=== PATIENT | male | born 1955 | race Caucasian/White ===

== ENCOUNTER 2017-01-11 12:36 | Emergency (ER) | payer SELFPAY ==
[~2017-01-11] VITALS: Ht 177.8 cm; Wt 125.0 kg
[~2017-01-11 12:36] MED LIST: DYAZ37.52 PO; FURO1TAB93 PO; LANO0.2510 PO; LEVO25TA36 PO; LISIPOW PO; METO25 PO; METO50TA PO; POTA-243 PO; PRIN20TA2 PO
[2017-01-11 12:37] VITALS: BP 190/99; PULSE 78; RESP 20; TEMP 98; O2SAT 100
--- NOTE | 2017-01-11 12:58 | PD ---
Physical Exam Time Seen by Provider: 12:56 Narrative 61yo M c/o diarrhea x 1-1/2 days. Denies abd pain, nausea, vomiting, fever. Also concerned that his defibrillator went off last night. Patient seen in triage. Awaiting bed placement. VS reviewed. Data Data Last Documented VS Vital Signs Date Time Temp Pulse Resp B/P Pulse Ox O2 Delivery O2 Flow Rate FiO2 01/11/17 12:37 98.0 78 20 190/99 100 Room Air MDM Supervised Visit with JOCELYNN: Angie Perkins Jan 11, 2017 12:58
[2017-01-11 16:47] VITALS: BP 174/113; PULSE 51; RESP 18; O2SAT 98
--- NOTE | 2017-01-11 16:57 | PD ---
HPI Chief Complaint: GI Complaint Time Seen by Provider: 16:57 Travel History International Travel<30 days: No Contact w/Intl Traveler<30days: No Traveled to known affect area: No History of Present Illness HPI 61-year-old male with a history of hypertension, diabetes, A. fib, CHF with a reported EF of 20% with pacemaker defibrillator presents to the emergency department for evaluation of 2 separate complaints: Defibrillator firing and diarrhea. The patient states that he is currently homeless and living in a nursing home and had 2 episodes of nonbloody diarrhea this morning and was told by the nursing home that he needed to come and be evaluated to make sure was not contagious. The patient also states that this morning around 4 AM he woke up suddenly and felt as though his defibrillator fired. States that he felt a jolt throughout his body with soreness in his chest which woke him up. PFSH Past Medical History Hx Anticoagulant Therapy: Yes (ELOQUIS ) ADHD: Yes Arthritis: No Asthma: No Anxiety: Yes Depression: Yes Heart Rhythm Problems: No Cardiac Catheterization: Yes (CATH WAS NEGATIVE, NO STENT PLACEMENT) Cardiovascular Problems: Yes (AICD , HTN) High Cholesterol: No Chest Pain: No Congestive Heart Failure: Yes COPD: No Cerebrovascular Accident: No Diabetes: Yes Patient Takes Glucophage: No Diminished Hearing: No GERD: No Genitourinary: No Headaches: No Hepatitis: No Hiatal Hernia: No Hypertension: Yes Kidney Stones: No Musculoskeletal: Yes (FX ANKLE LEFT, SKILL FX AT AGE 7.) Neurologic: No Reproductive: No Respiratory: No Immunizations Current: Yes Migraines: No Myocardial Infarction: No Renal Failure: No Seizures: No Sleep Apnea: Yes Ulcer: No Tetanus Vaccination: Unknown Influenza Vaccination: No ?: Not Past Surgical History Abdominal Surgery: Yes (GASTRIC BYPASS 2003) Appendectomy: Yes Cardiac Surgery: No Cholecystectomy: No Ear Surgery: No Endocrine Surgery: No Eye Surgery: No Genitourinary Surgery: No Gynecologic Surgery: No Oral Surgery: No Pacemaker: Yes ([employer]) Thoracic Surgery: No Tonsillectomy: Yes Other Surgery: Yes (HIATAL HERNIA REPAIR AGE 4) Social History Alcohol Use: No (QUIT 10/2008) Tobacco Use: No Substance Use: No Allergies-Medications (Allergen,Severity, Reaction): Coded Allergies: Ampicillin (Verified Allergy, Severe, 01/11/17) Fire Ant (Verified Allergy, Severe, Anaphylaxis, 01/11/17) Reported Meds & Prescriptions Reported Meds & Active Scripts Active Lasix (Furosemide) 40 Mg Tab 40 Mg PO DAILY Digoxin 0.25 Mg Tab 0.25 Mg PO DAILY Lisinopril 10 Mg Tab 10 Mg PO DAILY Reported Diphenhydramine (Diphenhydramine HCl) 25 Mg Tab 25 Mg PO DAILY PRN Eliquis (Apixaban) 5 Mg Tab 5 Mg PO BID Trazodone (Trazodone HCl) 50 Mg Tab 50 Mg PO HS Cymbalta DR (Duloxetine HCl) 60 Mg Capdr 60 Mg PO DAILY Lisinopril 10 Mg Tab 10 Mg PO DAILY Torsemide 20 Mg Tab 40 Mg PO DAILY Digoxin 0.25 Mg Tab 0.25 Mg PO DAILY Metoprolol Tartrate 50 Mg Tab 50 Mg PO BID Review of Systems Except as stated in HPI: all other systems reviewed are Neg Physical Exam Narrative GENERAL: Well-nourished and well-developed pleasant male patient in no acute distress who is nontoxic appearing. SKIN: Warm and dry. HEAD: Normocephalic and atraumatic. EYES: No injection, drainage, or hyphema noted. PERRLA. EOMI. ENT: No nasal drainage noted. Oropharynx is clear. NECK: Supple and the trachea is midline. CARDIOVASCULAR: Regular rate and rhythm. RESPIRATORY: Breath sounds are equal bilaterally with no accessory muscle use, wheezing, rhonchi, or crackles. GASTROINTESTINAL: Abdomen is soft, non-tender, and nondistended. MUSCULOSKELETAL: Bilateral lower extremity edema with slight weeping. No obvious deformities, cyanosis, or ecchymosis is present throughout the upper and lower extremities. Patient has full range of motion without any signs of neurovascular compromise. NEUROLOGICAL: Awake, alert, and oriented. Normal speech and gait. Cranial nerves are grossly intact. Data Data Last Documented VS Vital Signs Date Time Temp Pulse Resp B/P Pulse Ox O2 Delivery O2 Flow Rate FiO2 01/11/17 16:47 51 18 174/113 98 Room Air 01/11/17 12:37 98.0 Orders Complete Blood Count With Diff (01/11/17 16:55) Comprehensive Metabolic Panel (01/11/17 16:55) Iv Access Insert/Monitor (01/11/17 16:55) Ecg Monitoring (01/11/17 16:55) Oximetry (01/11/17 16:55) Sodium Chloride 0.9% Flush (Ns Flush) (01/11/17 17:00) Digoxin (01/11/17 16:55) Electrocardiogram (01/11/17 17:00) B-Type Natriuretic Peptide (01/11/17 17:21) Chest, Single Ap (01/11/17 17:21) Labs Laboratory Tests Test 01/11/17 17:15 White Blood Count 8.0 TH/MM3 Red Blood Count 4.55 MIL/MM3 Hemoglobin 10.0 GM/DL Hematocrit 32.3 % Mean Corpuscular Volume 71.0 FL Mean Corpuscular Hemoglobin 22.1 PG Mean Corpuscular Hemoglobin 31.1 % Concent Red Cell Distribution Width 19.0 % Platelet Count 258 TH/MM3 Mean Platelet Volume 6.9 FL Neutrophils (%) (Auto) 71.5 % Lymphocytes (%) (Auto) 16.7 % Monocytes (%) (Auto) 9.9 % Eosinophils (%) (Auto) 0.8 % Basophils (%) (Auto) 1.1 % Neutrophils # (Auto) 5.7 TH/MM3 Lymphocytes # (Auto) 1.3 TH/MM3 Monocytes # (Auto) 0.8 TH/MM3 Eosinophils # (Auto) 0.1 TH/MM3 Basophils # (Auto) 0.1 TH/MM3 CBC Comment DIFF FINAL Differential Comment Sodium Level 138 MEQ/L Potassium Level 3.7 MEQ/L Chloride Level 107 MEQ/L Carbon Dioxide Level 22.7 MEQ/L Anion Gap 8 MEQ/L Blood Urea Nitrogen 15 MG/DL Creatinine 1.31 MG/DL Estimat Glomerular Filtration 56 ML/MIN Rate Random Glucose 125 MG/DL Calcium Level 8.5 MG/DL Total Bilirubin 0.6 MG/DL Aspartate Amino Transf 19 U/L (AST/SGOT) Alanine Aminotransferase 20 U/L (ALT/SGPT) Alkaline Phosphatase 90 U/L B-Type Natriuretic Peptide 1143 PG/ML Total Protein 6.2 GM/DL Albumin 3.2 GM/DL Digoxin Level 1.3 NG/ML [facility] Medical Decision Making Medical Screen Exam Complete: Yes Emergency Medical Condition: Yes Differential Diagnosis Defibrillator firing versus atrial fibrillation versus heart failure versus renal failure versus medication refill Narrative Course 61-year-old male presents to the emergency department for evaluation of possible defibrillator firing last night. Patient is afebrile. He is hypertensive with a blood pressure 174/113. Patient is telling me that he's been out of his lisinopril for several days. States he took his last digoxin today. He has not been taking his Lasix because he states he does not have quick access to the bathroom at the nursing home. We'll check basic labs and if these are unremarkable we will discharge the patient with refills of these medications. EKG shows paced rhythm, no acute findings. Health Data Minder came and interrogated the patient's defibrillator and shows that it did not fire last night and the patient has been in atrial fibrillation. CBC shows moderate anemia with hemoglobin of 10.0, hematocrit 32.3, otherwise unremarkable. CMP shows mild renal insufficiency with a creatinine of 1.31, GFR 56. BNP is 1143. Digoxin is 1.3. Chest x-ray shows compensated cardiomegaly otherwise unremarkable. Patient has remained stable while here in the emergency department. Labs and imaging are reassuring. Shows signs of chronic heart failure but no evidence for acute heart failure. Patient will be given refills of Lisinopril and Digoxin and he is given a prescription for Lasix 40 mg and instructed to follow- up as an outpatient with a primary care. Patient is given outpatient resources. Patient verbalizes understanding and agreement with treatment plan. I discussed the case with my attending physician Dr. Simpson who is aware of the patients history, physical examination findings, and treatment plan. Diagnosis Primary Impression: Congestive heart failure Qualified Code: I50.9 - Chronic congestive heart failure, unspecified congestive heart failure type Additional Impression: Medication refill Referrals: Primary Care Physician Patient Instructions: General Instructions Additional Instructions: Take medications as prescribed. Follow-up with your Primary Care Physician. Return to the ED for any acute worsening of symptoms. Med/Other Pt SpecificInfo: Prescription(s) given Scripts Furosemide (Lasix)40 Mg Tab40 Mg PO DAILY #30 TAB Ref 0 Prov:Lori Simpson DO 01/11/17 Digoxin 0.25 Mg Tab0.25 Mg PO DAILY #30 TAB Ref 0 Prov:Lori Simpson DO 01/11/17 Lisinopril 10 Mg Tab10 Mg PO DAILY #30 TAB Ref 0 Prov:Lori Simpson DO 01/11/17 Disposition: 01 DISCHARGE HOME Condition: Stable Angie Mckeon Jan 11, 2017 16:57
[2017-01-11] MEDS ORDERED: SODIUM CHLORIDE 0.9% FLUSH 10 ML FLUSH IV FLUSH PRN (17:00)
[2017-01-11 17:32] LABS: AUTOMATED NEUTROPHIL # 5.7 TH/MM3 (1.8-7.7); BASOPHIL # 0.1 TH/MM3 (0-0.2); BASOPHIL % 1.1 % (0.0-2.0); EOSINOPHIL # 0.1 TH/MM3 (0-0.4); EOSINOPHIL % 0.8 % (0.0-4.0); HEMATOCRIT 32.3 % (39.0-51.0); HEMO FLAGS DIFF FINAL; LYMPH % 16.7 % (9.0-44.0); LYMPHOCYTE # 1.3 TH/MM3 (1.0-4.8); MEAN CORPUSCULAR HEMOGLOBIN 22.1 PG (27.0-34.0); MEAN CORPUSCULAR HGB CONC 31.1 % (32.0-36.0); MONO % 9.9 % (0.0-8.0); NEUT % 71.5 % (16.0-70.0); PLATELET COUNT 258 TH/MM3 (150-450); RED BLOOD COUNT 4.55 MIL/MM3 (4.50-5.90)
[2017-01-11 17:43] VITALS: BP 151/68; PULSE 102; RESP 20; TEMP 98.1; O2SAT 100
--- NOTE | 2017-01-11 17:53 | RADRPT ---
EXAM DATE/TIME: 01/11/2017 17:43 [facility] COMPARISON: No previous studies available for comparison. INDICATIONS : Palpitations. MEDICAL HISTORY : A-Fib. SURGICAL HISTORY : Pacemaker. ENCOUNTER: Initial ACUITY: 1 day PAIN SCORE: 0/10 LOCATION: Bilateral chest FINDINGS: Pacemaker is in good position. The lungs are clear. The heart is minimally enlarged. The pulmonary vascularity is normal. There is n o evidence for infiltrate or failure. The portion of the bony skeleton visualized is unremarkable. CONCLUSION: Compensated cardiomegaly otherwise negative Pacer in good position Clem Mendez MD FACR on January 11, 2017 at 17:50 Board Certified Radiologist. This report was verified electronically.
[2017-01-11 17:57] LABS: ANION GAP 8 MEQ/L (5-15); AST (GOT) 19 U/L (15-37); BICARBONATE 22.7 MEQ/L (21.0-32.0); BLOOD UREA NITROGEN 15 MG/DL (7-18); CHLORIDE 107 MEQ/L (98-107); GLOMERULAR FILTRATION RATE 56 ML/MIN (>89); POTASSIUM 3.7 MEQ/L (3.5-5.1); SODIUM (NA) 138 MEQ/L (136-145)
[2017-01-11 17:59] LABS: ALT (GPT) 20 U/L (12-78)
[2017-01-11] MEDS ORDERED: METO50TA PO (17:59)
[2017-01-11] MEDS ORDERED: DIGO0.25 PO ×2 (17:59→19:11)
[2017-01-11] MEDS ORDERED: TORS20TA PO (18:00)
[2017-01-11] MEDS ORDERED: CYMB60CA PO (18:02)
[2017-01-11] MEDS ORDERED: DIPH25TA2 PO (18:02)
[2017-01-11] MEDS ORDERED: LISI10TA3 PO ×2 (18:02→19:11)
[2017-01-11] MEDS ORDERED: TRAZ50TA12 PO (18:02)
[2017-01-11] MEDS ORDERED: APIX5TAB PO (18:02)
[2017-01-11 18:12] LABS: ALKALINE PHOSPHATASE 90 U/L (45-117); DIGOXIN 1.3 NG/ML (0.8-2.0); TOTAL BILIRUBIN ADULT 0.6 MG/DL (0.2-1.0)
[2017-01-11] MEDS ORDERED: FURO1TAB60 PO (19:11)
--- NOTE | 2017-01-12 17:08 | EKG ---
Date Performed: 01/11/2017 Time Performed: 17:30:23 PTAGE: 61 years EKG: UNCERTAIN IRREGULAR RHYTHM ELECTRONIC VENTRICULAR PACEMAKER -- CONTOUR ANALYSIS BASED ON IN TRINSIC RHYTHM ST DEVIATION AND MODERATE T-WAVE ABNORMALITY, CONSIDER LATERAL ISCHEMIA ABNORMAL ECG PREVIOUS TRACING : 01/18/2009 22.10 Compared to previous tracing, demand ventricular pacing is now present. DOCTOR: Arley Wall Interpretating Date/Time 01/12/2017 17:08:09
== END 2017-01-11 20:32 | disposition home or self-care (01) ==
LOC: NEPE 12:36
DX: R19.7 Diarrhea, unspecified (principal); I50.9 Heart failure, unspecified; D64.9 Anemia, unspecified; N28.9 Disorder of kidney and ureter, unspecified; I10 Essential (primary) hypertension; E11.9 Type 2 diabetes mellitus without complications; F41.9 Anxiety disorder, unspecified; F32.9 Major depressive disorder, single episode, unspecified; Z76.0 Encounter for issue of repeat prescription
CPT/HCPCS: 71010; 80053; 80162; 83880; 85025; 93005

== ENCOUNTER 2017-03-04 04:43 | Inpatient (IN) | payer SELFPAY ==
[2017-03-04] VITALS (9 sets, daily range): BP systolic 97–169; BP diastolic 61–97; PULSE 67–112; RESP 14–22; TEMP 97.4–98; O2SAT 96–100
[~2017-03-04] VITALS: Ht 177.8 cm; Wt 122.3 kg
[~2017-03-04 04:43] MED LIST changes: +APIX5TAB PO; +CYMB60CA PO; +DIGO0.25 PO; +DIPH25TA2 PO; -DYAZ37.52 PO; +FURO1TAB60 PO; -FURO1TAB93 PO; -LANO0.2510 PO; -LEVO25TA36 PO; +LISI10TA3 PO; -LISIPOW PO; -METO25 PO; -POTA-243 PO; -PRIN20TA2 PO; +TORS20TA PO; +TRAZ50TA12 PO
--- NOTE | 2017-03-04 05:03 | PD ---
HPI Chief Complaint: Cardiac Complaint Time Seen by Provider: 04:49 Travel History International Travel<30 days: No Contact w/Intl Traveler<30days: No Traveled to known affect area: No History of Present Illness HPI PATIENT C/O PROGRESSIVE SHORTNESS OF BREATH OVER PAST WEEK, WORSENING OVER PAST 2 DAYS, ALSO PATIENT C/O PALPITATIONS, WHICH WAS FOLLOWED BY DEFIBRILLATOR FIRING TODAY, PATIENT CAME TO ED FOR FURTHER EVAL....NO LOCAL PCP OR RECEIVER.....[employer] IS MAKER OF DEFIBRILLATOR. H/O CHF ( FAR BACK 2007 EF LESS THAN 30), AFIB (ON ELIQUIS), PACEMAKER DEFIBRILLATOR, HTN, SLEEP APNEA PFSH Past Medical History Hx Anticoagulant Therapy: Yes (ELOQUIS ) ADHD: Yes Arthritis: No Asthma: No Anxiety: Yes Depression: Yes Heart Rhythm Problems: No Cardiac Catheterization: Yes (CATH WAS NEGATIVE, NO STENT PLACEMENT) Cardiovascular Problems: Yes (AICD , HTN) High Cholesterol: No Chest Pain: No Congestive Heart Failure: Yes COPD: No Cerebrovascular Accident: No Diabetes: Yes Diminished Hearing: No GERD: No Genitourinary: No Headaches: No Hepatitis: No Hiatal Hernia: No Hypertension: Yes Kidney Stones: No Musculoskeletal: Yes (FX ANKLE LEFT, SKILL FX AT AGE 7.) Neurologic: No Reproductive: No Respiratory: No Immunizations Current: Yes Migraines: No Myocardial Infarction: No Renal Failure: No Seizures: No Sleep Apnea: Yes Ulcer: No ?: Not Past Surgical History Abdominal Surgery: Yes (GASTRIC BYPASS 2003) Appendectomy: Yes Cardiac Surgery: No Cholecystectomy: No Ear Surgery: No Endocrine Surgery: No Eye Surgery: No Genitourinary Surgery: No Gynecologic Surgery: No Oral Surgery: No Pacemaker: Yes ([employer]) Thoracic Surgery: No Tonsillectomy: Yes Other Surgery: Yes (HIATAL HERNIA REPAIR AGE 4) Social History Alcohol Use: No (QUIT 10/2008) Tobacco Use: No Substance Use: No Allergies-Medications (Allergen,Severity, Reaction): Coded Allergies: ampicillin (Unverified Allergy, Severe, 03/02/17) fire ant (Unverified Allergy, Severe, Anaphylaxis, 03/02/17) Reported Meds & Prescriptions Reported Meds & Active Scripts Active Review of Systems Except as stated in HPI: all other systems reviewed are Neg Cardiovascular: Positive: Chest Pain or Discomfort, Palpitations Respiratory: Positive: Shortness of Breath Physical Exam Narrative GENERAL: SKIN: Warm and dry. HEAD: Atraumatic. Normocephalic. EYES: Pupils equal and round. No scleral icterus. No injection or drainage. ENT: No nasal bleeding or discharge. Mucous membranes pink and moist. NECK: Trachea midline. POSITIVE JVD. CARDIOVASCULAR: TACHY AND IRREGULARLY IRREGULAR rhythm. RESPIRATORY: No accessory muscle use....LEFT BASILAR CRACKLES GASTROINTESTINAL: Abdomen soft, non-tender, nondistended. Hepatic and splenic margins not palpable. MUSCULOSKELETAL: Extremities without clubbing, cyanosis, LATRICE LE 3+ edema. No obvious deformities. NEUROLOGICAL: Awake and alert. No obvious cranial nerve deficits. Motor grossly within normal limits. Five out of 5 muscle strength in the arms and legs. Normal speech. PSYCHIATRIC: Appropriate mood and affect; insight and judgment normal. Data Data Last Documented VS Orders Orders Electrocardiogram (03/04/17 04:49) Complete Blood Count With Diff (03/04/17 04:49) Comprehensive Metabolic Panel (03/04/17 04:49) Ckmb (Isoenzyme) Profile (03/04/17 04:49) Troponin I (03/04/17 04:49) B-Type Natriuretic Peptide (03/04/17 04:49) Prothrombin Time / Inr (Pt) (03/04/17 04:49) Act Partial Throm Time (Ptt) (03/04/17 04:49) Lipase (03/04/17 04:49) Digoxin (03/04/17 04:49) Thyroid Stimulating Hormone (03/04/17 04:49) Iv Access Insert/Monitor (03/04/17 04:49) Furosemide Inj (Lasix Inj) (03/04/17 05:15) Aspirin Chew (Aspirin Chew) (03/04/17 05:15) Nitroglycerin 2% Oint (Nitroglycerin 2% (03/04/17 05:15) Chest, Pa & Lat (03/04/17 05:03) Diltiazem Inj (Cardizem Inj) (03/04/17 05:30) Admit Order (Ed Use Only) (03/04/17 06:49) Labs Laboratory Tests Test 03/04/17 05:05 White Blood Count 12.4 TH/MM3 Red Blood Count 4.89 MIL/MM3 Hemoglobin 10.5 GM/DL Hematocrit 33.8 % Mean Corpuscular Volume 69.0 FL Mean Corpuscular Hemoglobin 21.5 PG Mean Corpuscular Hemoglobin Concent 31.2 % Red Cell Distribution Width 17.2 % Platelet Count 202 TH/MM3 Mean Platelet Volume 7.6 FL Neutrophils (%) (Auto) 90.6 % Lymphocytes (%) (Auto) 3.8 % Monocytes (%) (Auto) 4.3 % Eosinophils (%) (Auto) 0.4 % Basophils (%) (Auto) 0.9 % Neutrophils # (Auto) 11.3 TH/MM3 Lymphocytes # (Auto) 0.5 TH/MM3 Monocytes # (Auto) 0.5 TH/MM3 Eosinophils # (Auto) 0.0 TH/MM3 Basophils # (Auto) 0.1 TH/MM3 CBC Comment AUTO DIFF Differential Comment AUTO DIFF CONFIRMED Platelet Estimate NORMAL Platelet Morphology Comment NORMAL Ovalocytes 2+ Prothrombin Time 13.4 SEC Prothromb Time International Ratio 1.2 RATIO Activated Partial Thromboplast Time 27.1 SEC Blood Urea Nitrogen 21 MG/DL Creatinine 1.80 MG/DL Random Glucose 143 MG/DL Total Protein 6.5 GM/DL Albumin 3.5 GM/DL Calcium Level 8.4 MG/DL Alkaline Phosphatase 80 U/L Aspartate Amino Transf (AST/SGOT) 17 U/L Alanine Aminotransferase (ALT/SGPT) 15 U/L Total Bilirubin 1.4 MG/DL Sodium Level 138 MEQ/L Potassium Level 3.4 MEQ/L Chloride Level 102 MEQ/L Carbon Dioxide Level 24.7 MEQ/L Anion Gap 11 MEQ/L Estimat Glomerular Filtration Rate 39 ML/MIN Total Creatine Kinase 57 U/L Troponin I 0.03 NG/ML B-Type Natriuretic Peptide 925 PG/ML Lipase 118 U/L Thyroid Stimulating Hormone 3rd Gen 6.260 uIU/ML Digoxin Level LESS THAN 0.1 NG/ML MDM Medical Decision Making Medical Screen Exam Complete: Yes Emergency Medical Condition: Yes Medical Record Reviewed: Yes Interpretation(s) AIB WITH RVR 112, INCOMPLETE LBBB, INVERTED T WAVE ON I,AVL,V5/V6 Differential Diagnosis STEMI V NONSTEMI V CHF EXAC V MALFUNCTIONING DEVICE Narrative Course patient given diuretic to aid his sob, afib with rvr likely secondary to decomp chf...will admit for obs and device interrogation Diagnosis Primary Impression: AFIB WITH RVR Additional Impression: Acute decompensated heart failure Admitting Information Admitting Physician Requests: Observation Scripts Lisinopril (Lisinopril) 10 Mg Tab 10 MG PO DAILY for Blood Pressure Management, #30 TAB 0 Refills Prov: Rick William MD 03/09/17 Potassium Chloride ER (Potassium Chloride ER) 20 Meq Tab 20 MEQ PO DAILY for Electrolyte Replacement, #30 TAB 0 Refills Prov: Rick William MD 03/09/17 Bumetanide (Bumetanide) 1 Mg Tab 1 MG PO BID, #60 TAB 0 Refills May take extra pill per every 24 hours for worsening swelling in legs Prov: Rick William MD 03/09/17 Metolazone (Metolazone) 5 Mg Tab 5 MG PO DAILY for Regulate Heart Beat, #30 TAB 0 Refills Prov: Rick William MD 03/09/17 Metoprolol Tartrate (Lopressor) 100 Mg Tab 100 MG PO BID@08,20 for Regulate Heart Beat, #60 TAB Prov: Rick William MD 03/09/17 Apixaban (Eliquis) 5 Mg Tab 5 MG PO BID for Blood Clot Prevention, #60 TAB 0 Refills Prov: Rick William MD 03/09/17 Trazodone (Trazodone) 50 Mg Tab 50 MG PO HS for Control Depression, #30 TAB 0 Refills Prov: Rick William MD 03/09/17 Duldorothy AUSTIN (Espinoza A[place]IN) 60 Mg Capdr 60 MG PO DAILY for Depression Control, #30 CAP 0 Refills Prov: Rick William MD 03/09/17 Jayce Waterman MD Mar 04, 2017 05:03
[2017-03-04 05:12] LABS: AUTOMATED NEUTROPHIL # 11.3 TH/MM3 (1.8-7.7); BASOPHIL # 0.1 TH/MM3 (0-0.2); BASOPHIL % 0.9 % (0.0-2.0); EOSINOPHIL % 0.4 % (0.0-4.0); HEMATOCRIT 33.8 % (39.0-51.0); LYMPH % 3.8 % (9.0-44.0); LYMPHOCYTE # 0.5 TH/MM3 (1.0-4.8); MEAN CORPUSCULAR HEMOGLOBIN 21.5 PG (27.0-34.0); MEAN CORPUSCULAR HGB CONC 31.2 % (32.0-36.0); MONO % 4.3 % (0.0-8.0); NEUT % 90.6 % (16.0-70.0); PLATELET COUNT 202 TH/MM3 (150-450); RED BLOOD COUNT 4.89 MIL/MM3 (4.50-5.90); RED CELL DISTRIBUTION WIDTH 17.2 % (11.6-17.2); WHITE BLOOD COUNT 12.4 TH/MM3 (4.0-11.0)
[2017-03-04 05:13] LABS: HEMO FLAGS AUTO DIFF
[2017-03-04] MEDS ORDERED: ASPIRIN 81 MG CHEW TAB PO ONE (05:15)
[2017-03-04] MEDS ORDERED: FUROSEMIDE 100 MG/10 ML VIAL IVP ONE (05:15)
[2017-03-04] MEDS ORDERED: NITROGLYCERIN 2% OINT 1 GM PACKET TOP ONE (05:15)
--- NOTE | 2017-03-04 05:21 | RADRPT ---
EXAM DATE/TIME: 03/04/2017 05:02 [facility] COMPARISON: CHEST SINGLE AP, January 11, 2017, 17:43. INDICATIONS : Weakness. Shortness of breath. Chest pain. MEDICAL HISTORY : A-fib. SURGICAL HISTORY : Pacemaker. ENCOUNTER: Initial ACUITY: 1 day PAIN SCORE: 3/10 LOCATION: Bilateral chest FINDINGS: Interval development of a large left pleural effusion causing obscuration of the entire left hemidiap hragm and most the left heart border. Meniscal interface laterally. The right lung is clear. The h eart is enlarged, similar to prior. Cardiac pacer leads stable. CONCLUSION: Interval development of large left pleural effusion. Kartik Winters MD on March 04, 2017 at 5:18 Board Certified Radiologist. This report was verified electronically.
[2017-03-04 05:26] LABS: APTT (PATIENT) 27.1 SEC (24.3-30.1); INTERNATIONAL NORMALIZED RATIO 1.2 RATIO; PROTHROMBIN TIME - PATIENT 13.4 SEC (9.8-11.6)
[2017-03-04] MEDS ORDERED: DILTIAZEM HCL 25 MG/5 ML VIAL IV ONE ×2 (05:30→14:30)
[2017-03-04 05:44] LABS: OVALOCYTES 2+ (NORMAL); PLATELET ESTIMATE SMEAR NORMAL (NORMAL); PLATELET MORPHOLOGY NORMAL (NORMAL); SCAN/DIFF AUTO DIFF CONFIRMED
[2017-03-04 05:50] LABS: ALT (GPT) 15 U/L (12-78); ANION GAP 11 MEQ/L (5-15); AST (GOT) 17 U/L (15-37); BICARBONATE 24.7 MEQ/L (21.0-32.0); BLOOD UREA NITROGEN 21 MG/DL (7-18); CHLORIDE 102 MEQ/L (98-107); GLOMERULAR FILTRATION RATE 39 ML/MIN (>89); POTASSIUM 3.4 MEQ/L (3.5-5.1); SODIUM (NA) 138 MEQ/L (136-145)
[2017-03-04 06:07] LABS: ALKALINE PHOSPHATASE 80 U/L (45-117); DIGOXIN LESS THAN 0.1 NG/ML (0.8-2.0); TOTAL BILIRUBIN ADULT 1.4 MG/DL (0.2-1.0)
[2017-03-04 06:08] LABS: CREATINE KINASE 57 U/L (39-308)
[2017-03-04] MEDS ORDERED: SODIUM CHLORIDE 0.9% FLUSH 10 ML FLUSH IV FLUSH PRN (07:00)
[2017-03-04] MEDS ORDERED: SENNOSIDES 8.6 MG TAB PO PRN (07:00)
[2017-03-04] MEDS ORDERED: BISACODYL 10 MG SUPP RECTAL PRN (07:00)
[2017-03-04] MEDS ORDERED: LACTULOSE SYRUP 20 GM/30 ML CUP PO PRN (07:00)
[2017-03-04] MEDS ORDERED: MAGNESIUM HYDROXIDE SUSP 30 ML CUP PO PRN (07:00)
[2017-03-04] MEDS ORDERED: NALOXONE HCL 0.4 MG/ML AMP IV PRN (07:00)
--- NOTE | 2017-03-04 08:59 | EKG ---
Date Performed: 03/04/2017 Time Performed: 04:55:20 PTAGE: 61 years EKG: ATRIAL FIBRILLATION WITH RAPID VENTRICULAR RESPONSE POSSIBLE LATERAL MYOCARDIAL INFARCTION ABNORMAL ECG PREVIOUS TRACING : 01/11/2017 17.30 compared to the previous EKG atrial fibrillation with rapi d ventricular response is new DOCTOR: Fredrick Castro Interpretating Date/Time 03/04/2017 08:54:47
[2017-03-04] MEDS: SODIUM CHLORIDE 0.9% FLUSH 10 ML FLUSH IV FLUSH SCH ×2 (09:10→20:59)
[2017-03-04] MEDS: DOCUSATE SODIUM 50 MG/SENNA 8.6 MG TAB PO SCH ×2 (09:24→20:58)
--- NOTE | 2017-03-04 09:26 | HHI.HP ---
[facility] Service [facility] Primary Care Physician No Primary Care Physician Admission Diagnosis AFIB WITH RVR, CHF EXAC, S/P AICD FIRING Diagnoses: Chief Complaint: "My defibrillator shocked me" Travel History International Travel<30 Days: No Contact w/Intl Traveler <30 Da: No Traveled to Known Affected Are: No History of Present Illness 61-year-old white male being admitted for ICD firings and shortness of breath. Patient reports being in his usual state of health until yesterday evening when he started feeling his defibrillator fire. He had taken both of his twice a day doses of metoprolol earlier in the day and in response to this first set of shots he took an extra dose which she says usually helps but did not this time. So he took a fourth dose of metoprolol which he says helped somewhat with the shock still persisting so he decided to proceed to the ER. Prior to the shocks U denies any acute changes in his health. Says that he has intermittent fluctuating shortness of breath that was worse earlier in the morning yesterday and got better by the evening. Denies having any chest pain prior to the shocks or any lightheadedness or generalized weakness or any persistent worsening shortness of breath. His is present at the bedside and says that his lower extremity swelling has worsened over time (patient says it has been worse than this); patient also says that his abdominal distention is slightly worse. Denies any nausea. Patient does report being out of his medications due to financial issues for many months (including lisinopril); says that the only medications he's been taking regularly as his metoprolol and eliquis. Says that he has been taking his torsemide on and off to try to spare the supply. Says that he had his ICD placed in [facility] less than 2 years ago. Denies ever having any cardiac stents or bypass surgery. Review of Systems Except as stated in HPI: all other systems reviewed are Neg Past Family Social History Past Medical History afib, depression, CHFrEF (25-30%). Past Surgical History appendectomy, abdominal hernia, multiple "normal cardiac caths" per patient; most recent in system in 2007 w/ normal coronaries. Allergies: Coded Allergies: ampicillin (Unverified Allergy, Severe, 03/02/17) fire ant (Unverified Allergy, Severe, Anaphylaxis, 03/02/17) Family History HTN Social History lives in [facility] (homeless), denies smoking, drinks 3-4 beers a few times a week Physical Exam Vital Signs Vital Signs Date Time Temp Pulse Resp B/P Pulse Ox O2 Delivery O2 Flow Rate FiO2 03/04/17 06:47 93 18 96 Nasal Cannula 2 03/04/17 05:24 112 18 169/97 99 Room Air 03/04/17 04:47 97.6 95 16 97 Physical Exam VS: Reviewed GENERAL: No acute distress SKIN: Warm and dry. Chronic brawny skin changes on anterior shins bilaterally EYES: No scleral icterus. No injection or drainage. ENT: No nasal bleeding or discharge. CARDIOVASCULAR: Regular rate and rhythm. no murmurs, trace JVD, 2+ moderate lower extremity edema RESPIRATORY: No accessory muscle use. Slightly decreased breath sounds on the left base, otherwise clear on the left and completely clear on the right GASTROINTESTINAL: Abdomen soft, mildly distended and diffusely MUSCULOSKELETAL: Extremities without clubbing, cyanosis, or edema. No obvious deformities. grossly intact ROM with 5/5 strength in upper and lower extremities proximally NEUROLOGICAL: Awake and alert. No obvious cranial nerve deficits. No facial droop nor slurred speech noted. PSYCHIATRIC: insight and judgment normal. Laboratory Laboratory Tests Test 03/04/17 05:05 White Blood Count 12.4 Red Blood Count 4.89 Hemoglobin 10.5 Hematocrit 33.8 Mean Corpuscular Volume 69.0 Mean Corpuscular Hemoglobin 21.5 Mean Corpuscular Hemoglobin 31.2 Concent Red Cell Distribution Width 17.2 Platelet Count 202 Mean Platelet Volume 7.6 Neutrophils (%) (Auto) 90.6 Lymphocytes (%) (Auto) 3.8 Monocytes (%) (Auto) 4.3 Eosinophils (%) (Auto) 0.4 Basophils (%) (Auto) 0.9 Neutrophils # (Auto) 11.3 Lymphocytes # (Auto) 0.5 Monocytes # (Auto) 0.5 Eosinophils # (Auto) 0.0 Basophils # (Auto) 0.1 CBC Comment AUTO DIFF Differential Comment AUTO DIFF CONFIRMED Platelet Estimate NORMAL Platelet Morphology Comment NORMAL Ovalocytes 2+ Prothrombin Time 13.4 Prothromb Time International 1.2 Ratio Activated Partial 27.1 Thromboplast Time Sodium Level 138 Potassium Level 3.4 Chloride Level 102 Carbon Dioxide Level 24.7 Anion Gap 11 Blood Urea Nitrogen 21 Creatinine 1.80 Estimat Glomerular Filtration 39 Rate Random Glucose 143 Calcium Level 8.4 Total Bilirubin 1.4 Aspartate Amino Transf 17 (AST/SGOT) Alanine Aminotransferase 15 (ALT/SGPT) Alkaline Phosphatase 80 Total Creatine Kinase 57 Troponin I 0.03 B-Type Natriuretic Peptide 925 Total Protein 6.5 Albumin 3.5 Lipase 118 Thyroid Stimulating Hormone 6.260 3rd Gen Digoxin Level LESS THAN 0.1 Result Diagram: 03/04/17 0505 03/04/17 050 Imaging Last Impressions Chest X-Ray 03/04/17 0503 Signed Impressions: Service Date/Time: , March 04, 2017 05:02 - CONCLUSION: Interval development of large left pleural effusion. Kartik Winters MD My independent review of the film does show substantial left-sided pleural effusion along with an enlarged heart Assessment and Plan Problem List: (1) Medication refill ICD Code: Z76.0 Status: Acute (2) Congestive heart failure ICD Code: I50.9 Status: Acute (3) Acute decompensated heart failure ICD Code: I50.9 Status: Acute Assessment and Plan 61-year-old white male being admitted for ICD firings and acute decompensated heart failure. History of medication noncompliance. 1) ICD firings - Unsure if this is due to A. fib with RVR versus something more serious such as V. tach. Received diltiazem injection and emergency department, currently stable rhythm. Contacting dredge pumper to interrogate device. Placing patient on telemetry and ordering serum magnesium. We'll consider touching base with EP. will trend cardiac troponins at this time to look for any severely elevated levels as they are likely to be elevated from Afib and shocks. 2) pleural effusion - Likely secondary to heart failure given clinical picture, will assess for thoracentesis with labs to be drawn. Received IV Lasix in the emergency department. 3) CHFrEF% - resume home dose of lisinopril, judicious diuresis given impaired RF, continue home metoprolol. ordering Free T4 given elevated TSH. 4) afib - continue home lopressor, hold eliquis in light of possible procedure 5) renal insufficiency - suspect this is chronic, judicious diuresis, starting lisinopril. 6) depression - monitor conservatively since pt has been off of meds, may consider restarting trazodone over cymbalta given less cardiac S/Es. 7) elevatd tsh - ordering free t4 Physician Certification 2 Midnight Certification Type: Admission for Inpatient Services Order for Inpatient Services The services are ordered in accordance with Medicare regulations or non- Medicare payer requirements, as applicable. In the case of services not specified as inpatient-only, they are appropriately provided as inpatient services in accordance with the 2-midnight benchmark. Estimated LOS (days): 3 3 days is the estimated time the patient will need to remain in the hospital, assuming treatment plan goals are met and no additional complications. Post-Hospital Plan: Home Rick William MD Mar 04, 2017 09:26
[2017-03-04] MEDS ORDERED: METOPROLOL TARTRATE 50 MG TAB PO SCH (10:00)
[2017-03-04] MEDS ORDERED: LISINOPRIL 10 MG TAB PO SCH (10:00)
[2017-03-04] MEDS ORDERED: TORSEMIDE 20 MG TAB PO SCH (10:00)
[2017-03-04 10:31] LABS: MAGNESIUM 1.9 MG/DL (1.5-2.5)
[2017-03-04 10:34] LABS: FREE T4 1.37 NG/DL (0.76-1.46)
[2017-03-04] MEDS ORDERED: ACETAMINOPHEN 500 MG CPLT PO ONE (14:30)
[2017-03-04] MEDS ORDERED: LORazepam 2 MG/ML VIAL IV PUSH PRN (15:00)
[2017-03-04] MEDS ORDERED: MAGNESIUM SULFATE 1 GM PREMIX 100 ML IV ONE (16:45)
[2017-03-04] MEDS: DILTIAZEM-CD 180 MG CAP ER PO SCH (17:24)
--- NOTE | 2017-03-04 20:47 | MB ---
cc: DAVID SOLORZANO M.D. DATE OF CONSULTATION 03/04/17 ELECTROPHYSIOLOGY CONSULT REASON FOR CONSULTATION Defibrillatory shock, atrial fibrillation with biventricular response. HISTORY OF PRESENT ILLNESS Mr. Varela is a 61-year-old gentleman with history of atrial fibrillation, congestive heart failure, cardiomyopathy. He has a defibrillator implanted around 2 years ago in [place], [place]. He has heart failure. He has atrial fibrillation. His ejection is around 20%. His condition began to deteriorate. He has a recent hospitalization in December, was discharged home. The gentleman readmitted due to congestive heart failure, uncompensated and atrial fibrillation with biventricular response and multiple defibrillatory shock. The chart was reviewed. The patient was evaluate ALLERGIES AMPICILLIN AND FIRE ANT. SOCIAL HISTORY The patient used to drink three beers a day. Stopped drinking around 6 months ago. FAMILY HISTORY Noncontributory to his current medical condition. MEDICATIONS Currently he is takin. Trazodone 50 milligrams at bedtime. 2. Metoprolol 100 milligrams twice a day. 3. Lorazepam. 4. Cardizem 180 milligrams a day. 5. Lisinopril 10 milligrams a day. 6. Torsemide. REVIEW OF SYSTEMS Currently, refers shortness of breath on minimal activity. No chest pain or chest discomfort. He referred defibrillatory shock. PHYSICAL EXAMINATION GENERAL: Alert, fully oriented. VITAL SIGNS: Blood pressure 131/81, pulse 98, respiratory rate 20, 22. LUNGS: Some minimal crackles. CARDIOVASCULAR: S1-S2, irregular, tachycardia. There is a systolic ejection murmur, 2/6. ABDOMEN: Obese. No mass or bruit. EXTREMITIES: Edema +2, 3. LABORATORY DATA Hemoglobin 10.5, white blood cell 12.4, potassium 3.4, creatinine is 1.80. Troponin 0.03. TSH 6.26, INR 1.2. ASSESSMENT AND RECOMMENDATIONS Mr. Varela has atrial fibrillation. Heart rate very difficult to control. He is in atrial fibrillation most of the time. 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 His heart rate will need to be controlled. Also, he severe edema of the extremity. He is on torsemide. I am going to DC that and put him on Bumex. I understand the creatinine is 1.82. I am going to add Entresto tomorrow. By increasing output renal function may be improved. This is why lisinopril will be DCd, Entresto will be added. I am going to request a 2-D echo. Defibrillatory shock were due to atrial fibrillation biventricular response. I am going to request an echocardiogram. If the gentleman has a very severe enlarged left atrium and not a candidate for atrial fibrillation ablation then he will need AV node modification and bi-V pacing. Otherwise, if the atrium is less than 5.9 centimeters then I will give it a ___ to atrial fibrillation ablation. The case extensively discussed with him. He was on anticoagulation at home, Eliquis. For now Eliquis will be held. Medication will be modified. Further decision will be taken in the morning. The patient also needs a nuclear stress study to rule out ischemia. There is no history of coronary artery disease. David Solorzano MD HS/EO /6:49 PM /8:29 PM
[2017-03-04] MEDS: METOPROLOL TARTRATE 100 MG TAB PO SCH (20:58)
[2017-03-04] MEDS: BUMETANIDE INJ 1 MG/4 ML VIAL IV PUSH SCH (20:59)
[2017-03-04] MEDS: traZODone HCL 50 MG TAB PO SCH (20:59)
[2017-03-05] VITALS (9 sets, daily range): BP systolic 103–146; BP diastolic 70–100; PULSE 70–97; RESP 16–22; TEMP 97.6–99.2; O2SAT 95–100
[2017-03-05] MEDS: SODIUM CHLORIDE 0.9% FLUSH 10 ML FLUSH IV FLUSH SCH ×2 (07:49→20:57)
[2017-03-05] MEDS: DOCUSATE SODIUM 50 MG/SENNA 8.6 MG TAB PO SCH ×2 (08:47→20:56)
[2017-03-05] MEDS: DILTIAZEM-CD 180 MG CAP ER PO SCH (08:47)
[2017-03-05] MEDS: METOPROLOL TARTRATE 100 MG TAB PO SCH ×2 (08:47→20:57)
[2017-03-05] MEDS: BUMETANIDE INJ 1 MG/4 ML VIAL IV PUSH SCH ×2 (08:47→17:29)
[2017-03-05] MEDS ORDERED: REGADENOSON INJ 0.4 MG/5 ML SYR ONE (09:22)
[2017-03-05 09:51] LABS: BICARBONATE 27.4 MEQ/L (21.0-32.0)
[2017-03-05 10:01] LABS: POTASSIUM 2.9 MEQ/L (3.5-5.1)
[2017-03-05] MEDS ORDERED: LIDOCAINE HCL 1% PF 30 ML VIAL ONE (11:16)
--- NOTE | 2017-03-05 12:04 | RADRPT ---
EXAM DATE/TIME: 03/05/2017 11:49 [facility] COMPARISON: CHEST PA & LAT, March 04, 2017, 5:02. INDICATIONS : Post thoracentesis. MEDICAL HISTORY : Atrial fibrillation. SURGICAL HISTORY : Pacemaker. ENCOUNTER: Initial ACUITY: 1 day PAIN SCORE: 0/10 LOCATION: Bilateral chest FINDINGS: The heart is enlarged. Pericardial effusion is not excluded. There is a left basilar effusion and con solidative change. There is decreased volume of fluid at the left base compared to previous study. Th ere is a small effusion at the right lung base. CONCLUSION: 1. Bilateral effusions larger on the left than the right with consolidation in the left lung base. Th ere has been a significant reduction in the volume of the fluid on the left compared to previous. No pneumothorax is seen. 2. Advanced cardiomegaly. Pericardial effusion is not excluded. Joe Mendez MD on March 05, 2017 at 12:01 Board Certified Radiologist. This report was verified electronically.
--- NOTE | 2017-03-05 12:15 | RADRPT ---
EXAM DATE/TIME: 03/05/2017 10:59 [facility] COMPARISON: No previous studies available for comparison. INDICATIONS : Left pleural effusion. MEDICAL HISTORY : Congestive heart failure. HTN. Sleep apnea. Left ankle fracture. Diabetes. ADHD. Depression. Anxiet y. Anticoagulant therapy, Eliquis. SURGICAL HISTORY : Appendectomy. Tonsillectomy. Pacemaker. Cardiac cath. Hiatal hernia repair. Gastric bypass. ENCOUNTER: Initial ACUITY: 2 days PAIN SCORE: 0/10 LOCATION: Left chest FLUID: Total volume of 1,300 cc of clear, yellow fluid was removed. Fluid was sent to lab for ordered studies. TECHNIQUE: 1. Ultrasound guidance for thoracentesis. 2. Thoracentesis. The risks, benefits, and alternatives to ultrasound guided thoracentesis were explained to the patien t in lay simple terms, including the risk of bleeding and infection. Written and verbal informed con sent was obtained. Appropriate area for thoracentesis was marked under ultrasound guidance with the patient in the uprig ht position. Overlying skin was prepped and draped in the usual sterile fashion and with local anest hetic, a dermatotomy was made with an 11 blade scalpel. A 6 [place]awk thoracentesis catheter was placed in the pleural space and fluid was removed. Catheter was then removed and a sterile dressing applie d. There were no immediate complications. The patient tolerated the procedure well and the left the ultrasound suite in stable condition. Chest radiograph is to be obtained. CONCLUSION: Uncomplicated ultrasound guided thoracentesis. Clem Mendez MD FACR on March 05, 2017 at 12:14 Board Certified Radiologist. This report was verified electronically.
[2017-03-05 13:25] LABS: PLEURAL FLUID LYMPHS 18 %
--- NOTE | 2017-03-05 17:34 | HHI.PR ---
Subjective Remarks Follow-up on ICD firing. Says that he feels about the same breathing-palm since yesterday. Does report having some persistent sputum production after the thoracentesis. Says his lower extremity swelling still about the same, says he did not experience any chest pain during the stress test today. Objective Vital Signs Date Time Temp Pulse Resp B/P Pulse Ox O2 Delivery O2 Flow Rate FiO2 03/05/17 12:15 72 16 135/89 100 03/05/17 12:09 Room Air 03/05/17 12:00 78 16 146/100 100 03/05/17 12:00 97.6 82 20 113/75 97 03/05/17 11:45 98.0 76 16 138/98 100 03/05/17 11:15 99.2 70 20 120/77 98 03/05/17 08:00 98.1 80 20 139/78 95 03/05/17 04:00 Room Air 03/05/17 04:00 97.7 97 18 146/79 96 03/05/17 00:00 Room Air 03/05/17 00:00 98.3 87 18 103/70 99 03/04/17 20:00 98.0 67 18 136/72 96 03/04/17 20:00 Room Air 03/04/17 20:00 87 I/O 03/04/17 03/04/17 03/04/17 03/05/17 03/05/17 03/05/17 07:00 15:00 23:00 07:00 15:00 23:00 Intake Total 480 ml 240 ml Output Total 400 ml 400 ml 900 ml Balance -400 ml 80 ml -660 ml Intake Oral 480 ml 240 ml Output Urine Total 400 ml 400 ml 900 ml # Voids 1 # Bowel Movements 1 0 Result Diagram: 03/04/17 0505 03/05/17 0809 Imaging Last Impressions Thoracentesis Ultrasound 03/05/17 0000 Signed Impressions: Service Date/Time: Sunday, March 05, 2017 10:59 - CONCLUSION: Uncomplicated ultrasound guided thoracentesis. Clem Mendez MD FACR Chest X-Ray 03/05/17 0000 Signed Impressions: Service Date/Time: Sunday, March 05, 2017 11:49 - CONCLUSION: 1. Bilateral effusions larger on the left than the right with consolidation in the left lung base. There has been a significant reduction in the volume of the fluid on the left compared to previous. No pneumothorax is seen. 2. Advanced cardiomegaly. Pericardial effusion is not excluded. Joe Mendez MD Objective Remarks GENERAL: Resting comfortably in bed, no acute distress CARDIOVASCULAR: Regular rate and rhythm without murmurs, gallops, or rubs. RESPIRATORY: Minimal rales on left base, otherwise breath sounds are good bilaterally and clear GASTROINTESTINAL: Abdomen soft, non-tender, nondistended. MUSCULOSKELETAL: No cyanosis: Moderate +1 pitting edema in both lower extremities A/P Problem List: (1) Congestive heart failure ICD Code: I50.9 (2) Acute decompensated heart failure ICD Code: I50.9 Assessment and Plan 61-year-old white male being admitted for ICD firings and acute decompensated heart failure. History of medication noncompliance. 1) ICD firings - Fortunately has stopped firing, electrophysiology consulted and appreciate recommendations. Heart rate is under good control currently w/ diltiazem and lopressor. Stress test results are pending 2) pleural effusion - Improved with thoracentesis yesterday 3) CHFrEF% -Swapped from lisinopril to entresto, judicious diuresis given impaired RF, continue home metoprolol. ordering Free T4 given elevated TSH. Is currently on Bumex per cardiology 4) afib - continue home lopressor, hold eliquis in light of possible procedure 5) renal insufficiency - suspect this is chronic, judicious diuresis, on entresto 6) depression - monitor conservatively since pt has been off of meds, may consider restarting trazodone over cymbalta given less cardiac S/Es. 7) elevatd tsh -free t4 wnl Continue diuresis for another day, sputum culture ordered, pending further cardiac test results and further recs regarding afib tx. Rick William MD Mar 05, 2017 17:34
[2017-03-05] MEDS ORDERED: POTASSIUM CHLORIDE 10 MEQ CONTROLLED RELEASE TAB PO ONE (18:00)
[2017-03-05] MEDS: traZODone HCL 50 MG TAB PO SCH (20:56)
[2017-03-05] MEDS: SACUBITRIL/VALSARTAN 24 MG-26 MG TAB PO SCH (20:57)
--- NOTE | 2017-03-05 22:34 | HHI.PR ---
Subjective Remarks Feeling better Objective Vital Signs Date Time Temp Pulse Resp B/P Pulse Ox O2 Delivery O2 Flow Rate FiO2 03/05/17 16:00 97.8 72 22 128/72 97 03/05/17 12:15 72 16 135/89 100 03/05/17 12:09 Room Air 03/05/17 12:00 78 16 146/100 100 03/05/17 12:00 97.6 82 20 113/75 97 03/05/17 11:45 98.0 76 16 138/98 100 03/05/17 11:15 99.2 70 20 120/77 98 03/05/17 08:00 98.1 80 20 139/78 95 03/05/17 04:00 Room Air 03/05/17 04:00 97.7 97 18 146/79 96 03/05/17 00:00 Room Air 03/05/17 00:00 98.3 87 18 103/70 99 I/O 03/04/17 03/04/17 03/04/17 03/05/17 03/05/17 03/05/17 06:59 14:59 22:59 06:59 14:59 22:59 Intake Total 480 ml 240 ml Output Total 400 ml 400 ml 900 ml Balance -400 ml 80 ml -660 ml Intake Oral 480 ml 240 ml Output Urine Total 400 ml 400 ml 900 ml # Voids 1 # Bowel Movements 1 0 Result Diagram: 03/04/17 0505 03/05/17 0809 Imaging Alert, fully oriented Lungs: ventilated Heart: S1, S2 irregular Abdomen: soft, no mass Ext: edema +1 Last Impressions Thoracentesis Ultrasound 03/05/17 0000 Signed Impressions: Service Date/Time: Sunday, March 05, 2017 10:59 - CONCLUSION: Uncomplicated ultrasound guided thoracentesis. Clem Mendez MD FACR Chest X-Ray 03/05/17 0000 Signed Impressions: Service Date/Time: Sunday, March 05, 2017 11:49 - CONCLUSION: 1. Bilateral effusions larger on the left than the right with consolidation in the left lung base. There has been a significant reduction in the volume of the fluid on the left compared to previous. No pneumothorax is seen. 2. Advanced cardiomegaly. Pericardial effusion is not excluded. Joe Mendez MD Current Medications Medications (Trade) Dose Ordered Sig/Dyllan Route Start Time Stop Time Status Last Admin (NS Flush) 2 ml UNSCH PRN IV FLUSH 03/04/17 07:00 (NS Flush) 2 ml BID IV FLUSH 03/04/17 09:00 03/05/17 20:57 (Narcan Inj) 0.4 mg UNSCH PRN IV 03/04/17 07:00 (Kathie-Colace) 1 tab BID PO 03/04/17 09:00 03/05/17 08:47 (Milk Of Magnesia Liq) 30 ml Q12H PRN PO 03/04/17 07:00 (Senokot) 17.2 mg Q12H PRN PO 03/04/17 07:00 (Dulcolax Supp) 10 mg DAILY PRN RECTAL 03/04/17 07:00 (Lactulose Liq) 30 ml DAILY PRN PO 03/04/17 07:00 (Desyrel) 50 mg HS PO 03/04/17 21:00 03/05/17 20:56 (Ativan Inj) 1 mg Q4H PRN IV PUSH 03/04/17 15:00 (Cardizem Cd) 180 mg DAILY PO 03/04/17 15:00 03/05/17 08:47 (Lopressor) 100 mg BID@08,20 PO 03/04/17 20:00 03/05/17 20:57 (Bumex Inj) 1 mg BID@09,18 IV PUSH 03/04/17 19:00 03/05/17 17:29 (Entresto 24-26 Mg) 1 tab BID PO 03/05/17 21:00 03/05/17 20:57 Assessment and Plan Problem List: (1) Congestive heart failure Status: Acute Plan: patient doing better SOB improve Thoracocentesis toady On IV bumex Creat improve Entresto will initiated tonight Continue with current management Waiting for echo report to decide about afib ablation VS AV node modification. (2) Atrial fibrillation Status: Acute Plan: In afib HR control. Base on echo report further decision will be taken Aminata Frias MD Mar 05, 2017 22:34
[2017-03-06 04:00] VITALS: BP 139/83; PULSE 87; RESP 18; TEMP 97.7; O2SAT 97
[2017-03-06 08:00] VITALS: BP 155/85; PULSE 82; PULSE 91; RESP 20; TEMP 97.7; O2SAT 98
[2017-03-06] MEDS: DOCUSATE SODIUM 50 MG/SENNA 8.6 MG TAB PO SCH ×2 (09:00→21:00)
[2017-03-06] MEDS: SACUBITRIL/VALSARTAN 24 MG-26 MG TAB PO SCH ×2 (09:15→21:58)
[2017-03-06] MEDS: BUMETANIDE INJ 1 MG/4 ML VIAL IV PUSH SCH ×2 (09:15→17:03)
[2017-03-06] MEDS: DILTIAZEM-CD 180 MG CAP ER PO SCH (09:15)
[2017-03-06] MEDS: METOPROLOL TARTRATE 100 MG TAB PO SCH ×2 (09:15→21:58)
[2017-03-06] MEDS: SODIUM CHLORIDE 0.9% FLUSH 10 ML FLUSH IV FLUSH SCH ×2 (09:17→22:01)
[2017-03-06 11:06] LABS: AUTOMATED NEUTROPHIL # 3.9 TH/MM3 (1.8-7.7); BASOPHIL # 0.1 TH/MM3 (0-0.2); BASOPHIL % 0.9 % (0.0-2.0); EOSINOPHIL # 0.1 TH/MM3 (0-0.4); EOSINOPHIL % 2.1 % (0.0-4.0); HEMATOCRIT 31.3 % (39.0-51.0); HEMO FLAGS DIFF FINAL; LYMPHOCYTE # 1.3 TH/MM3 (1.0-4.8); MEAN CELL VOLUME 69.3 FL (80.0-100.0); MEAN CORPUSCULAR HEMOGLOBIN 21.8 PG (27.0-34.0); MEAN CORPUSCULAR HGB CONC 31.4 % (32.0-36.0); MONO % 9.9 % (0.0-8.0); NEUT % 65.1 % (16.0-70.0); PLATELET COUNT 170 TH/MM3 (150-450); RED BLOOD COUNT 4.52 MIL/MM3 (4.50-5.90); RED CELL DISTRIBUTION WIDTH 17.1 % (11.6-17.2)
--- NOTE | 2017-03-06 11:40 | PD.CARD.PN ---
Subjective Subjective Remarks Pt feeling well, diuresing Objective Medications Administered Medications Medications (Trade) Dose Ordered Sig/Dyllan Route PRN Reason Start Time Stop Time Status Last Admin Dose Admin Sodium Chloride (NS Flush) 2 ml BID IV FLUSH 03/04/17 09:00 03/06/17 09:17 Senna/Docusate Sodium (Kathie-Colace) 1 tab BID PO 03/04/17 09:00 03/05/17 08:47 Trazodone HCl (Desyrel) 50 mg HS PO 03/04/17 21:00 03/05/17 20:56 Diltiazem HCl (Cardizem Cd) 180 mg DAILY PO 03/04/17 15:00 03/06/17 09:15 Metoprolol Tartrate (Lopressor) 100 mg BID@ PO 03/04/17 20:00 03/06/17 09:15 Bumetanide (Bumex Inj) 1 mg BID@ IV PUSH 03/04/17 19:00 03/06/17 09:15 Sacubitril/ Valsartan (Entresto 24-26 Mg) 1 tab BID PO 03/05/17 21:00 03/06/17 09:15 Vital Signs / I&O Vital Signs Date Time Temp Pulse Resp B/P Pulse Ox O2 Delivery O2 Flow Rate FiO2 03/06/17 08:00 97.7 91 20 155/85 98 03/06/17 04:00 97.7 87 18 139/83 97 03/05/17 20:00 100 Room Air 21 03/05/17 20:00 98.3 86 18 126/83 100 03/05/17 20:00 89 03/05/17 16:00 97.8 72 22 128/72 97 03/05/17 12:15 72 16 135/89 100 03/05/17 12:09 Room Air 03/05/17 12:00 78 16 146/100 100 03/05/17 12:00 97.6 82 20 113/75 97 03/05/17 11:45 98.0 76 16 138/98 100 I/O 03/05/17 03/05/17 03/05/17 03/06/17 03/06/17 03/06/17 07:00 15:00 23:00 07:00 15:00 23:00 Intake Total 240 ml Output Total 900 ml 300 ml Balance -660 ml -300 ml Intake Oral 240 ml Output Urine Total 900 ml 300 ml # Bowel Movements 0 1 Physical Exam GENERAL: This is a well-nourished, well-developed patient, in no apparent distress. CARDIOVASCULAR: Regular rate and rhythm without murmurs, gallops, or rubs. RESPIRATORY: Clear to auscultation. Breath sounds equal bilaterally. No wheezes , rales, or rhonchi. GASTROINTESTINAL: Abdomen soft, non-tender, nondistended. Normal active bowel sounds MUSCULOSKELETAL: Extremities 2+ edema bilaterally NEURO: Alert & Oriented x4 to person, place, time, situation. Moves all ext x4 Laboratory Laboratory Tests Test 03/06/17 10:12 White Blood Count 6.0 TH/MM3 Red Blood Count 4.52 MIL/MM3 Hemoglobin 9.8 GM/DL Hematocrit 31.3 % Mean Corpuscular Volume 69.3 FL Mean Corpuscular Hemoglobin 21.8 PG Mean Corpuscular Hemoglobin 31.4 % Concent Red Cell Distribution Width 17.1 % Platelet Count 170 TH/MM3 Mean Platelet Volume 7.7 FL Neutrophils (%) (Auto) 65.1 % Lymphocytes (%) (Auto) 22.0 % Monocytes (%) (Auto) 9.9 % Eosinophils (%) (Auto) 2.1 % Basophils (%) (Auto) 0.9 % Neutrophils # (Auto) 3.9 TH/MM3 Lymphocytes # (Auto) 1.3 TH/MM3 Monocytes # (Auto) 0.6 TH/MM3 Eosinophils # (Auto) 0.1 TH/MM3 Basophils # (Auto) 0.1 TH/MM3 CBC Comment DIFF FINAL Differential Comment Imaging Last Impressions Thoracentesis Ultrasound 03/05/17 0000 Signed Impressions: Service Date/Time: Sunday, March 05, 2017 10:59 - CONCLUSION: Uncomplicated ultrasound guided thoracentesis. Clem Mendez MD FACR Chest X-Ray 03/05/17 0000 Signed Impressions: Service Date/Time: Sunday, March 05, 2017 11:49 - CONCLUSION: 1. Bilateral effusions larger on the left than the right with consolidation in the left lung base. There has been a significant reduction in the volume of the fluid on the left compared to previous. No pneumothorax is seen. 2. Advanced cardiomegaly. Pericardial effusion is not excluded. Joe Mendez MD Assessment and Plan Problem List: (1) Pleural effusion on left Assessment and Plan: s/p thoracentesis (2) Congestive heart failure Assessment and Plan: improving Assessment and Plan continue current mgt. Mark Curiel MD Mar 06, 2017 11:40
[2017-03-06 11:49] LABS: BICARBONATE 27.4 MEQ/L (21.0-32.0); POTASSIUM 3.1 MEQ/L (3.5-5.1)
[2017-03-06 12:00] VITALS: BP 138/83; PULSE 92; RESP 20; TEMP 97.7; O2SAT 96
--- NOTE | 2017-03-06 15:19 | ECHRPT ---
Indication: CHF CONCLUSIONS Mildly dilated left ventricle. Wall thickness is normal. The left ventricular systolic function is severely reduced with an estimated ejection fraction in th e range of 25-30%. Global A pacemaker wire is noted. [id number] mitral valve regurgitation. Mild aortic valve regurgitation. There is a small pericardial effusion present. No hemodynamically significant echocardiographic features were observed (no pre-tamponade physiology). BP: / HR: Rhythm: Technical Quality: FINDINGS LEFT VENTRICLE Mildly dilated left ventricle. Wall thickness is normal. The left ventricular systolic function is severely reduced with an estimated ejection fraction in th e range of 25-30%. RIGHT VENTRICLE A pacemaker wire is noted. LEFT ATRIUM The left atrial size is normal. RIGHT ATRIUM The right atrial size is normal. ATRIAL SEPTUM Normal atrial septal thickness without atrial level shunting by limited color doppler interrogation. AORTA The aortic root and proximal ascending aorta are normal in size on limited imaging. MITRAL VALVE [id number] mitral valve regurgitation. AORTIC VALVE Mild aortic valve regurgitation. TRICUSPID VALVE Structurally normal tricuspid valve. No tricuspid valve stenosis or regurgitation. PULMONARY VALVE The pulmonary valve is not well visualized. VESSELS The inferior vena cava is normal in size. PERICARDIUM There is a small pericardial effusion present. No hemodynamically significant echocardiographic features were observed (no pre-tamponade physiology). Mark Curiel MD (Electronically Signed) Final Date:06 March 2017 15:18
[2017-03-06 16:00] VITALS: BP 112/76; PULSE 75; RESP 20; TEMP 97.6; O2SAT 95
--- NOTE | 2017-03-06 16:16 | RADRPT ---
EXAM DATE/TIME: 03/05/2017 10:02 [facility] COMPARISON: No previous studies available for comparison. INDICATIONS : Mid chest pain with shortness of breath for one day. Atrial fibrillation. DOSE: 31.2 mCi Tc99m Myoview at stress. 30.1 mCi Tc99m Myoview at rest. 0.4 mg Lexiscan STRESS SYMPTOMS: Dyspnea and heart racing. EJECTION FRACTION: 19% MEDICAL HISTORY : Hypertension. Congestive heart failure. SURGICAL HISTORY : Appendectomy. Defibrillator. ENCOUNTER: Initial ACUITY: 1 day PAIN SCALE: 6/10 LOCATION: Midsternal chest TECHNIQUE: The patient underwent pharmacologic stress with infusion of prescribed dose. Continuous ECG tracing was monitored during stress. Gated SPECT imaging was performed after stress and conventional SPECT i maging was performed at rest. The examination was performed on a SPECT/CT scanner, both attenuation and non-corrected datasets were reviewed. FINDINGS: DISTRIBUTION: The maximum perfused segment at stress is in the septal wall. PERFUSION STUDY: The pattern of perfusion at stress demonstrates a fixed defect in the posterior basal and inferior wa ll on parts of the anterolateral wall without any significant ischemia. GATED STUDY: There is global hypokinesis. CONCLUSION: Global hypokinesis and reduction in ejection fraction without any significant ischemia. RISK CATEGORY: Intermediate (1-3% Annual Mortality Rate) Mony Osuna MD on March 06, 2017 at 16:13 Board Certified Radiologist. This report was verified electronically.
--- NOTE | 2017-03-06 18:23 | HHI.PR ---
Subjective Remarks Follow-up on ICD firing. Says that he feels about the same breathing-palm since yesterday. says his cough is tolerable, not bothersome, denies any fevers or chills. Is asking to start his anxiety medication that he used to take at home. Objective Vital Signs Date Time Temp Pulse Resp B/P Pulse Ox O2 Delivery O2 Flow Rate FiO2 03/06/17 16:00 97.6 75 20 112/76 95 03/06/17 14:37 98 Room Air 03/06/17 12:00 97.7 92 20 138/83 96 03/06/17 08:00 97.7 91 20 155/85 98 03/06/17 04:00 97.7 87 18 139/83 97 03/05/17 20:00 100 Room Air 21 03/05/17 20:00 98.3 86 18 126/83 100 03/05/17 20:00 89 I/O 03/05/17 03/05/17 03/05/17 03/06/17 03/06/17 03/06/17 07:00 15:00 23:00 07:00 15:00 23:00 Intake Total 240 ml Output Total 900 ml 300 ml 1450 ml Balance -660 ml -300 ml -1450 ml Intake Oral 240 ml Output Urine Total 900 ml 300 ml 1450 ml # Bowel Movements 0 1 1 Result Diagram: 03/06/17 1012 03/06/17 1012 Objective Remarks GENERAL: Resting comfortably in bed, no acute distress CARDIOVASCULAR: Regular rate and rhythm without murmurs, gallops, or rubs. RESPIRATORY: Minimal rales on left base, otherwise breath sounds are good bilaterally and clear MUSCULOSKELETAL: No cyanosis: Moderate +1 pitting edema in both lower extremities A/P Problem List: (1) Congestive heart failure ICD Code: I50.9 (2) Acute decompensated heart failure ICD Code: I50.9 Assessment and Plan 61-year-old white male being admitted for ICD firings and acute decompensated heart failure. History of medication noncompliance. 1) ICD firings - Fortunately has stopped firing, electrophysiology consulted and appreciate recommendations. Heart rate is under good control currently w/ diltiazem and lopressor. Stress test results are negative for reversible ischemia. 2) pleural effusion - Improved with thoracentesis 2 days ago 3) CHFrEF% -entresto, judicious diuresis given impaired RF, continue home metoprolol.free t4 wnl, bumex cardiology 4) afib - continue home lopressor, hold eliquis in light of possible procedure, will start daily lovenox - will let cards hold when anticipating procedure. 5) renal insufficiency - suspect this is chronic, judicious diuresis, on entresto 6) depression/anxiety - continue trazodone, resuming cymbalta per pts request to help with mood Continue diuresis, pending EP definitive plan discussion with patient. Will start daily lovenox - to be held by cards when anticipating procedure. Rick William MD Mar 06, 2017 18:23
[2017-03-06] MEDS: ENOXAPARIN SODIUM 30 MG/0.3 ML SYRINGE SQ SCH (18:30)
[2017-03-06] MEDS: DULoxetine HCl DR 60 MG CAP PO SCH (18:30)
[2017-03-06 20:00] VITALS: BP 129/80; PULSE 103; RESP 18; TEMP 98.3; O2SAT 99
[2017-03-06 20:09] VITALS: PULSE 100
[2017-03-06] MEDS: traZODone HCL 50 MG TAB PO SCH (21:58)
[2017-03-07] VITALS (7 sets, daily range): BP systolic 115–138; BP diastolic 67–83; PULSE 74–91; RESP 16–20; TEMP 97.7–98.1; O2SAT 97–99
[2017-03-07] MEDS: METOPROLOL TARTRATE 100 MG TAB PO SCH ×2 (08:00→20:44)
[2017-03-07] MEDS: SACUBITRIL/VALSARTAN 24 MG-26 MG TAB PO SCH ×2 (09:00→20:44)
[2017-03-07] MEDS: DULoxetine HCl DR 60 MG CAP PO SCH (09:00)
[2017-03-07] MEDS: SODIUM CHLORIDE 0.9% FLUSH 10 ML FLUSH IV FLUSH SCH ×2 (09:00→20:44)
[2017-03-07] MEDS: DILTIAZEM-CD 180 MG CAP ER PO SCH (09:00)
[2017-03-07] MEDS: BUMETANIDE INJ 1 MG/4 ML VIAL IV PUSH SCH ×2 (09:00→17:23)
[2017-03-07] MEDS: DOCUSATE SODIUM 50 MG/SENNA 8.6 MG TAB PO SCH ×2 (09:00→20:44)
[2017-03-07 13:22] LABS: BICARBONATE 29.7 MEQ/L (21.0-32.0); POTASSIUM 3.1 MEQ/L (3.5-5.1)
[2017-03-07] MEDS ORDERED: FUROSEMIDE 20 MG/2 ML VIAL IV PUSH ONE (14:15)
--- NOTE | 2017-03-07 14:46 | HHI.PR ---
Subjective Remarks Follow-up on ICD firing and heart failure. Says his breathing is okay today, still reports largely unchanged leg swelling, does say his mood is much better after starting his anxiety medication. Objective Vital Signs Date Time Temp Pulse Resp B/P (MAP) Pulse Ox O2 Delivery O2 Flow Rate FiO2 03/07/17 04:00 97.8 89 18 128/83 (98) 99 03/07/17 00:00 98.0 80 18 115/67 (83) 99 03/06/17 22:00 Room Air 03/06/17 20:09 100 03/06/17 20:00 98.3 103 18 129/80 (96) 99 03/06/17 16:00 97.6 75 20 112/76 (88) 95 I/O 03/06/17 03/06/17 03/06/17 03/07/17 03/07/17 03/07/17 07:00 15:00 23:00 07:00 15:00 23:00 Intake Total 300 ml Output Total 300 ml 2700 ml 1100 ml Balance -300 ml -2400 ml -1100 ml Intake Oral 300 ml Output Urine Total 300 ml 2700 ml 1100 ml # Bowel Movements 1 1 Result Diagram: 03/06/17 1012 03/07/17 1238 Objective Remarks GENERAL: Resting comfortably in bed, no acute distress CARDIOVASCULAR: Regular rate and rhythm without murmurs, gallops, or rubs. RESPIRATORY: breath sounds are good bilaterally and clear MUSCULOSKELETAL: No cyanosis: Moderate +1 pitting edema in both lower extremities A/P Problem List: (1) Congestive heart failure ICD Code: I50.9 - Heart failure, unspecified Status: Acute (2) Acute decompensated heart failure ICD Code: I50.9 - Heart failure, unspecified Status: Acute Assessment and Plan 61-year-old white male being admitted for ICD firings and acute decompensated heart failure. History of medication noncompliance. 1) ICD firings - Fortunately has stopped firing, electrophysiology consulted and appreciate recommendations. Heart rate is under good control currently w/ diltiazem and lopressor. Stress test results are negative for reversible ischemia. 2) pleural effusion - Improved with thoracentesis 2 days ago 3) CHFrEF% -entresto, judicious diuresis given impaired RF, continue home metoprolol. free t4 wnl, bumex cardiology, ordering one time Lasix 20 mg IV, BMP now and in a.m. 4) afib - continue home lopressor, hold eliquis in light of possible procedure; on daily lovenox - will let cards hold when anticipating procedure. 5) renal insufficiency - suspect this is chronic, judicious diuresis, on entresto 6) depression/anxiety - continue trazodone and cymbalta Continue diuresis, pending EP definitive plan discussion with patient. Will start daily lovenox - to be held by cards when anticipating procedure. Rick William MD Mar 07, 2017 14:45
[2017-03-07] MEDS: ENOXAPARIN SODIUM 30 MG/0.3 ML SYRINGE SQ SCH (17:24)
[2017-03-07] MEDS: traZODone HCL 50 MG TAB PO SCH (20:44)
[2017-03-08] VITALS (7 sets, daily range): BP systolic 103–136; BP diastolic 59–95; PULSE 77–92; RESP 17–20; TEMP 97.2–98.2; O2SAT 94–98
[2017-03-08 08:53] LABS: POTASSIUM 3.2 MEQ/L (3.5-5.1)
[2017-03-08] MEDS: DOCUSATE SODIUM 50 MG/SENNA 8.6 MG TAB PO SCH ×2 (09:00→21:00)
[2017-03-08] MEDS: METOPROLOL TARTRATE 100 MG TAB PO SCH ×2 (09:54→22:24)
[2017-03-08] MEDS: BUMETANIDE 1 MG TAB PO SCH ×2 (09:54→17:55)
[2017-03-08] MEDS: DILTIAZEM-CD 180 MG CAP ER PO SCH (09:55)
[2017-03-08] MEDS: DULoxetine HCl DR 60 MG CAP PO SCH (09:55)
[2017-03-08] MEDS: SODIUM CHLORIDE 0.9% FLUSH 10 ML FLUSH IV FLUSH SCH ×2 (10:01→22:26)
[2017-03-08] MEDS: SACUBITRIL/VALSARTAN 49 MG-51 MG TAB PO SCH ×2 (12:35→22:25)
[2017-03-08] MEDS: ENOXAPARIN SODIUM 30 MG/0.3 ML SYRINGE SQ SCH (17:55)
--- NOTE | 2017-03-08 19:12 | HHI.PR ---
Subjective Remarks Follow-up on ICD firing and heart failure. No AICD firing today. Legs still swollen, breathing well. Objective Vital Signs Date Time Temp Pulse Resp B/P (MAP) Pulse Ox O2 Delivery O2 Flow Rate FiO2 03/08/17 16:00 97.2 80 17 106/65 (79) 96 03/08/17 12:00 98.1 85 17 103/66 (78) 98 03/08/17 08:00 92 03/08/17 08:00 98.2 86 17 136/95 (109) 95 03/08/17 04:00 98.2 85 20 128/87 (101) 94 03/08/17 00:00 98.2 80 20 133/80 (97) 97 03/07/17 20:45 Room Air 03/07/17 20:27 80 03/07/17 20:00 98.1 91 20 119/78 (92) 97 I/O 03/07/17 03/07/17 03/07/17 03/08/17 03/08/17 03/08/17 07:00 15:00 23:00 07:00 15:00 23:00 Intake Total 480 ml 242 ml 800 ml Output Total 1100 ml 1400 ml 1200 ml 960 ml Balance -1100 ml -920 ml -958 ml -160 ml Intake Oral 480 ml 240 ml 800 ml IV Total 2 ml Output Urine Total 1100 ml 1400 ml 1200 ml 960 ml # Bowel Movements 0 Result Diagram: 03/06/17 1012 03/08/17 0738 Other Results Laboratory Tests Test 03/08/17 07:38 Blood Urea Nitrogen 15 MG/DL (7-18) Creatinine 1.13 MG/DL (0.60-1.30) Random Glucose 101 MG/DL (74-106) Calcium Level 8.2 MG/DL (8.5-10.1) Sodium Level 140 MEQ/L (136-145) Potassium Level 3.2 MEQ/L (3.5-5.1) Chloride Level 103 MEQ/L (98-107) Carbon Dioxide Level 29.0 MEQ/L (21.0-32.0) Anion Gap 8 MEQ/L (5-15) Estimat Glomerular Filtration Rate 66 ML/MIN (>89) Objective Remarks GENERAL: Resting comfortably in bed, no acute distress CARDIOVASCULAR: Regular rate and rhythm without murmurs, gallops, or rubs. RESPIRATORY: breath sounds are good bilaterally and clear MUSCULOSKELETAL: No cyanosis: unchaged Moderate +1 pitting edema in both lower extremities A/P Problem List: (1) Congestive heart failure ICD Code: I50.9 - Heart failure, unspecified Status: Acute (2) Acute decompensated heart failure ICD Code: I50.9 - Heart failure, unspecified Status: Acute Assessment and Plan 61-year-old white male being admitted for ICD firings and acute decompensated heart failure. History of medication noncompliance. 1) ICD firings - Fortunately has stopped firing, electrophysiology consulted and appreciate recommendations. Heart rate is under good control currently w/ diltiazem and lopressor. Stress test results are negative for reversible ischemia. 2) pleural effusion - s/p thoracentesis; fluid containing elevated WBC but has no clinical symptoms of infx at this time 3) CHFrEF% -entresto, judicious diuresis given impaired RF w/ bumex, on lopressor, bmp 4) afib - continue home lopressor, hold eliquis in light of possible procedure; on daily lovenox - will let cards hold when anticipating procedure. touching base w / cardiology for any invasive plans 5) renal insufficiency - chronic, judicious diuresis, on entresto 6) depression/anxiety - continue trazodone and cymbalta Continue diuresis, pending EP definitive plan discussion with patient. Awaiting response from cardiology for any definitive plans for treatment of pt's afib. On daily lovenox - to be held by cards when anticipating procedure. Discharge Planning pending cardiology plans for definitive afib management Rick William MD Mar 08, 2017 19:12
[2017-03-08] MEDS: traZODone HCL 50 MG TAB PO SCH (22:24)
[2017-03-09] VITALS: BP 134/72; PULSE 70; RESP 18; TEMP 97.9; O2SAT 96
[2017-03-09 04:00] VITALS: BP 100/50; PULSE 71; RESP 18; TEMP 97.9; O2SAT 98
[2017-03-09 08:00] VITALS: BP 115/72; PULSE 78; RESP 18; TEMP 97.8; O2SAT 96
[2017-03-09] MEDS: DOCUSATE SODIUM 50 MG/SENNA 8.6 MG TAB PO SCH (09:00)
[2017-03-09] MEDS: DULoxetine HCl DR 60 MG CAP PO SCH (09:28)
[2017-03-09] MEDS: METOPROLOL TARTRATE 100 MG TAB PO SCH (09:29)
[2017-03-09] MEDS: BUMETANIDE 1 MG TAB PO SCH ×2 (09:29→19:01)
[2017-03-09] MEDS: DILTIAZEM-CD 180 MG CAP ER PO SCH (09:29)
[2017-03-09] MEDS: SACUBITRIL/VALSARTAN 49 MG-51 MG TAB PO SCH (09:29)
[2017-03-09] MEDS: SODIUM CHLORIDE 0.9% FLUSH 10 ML FLUSH IV FLUSH SCH (09:29)
[2017-03-09 11:00] VITALS: BP 116/68; PULSE 75; RESP 18; TEMP 97.8; O2SAT 96
[2017-03-09] MEDS ORDERED: METO-338 PO (13:15)
[2017-03-09] MEDS ORDERED: CYMB60CA PO (13:15)
[2017-03-09] MEDS ORDERED: SACU1TAB7 PO (13:15)
[2017-03-09] MEDS ORDERED: TRAZ50TA12 PO (13:15)
[2017-03-09] MEDS ORDERED: BUME1TAB PO ×2 (13:15→14:33)
[2017-03-09] MEDS ORDERED: APIX5TAB PO (13:15)
[2017-03-09] MEDS ORDERED: FUROSEMIDE 40 MG/4 ML VIAL IV PUSH ONE (14:30)
[2017-03-09] MEDS ORDERED: METO5TAB3 PO (14:30)
[2017-03-09] MEDS ORDERED: POTA-163 PO (14:33)
--- NOTE | 2017-03-09 14:33 | HHI.DCPOC ---
Discharge Care Plan Diagnosis: (1) Acute decompensated heart failure (2) Atrial fibrillation (3) Pleural effusion on left Your Health Problems Are: Leg Swelling Shortness of Breath Goals to Promote Your Health * To prevent worsening of your condition and complications * To maintain your health at the optimal level Directions to Meet Your Goals Take your medications as prescribed Follow your dietary instruction Follow activity as directed Keep your appointments as scheduled Take your immunizations and boosters as scheduled If your symptoms worsen call your PCP, if no PCP go to Urgent Care Center or Emergency Room Smoking is Dangerous to Your Health. Avoid second hand smoke Call the 24-hour hour crisis hotline for domestic abuse at Rick William MD Mar 09, 2017 14:33
[2017-03-09] MEDS ORDERED: POTASSIUM CHLORIDE 10 MEQ CONTROLLED RELEASE TAB PO ONE (15:00)
--- NOTE | 2017-03-09 15:12 | HHI.PR ---
Subjective Remarks Feeling better Objective Vital Signs Date Time Temp Pulse Resp B/P (MAP) Pulse Ox O2 Delivery O2 Flow Rate FiO2 03/09/17 11:00 97.8 75 18 116/68 (84) 96 03/09/17 08:00 97.8 78 18 115/72 (86) 96 03/09/17 07:15 Room Air 03/09/17 04:00 97.9 71 18 100/50 (67) 98 03/09/17 00:00 Room Air 03/09/17 00:00 97.9 70 18 134/72 (92) 96 03/08/17 20:10 77 03/08/17 20:00 Room Air 03/08/17 20:00 98.1 89 18 111/59 (76) 96 03/08/17 16:00 97.2 80 17 106/65 (79) 96 I/O 03/08/17 03/08/17 03/08/17 03/09/17 03/09/17 03/09/17 06:59 14:59 22:59 06:59 14:59 22:59 Intake Total 242 ml 800 ml 240 ml Output Total 1200 ml 960 ml 800 ml Balance -958 ml -160 ml -560 ml Intake Oral 240 ml 800 ml 240 ml IV Total 2 ml Output Urine Total 1200 ml 960 ml 800 ml # Bowel Movements 0 Result Diagram: 03/06/17 1012 03/08/17 0738 Imaging Alert, fully oriented, in bed Lungs: ventilated, no rale, no crackle Abdomen: soft, no mass Ext: no edema, possible left leg cellulitis. Current Medications Medications (Trade) Dose Ordered Sig/Dyllan Route Start Time Stop Time Status Last Admin (NS Flush) 2 ml UNSCH PRN IV FLUSH 03/04/17 07:00 (NS Flush) 2 ml BID IV FLUSH 03/04/17 09:00 03/09/17 09:29 (Narcan Inj) 0.4 mg UNSCH PRN IV 03/04/17 07:00 (Kathie-Colace) 1 tab BID PO 03/04/17 09:00 03/07/17 09:00 (Milk Of Magnesia Liq) 30 ml Q12H PRN PO 03/04/17 07:00 (Senokot) 17.2 mg Q12H PRN PO 03/04/17 07:00 (Dulcolax Supp) 10 mg DAILY PRN RECTAL 03/04/17 07:00 (Lactulose Liq) 30 ml DAILY PRN PO 03/04/17 07:00 (Desyrel) 50 mg HS PO 03/04/17 21:00 03/08/17 22:24 (Ativan Inj) 1 mg Q4H PRN IV PUSH 03/04/17 15:00 (Cardizem Cd) 180 mg DAILY PO 03/04/17 15:00 03/09/17 09:29 (Lopressor) 100 mg BID@08,20 PO 03/04/17 20:00 03/09/17 09:29 (Cymbalta Dr) 60 mg DAILY PO 03/06/17 18:30 03/09/17 09:28 (Lovenox Inj) 30 mg Q24H SQ 03/06/17 18:30 03/08/17 17:55 (Entresto 49-51 Mg) 1 tab BID PO 03/08/17 09:00 03/09/17 09:29 (Bumetanide) 1 mg BID@,18 PO 03/08/17 09:00 03/09/17 09:29 Assessment and Plan Problem List: (1) Congestive heart failure ICD Codes: I50.9 - Heart failure, unspecified Status: Acute Plan: Patient condition continue to improve Doing better HR control. V pacing Continue with current meds Can be DH when ok with the managing team. (2) Atrial fibrillation ICD Codes: I48.91 - Unspecified atrial fibrillation Status: Acute Plan: HR control V pacing Aminata Frias MD Mar 09, 2017 15:12
[2017-03-09 16:00] VITALS: BP 115/71; PULSE 70; RESP 18; TEMP 97.5; O2SAT 97
[2017-03-09] MEDS ORDERED: LISI10TA3 PO (17:36)
[2017-03-09] MEDS: ENOXAPARIN SODIUM 30 MG/0.3 ML SYRINGE SQ SCH (18:30)
--- NOTE | 2017-03-09 20:14 | HHI.DS ---
Discharge Summary Admission Date Mar 04, 2017 at 07:02 Discharge Date: Mar 09, 2017 Admitting Diagnosis AFIB WITH RVR, CHF EXAC, S/P AICD FIRING (1) Medication refill ICD Code: Z76.0 - Encounter for issue of repeat prescription Status: Chronic (2) Congestive heart failure ICD Code: I50.9 - Heart failure, unspecified Status: Chronic (3) Acute decompensated heart failure ICD Code: I50.9 - Heart failure, unspecified Status: Acute Procedures Hemilateral thoracentesis Brief History - From Admission 61-year-old white male being admitted for ICD firings and shortness of breath. Patient reports being in his usual state of health until yesterday evening when he started feeling his defibrillator fire. He had taken both of his twice a day doses of metoprolol earlier in the day and in response to this first set of shots he took an extra dose which she says usually helps but did not this time. So he took a fourth dose of metoprolol which he says helped somewhat with the shock still persisting so he decided to proceed to the ER. Prior to the shocks U denies any acute changes in his health. Says that he has intermittent fluctuating shortness of breath that was worse earlier in the morning yesterday and got better by the evening. Denies having any chest pain prior to the shocks or any lightheadedness or generalized weakness or any persistent worsening shortness of breath. His is present at the bedside and says that his lower extremity swelling has worsened over time (patient says it has been worse than this); patient also says that his abdominal distention is slightly worse. Denies any nausea. Patient does report being out of his medications due to financial issues for many months (including lisinopril); says that the only medications he's been taking regularly as his metoprolol and eliquis. Says that he has been taking his torsemide on and off to try to spare the supply. Says that he had his ICD placed in [facility] less than 2 years ago. Denies ever having any cardiac stents or bypass surgery. CBC/BMP: 03/06/17 1012 03/08/17 0738 Significant Findings Laboratory Tests Test 03/07/17 12:38 03/08/17 07:38 Creatinine 1.34 MG/DL (0.60-1.30) Random Glucose 115 MG/DL (74-106) Calcium Level 7.7 MG/DL (8.5-10.1) 8.2 MG/DL (8.5-10.1) Potassium Level 3.1 MEQ/L (3.5-5.1) 3.2 MEQ/L (3.5-5.1) Estimat Glomerular Filtration Rate 55 ML/MIN (>89) 66 ML/MIN (>89) PE at Discharge GENERAL: No acute distress CARDIOVASCULAR: Regular rate and rhythm without murmurs, gallops, or rubs. Moderate +2 pitting edema bilaterally in lower extremities RESPIRATORY: Breath sounds equal and clear bilaterally. Unlabored breathing GASTROINTESTINAL: Abdomen soft, non-tender, nondistended. MUSCULOSKELETAL: No cyanosis. Hospital Course Patient was admitted on telemetry underwent thoracentesis due to pleural effusion present, electrophysiology was consulted after the patient's ICD device was interrogated and showed questionable rhythms of ventricular beats. Patient was started on aggressive intravenous diuresis which significantly improved his symptoms over the next few days and his medications were restarted optimize his heart failure. Electrophysiology concluded that the patient could be discharged and that they would reevaluate the patient later for a possible permanent solution for the patient's atrial fibrillation and his ICD. The patient's lower extremity edema nonetheless was very difficult to control although his dyspnea had resolved and the patient was able to tolerate ambulation for a good few 100 feet without dyspnea. Patient is on a fluid restricted and low sodium diet, patient unfortunately will not be discharged on entresto since this is not a medication that he is able to afford, nonetheless he will go home on lisinopril in addition to all his other appropriate medications. Pt Condition on Discharge: Fair Discharge Disposition: Discharge Home Discharge Time: > 30 minutes Discharge Instructions DIET: Follow Instructions for: Heart Healthy Diet, Low Sodium Diet Fluid Restrictions: 1500 mL daily Activities you can perform: Regular-No Restrictions Follow up Referrals: Cardiology - 2 Weeks with Aminata Frias MD PCP Follow-up - 1 Week New Medications: Bumetanide (Bumetanide) 1 Mg Tab 1 MG PO BID, #60 TAB 0 Refills May take extra pill per every 24 hours for worsening swelling in legs Metolazone (Metolazone) 5 Mg Tab 5 MG PO DAILY for Regulate Heart Beat, #30 TAB 0 Refills Potassium Chloride ER (Potassium Chloride ER) 20 Meq Tab 20 MEQ PO DAILY for Electrolyte Replacement, #30 TAB 0 Refills Metoprolol Tartrate (Lopressor) 100 Mg Tab 100 MG PO BID@08,20 for Regulate Heart Beat, #60 TAB Continued Medications: Apixaban (Eliquis) 5 Mg Tab 5 MG PO BID for Blood Clot Prevention, #60 TAB 0 Refills (This prescription has been renewed) Duloxetine DR (Cymbalta DR) 60 Mg Capdr 60 MG PO DAILY for Depression Control, #30 CAP 0 Refills (This prescription has been renewed) Lisinopril (Lisinopril) 10 Mg Tab 10 MG PO DAILY for Blood Pressure Management, #30 TAB 0 Refills (This prescription has been renewed) Trazodone (Trazodone) 50 Mg Tab 50 MG PO HS for Control Depression, #30 TAB 0 Refills (This prescription has been renewed) Discontinued Medications: Digoxin (Digoxin) 0.25 Mg Tab 0.25 MG PO DAILY for Regulate Heart Beat, #30 TAB 0 Refills Digoxin (Digoxin) 0.25 Mg Tab 0.25 MG PO DAILY for Regulate Heart Beat, #30 TAB 0 Refills Diphenhydramine (Diphenhydramine) 25 Mg Tab 25 MG PO DAILY PRN for ALLERGIES, TAB 0 Refills Metoprolol Tartrate (Metoprolol Tartrate) 50 Mg Tab 50 MG PO BID, #60 TAB 0 Refills Torsemide (Torsemide) 20 Mg Tab 40 MG PO DAILY, #30 TAB 0 Refills Rick William MD Mar 09, 2017 20:14
== END 2017-03-09 20:15 | disposition home or self-care (01) | DRG 291 ==
LOC: NEPC 04:43 → NEDA 06:51 → OBSVTOIN 07:02 → N04B 16:27
PROVIDERS: ADMIT Hospitalist; ATTEND Hospitalist
PROC: 0W9B3ZZ Drainage of Left Pleural Cavity, Percutaneous Approach (ICD-10-PCS; principal; 2017-03-05)
DX: I13.0 Hypertensive heart and chronic kidney disease with heart failure and stage 1 through stage 4 chronic kidney disease, or unspecified chronic kidney disease (principal); I50.23 Acute on chronic systolic (congestive) heart failure; J90 Pleural effusion, not elsewhere classified; Z79.01 Long term (current) use of anticoagulants; F32.9 Major depressive disorder, single episode, unspecified; F41.9 Anxiety disorder, unspecified; F90.9 Attention-deficit hyperactivity disorder, unspecified type; I48.91 Unspecified atrial fibrillation; N18.9 Chronic kidney disease, unspecified; Z95.810 Presence of automatic (implantable) cardiac defibrillator; Z98.84 Bariatric surgery status; Z59.0 Homelessness; Z91.14 Patient's other noncompliance with medication regimen
CPT/HCPCS: 32555; 71010; 71020; 78452; 80048; 80053; 80162; 82550; 83615; 83690; 83735; 83880; 84145; 84439; 84443; 84484; 85025; 85610; 85730; 87015; 87070; 87102; 87116; 87205; 87206; 89051; 93005; 93017; 93306; 96374; 96375; A9502; C1729; J1650; J1940; J2060; J2785; J3475

== ENCOUNTER 2017-03-25 01:56 | Inpatient (IN) | payer SELFPAY ==
[2017-03-25] VITALS (15 sets, daily range): BP systolic 85–119; BP diastolic 49–86; PULSE 98–127; RESP 18–32; TEMP 98–101.1; O2SAT 94–100
[~2017-03-25] VITALS: Ht 177.8 cm; Wt 103.9 kg
[~2017-03-25 01:56] MED LIST changes: +BUME1TAB PO; -DIGO0.25 PO; -DIPH25TA2 PO; -FURO1TAB60 PO; +METO-338 PO; -METO50TA PO; +METO5TAB3 PO; +POTA-163 PO; -TORS20TA PO
[2017-03-25] MEDS ORDERED: ONDANSETRON HCL 4 MG/2 ML VIAL IV PUSH ONE (02:15)
[2017-03-25 02:48] LABS: AUTOMATED NEUTROPHIL # 12.5 TH/MM3 (1.8-7.7); BASOPHIL % 0.2 % (0.0-2.0); EOSINOPHIL % 0.1 % (0.0-4.0); HEMATOCRIT 37.4 % (39.0-51.0); HEMO FLAGS DIFF FINAL; LYMPH % 1.8 % (9.0-44.0); LYMPHOCYTE # 0.2 TH/MM3 (1.0-4.8); MEAN CELL VOLUME 71.2 FL (80.0-100.0); MEAN CORPUSCULAR HEMOGLOBIN 23.3 PG (27.0-34.0); MEAN CORPUSCULAR HGB CONC 32.7 % (32.0-36.0); MONO % 3.7 % (0.0-8.0); NEUT % 94.2 % (16.0-70.0); PLATELET COUNT 188 TH/MM3 (150-450); RED BLOOD COUNT 5.26 MIL/MM3 (4.50-5.90); RED CELL DISTRIBUTION WIDTH 19.8 % (11.6-17.2); WHITE BLOOD COUNT 13.3 TH/MM3 (4.0-11.0)
[2017-03-25 02:56] LABS: ALKALINE PHOSPHATASE 108 U/L (45-117); ALT (GPT) 19 U/L (12-78); ANION GAP 12 MEQ/L (5-15); AST (GOT) 28 U/L (15-37); BICARBONATE 26.6 MEQ/L (21.0-32.0); BLOOD UREA NITROGEN 46 MG/DL (7-18); CHLORIDE 93 MEQ/L (98-107); GLOMERULAR FILTRATION RATE 25 ML/MIN (>89); SODIUM (NA) 132 MEQ/L (136-145)
[2017-03-25 02:57] LABS: CREATINE KINASE 68 U/L (39-308)
[2017-03-25 02:58] LABS: APTT (PATIENT) 28.9 SEC (24.3-30.1); INTERNATIONAL NORMALIZED RATIO 1.1 RATIO; PROTHROMBIN TIME - PATIENT 12.3 SEC (9.8-11.6)
[2017-03-25 02:59] LABS: POTASSIUM 2.5 MEQ/L (3.5-5.1)
--- NOTE | 2017-03-25 03:10 | RADRPT ---
EXAM DATE/TIME: 03/25/2017 02:51 [facility] COMPARISON: CHEST SINGLE AP, January 11, 2017, 17:43. INDICATIONS : Chest pain and short of breath. MEDICAL HISTORY : Congestive heart failure. Diabetes mellitus type II. SURGICAL HISTORY : Pacemaker. ENCOUNTER: Initial ACUITY: 1 day PAIN SCORE: 4/10 LOCATION: Bilateral chest FINDINGS: Cardiac silhouette is enlarged. Stable dual-lead AICD device in place. No new focal pleural or parenc hymal opacities. Bony thorax is intact. CONCLUSION: 1. Stable cardiomegaly without failure. 2. No acute abnormality or significant interval change. Cecilio Garrido MD on March 25, 2017 at 3:08 Board Certified Radiologist. This report was verified electronically.
[2017-03-25] MEDS ORDERED: CLINDAMYCIN INJ 900 MG in SODIUM CHLORIDE 0.9% INJ 100 ML IV ONE (03:30)
[2017-03-25] MEDS ORDERED: POTASSIUM CHLOR 40 MEQ PREMIX 100 ML IV ONE ×2 (03:30→14:45)
--- NOTE | 2017-03-25 03:33 | PD ---
HPI Chief Complaint: General Weakness Time Seen by Provider: 02:07 Travel History International Travel<30 days: No Contact w/Intl Traveler<30days: No Traveled to known affect area: No History of Present Illness HPI 61-year-old male with history of CHF with an EF between 25 and 30%, followed by silver solution mixer Dr. Frias, here for evaluation of generalized weakness, lightheadedness, near syncopal episode after getting up, nausea, and vomiting. Symptoms started this evening. He denies chest pain or dyspnea. No abdominal pain. He feels chills. PFSH Past Medical History Hx Anticoagulant Therapy: Yes (ELOQUIS ) ADHD: Yes Arthritis: No Asthma: No Anxiety: Yes Depression: Yes Heart Rhythm Problems: No Cancer: No Cardiac Catheterization: Yes (CATH WAS NEGATIVE, NO STENT PLACEMENT) Cardiovascular Problems: Yes (AICD , HTN) High Cholesterol: No Chest Pain: No Congestive Heart Failure: Yes COPD: No Cerebrovascular Accident: No Diabetes: Yes Patient Takes Glucophage: No (ON INSULIN) Diminished Hearing: No GERD: No Genitourinary: No Headaches: No Hepatitis: No Hiatal Hernia: No Hypertension: Yes Implanted Vascular Access Dvce: Yes Kidney Stones: No Musculoskeletal: Yes (FX ANKLE LEFT, SKULL FX AGE 7) Neurologic: No Reproductive: No Respiratory: No Immunizations Current: Yes Migraines: No Myocardial Infarction: No Renal Failure: No Seizures: No Sleep Apnea: Yes (ON CPAP NIGHT) Ulcer: No Tetanus Vaccination: > 5 Years Influenza Vaccination: No Past Surgical History Abdominal Surgery: Yes (GASTRIC BYPASS 2003) Appendectomy: Yes Cardiac Surgery: No Cholecystectomy: No Ear Surgery: No Endocrine Surgery: No Eye Surgery: No Genitourinary Surgery: No Gynecologic Surgery: No Neurologic Surgery: No Oral Surgery: No Pacemaker: Yes ([employer]) Thoracic Surgery: No Tonsillectomy: Yes Other Surgery: Yes (HIATAL HERNIA REPAIR AGE 4) Social History Alcohol Use: No (QUIT 10/2008) Tobacco Use: No Substance Use: No Allergies-Medications (Allergen,Severity, Reaction): Coded Allergies: ampicillin (Unverified Allergy, Severe, 03/02/17) fire ant (Unverified Allergy, Severe, Anaphylaxis, 03/02/17) Reported Meds & Prescriptions Reported Meds & Active Scripts Active Lisinopril 10 Mg Tab 10 Mg PO DAILY Potassium Chloride ER (Potassium Chloride) 20 Meq Tab 20 Meq PO DAILY Bumetanide 1 Mg Tab 1 Mg PO BID May take extra pill per every 24 hours for worsening swelling in legs Metolazone 5 Mg Tab 5 Mg PO DAILY Lopressor (Metoprolol Tartrate) 100 Mg Tab 100 Mg PO BID@08,20 Eliquis (Apixaban) 5 Mg Tab 5 Mg PO BID Trazodone (Trazodone HCl) 50 Mg Tab 50 Mg PO HS Cymbalta DR (Duloxetine HCl) 60 Mg Capdr 60 Mg PO DAILY Review of Systems Except as stated in HPI: all other systems reviewed are Neg Physical Exam Narrative GENERAL: Well-developed, well-nourished, awake, drowsy, no apparent distress. SKIN: Left leg with circumferential warmth and erythema over the distal half of the leg with mild tenderness, no red streaks, no crepitus. HEAD: Atraumatic. Normocephalic. EYES: Pupils equal and round. No scleral icterus. No injection or drainage. ENT: Mucous membranes pink and moist. NECK: Trachea midline. No JVD. No nuchal rigidity. CARDIOVASCULAR: Irregularly irregular, rate 110. RESPIRATORY: No accessory muscle use. Clear to auscultation. Breath sounds equal bilaterally. GASTROINTESTINAL: Abdomen soft, non-tender, nondistended. MUSCULOSKELETAL: No obvious deformities. No clubbing. No cyanosis. No edema. NEUROLOGICAL: Awake and alert. No obvious cranial nerve deficits. Motor grossly within normal limits. Normal speech. PSYCHIATRIC: Appropriate mood and affect; insight and judgment normal. Data Data Last Documented VS Vital Signs Date Time Temp Pulse Resp B/P (MAP) Pulse Ox O2 Delivery O2 Flow Rate FiO2 03/25/17 02:16 100 Room Air 03/25/17 02:15 98.0 03/25/17 02:01 117 105/56 (72) Orders Orders Electrocardiogram (03/25/17 02:13) Complete Blood Count With Diff (03/25/17 02:13) Comprehensive Metabolic Panel (03/25/17 02:13) Prothrombin Time / Inr (Pt) (03/25/17 02:13) Act Partial Throm Time (Ptt) (03/25/17 02:13) Lactic Acid Sepsis Protocol (03/25/17 02:13) Ckmb (Isoenzyme) Profile (03/25/17 02:13) Troponin I (03/25/17 02:13) Urinalysis - C+S If Indicated (03/25/17 02:13) Blood Culture (03/25/17 02:13) Chest, Single Ap (03/25/17 02:13) Blood Glucose (03/25/17 02:13) Ecg Monitoring (03/25/17 02:13) Iv Access Insert/Monitor (03/25/17 02:13) Oximetry (03/25/17 02:13) Oxygen Administration (03/25/17 02:13) B-Type Natriuretic Peptide (03/25/17 02:13) Ondansetron Inj (Zofran Inj) (03/25/17 02:15) Clindamycin Inj (Cleocin Inj) (03/25/17 03:30) Potassium Chlor 40 Meq Premix (Kcl 40 Me (03/25/17 03:30) Labs Laboratory Tests Test 03/25/17 02:20 White Blood Count 13.3 TH/MM3 Red Blood Count 5.26 MIL/MM3 Hemoglobin 12.2 GM/DL Hematocrit 37.4 % Mean Corpuscular Volume 71.2 FL Mean Corpuscular Hemoglobin 23.3 PG Mean Corpuscular Hemoglobin Concent 32.7 % Red Cell Distribution Width 19.8 % Platelet Count 188 TH/MM3 Mean Platelet Volume 8.4 FL Neutrophils (%) (Auto) 94.2 % Lymphocytes (%) (Auto) 1.8 % Monocytes (%) (Auto) 3.7 % Eosinophils (%) (Auto) 0.1 % Basophils (%) (Auto) 0.2 % Neutrophils # (Auto) 12.5 TH/MM3 Lymphocytes # (Auto) 0.2 TH/MM3 Monocytes # (Auto) 0.5 TH/MM3 Eosinophils # (Auto) 0.0 TH/MM3 Basophils # (Auto) 0.0 TH/MM3 CBC Comment DIFF FINAL Differential Comment Prothrombin Time 12.3 SEC Prothromb Time International Ratio 1.1 RATIO Activated Partial Thromboplast Time 28.9 SEC Blood Urea Nitrogen 46 MG/DL Creatinine 2.66 MG/DL Random Glucose 141 MG/DL Total Protein 7.1 GM/DL Albumin 3.5 GM/DL Calcium Level 8.5 MG/DL Alkaline Phosphatase 108 U/L Aspartate Amino Transf (AST/SGOT) 28 U/L Alanine Aminotransferase (ALT/SGPT) 19 U/L Total Bilirubin 1.0 MG/DL Sodium Level 132 MEQ/L Potassium Level 2.5 MEQ/L Chloride Level 93 MEQ/L Carbon Dioxide Level 26.6 MEQ/L Anion Gap 12 MEQ/L Estimat Glomerular Filtration Rate 25 ML/MIN Total Creatine Kinase 68 U/L Troponin I 0.06 NG/ML [facility] Medical Decision Making Medical Screen Exam Complete: Yes Emergency Medical Condition: Yes Medical Record Reviewed: Yes Interpretation(s) EKG: A. fib, rate 106, leftward axis, slight lateral ST depressions, no ST segment elevations Differential Diagnosis Sepsis, cellulitis, near syncope, dysrhythmia, A. fib with RVR, elected to light abnormality Narrative Course Initial vital signs show heart rate 117, blood pressure 105/56, pulse ox 97% on room air, oral temp of 98F. CBC shows WBC 13.3, hemoglobin 12.2, hematocrit 37.4, platelets 188, neutrophils 94%. CMP is remarkable for sodium 132, potassium 2.5, chloride 93, BUN 46, creatinine 2.66 which is worse than his baseline. Troponin is 0.06. Chest x-ray: Stable cardiomegaly without failure. No acute abnormality or significant interval change. Patient and the patient's significant other were made aware of all findings. Patient has obvious cellulitis to his left leg. There are no signs of lymphangitis. No crepitus. He has an elevated WBC count and is likely becoming septic although his oral temp shows he is afebrile. He was started on clindamycin IV. He was also given parenteral potassium. He will be admitted for further treatment and evaluation of left leg cellulitis, A. fib with RVR, acute on chronic renal insufficiency, generalized weakness. Case discussed with hospitalist Dr. Diane who will admit the patient to her service. Diagnosis Primary Impression: Left leg cellulitis Additional Impressions: Atrial fibrillation with RVR Hypokalemia Acute on chronic renal insufficiency Generalized weakness Admitting Information Admitting Physician Requests: Admit Rigo Ballard MD Mar 25, 2017 03:33
[2017-03-25] MEDS: POTASSIUM CHLORIDE 25 MEQ EFFERVESCENT TAB PO ONE ×2 (03:45→04:22)
[2017-03-25] MEDS ORDERED: SODIUM CHLORIDE 0.9% FLUSH 10 ML FLUSH IV FLUSH PRN ×2 (03:45→07:45)
[2017-03-25] MEDS ORDERED: POTASSIUM CHLORIDE INJ 30 MEQ in SODIUM CHLORIDE 0.9% INJ 100 ML IV-CENTRAL SCH (03:45)
[2017-03-25] MEDS ORDERED: NALOXONE HCL 0.4 MG/ML AMP IV PRN (03:45)
--- NOTE | 2017-03-25 04:10 | HHI.HP ---
HPI Service [facility] Primary Care Physician No Primary Care Physician Admission Diagnosis left leg cellulitis, A. fib with RVR, hypokalemia, generalized weakn Diagnoses: (1) Left leg cellulitis Chief Complaint: left leg redness Travel History International Travel<30 Days: No Contact w/Intl Traveler <30 Da: No Traveled to Known Affected Are: No History of Present Illness Written by Zoey Us, acting as scribe for Dr. Diane on 03/25/17 at 04:11. The patient was sent from a homeless long-term with fever, chills, nausea, and vomiting. He reports he vomited 4 - 5 times daily, emesis was yellow. He denies diarrhea. He denies syncope, black stool or red stool. He reports left lower extremity erythema for one day. He states he was given antibiotics but is not sure of the name of the antibiotics. He appears quite ill during the visit and fails to provide accurate medical history when compared to previous admissions. Able to confirm most of history from prior visits but initially, denied any illness other than hypertension. Reviewed: echocardiogram 03/06/17 - EF 25-30%; patient has an AICD; mild to moderate MVR, mild aortic regurg. . Review of Systems Except as stated in HPI: all other systems reviewed are Neg Past Family Social History Past Medical History Hypertension CHF - EF 25 - 30% JUSTYN Atrial fibrillation with RVR Depression Anxiety Denies CAD, breathing problems, liver problems, kidney problems, blood clots in legs or lungs, CVA, seizures, thyroid problems, or prostate issues Past Surgical History AICD Tonsillectomy Reported Medications Reported Meds & Active Scripts Active Lisinopril 10 Mg Tab 10 Mg PO DAILY Potassium Chloride ER (Potassium Chloride) 20 Meq Tab 20 Meq PO DAILY Bumetanide 1 Mg Tab 1 Mg PO BID May take extra pill per every 24 hours for worsening swelling in legs Metolazone 5 Mg Tab 5 Mg PO DAILY Lopressor (Metoprolol Tartrate) 100 Mg Tab 100 Mg PO BID@08,20 Eliquis (Apixaban) 5 Mg Tab 5 Mg PO BID Trazodone (Trazodone HCl) 50 Mg Tab 50 Mg PO HS Cymbalta DR (Duloxetine HCl) 60 Mg Capdr 60 Mg PO DAILY . Allergies: Coded Allergies: ampicillin (Unverified Allergy, Severe, 03/02/17) fire ant (Unverified Allergy, Severe, Anaphylaxis, 03/02/17) Active Ordered Medications Current Medications Ondansetron HCl (Zofran Inj) 4 mg ONCE ONCE IV PUSH Last administered on 02:51; Start 03/25/17 at 02:15; Stop 03/25/17 at 02:16; Status DC Clindamycin Phosphate 900 mg/ Sodium Chloride 106 ml @ 212 mls/hr ONCE ONCE IV ; Start 03/25/17 at 03:30; Stop 03/25/17 at 03:59; Status DC Potassium Chloride 100 ml @ 25 mls/hr ONCE ONCE IV ; Start 03/25/17 at 03:30; Stop 03/25/17 at 03:42; Status DC Sodium Chloride (NS Flush) 2 ml UNSCH PRN IV FLUSH FLUSH AFTER USING IV ACCESS ; Start 03/25/17 at 03:45 Sodium Chloride (NS Flush) 2 ml BID IV FLUSH ; Start 03/25/17 at 09:00 Naloxone HCl (Narcan Inj) 0.4 mg UNSCH PRN IV SEE LABEL COMMENTS; Start at 03:45 Clindamycin Phosphate 900 mg/ Sodium Chloride 106 ml @ 212 mls/hr Q6H IV ; Start 03/25/17 at 10:00 Potassium Chloride 30 meq/ Sodium Chloride 115 ml @ 38.333 mls/ hr Q3H IV- CENTRAL ; Start 03/25/17 at 03:45; Stop 03/25/17 at 04:19; Status DC Potassium Bicarb/ Potassium Chloride (K-Lyte Cl Eff) 50 meq ONCE ONCE PO Last administered on 03/25/17 04:22; Start 03/25/17 at 03:45; Stop 03/25/17 at 03: 46; Status DC Potassium Chloride 100 ml @ 50 mls/hr Q2H IV ; Start 03/25/17 at 04:30; Stop 03/25/17 at 08:29 . Family History hypertension Social History Tobacco: denies Alcohol: states he drinks on occasion but not routinely Physical Exam Vital Signs Vital Signs Date Time Temp Pulse Resp B/P (MAP) Pulse Ox O2 Delivery O2 Flow Rate FiO2 03/25/17 02:16 100 Room Air 03/25/17 02:16 100 Room Air 03/25/17 02:15 98.0 03/25/17 02:01 117 105/56 (72) 97 Physical Exam GENERAL: This is a chronically ill-appearing male patient, in no apparent distress. SKIN: Left lower extremity erythematous with +2 edema. HEAD: Atraumatic. Normocephalic. EYES: No scleral icterus. No injection or drainage. ENT: Nose without bleeding, purulent drainage. NECK: Trachea midline. No JVD. CARDIOVASCULAR: Regular rate and rhythm without murmurs, gallops, or rubs. RESPIRATORY: Breath sounds equal bilaterally. No wheezes, rales, or rhonchi. GASTROINTESTINAL: Abdomen soft, non-tender, nondistended. +BS. MUSCULOSKELETAL: Extremities without clubbing, cyanosis. No calf tenderness. NEUROLOGICAL: Drowsy, some impaired memory related to medical history. Laboratory Laboratory Tests Test 03/25/17 02:20 White Blood Count 13.3 Red Blood Count 5.26 Hemoglobin 12.2 Hematocrit 37.4 Mean Corpuscular Volume 71.2 Mean Corpuscular Hemoglobin 23.3 Mean Corpuscular Hemoglobin Concent 32.7 Red Cell Distribution Width 19.8 Platelet Count 188 Mean Platelet Volume 8.4 Neutrophils (%) (Auto) 94.2 Lymphocytes (%) (Auto) 1.8 Monocytes (%) (Auto) 3.7 Eosinophils (%) (Auto) 0.1 Basophils (%) (Auto) 0.2 Neutrophils # (Auto) 12.5 Lymphocytes # (Auto) 0.2 Monocytes # (Auto) 0.5 Eosinophils # (Auto) 0.0 Basophils # (Auto) 0.0 CBC Comment DIFF FINAL Differential Comment Prothrombin Time 12.3 Prothromb Time International Ratio 1.1 Activated Partial Thromboplast Time 28.9 Blood Urea Nitrogen 46 Creatinine 2.66 Random Glucose 141 Total Protein 7.1 Albumin 3.5 Calcium Level 8.5 Alkaline Phosphatase 108 Aspartate Amino Transf (AST/SGOT) 28 Alanine Aminotransferase (ALT/SGPT) 19 Total Bilirubin 1.0 Sodium Level 132 Potassium Level 2.5 Chloride Level 93 Carbon Dioxide Level 26.6 Anion Gap 12 Estimat Glomerular Filtration Rate 25 Total Creatine Kinase 68 Troponin I 0.06 Result Diagram: 03/25/1721903/25/17219 Imaging Last Impressions Chest X-Ray 03/25/17212 Signed Impressions: Service Date/Time: March 02:51 - CONCLUSION: 1. Stable cardiomegaly without failure. 2. No acute abnormality or significant interval change. Cecilio Garrido MD . Caprini VTE Risk Assessment Caprini VTE Risk Assessment: Mod/High Risk (score >= 2) Caprini Risk Assessment Model Point Value = 1 Point Value = 2 Point Value = 3 Point Value = 5 Age 41-60 Minor surgery BMI > 25 kg/m2 Swollen legs Varicose veins or History of unexplained or recurrent spontaneous Oral contraceptives or hormone replacement Sepsis (< 1 month) Serious lung disease, including pneumonia (< 1 month) Abnormal pulmonary function Acute myocardial infarction Congestive heart failure (< 1 month) History of inflammatory bowel disease Medical patient at bed rest Age 61-74 Arthroscopic surgery Major open surgery (> 45 min) Laparoscopic surgery (> 45 min) Malignancy Confined to bed (> 72 hours) Immobilizing plaster cast Central venous access Age >= 75 History of VTE Family history of VTE Factor V Leiden Prothrombin [id number] Lupus anticoagulant Anticardiolipin antibodies Elevated serum homocysteine Heparin-induced thrombocytopenia Other congenital or acquired thrombophilia Stroke (< 1 month) Elective arthroplasty Hip, pelvis, or leg fracture Acute spinal cord injury (< 1 month) Prophylaxis Regimen Total Risk Factor Score Risk Level Prophylaxis Regimen 0-1 Low Early ambulation 2 Moderate Order ONE of the following: *Sequential Compression Device (SCD) *Heparin 5000 units SQ BID 3-4 Higher Order ONE of the following medications: *Heparin 5000 units SQ TID *Enoxaparin/Lovenox 40 mg SQ daily (WT < 150 kg, CrCl > 30 mL/min) *Enoxaparin/Lovenox 30 mg SQ daily (WT < 150 kg, CrCl > 10-29 mL/min) *Enoxaparin/Lovenox 30 mg SQ BID (WT < 150 kg, CrCl > 30 mL/min) AND/OR *Sequential Compression Device (SCD) 5 or more Highest Order ONE of the following medications: *Heparin 5000 units SQ TID (Preferred with Epidurals) *Enoxaparin/Lovenox 40 mg SQ daily (WT < 150 kg, CrCl > 30 mL/min) *Enoxaparin/Lovenox 30 mg SQ daily (WT < 150 kg, CrCl > 10-29 mL/min) *Enoxaparin/Lovenox 30 mg SQ BID (WT < 150 kg, CrCl > 30 mL/min) AND *Sequential Compression Device (SCD) Assessment and Plan Problem List: (1) Left leg cellulitis ICD Code: L03.116 - Cellulitis of left lower limb Status: Acute (2) Sepsis ICD Code: A41.9 - Sepsis, unspecified organism (3) Hypokalemia ICD Code: E87.6 - Hypokalemia; N18.9 - Chronic kidney disease, unspecified Status: Acute (4) Hypotension ICD Code: I95.9 - Hypotension, unspecified (5) Atrial fibrillation with RVR ICD Code: I48.91 - Unspecified atrial fibrillation Status: Acute Assessment and Plan 61 y/o male presented with weakness, lightheadedness and near syncopal episode accompanied by nausea/vomiting. Sepsis Left lower extremity cellulitis - WBC 13.3 with neutrophilia - lactic acid 3.1 - on lactic acid sepsis protocol - follow results of next lactic acid per protocol - will be cautious with aggressive iv hydration due to his CHF- pt with chf, expected lactic acidosis, for now- would just hold diuretics and hydrate orally - bilateral Doppler ultrasound to r/o dvt - Antibiotics: Clindamycin 900 mg q6h IV Hypokalemia - Potassium 2.5 on admission - Replacement ordered, 50meq po and 40meq iv - recheck potassium level and replace as needed Hypotension - likely multifactorial related to severe left ventricular systolic impairment with EF 25 - 30%, rather than sepsis with shock - Given cardiomyopathy, a fib with RVR, impaired renal function, and sepsis, he has a high risk for medical deterioration and will be placed in ICU for closer monitoring - Pressors may be required to maintain mean arterial pressure greater than 65 Atrial fibrillation with RVR with HR around 110-120 - will correct potassium - check mag - Troponin I 0.06 - likely related to MARICHUY and rate related demand (was 0.1 on ) - BNP 461 - CXR negative for heart failure - shows stable cardiomegaly - continuous cardiac telemetry to monitor rate and for arrhythmia and Acute renal failure likely multifactorial - BUN 46, creatinine 2.66, estimated GFR 25 - BUN 15, creatinine 1.13 creatinine 1.13 on 03/08 - avoid nephrotoxins - repeat bmp in a.m. and follow results - consider nephrology consultation - hold diuretics - hydrate patient orally DVT prophylaxis - continue home Eliquis once medication reconciliation completed Discussed Condition With ER physician, LINING IRONER, and patient Zoey Us Mar 25, 2017 04:10 Marcelina Diane MD Mar 25, 2017 06:29
[2017-03-25] MEDS ORDERED: POTASSIUM CHLOR 20 MEQ PREMIX 100 ML IV SCH (04:30)
[2017-03-25] MEDS ORDERED: SACU1TAB7 PO (05:35)
[2017-03-25] MEDS ORDERED: METO50TA PO (05:35)
[2017-03-25 06:15] LABS: LACTIC ACID GHOST NOT REPORTABLE
[2017-03-25] MEDS ORDERED: MISCELLANEOUS NURSING INFORMATION XX SCH (07:45)
[2017-03-25] MEDS ORDERED: CHLORHEXIDINE GLUCONATE 2 % 1 PACK (2 CLOTHS) TOP PRN (07:45)
[2017-03-25] MEDS ORDERED: RESP: ALBUTEROL 2.5 MG/3 ML NEB (PRN) INH (08:00)
[2017-03-25] MEDS: FREE WATER PO SCH ×4 (08:00→21:52)
--- NOTE | 2017-03-25 08:17 | PD.CONS ---
[facility] Service Critical Care Medicine Consult Requested By Dr. Diane Reason for Consult Critical care management. Primary Care Physician No Primary Care Physician History of Present Illness 61-year-old male. Date of admission 03/25/2017. Date of consultation . Past medical includes atrial fibrillation, chronic systolic heart failure, hypertension depression/anxiety, chronic anticoagulation, and history of AICD placement less than 2 years ago in [facility]. Patient was admitted late last month with CHF exacerbation and defibrillation of his AICD. His torsemide has discontinued by Dr. Frias and he was started on bumetanide 1 mg twice a day along with metolazone 5 mill grams daily. He was supposed to start on sacubitral/valsartan was unable to afford and so was started on lisinopril. He was to follow-up with Dr. Frias for outpatient for possible further workup. He was still discussing due to the fact he has a set enlarged left atrium and might not be a candidate for atrial fibrillation ablation then he will need AV node modification and bi-V pacing. Patient presented to [facility] with nausea and vomiting, acute kidney injury with a creatinine of 2.7 and potassium 2.5. Initially hemodynamically stable however on the floor he came somewhat hypotensive with a map around 60 and a lactate 3.1. Neurologically intact. Overnight hospitalist did not feel comfortable taking care of the patient therefore requested display manager manage Review of Systems Constitutional: DENIES: Fever, Weight gain, Weight loss Endocrine: DENIES: Polydipsia, Polyuria Eyes: DENIES: Blurred vision Ears, nose, mouth, throat: DENIES: Tinnitus Respiratory: COMPLAINS OF: Cough, DENIES: Sputum production, Shortness of breath Cardiovascular: COMPLAINS OF: Lower Extremity Edema, DENIES: Chest pain Gastrointestinal: COMPLAINS OF: Abdominal pain, Nausea, Vomiting, DENIES: Diarrhea Genitourinary: DENIES: Hematuria, Dysuria Musculoskeletal: DENIES: Joint pain Integumentary: COMPLAINS OF: Abnormal pigmentation Hematologic/lymphatic: DENIES: Bruising Immunologic/allergic: DENIES: Eczema Neurologic: DENIES: Abnormal gait, Headache Psychiatric: COMPLAINS OF: Confusion, DENIES: Anxiety Past Family Social History Allergies: Coded Allergies: ampicillin (Unverified Allergy, Severe, 03/02/17) fire ant (Unverified Allergy, Severe, Anaphylaxis, 03/02/17) Past Medical History Atrial fibrillation Congestive heart failure/chronic systolic EF of 25-30% Moderate MR Hypertension Chronic Apixaban Dyslipidemia Depression/anxiety Past Surgical History AICD placement Tonsillectomy Reported Medications Bumetanide 1 mg by mouth twice a day Metolazone 5 mg by mouth daily Potassium chloride 20 mEq by mouth daily Metoprolol 100 mg by mouth twice a day Apixaban 5 mg by mouth twice a day Duloxetine 60 mg by mouth daily Lisinopril 10 mg by mouth daily Trazodone 50 mg by mouth daily Active Ordered Medications Reviewed in EMR Family History Positive for hypertension Social History Denies tobacco use. Rare alcohol use. Denies binging. No IV drug use. Physical Exam Vital Signs Vital Signs Date Time Temp Pulse Resp B/P (MAP) Pulse Ox O2 Delivery O2 Flow Rate FiO2 03/25/17 07:04 105 20 85/49 (61) 100 03/25/17 06:00 110 20 92/53 (66) 100 Room Air 03/25/17 05:00 98 20 85/53 (64) 99 Room Air 03/25/17 04:00 102 18 90/51 (64) 100 Room Air 03/25/17 03:00 112 20 113/86 (95) 100 Room Air 03/25/17 02:16 100 Room Air 03/25/17 02:16 100 Room Air 03/25/17 02:15 98.0 03/25/17 02:01 117 105/56 (72) 97 Physical Exam GENERAL: 61-year-old male, critically ill currently resting in bed in no acute distress SKIN: Warm and dry. Open skin tear on left anterior she nephrectomy 3 x 3 7 m. Erythema from below the knee to ankle/pretibial region of left lower extremity. Ecchymosis noted. No crepitus or bullae noted. No woody induration. Some cyanosis to right lower extremity. HEAD: Atraumatic. Normocephalic. EYES: Pupils equal and round about 2 mm bilaterally and reactive. No scleral icterus. No injection or drainage. ENT: No nasal bleeding or discharge. Mucous membranes pink and moist. NECK: Trachea midline. No JVD. CARDIOVASCULAR: Tachycardia, IR. S1, S2 no S4. 2/6 murmur at the left lower sternal border. RESPIRATORY: Clear to auscultation bilaterally without wheezes rales or rhonchi. Breath sounds equal bilaterally. GASTROINTESTINAL: Abdomen soft, non-tender, nondistended. Hypoactive bowel sounds appreciated MUSCULOSKELETAL: Extremities with 1+ pretibial edema left greater than right before meals skin above. . Dorsalis pedis and posterior tibials are palpable bilaterally. NEUROLOGICAL: Awake and alert. No obvious cranial nerve deficits. Motor grossly within normal limits. Five out of 5 muscle strength in the arms and legs. Normal speech. PSYCHIATRIC: Appropriate mood and affect; insight and judgment normal. Laboratory Laboratory Tests Test 03/25/17 02:20 03/25/17 04:05 White Blood Count 13.3 Red Blood Count 5.26 Hemoglobin 12.2 Hematocrit 37.4 Mean Corpuscular Volume 71.2 Mean Corpuscular Hemoglobin 23.3 Mean Corpuscular Hemoglobin Concent 32.7 Red Cell Distribution Width 19.8 Platelet Count 188 Mean Platelet Volume 8.4 Neutrophils (%) (Auto) 94.2 Lymphocytes (%) (Auto) 1.8 Monocytes (%) (Auto) 3.7 Eosinophils (%) (Auto) 0.1 Basophils (%) (Auto) 0.2 Neutrophils # (Auto) 12.5 Lymphocytes # (Auto) 0.2 Monocytes # (Auto) 0.5 Eosinophils # (Auto) 0.0 Basophils # (Auto) 0.0 CBC Comment DIFF FINAL Differential Comment Prothrombin Time 12.3 Prothromb Time International Ratio 1.1 Activated Partial Thromboplast Time 28.9 Blood Urea Nitrogen 46 Creatinine 2.66 Random Glucose 141 Total Protein 7.1 Albumin 3.5 Calcium Level 8.5 Alkaline Phosphatase 108 Aspartate Amino Transf (AST/SGOT) 28 Alanine Aminotransferase (ALT/SGPT) 19 Total Bilirubin 1.0 Sodium Level 132 Potassium Level 2.5 Chloride Level 93 Carbon Dioxide Level 26.6 Anion Gap 12 Estimat Glomerular Filtration Rate 25 Total Creatine Kinase 68 Troponin I 0.06 B-Type Natriuretic Peptide 461 Lactic Acid Level 3.1 Date/Time Source Procedure Growth Status 03/25/17 04:00 Blood Peripheral Aerobic Blood Culture Pending Received 03/25/17 04:00 Blood Peripheral Anaerobic Blood Culture Pending Received Result Diagram: 03/25/1721903/25/17219 Imaging Last Impressions Chest X-Ray 03/25/17212 Signed Impressions: Service Date/Time: March 02:51 - CONCLUSION: 1. Stable cardiomegaly without failure. 2. No acute abnormality or significant interval change. Cecilio Garrido MD Assessment and Plan Assessment and Plan Neuro/Psych: Depression/anxiety Continue duloxetine 60 mg by mouth daily for depression Continue trazodone 50 mill grams by mouth at night for depression/insomnia Acetaminophen 650 mg every 6 hours when necessary fever/pain 1-3 Hydrocodone/acetaminophen 5/325 one tablet every 4 hours when necessary pain. 10 Morphine sulfate 2 mg IV every 2 hours when necessary breakthrough pain CV: Chronic systolic heart failure ejection fraction 30% Small pericardial effusion Hypertension Dyslipidemia Lactic acidosis Severe Sepsis Elevated troponin 0.06 Echocardiogram 03/04 revealed EF 25-30%. Decreased LV systolic function. Moderate MR. Mild AR. Small pericardial effusion. Medications include lisinopril 10 mg daily, metoprolol 100 mg by mouth twice a day. Easily held in light of hypotension Holding bumetanide 1 mg twice a day and metolazone 5 mg daily in light of hypotension Intermittent normal saline boluses 250 cc an hour Cycle serial lactates until cleared Elevated troponin likely demand ischemia secondary to hypotension. Recheck in AM. Resp: Nasal cannula to maintain saturations greater than equal to 92% Incentive spirometry while awake GI: Nausea/vomiting Liver function tests within normal limits. Follow lipase/amylase Clear liquid diet Pantoprazole for GI prophylaxis Docusate sodium/senna 1 tablet twice a day for bowel regimen Ondansetron 4 mg IV every 4 hours when necessary nausea : Frank catheter only if indicated for accurate I's and O's in a critically ill patient Endo: Hyperglycemia of critical illness Sliding-scale insulin if indicated to maintain euglycemia Renal: Acute kidney injury in the setting of chronic kidney disease stage IIIa Creatinine 2.6 on admission. Baseline 1.6. Gentle hydration light of heart failure Accurate I's and O's Monitor urine output Avoid nephrotoxic drugs. NAYELI inhibitor and diuretics currently been held for today. Resume when clinically indicated Check urine electrolytes and eosinophil/kidney ultrasound Heme: Leukocytosis Microcytic anemia Monitor CBC daily. Follow trends. Outpatient workup for microcytic anemia ID: Left lower extremity cellulitis rule out necrotizing fasciitis Blood cultures 2 pending Currently on vancomycin/ciprofloxacin and clindamycin. Doppler ultrasound bilateral lower extremities pending. Will order MRI stat. Possible surgical consultation depending on careful monitoring left lower extremity Demarcated left lower extremity skin marker FEN: Hyponatremia Hypopotassemia Ordered 90 mEq IV potassium along with 20 mEq by mouth. Recheck at 1800 hrs. Replace electrolytes as clinically indicated MSK: Physical therapy evaluate and treat Access - Utilize peripheral IV. Central line if indicated Prophylaxis - GI - pantoprazole - DVT - SCD/Apixaban will provide adequate DVT prophylaxis Level II consult Code Status Full code Discussed Condition With Doctor Benedicto, patient. FLITCH HANGER. Care plan discussed and all questions answered. Kervin Osorio MD Mar 25, 2017 08:16
[2017-03-25] MEDS: SODIUM CHLORIDE 0.9% FLUSH 10 ML FLUSH IV FLUSH SCH ×2 (08:33→19:44)
[2017-03-25] MEDS ORDERED: SENNOSIDES 8.6 MG TAB PO PRN (09:00)
[2017-03-25] MEDS ORDERED: ONDANSETRON HCL 4 MG/2 ML VIAL IV PRN (09:00)
[2017-03-25] MEDS ORDERED: BISACODYL 10 MG SUPP RECTAL PRN (09:00)
[2017-03-25] MEDS: PANTOPRAZOLE SODIUM 40 MG VIAL IV SCH (09:00)
[2017-03-25] MEDS ORDERED: LACTULOSE SYRUP 20 GM/30 ML CUP PO PRN (09:00)
[2017-03-25] MEDS ORDERED: ACETAMINOPHEN/HYDROcodone 325 MG/5 MG TAB PO PRN (09:00)
[2017-03-25] MEDS ORDERED: SODIUM CHLORIDE 0.9% FLUSH 10 ML FLUSH IV FLUSH SCH (09:00)
[2017-03-25] MEDS ORDERED: Vancomycin Consult Pharmacy 1 EA OTHER SCH (09:00)
[2017-03-25] MEDS ORDERED: ACETAMINOPHEN 325 MG TAB PO PRN (09:00)
[2017-03-25] MEDS: APIXABAN 5 MG TABLET PO SCH ×2 (09:00→19:45)
[2017-03-25] MEDS ORDERED: SODIUM CHLOR 0.9% 250 ML INJ 250 ML IV ONE (09:00)
[2017-03-25] MEDS ORDERED: MAGNESIUM HYDROXIDE SUSP 30 ML CUP PO PRN (09:00)
[2017-03-25] MEDS: POTASSIUM CHLORIDE 20 MEQ CONTROLLED RELEASE TAB PO SCH (09:00)
[2017-03-25] MEDS: DOCUSATE SODIUM 50 MG/SENNA 8.6 MG TAB PO SCH ×2 (09:00→19:45)
[2017-03-25] MEDS ORDERED: MORPHINE SULFATE 4 MG/ML INJ IV PRN (09:00)
[2017-03-25] MEDS: RESP: ALBUTEROL 2.5 MG/IPRATROPIUM 0.5 MG NEB (SCH) INH (09:43)
--- NOTE | 2017-03-25 09:54 | RADRPT ---
EXAM DATE/TIME: 03/25/2017 08:54 [facility] COMPARISON: No previous studies available for comparison. INDICATIONS : Bilateral leg cellulitis. MEDICAL HISTORY : Hypertension. Congestive heart failure. Sleep apnea. Diabetes. Skull fracture. ADHD. Depression. Anx iety. Anticoagulant therapy, Eliquis. SURGICAL HISTORY : Tonsillectomy.Pacemaker. Appendectomy.Cardiac cath. Gastric bypass. Hiatal hernia repair x2. ENCOUNTER: Initial ACUITY: 1 day PAIN SCORE: 0/10 LOCATION: Bilateral leg. TECHNIQUE: Venous ultrasound of the left and right leg was performed from the inguinal ligament to the proximal calf. Real-time, color Doppler and spectral tracing, compression and augmentation techniques were us ed. FINDINGS: RIGHT LEG: There is normal compressibility of the deep venous system from the inguinal region to the proximal ca lf. No echogenic clot is seen in the lumen of the common femoral, femoral, popliteal, and posterior tibial veins. There is a normal response of the venous system to proximal and distal augmentation an d respiration. LEFT LEG: There is normal compressibility of the deep venous system from the inguinal region to the proximal ca lf. No echogenic clot is seen in the lumen of the common femoral, femoral, popliteal, and posterior tibial veins. There is a normal response of the venous system to proximal and distal augmentation an d respiration. CONCLUSION: Normal examination. Mony Osuna MD on March 25, 2017 at 9:51 Board Certified Radiologist. This report was verified electronically.
[2017-03-25] MEDS ORDERED: CLINDAMYCIN INJ 900 MG in SODIUM CHLORIDE 0.9% INJ 100 ML IV SCH (10:00)
[2017-03-25] MEDS ORDERED: VANCOMYCIN INJ 2,000 MG in SODIUM CHLORID 0.9% 500 ML INJ 500 ML IV ONE (10:00)
--- NOTE | 2017-03-25 12:05 | PD.PROCEDR ---
Central Line Procedure REASON FOR PROCEDURE Central venous access PROCEDURE PERFORMED Central line placement: Left IJ CVL CONSENT Informed consent for procedure was obtained. The risks and benefits of the procedure were discussed to include but limited to bleeding, clot formation, infection, and even . ANESTHESIA Local injection of 1% Lidocaine DESCRIPTION OF THE PROCEDURE The patient was placed in supine, mild Trendelenburg position. The area was exposed and cleansed with ChloraPrep, times two. Large sterile drape was used to cover the patient, with the site exposed, under sterile conditions including cap, face mask, sterile gown, and sterile gloves. On single attempt, the introducer needle was inserted with negative pressure in syringe and venous flash was obtained. The guide wire was then advanced without any restriction and the needle was removed. The dilator was used without any complications. Using Seldinger technique the antibiotic coated triple-lumen catheter was advanced over the guide wire to a depth of 20 centimeters. The guide wire was removed. All ports were aspirated with dark venous blood return and flushed easily with sterile saline. All ports were capped. Antibiotic disc was placed around central line at puncture site. The central line was secured to the skin with two interrupted 2.0 silk sutures. The area was bandaged with sterile see- through central line bandage. RADIOLOGICAL DATA Ultrasound guidance was used to locate left internal jugular vein. Doppler/ color flow was used to confirm venous flow. COMPLICATIONS: No apparent complications ESTIMATED BLOOD LOSS: Less than 1 cc. Kervin Osorio MD Mar 25, 2017 12:05
[2017-03-25] MEDS ORDERED: TERBUTALINE INJ 1 MG/ML AMP SQ PRN (12:15)
[2017-03-25] MEDS ORDERED: PHENYLEPHRINE INJ 160 MG in DEXTROSE 5% IN WATE 500 ML INJ 484 ML IV PRN ×2 (12:15)
[2017-03-25] MEDS ORDERED: SODIUM CHLORIDE 0.9% FLUSH 10 ML FLUSH IVF PRN (12:15)
[2017-03-25] MEDS: SODIUM CHLORIDE 0.9% FLUSH 10 ML FLUSH IVF SCH (12:15)
--- NOTE | 2017-03-25 12:32 | RADRPT ---
EXAM DATE/TIME: 03/25/2017 09:15 [facility] COMPARISON: No previous studies available for comparison. INDICATIONS : Increased BUN/creatinine. MEDICAL HISTORY : Hypertension. Congestive heart failure. Sleep apnea. Diabetes. Skull fracture. ADHD. Depression. An xiety. Anticoagulant therapy, Eliquis. SURGICAL HISTORY : Tonsillectomy. Pacemaker. Appendectomy. Cardiac catheterization. Gastric bypass. Hiatal hernia repair x2. ENCOUNTER: Initial ACUITY: 1 day PAIN SCORE: 0/10 LOCATION: Bilateral flank MEASUREMENTS: RIGHT KIDNEY: 11.1 x 5.1 x 4.7 cm LEFT KIDNEY: 12.4 x 5.8 x 5.0 cm FINDINGS: Spleen is mildly enlarged. There is left pleural fluid. RIGHT KIDNEY: Renal cortex is normal in thickness and echotexture. No hydronephrosis, stone, or mass. LEFT KIDNEY: Renal cortex is normal in thickness and echotexture. No hydronephrosis, stone, or mass. BLADDER: Mild concentric bladder wall thickening CONCLUSION: No hydronephrosis. Mild lateral wall thickening. Chato Kolb MD on March 25, 2017 at 12:28 Board Certified Radiologist. This report was verified electronically.
--- NOTE | 2017-03-25 12:47 | EKG ---
Date Performed: 03/25/2017 Time Performed: 03:14:22 PTAGE: 61 years EKG: ATRIAL FIBRILLATION WITH RAPID VENTRICULAR RESPONSE MODERATE INTRAVENTRICULAR CONDUCTION DE LAY ST DEVIATION AND MODERATE T-WAVE ABNORMALITY, CONSIDER LATERAL ISCHEMIA ABNORMAL ECG PREVIOUS TRACING : 03/04/2017 04.55 DOCTOR: Nahid Torres Interpretating Date/Time 03/25/2017 12:44:07
--- NOTE | 2017-03-25 12:52 | RADRPT ---
EXAM DATE/TIME: 03/25/2017 12:09 [facility] COMPARISON: CHEST SINGLE AP, March 25, 2017, 2:51. INDICATIONS : Central line placement. MEDICAL HISTORY : Hypertension. Congestive heart failure. Sleep apnea. Diabetes. Skull fracture. ADHD. Depression. Anxi ety. Anticoagulant therapy, Eliquis SURGICAL HISTORY : Tonsillectomy. Pacemaker. Appendectomy. Cardiac catheterization. Gastric bypass. Hiatal hernia repair x2. ENCOUNTER: Subsequent ACUITY: 2 weeks PAIN SCORE: 0/10 LOCATION: Bilateral chest FINDINGS: A left internal jugular central line has been placed and has its tip in good position in the superior vena cava. There is no pneumothorax. The heart is enlarged. Left basilar patchiness is noted cons istent with probable pneumonia. Clinical correlation is recommended. A left subclavian dual lead pa cemaker has its tips in the right atrium and right ventricle. No pulmonary edema is noted. Degenera tive changes are noted throughout the thoracic spine. CONCLUSION: 1. Left basilar patchiness consistent with probable pneumonia. 2. Left internal jugular central line has its tip in good position in the superior vena cava. There is no pneumothorax. 3. Cardiomegaly. 4. Degenerative changes throughout the thoracic spine. Sai Dallas MD on March 25, 2017 at 12:44 Board Certified Radiologist. This report was verified electronically.
--- NOTE | 2017-03-25 12:54 | PD.CONS ---
History of Present Illness Service Infectious Disease Consult Requested By Dr Ortega Osorio Reason for Consult Evaluate patient with cellulitis Primary Care Physician No Primary Care Physician Diagnoses: History of Present Illness Patient seen and examined. Records reviewed. Patient is a very poor historian. He is a 61-year-old male, currently living in the homeless half-way, brought into the hospital for evaluation of fever or chills, nausea and vomiting there's been no diarrhea. Patient also was complaining all redness and pain in his left lower extremity. It's unclear as to how long he has had the problem on his left leg. There is mention that he was given an antibiotic for the left leg. Patient since admission has not had any fever. His WBC is elevated. He was initially admitted to the medical floor , but he developed some hypotension and transferred to the ICU. Patient currently is very restless and complaining of pain in his left lower extremity. Infectious disease consultation is requested to evaluate the patient. Review of Systems ROS Limitations: Clinical Condition, Altered Mental Status, Poor Historian Past Family Social History Allergies: Coded Allergies: ampicillin (Unverified Allergy, Severe, 03/02/17) fire ant (Unverified Allergy, Severe, Anaphylaxis, 03/02/17) Past Medical History Atrial fibrillation Congestive heart failure/chronic systolic EF of 25-30% Moderate MR Hypertension Chronic Apixaban Dyslipidemia Depression/anxiety Past Surgical History AICD placement Tonsillectomy Active Ordered Medications Tylenol [place] Albuterol Eliquis Dulcolax Cipro Clindamycin Lactulose MOM Morphine Zofran Protonix Phenylephrine Potassium Kathie-Colace Senokot Vancomycin Family History Hypertension Social History No smoking Rare ETOH Denies illicit drugs Physical Exam Vital Signs Vital Signs Date Time Temp Pulse Resp B/P (MAP) Pulse Ox O2 Delivery O2 Flow Rate FiO2 03/25/17 09:39 100 03/25/17 08:00 99.0 118 24 91/57 (68) 100 03/25/17 07:04 105 20 85/49 (61) 100 03/25/17 06:00 110 20 92/53 (66) 100 Room Air 03/25/17 05:00 98 20 85/53 (64) 99 Room Air 03/25/17 04:00 102 18 90/51 (64) 100 Room Air 03/25/17 03:00 112 20 113/86 (95) 100 Room Air 03/25/17 02:16 100 Room Air 03/25/17 02:16 100 Room Air 03/25/17 02:15 98.0 03/25/17 02:01 117 105/56 (72) 97 Physical Exam GENERAL: Patient is well-nourished, well-developed CM, awake, confused and very restless, in mild respiratory distress. SKIN: Warm and dry. No generalized rash, no ecchymoses and no evidence of embolic lesions. HEAD: Atraumatic. Normocephalic. No temporal wasting, or tenderness. EYES: [place] conjunctiva. No petechia or hemorrhage. Pupils equal, round and reactive to light. Extraocular movements full and intact. No scleral icterus. No injection or drainage. EARS, NOSE AND THROAT: Nose without bleeding or purulent nasal discharge. No sinus tenderness. Mucous membranes pink and moist. No oral lesions noted. No exudate. No oral thrush. NECK: Trachea midline. Supple and not tender, no meningeal signs CARDIOVASCULAR: Regular rate and rhythm. No murmurs, rubs or gallops heard. AICD L upper chest with no evidence of infection RESPIRATORY: Clear to auscultation. Breath sounds equal bilaterally. No rales , wheezing or rhonchi. Decreased BS at bases ABDOMEN: Soft, non-tender, nondistended. Bowel sounds present and normoactive. No guarding. No rebound. No organomegaly. EXTREMITIES: No clubbing, cyanosis, or edema RLE. LLE with some edema, has erythema from below knee down to ankle, with a small skin avulsion upper leg, indurated at distal leg and posteriorly very tender on palpation, no crepitus. No joint effusion, has good ROM. No R calf tenderness. Well perfused and warm. NEUROLOGICAL: Awake, confused and restless. Cranial nerves grossly intact. MOving all extremities PSYCHIATRIC: Very restless LINE: No evidence of infection Laboratory Laboratory Tests Test 03/25/17 02:20 03/25/17 04:05 White Blood Count 13.3 Red Blood Count 5.26 Hemoglobin 12.2 Hematocrit 37.4 Mean Corpuscular Volume 71.2 Mean Corpuscular Hemoglobin 23.3 Mean Corpuscular Hemoglobin Concent 32.7 Red Cell Distribution Width 19.8 Platelet Count 188 Mean Platelet Volume 8.4 Neutrophils (%) (Auto) 94.2 Lymphocytes (%) (Auto) 1.8 Monocytes (%) (Auto) 3.7 Eosinophils (%) (Auto) 0.1 Basophils (%) (Auto) 0.2 Neutrophils # (Auto) 12.5 Lymphocytes # (Auto) 0.2 Monocytes # (Auto) 0.5 Eosinophils # (Auto) 0.0 Basophils # (Auto) 0.0 CBC Comment DIFF FINAL Differential Comment Prothrombin Time 12.3 Prothromb Time International Ratio 1.1 Activated Partial Thromboplast Time 28.9 Blood Urea Nitrogen 46 Creatinine 2.66 Random Glucose 141 Total Protein 7.1 Albumin 3.5 Calcium Level 8.5 Alkaline Phosphatase 108 Aspartate Amino Transf (AST/SGOT) 28 Alanine Aminotransferase (ALT/SGPT) 19 Total Bilirubin 1.0 Sodium Level 132 Potassium Level 2.5 Chloride Level 93 Carbon Dioxide Level 26.6 Anion Gap 12 Estimat Glomerular Filtration Rate 25 Total Creatine Kinase 68 Troponin I 0.06 B-Type Natriuretic Peptide 461 Lactic Acid Level 3.1 Date/Time Source Procedure Growth Status 03/25/17 04:00 Blood Peripheral Aerobic Blood Culture Pending Received 03/25/17 04:00 Blood Peripheral Anaerobic Blood Culture Pending Received Result Diagram: 03/25/17 02203/25/17 0220 Imaging RADIOLOGY STUDIES/FILMS REVIEWED Chest X-Ray 03/25/17 0213 Signed Impressions: Service Date/Time: March 02:51 - CONCLUSION: 1. Stable cardiomegaly without failure. 2. No acute abnormality or significant interval change. Cecilio Garrido MD Renal Ultrasound 03/25/17 0000 Signed Impressions: Service Date/Time: March 09:15 - CONCLUSION: No hydronephrosis. Mild lateral wall thickening. Chato Kolb MD Lower Extremity Ultrasound 03/25/17 0000 Signed Impressions: Service Date/Time: March 08:54 - CONCLUSION: Normal examination. K. Richard Osuna MD Assessment and Plan Assessment and Plan IMPRESSION Sepsis due to LLE cellulitis, ?nec fasc Cellulitis, ?nec fasc - has much more pain that seem dispropotionate to his cellulitis Renal insufficiency, due to sepsis, hypotension Known CAD, CM RECOMMENDATION Continue Vancomycin for GPC coverage Continue Clinda - at least 2 days Use Cefepime for GNR coverage GS has been consulted Ideally image LLE - but patient too restless to have MRI LLE Follow LLE Follow C/S Monitor progress I will follow along with you Thank you for this consultation Discussed Condition With D/W Joan Thayer MD Mar 25, 2017 12:54
[2017-03-25] MEDS: ARTIFICIAL TEARS OPTH SOLN 15 ML BTL EACH EYE SCH ×2 (13:00→15:10)
[2017-03-25 14:07] LABS: BICARBONATE 24.2 MEQ/L (21.0-32.0); MAGNESIUM 1.4 MG/DL (1.5-2.5)
[2017-03-25 14:16] LABS: BASOPHIL % 0.2 % (0.0-2.0); HEMATOCRIT 34.1 % (39.0-51.0); HEMO FLAGS DIFF FINAL; LYMPH % 1.3 % (9.0-44.0); LYMPHOCYTE # 0.2 TH/MM3 (1.0-4.8); MEAN CELL VOLUME 71.2 FL (80.0-100.0); MEAN CORPUSCULAR HGB CONC 30.9 % (32.0-36.0); MONO % 2.3 % (0.0-8.0); NEUT % 96.2 % (16.0-70.0); PLATELET COUNT 149 TH/MM3 (150-450); RED BLOOD COUNT 4.79 MIL/MM3 (4.50-5.90); WHITE BLOOD COUNT 17.7 TH/MM3 (4.0-11.0)
[2017-03-25 14:17] LABS: POTASSIUM 2.9 MEQ/L (3.5-5.1)
[2017-03-25] MEDS ORDERED: MAGNESIUM SULFATE 1 GM PREMIX 100 ML IV SCH (14:45)
[2017-03-25] MEDS ORDERED: CIPROFLOXACIN 400 MG PREMIX 200 ML IV SCH (15:00)
[2017-03-25] MEDS ORDERED: SODIUM CHLORID 0.9% 500 ML INJ 500 ML IV ONE (15:00)
[2017-03-25] MEDS: CLINDAMYCIN INJ 900 MG in SODIUM CHLORIDE 0.9% INJ 100 ML IV SCH ×2 (15:16→21:55)
[2017-03-25] MEDS ORDERED: METOPROLOL TARTRATE 5 MG/5 ML VIAL IV PUSH ONE (15:30)
[2017-03-25] MEDS: CEFEPIME INJ 1,000 MG in SODIUM CHLORIDE 0.9% INJ 100 ML IV SCH (15:33)
--- NOTE | 2017-03-25 15:54 | PD.CONS ---
cc: Haroldo Hernandez MD [facility] Service General Surgery CONSULTATION NOTE FOR SURGICAL ATTENDING, DR. HAROLDO HERNANDEZ Consult Requested By Dr. Osorio Reason for Consult Evaluation of LEFT leg for necrotizing fasciitis Primary Care Physician No Primary Care Physician History of Present Illness This is a 61-year-old male with a past medical history of atrial fibrillation, heart failure, hypertension, depression/anxiety and dyslipidemia. The patient lives in a homeless long-term and is an extremely poor historian. The patient states he does take chronic anticoagulation and thinks it may be Eliquis but is unsure. He says his last dose of anticoagulation was a few weeks ago. Please note again that he is a poor historian. Upon interview, the patient is unsure when his left leg began hurting and is unsure when his wound occurred. He comes the emergency room last night with complaints of generalized weakness and a near-syncopal episode. On arrival he was tachycardic and hypotensive. A sepsis workup was started. The patient has elevated white count of 17.7. The patient is scheduled to go for CT of his leg this afternoon. A General Surgery consultation has been requested for evaluation of left leg wound and with a concern for necrotizing fasciitis. Review of Systems ROS Limitations: Altered Mental Status, Other (patient very poor historian) Past Family Social History Past Medical History Atrial fibrillation Heart failure with a reported ejection fraction of 20% Hypertension Anxiety/depression Dyslipidemia Past Surgical History AICD placement Tonsillectomy Reported Medications From chart records Eliquis Metoprolol Lisinopril Entresto Cymbalta Trazodone Potassium replacement Bumex Metolazone Allergies: Coded Allergies: ampicillin (Unverified Allergy, Severe, 03/02/17) fire ant (Unverified Allergy, Severe, Anaphylaxis, 03/02/17) MRI PRECAUTION (Verified Adverse Reaction, Severe, 03/25/17) Patient has a [employer] non compatible mri pacemaker. EG 03/25/2017 Active Ordered Medications Current Medications Medications (Trade) Dose Ordered Sig/Dyllan Route Start Time Stop Time Status Last Admin (Narcan Inj) 0.4 mg UNSCH PRN IV 03/25/17 03:45 (Eliquis) 5 mg BID PO 03/25/17 09:00 (KCl) 20 meq DAILY PO 03/25/17 09:00 (Free Water) 200 ml Q4HR PO 03/25/17 08:00 Sodium Chloride 1,000 ml @ 84 mls/hr [id number] IV 03/25/17 08:00 (NS Flush) 2 ml UNSCH PRN IV FLUSH 03/25/17 07:45 (NS Flush) 2 ml BID IV FLUSH 03/25/17 09:00 (Tylenol) 650 mg Q6H PRN PO 03/25/17 09:00 ([place] 5-325 Mg) 1 tab Q4H PRN PO 03/25/17 09:00 (Morphine Inj) 2 mg Q2H PRN IV 03/25/17 09:00 (Protonix Inj) 40 mg DAILY IV 03/25/17 09:00 03/25/17 09:00 (Tears Naturale Opth Soln) 1 drop TID EACH EYE 03/25/17 09:00 03/25/17 13:00 (Zofran Inj) 4 mg Q6H PRN IV 03/25/17 09:00 (Duoneb Neb) 1 ampule Q6HR NEB INH 03/25/17 10:00 03/25/17 09:43 (Albuterol Neb) 2.5 mg Q2HR NEB PRN INH 03/25/17 08:00 Miscellaneous Information 1 Q361D XX 03/25/17 07:45 (Chlorhexidine 2% Cloth) 3 pack Taper DAILY@04 TOP 03/26/17 04:00 03/22/18 03:59 (Chlorhexidine 2% Cloth) 3 pack UNSCH PRN TOP 03/25/17 07:45 (Kathie-Colace) 1 tab BID PO 03/25/17 09:00 (Milk Of Magnesia Liq) 30 ml Q12H PRN PO 03/25/17 09:00 (Senokot) 17.2 mg Q12H PRN PO 03/25/17 09:00 (Dulcolax Supp) 10 mg DAILY PRN RECTAL 03/25/17 09:00 (Lactulose Liq) 30 ml DAILY PRN PO 03/25/17 09:00 Pharmacy Profile Note 0 ml @ 0 mls/hr UNSCH OTHER 03/25/17 09:00 (NS Flush) DAILY IVF 03/25/17 12:15 03/25/17 12:15 (NS Flush) UNSCH PRN IVF 03/25/17 12:15 Clindamycin Phosphate 900 mg/ Sodium Chloride 106 ml @ 212 mls/hr Q8H IV 03/25/17 14:00 03/25/17 15:16 Phenylephrine HCl 160 mg/Dextrose 500 ml @ 7.5 mls/hr TITRATE PRN IV 03/25/17 12:15 (Brethine Inj) 1 mg UNSCH PRN SQ 03/25/17 12:15 Cefepime HCl 1000 mg/Sodium Chloride 100 ml @ 200 mls/hr Q12H IV 03/25/17 15:00 03/25/17 15:33 Magnesium Sulfate/ Dextrose 100 ml @ 100 mls/hr Q1H IV 03/25/17 14:45 03/25/17 16:44 03/25/17 15:31 Potassium Chloride 100 ml @ 25 mls/hr BOLUS ONCE IV 03/25/17 14:45 03/25/17 18:44 03/25/17 15:29 Sodium Chloride 500 ml @ 500 mls/hr BOLUS ONCE IV 03/25/17 15:00 03/25/17 15:59 (Ativan Inj) 1 mg Q4H PRN IV PUSH 03/25/17 15:30 UNV (Lopressor Inj) 5 mg ONCE ONCE IV PUSH 03/25/17 15:30 03/25/17 15:31 UNV (Lopressor) 25 mg Q8HR PO 03/25/17 22:00 UNV Family History Unable to obtain Social History Denies tobacco use Denies EtOH use Denies illicit drug use Physical Exam Vital Signs Vital Signs Date Time Temp Pulse Resp B/P (MAP) Pulse Ox O2 Delivery O2 Flow Rate FiO2 03/25/17 09:39 100 03/25/17 08:00 99.0 118 24 91/57 (68) 100 03/25/17 07:04 105 20 85/49 (61) 100 03/25/17 06:00 110 20 92/53 (66) 100 Room Air 03/25/17 05:00 98 20 85/53 (64) 99 Room Air 03/25/17 04:00 102 18 90/51 (64) 100 Room Air 03/25/17 03:00 112 20 113/86 (95) 100 Room Air 03/25/17 02:16 100 Room Air 03/25/17 02:16 100 Room Air 03/25/17 02:15 98.0 03/25/17 02:01 117 105/56 (72) 97 Physical Exam GENERAL: 61 year old male resting in bed in moderate distress. Mumbling incomprehensible sounds. SKIN: LEFT leg: open wound on leg just below knee without drainage; skin surrounds and down distal until the ankle is red hot; no palpable fluid collection; painful. HEAD: Atraumatic. Normocephalic. EYES: Pupils equal and round. No scleral icterus. No injection or drainage. ENT: No nasal bleeding or discharge. Mucous membranes pink and moist. NECK: Trachea midline. CARDIOVASCULAR: Regular rate and rhythm. RESPIRATORY: No accessory muscle use. Clear to auscultation. Breath sounds equal bilaterally. GASTROINTESTINAL: Abdomen soft, non-tender, nondistended. MUSCULOSKELETAL: Extremities without clubbing, cyanosis, + BLE edema. Se above for skin assess of LEFT leg. NEUROLOGICAL: Awake; unable to follow in conversation for long period of time. PSYCHIATRIC: Restless. Laboratory Laboratory Tests Test 03/25/17 02:20 03/25/17 04:05 03/25/17 13:10 03/25/17 13:50 White Blood Count 13.3 17.7 Red Blood Count 5.26 4.79 Hemoglobin 12.2 10.5 Hematocrit 37.4 34.1 Mean Corpuscular Volume 71.2 71.2 Mean Corpuscular Hemoglobin 23.3 22.0 Mean Corpuscular Hemoglobin Concent 32.7 30.9 Red Cell Distribution Width 19.8 20.0 Platelet Count 188 149 Mean Platelet Volume 8.4 8.1 Neutrophils (%) (Auto) 94.2 96.2 Lymphocytes (%) (Auto) 1.8 1.3 Monocytes (%) (Auto) 3.7 2.3 Eosinophils (%) (Auto) 0.1 0.0 Basophils (%) (Auto) 0.2 0.2 Neutrophils # (Auto) 12.5 17.0 Lymphocytes # (Auto) 0.2 0.2 Monocytes # (Auto) 0.5 0.4 Eosinophils # (Auto) 0.0 0.0 Basophils # (Auto) 0.0 0.0 CBC Comment DIFF FINAL DIFF FINAL Differential Comment Prothrombin Time 12.3 Prothromb Time International Ratio 1.1 Activated Partial Thromboplast Time 28.9 Blood Urea Nitrogen 46 55 Creatinine 2.66 3.39 Random Glucose 141 166 Total Protein 7.1 Albumin 3.5 Calcium Level 8.5 7.8 Alkaline Phosphatase 108 Aspartate Amino Transf (AST/SGOT) 28 Alanine Aminotransferase (ALT/SGPT) 19 Total Bilirubin 1.0 Sodium Level 132 132 Potassium Level 2.5 2.9 Chloride Level 93 95 Carbon Dioxide Level 26.6 24.2 Anion Gap 12 13 Estimat Glomerular Filtration Rate 25 19 Total Creatine Kinase 68 85 Troponin I 0.06 0.08 B-Type Natriuretic Peptide 461 Lactic Acid Level 3.1 3.6 Magnesium Level 1.4 Phosphorus Level 2.4 Ammonia 19 Amylase Level 12 Lipase 60 Thyroid Stimulating Hormone 3rd Gen 2.120 Date/Time Source Procedure Growth Status 03/25/17 13:52 Blood Peripheral Aerobic Blood Culture Pending Received 03/25/17 13:52 Blood Peripheral Anaerobic Blood Culture Pending Received Result Diagram: 03/25/17 1350 03/25/17 1310 Imaging Last 48 hours Impressions Chest X-Ray 03/25/17 0213 Signed Impressions: Service Date/Time: March 02:51 - CONCLUSION: 1. Stable cardiomegaly without failure. 2. No acute abnormality or significant interval change. Cecilio Garrido MD Renal Ultrasound 03/25/17 0000 Signed Impressions: Service Date/Time: March 09:15 - CONCLUSION: No hydronephrosis. Mild lateral wall thickening. Chato Kolb MD Lower Extremity Ultrasound 03/25/17 0000 Signed Impressions: Service Date/Time: March 08:54 - CONCLUSION: Normal examination. Mony Osuna MD Assessment and Plan Problem List: (1) Left leg cellulitis ICD Codes: L03.116 - Cellulitis of left lower limb Status: Acute (2) Hypokalemia ICD Codes: E87.6 - Hypokalemia; N18.9 - Chronic kidney disease, unspecified Status: Acute (3) Sepsis ICD Codes: A41.9 - Sepsis, unspecified organism Status: Acute (4) Congestive heart failure ICD Codes: I50.9 - Heart failure, unspecified Status: Chronic (5) Atrial fibrillation ICD Codes: I48.91 - Unspecified atrial fibrillation Status: Chronic (6) Generalized weakness ICD Codes: R53.1 - Weakness Status: Acute (7) Acute on chronic renal insufficiency ICD Codes: N28.9 - Disorder of kidney and ureter, unspecified; N18.9 - Chronic kidney disease, unspecified Status: Acute (8) Atrial fibrillation with RVR ICD Codes: I48.91 - Unspecified atrial fibrillation Status: Acute (9) Poor historian ICD Codes: Z78.9 - Other specified health status (10) Hypotension ICD Codes: I95.9 - Hypotension, unspecified Assessment and Plan 61 year old male with multiple medical problems with LEFT leg wound -Follow results of CT leg today -Follow WBC; today 17.7 -ID consulted -Continue antibiotics -Will follow--- may need operative intervention if worsening wound -Thank you for this consult; We will continue to follow Discussed Condition With Dr. David Stout RN Attending Statement NOTE FOR SURGICAL ATTENDING, DR. HAROLDO HERNANDEZ Patient seen in the intensive care unit Patient very poor historian Has some cellulitis to the left lower extremity which is warm no crepitance slightly tender in the calf Discussed with the spanish speaking babysitter Dr. Osorio and Dr. Coffey Await CT scan for further evaluation Antibiotic therapy Treat hypokalemia I agree with above assessment and plan. The exam, history, and the medical decision-making described in the above note were completed with the assistance of the mid-level provider. I reviewed and agree with the findings presented. I attest that I had a [id number] encounter with the patient on the same day, and personally performed and documented my assessment and findings in the medical record. The following services were provided during this hospital visit: Chart data review, vital sign assessments/reviewing monitor data Review of consultations notes if present. Medication orders/review and/or management Ordering and/or reviewing lab tests Ordering and/or interpreting/reviewing x-rays and/or diagnostic studies Care of the patient and discussion of the patient with the care team Documentation time To help prompt me to consider important information that might be impacting today's encounter and assessment, information from prior notes written by myself or my colleagues may have been "brought forward/copy and pasted" into today's note. Problem Qualifiers (1) Sepsis: Qualified Codes: A41.9 - Sepsis, unspecified organism Stephany Minor Mar 25, 2017 15:53 Haroldo Hernandez MD Mar 25, 2017 16:07
[2017-03-25] MEDS: LORazepam 2 MG/ML VIAL IV PUSH PRN (16:19)
[2017-03-25 21:06] LABS: POTASSIUM 3.3 MEQ/L (3.5-5.1)
[2017-03-25 21:07] LABS: MAGNESIUM 1.7 MG/DL (1.5-2.5)
[2017-03-25] MEDS: METOPROLOL TARTRATE 25 MG TAB PO SCH (21:52)
[2017-03-25] MEDS: SODIUM CHLOR 0.9% 1000 ML INJ 1,000 ML IV SCH (22:37)
[2017-03-26] VITALS (14 sets, daily range): BP systolic 91–118; BP diastolic 52–71; PULSE 103–124; RESP 20–24; TEMP 98.4–99; O2SAT 90–100
--- NOTE | 2017-03-26 00:16 | RADRPT ---
EXAM DATE/TIME: 03/25/2017 23:54 [facility] COMPARISON: No previous studies available for comparison. INDICATIONS : Altered mental status. RADIATION DOSE: 50.40 CTDIvol (mGy) MEDICAL HISTORY : Hypertension. Congestive heart failure. SURGICAL HISTORY : Pacemaker. ENCOUNTER: Subsequent ACUITY: 2 days PAIN SCALE: 0/10 LOCATION: cranial TECHNIQUE: Multiple contiguous axial images were obtained of the head. Using automated exposure control and adj ustment of the mA and/or kV according to patient size, radiation dose was kept as low as reasonably a chievable to obtain optimal diagnostic quality images. DICOM format image data is available electro nically for review and comparison. FINDINGS: CEREBRUM: Mild diffuse cerebral atrophy. Cavum of septum pellucidum. The ventricles are normal for degree of at rophy. No evidence of midline shift, mass lesion, hemorrhage or acute infarction. No extra-axial fl uid collections are seen. POSTERIOR FOSSA: The cerebellum and brainstem are intact. The 4th ventricle is midline. The cerebellopontine angle i s unremarkable. EXTRACRANIAL: The visualized portion of the orbits is intact. Small right maxillary sinus mucus retention cyst. SKULL: The calvaria is intact. No evidence of skull fracture. CONCLUSION: 1. No acute intracranial abnormality. 2. Right maxillary sinus disease. Cecilio Garrido MD on March 26, 2017 at 0:13 Board Certified Radiologist. This report was verified electronically.
--- NOTE | 2017-03-26 00:21 | RADRPT ---
EXAM DATE/TIME: 03/25/2017 23:59 [facility] COMPARISON: No previous studies available for comparison. INDICATIONS : Left lower extremity pain, swelling and redness. Evaluate for cellulitis. RADIATION DOSE: 7.29 CTDIvol (mGy) MEDICAL HISTORY : Hypertension. Congestive heart failure. Diabetes. SURGICAL HISTORY : Pacemaker. ENCOUNTER: Subsequent ACUITY: 2 days PAIN SCALE: 5/10 LOCATION: Left tibia/fibula. TECHNIQUE: Volumetric scanning of the tibia and fibula was performed. Using automated exposure control and adju stment of the mA and/or kV according to patient size, radiation dose was kept as low as reasonably ac hievable to obtain optimal diagnostic quality images. DICOM format image data is available [facility] for review and comparison. FINDINGS: BONES: No evidence of fracture. Alignment is within normal limits. JOINTS: No evidence of joint narrowing or effusion. SOFT TISSUES: Diffuse soft tissue edema and skin thickening throughout the calf and ankle. Multiple small calcifica tions along the distal medial calf. A No evidence of mass, organized fluid collection or foreign body . CONCLUSION: 1. Mild diffuse soft tissue edema throughout the left calf and ankle without evidence for significant focal fluid collection or subcutaneous emphysema. Cecilio Garrido MD on March 26, 2017 at 0:15 Board Certified Radiologist. This report was verified electronically.
[2017-03-26] MEDS: CEFEPIME INJ 1,000 MG in SODIUM CHLORIDE 0.9% INJ 100 ML IV SCH ×2 (02:42→14:17)
[2017-03-26 03:42] LABS: AUTOMATED NEUTROPHIL # 17.6 TH/MM3 (1.8-7.7); BASOPHIL # 0.1 TH/MM3 (0-0.2); BASOPHIL % 0.3 % (0.0-2.0); HEMATOCRIT 32.9 % (39.0-51.0); HEMO FLAGS DIFF FINAL; LYMPH % 2.5 % (9.0-44.0); LYMPHOCYTE # 0.5 TH/MM3 (1.0-4.8); MEAN CELL VOLUME 71.1 FL (80.0-100.0); MEAN CORPUSCULAR HEMOGLOBIN 22.2 PG (27.0-34.0); MEAN CORPUSCULAR HGB CONC 31.2 % (32.0-36.0); MONO % 3.8 % (0.0-8.0); NEUT % 93.4 % (16.0-70.0); PLATELET COUNT 157 TH/MM3 (150-450); RED BLOOD COUNT 4.63 MIL/MM3 (4.50-5.90); RED CELL DISTRIBUTION WIDTH 20.4 % (11.6-17.2); WHITE BLOOD COUNT 18.9 TH/MM3 (4.0-11.0)
[2017-03-26] MEDS: CHLORHEXIDINE GLUCONATE 2 % 1 PACK (2 CLOTHS) TOP SCH (03:54)
[2017-03-26] MEDS: METOPROLOL TARTRATE 25 MG TAB PO SCH ×3 (03:56→22:00)
[2017-03-26] MEDS: FREE WATER PO SCH ×5 (04:00→20:00)
[2017-03-26 04:02] LABS: APTT (PATIENT) 37.6 SEC (24.3-30.1); INTERNATIONAL NORMALIZED RATIO 1.2 RATIO; PROTHROMBIN TIME - PATIENT 13.3 SEC (9.8-11.6)
[2017-03-26] MEDS: RESP: ALBUTEROL 2.5 MG/IPRATROPIUM 0.5 MG NEB (SCH) INH ×4 (04:29→20:44)
[2017-03-26 04:30] LABS: ALKALINE PHOSPHATASE 49 U/L (45-117); ALT (GPT) 21 U/L (12-78); ANION GAP 11 MEQ/L (5-15); AST (GOT) 31 U/L (15-37); BICARBONATE 26.4 MEQ/L (21.0-32.0); BLOOD UREA NITROGEN 64 MG/DL (7-18); CHLORIDE 99 MEQ/L (98-107); GLOMERULAR FILTRATION RATE 19 ML/MIN (>89); MAGNESIUM 1.8 MG/DL (1.5-2.5); POTASSIUM 3.1 MEQ/L (3.5-5.1); SODIUM (NA) 136 MEQ/L (136-145); TOTAL BILIRUBIN ADULT 0.9 MG/DL (0.2-1.0)
[2017-03-26] MEDS: CLINDAMYCIN INJ 900 MG in SODIUM CHLORIDE 0.9% INJ 100 ML IV SCH ×3 (05:54→21:44)
[2017-03-26] MEDS: ARTIFICIAL TEARS OPTH SOLN 15 ML BTL EACH EYE SCH ×3 (09:00→18:20)
[2017-03-26] MEDS: SODIUM CHLORIDE 0.9% FLUSH 10 ML FLUSH IVF SCH (09:00)
[2017-03-26] MEDS: SODIUM CHLORIDE 0.9% FLUSH 10 ML FLUSH IV FLUSH SCH ×2 (09:13→21:03)
[2017-03-26] MEDS: POTASSIUM CHLORIDE 20 MEQ CONTROLLED RELEASE TAB PO SCH (09:13)
[2017-03-26] MEDS: PANTOPRAZOLE SODIUM 40 MG VIAL IV SCH (09:14)
[2017-03-26] MEDS: DOCUSATE SODIUM 50 MG/SENNA 8.6 MG TAB PO SCH ×2 (09:14→20:34)
[2017-03-26] MEDS: APIXABAN 5 MG TABLET PO SCH ×2 (09:14→21:02)
--- NOTE | 2017-03-26 11:35 | HHI.PR ---
cc: Haroldo Hernandez MD Subjective Subjective Notes PROGRESS NOTE FOR SURGICAL ATTENDING, DR. HAROLDO HERNANDEZ Resting in bed Alert and awake Feeling better today Objective Vitals/I&O Vital Signs Date Time Temp Pulse Resp B/P (MAP) Pulse Ox O2 Delivery O2 Flow Rate FiO2 03/26/17 10:00 116 03/26/17 08:00 98.9 24 118/63 (81) 94 03/26/17 07:00 Nasal Cannula 2.00 Labs Laboratory Tests Test 03/25/17 13:10 03/25/17 13:50 03/25/17 20:37 03/26/17 03:28 Blood Urea Nitrogen 55 64 Creatinine 3.39 3.29 Random Glucose 166 131 Calcium Level 7.8 7.8 Magnesium Level 1.4 1.7 1.8 Sodium Level 132 136 Potassium Level 2.9 3.3 3.1 Chloride Level 95 99 Carbon Dioxide Level 24.2 26.4 Anion Gap 13 11 Estimat Glomerular Filtration Rate 19 19 Lactic Acid Level 3.6 2.8 1.4 Phosphorus Level 2.4 4.0 Ammonia 19 Total Creatine Kinase 85 Troponin I 0.08 Amylase Level 12 Lipase 60 Thyroid Stimulating Hormone 3rd Gen 2.120 White Blood Count 17.7 18.9 Red Blood Count 4.79 4.63 Hemoglobin 10.5 10.3 Hematocrit 34.1 32.9 Mean Corpuscular Volume 71.2 71.1 Mean Corpuscular Hemoglobin 22.0 22.2 Mean Corpuscular Hemoglobin Concent 30.9 31.2 Red Cell Distribution Width 20.0 20.4 Platelet Count 149 157 Mean Platelet Volume 8.1 8.2 Neutrophils (%) (Auto) 96.2 93.4 Lymphocytes (%) (Auto) 1.3 2.5 Monocytes (%) (Auto) 2.3 3.8 Eosinophils (%) (Auto) 0.0 0.0 Basophils (%) (Auto) 0.2 0.3 Neutrophils # (Auto) 17.0 17.6 Lymphocytes # (Auto) 0.2 0.5 Monocytes # (Auto) 0.4 0.7 Eosinophils # (Auto) 0.0 0.0 Basophils # (Auto) 0.0 0.1 CBC Comment DIFF FINAL DIFF FINAL Differential Comment Nasal Screen MRSA (PCR) MRSA NOT DETECTED Prothrombin Time 13.3 Prothromb Time International Ratio 1.2 Activated Partial Thromboplast Time 37.6 Total Protein 6.0 Albumin 2.6 Alkaline Phosphatase 49 Aspartate Amino Transf (AST/SGOT) 31 Alanine Aminotransferase (ALT/SGPT) 21 Total Bilirubin 0.9 Random Vancomycin Level 21.6 Date/Time Source Procedure Growth Status 03/25/17 13:52 Blood Peripheral Aerobic Blood Culture - Preliminary NO GROWTH IN 1 DAY Resulted 03/25/17 13:52 Blood Peripheral Anaerobic Blood Culture - Preliminary NO GROWTH IN 1 DAY Resulted Radiology Last Impressions Chest X-Ray 03/25/17 1204 Signed Impressions: Service Date/Time: March 12:09 - CONCLUSION: 1. Left basilar patchiness consistent with probable pneumonia. 2. Left internal jugular central line has its tip in good position in the superior vena cava. There is no pneumothorax. 3. Cardiomegaly. 4. Degenerative changes throughout the thoracic spine. Sai Dallas MD Renal Ultrasound 03/25/17 Signed Impressions: Service Date/Time: March 09:15 - CONCLUSION: No hydronephrosis. Mild lateral wall thickening. Chato Kolb MD Lower Extremity Ultrasound 03/25/17 Signed Impressions: Service Date/Time: March 08:54 - CONCLUSION: Normal examination. KJaved Osuna MD Lower Extremity CT 03/25/17 Signed Impressions: Service Date/Time: March 23:59 - CONCLUSION: 1. Mild diffuse soft tissue edema throughout the left calf and ankle without evidence for significant focal fluid collection or subcutaneous emphysema. Cecilio Garrido MD Head CT 03/25/17 Signed Impressions: Service Date/Time: March 23:54 - CONCLUSION: 1. No acute intracranial abnormality. 2. Right maxillary sinus disease. Cecilio Garrido MD Cardiovascular: Regular Lungs: Clear Abdomen: Non-distended, Non-tender Extremities: Other (see below) Narrative Exam LEFT leg: open wound on leg just below knee without drainage; skin surrounds and down distal until the ankle with erythema but much improved from yesterday' s exam; no palpable fluid collection; minimally painful. A/P Problem List: (1) Left leg cellulitis ICD Codes: L03.116 - Cellulitis of left lower limb Status: Acute (2) Hypokalemia ICD Codes: E87.6 - Hypokalemia; N18.9 - Chronic kidney disease, unspecified Status: Acute (3) Sepsis ICD Codes: A41.9 - Sepsis, unspecified organism Status: Acute (4) Congestive heart failure ICD Codes: I50.9 - Heart failure, unspecified Status: Chronic (5) Atrial fibrillation ICD Codes: I48.91 - Unspecified atrial fibrillation Status: Chronic (6) Generalized weakness ICD Codes: R53.1 - Weakness Status: Acute (7) Acute on chronic renal insufficiency ICD Codes: N28.9 - Disorder of kidney and ureter, unspecified; N18.9 - Chronic kidney disease, unspecified Status: Acute (8) Atrial fibrillation with RVR ICD Codes: I48.91 - Unspecified atrial fibrillation Status: Acute (9) Poor historian ICD Codes: Z78.9 - Other specified health status (10) Hypotension ICD Codes: I95.9 - Hypotension, unspecified Status: Acute Assessment and Plan 61 year old male with multiple medical problems with LEFT leg wound -CT leg with no palpable fluid collection -Follow WBC; today 18.9 -Wean pressors -ID following --- Cefepime and Clindamycin -Clinically wound has improved -No surgical plans at this time -Thank you for this consult; We will continue to follow Attending Statement PROGRESS NOTE FOR SURGICAL ATTENDING, DR. HAROLDO HERNANDEZ pt looks much better more awake and alert reddnes much improved much less warm mild tender ness reviewed ct of leg cont abx no surgery at this time I agree with above assessment and plan. The exam, history, and the medical decision-making described in the above note were completed with the assistance of the mid-level provider. I reviewed and agree with the findings presented. I attest that I had a [id number] encounter with the patient on the same day, and personally performed and documented my assessment and findings in the medical record. The following services were provided during this hospital visit: Chart data review, vital sign assessments/reviewing monitor data Review of consultations notes if present. Medication orders/review and/or management Ordering and/or reviewing lab tests Ordering and/or interpreting/reviewing x-rays and/or diagnostic studies Care of the patient and discussion of the patient with the care team Documentation time To help prompt me to consider important information that might be impacting today's encounter and assessment, information from prior notes written by myself or my colleagues may have been "brought forward/copy and pasted" into today's note. Problem Qualifiers (1) Sepsis: Qualified Codes: A41.9 - Sepsis, unspecified organism (2) Hypotension: Qualified Codes: I95.89 - Other hypotension Stephany Minor Mar 26, 2017 11:35 Haroldo Hernandez MD Mar 26, 2017 14:09
[2017-03-26] MEDS: SODIUM CHLOR 0.9% 1000 ML INJ 1,000 ML IV SCH ×2 (14:08→19:45)
--- NOTE | 2017-03-26 15:26 | HHI.IDPN ---
Subjective Subjective Remarks Patient is a very poor historian. He is a 61-year-old male, currently living in the homeless sn[facility], brought into the hospital for evaluation of fever or chills, nausea and vomiting there's been no diarrhea. Patient also was complaining all redness and pain in his left lower extremity. It's unclear as to how long he has had the problem on his left leg. There is mention that he was given an antibiotic for the left leg. Patient since admission has not had any fever. His WBC is elevated. He was initially admitted to the medical floor , but he developed some hypotension and transferred to the ICU. Patient currently is very restless and complaining of pain in his left lower extremity. Infectious disease consultation is requested to evaluate the patient. Notes reviewed Temps low grade Still on pressors, lower dose Mental status better BC negative CT leg ok Antibiotics Cefepime Vancomycin Clindamycin Lines [facility] TLC Past Medical History Atrial fibrillation Congestive heart failure/chronic systolic EF of 25-30% Moderate MR Hypertension Chronic Apixaban Dyslipidemia Depression/anxiety Past Surgical History AICD placement Tonsillectomy Allergies: Coded Allergies: ampicillin (Unverified Allergy, Severe, 03/02/17) fire ant (Unverified Allergy, Severe, Anaphylaxis, 03/02/17) MRI PRECAUTION (Verified Adverse Reaction, Severe, 03/25/17) Patient has a [employer] non compatible mri pacemaker. EG 03/25/2017 Objective . Vital Signs Date Time Temp Pulse Resp B/P (MAP) Pulse Ox O2 Delivery O2 Flow Rate FiO2 03/26/17 12:00 103 03/26/17 12:00 98.7 103 22 110/70 (83) 96 03/26/17 10:00 116 03/26/17 08:00 108 03/26/17 08:00 98.9 108 24 118/63 (81) 94 03/26/17 07:00 93 Nasal Cannula 2.00 03/26/17 07:00 118 03/26/17 06:00 107 03/26/17 04:00 99.0 106 22 103/62 (76) 100 03/26/17 04:00 106 03/26/17 02:00 114 03/26/17 00:00 124 03/26/17 00:00 99.0 124 21 91/52 (65) 90 03/25/17 23:00 120 03/25/17 22:00 112 9/7/17 20:00 126 03/25/17 20:00 101.1 126 32 119/72 (88) 94 03/25/17 19:00 100 Room Air 03/25/17 16:29 98 Nasal Cannula 2.00 . Laboratory Tests Test 03/25/17 02:20 03/25/17 13:50 03/26/17 03:28 White Blood Count 13.3 TH/MM3 17.7 TH/MM3 18.9 TH/MM3 Red Blood Count 5.26 MIL/MM3 4.79 MIL/MM3 4.63 MIL/MM3 Hemoglobin 12.2 GM/DL 10.5 GM/DL 10.3 GM/DL Hematocrit 37.4 % 34.1 % 32.9 % Mean Corpuscular Volume 71.2 FL 71.2 FL 71.1 FL Mean Corpuscular Hemoglobin 23.3 PG 22.0 PG 22.2 PG Mean Corpuscular Hemoglobin Concent 32.7 % 30.9 % 31.2 % Red Cell Distribution Width 19.8 % 20.0 % 20.4 % Platelet Count 188 TH/MM3 149 TH/MM3 157 TH/MM3 Mean Platelet Volume 8.4 FL 8.1 FL 8.2 FL Neutrophils (%) (Auto) 94.2 % 96.2 % 93.4 % Lymphocytes (%) (Auto) 1.8 % 1.3 % 2.5 % Monocytes (%) (Auto) 3.7 % 2.3 % 3.8 % Eosinophils (%) (Auto) 0.1 % 0.0 % 0.0 % Basophils (%) (Auto) 0.2 % 0.2 % 0.3 % Neutrophils # (Auto) 12.5 TH/MM3 17.0 TH/MM3 17.6 TH/MM3 Lymphocytes # (Auto) 0.2 TH/MM3 0.2 TH/MM3 0.5 TH/MM3 Monocytes # (Auto) 0.5 TH/MM3 0.4 TH/MM3 0.7 TH/MM3 Eosinophils # (Auto) 0.0 TH/MM3 0.0 TH/MM3 0.0 TH/MM3 Basophils # (Auto) 0.0 TH/MM3 0.0 TH/MM3 0.1 TH/MM3 CBC Comment DIFF FINAL DIFF FINAL DIFF FINAL Differential Comment Laboratory Tests Test 03/25/17 02:20 03/25/17 04:05 03/25/17 13:10 03/25/17 20:37 Blood Urea Nitrogen 46 MG/DL 55 MG/DL Creatinine 2.66 MG/DL 3.39 MG/DL Random Glucose 141 MG/DL 166 MG/DL Total Protein 7.1 GM/DL Albumin 3.5 GM/DL Calcium Level 8.5 MG/DL 7.8 MG/DL Alkaline Phosphatase 108 U/L Aspartate Amino Transf (AST/SGOT) 28 U/L Alanine Aminotransferase (ALT/SGPT) 19 U/L Total Bilirubin 1.0 MG/DL Sodium Level 132 MEQ/L 132 MEQ/L Potassium Level 2.5 MEQ/L 2.9 MEQ/L 3.3 MEQ/L Chloride Level 93 MEQ/L 95 MEQ/L Carbon Dioxide Level 26.6 MEQ/L 24.2 MEQ/L Anion Gap 12 MEQ/L 13 MEQ/L Estimat Glomerular Filtration Rate 25 ML/MIN 19 ML/MIN Total Creatine Kinase 68 U/L 85 U/L Troponin I 0.06 NG/ML 0.08 NG/ML B-Type Natriuretic Peptide 461 PG/ML Lactic Acid Level 3.1 mmol/L 3.6 mmol/L 2.8 mmol/L Magnesium Level 1.4 MG/DL 1.7 MG/DL Phosphorus Level 2.4 MG/DL Ammonia 19 MCMOL/L Amylase Level 12 U/L Lipase 60 U/L Thyroid Stimulating Hormone 3rd Gen 2.120 uIU/ML Test 03/26/17 03:28 Blood Urea Nitrogen 64 MG/DL Creatinine 3.29 MG/DL Random Glucose 131 MG/DL Total Protein 6.0 GM/DL Albumin 2.6 GM/DL Calcium Level 7.8 MG/DL Phosphorus Level 4.0 MG/DL Magnesium Level 1.8 MG/DL Alkaline Phosphatase 49 U/L Aspartate Amino Transf (AST/SGOT) 31 U/L Alanine Aminotransferase (ALT/SGPT) 21 U/L Total Bilirubin 0.9 MG/DL Sodium Level 136 MEQ/L Potassium Level 3.1 MEQ/L Chloride Level 99 MEQ/L Carbon Dioxide Level 26.4 MEQ/L Anion Gap 11 MEQ/L Estimat Glomerular Filtration Rate 19 ML/MIN Lactic Acid Level 1.4 mmol/L Microbiology Date/Time Source Procedure Growth Status 03/25/17 13:52 Blood Peripheral Aerobic Blood Culture - Preliminary NO GROWTH IN 1 DAY Resulted 03/25/17 13:52 Blood Peripheral Anaerobic Blood Culture - Preliminary NO GROWTH IN 1 DAY Resulted 03/25/17 13:52 Blood Peripheral Aerobic Blood Culture - Preliminary NO GROWTH IN 1 DAY Resulted 03/25/17 13:52 Blood Peripheral Anaerobic Blood Culture - Preliminary NO GROWTH IN 1 DAY Resulted 03/25/17 04:00 Blood Peripheral Aerobic Blood Culture - Preliminary NO GROWTH IN 1 DAY Resulted 03/25/17 04:00 Blood Peripheral Anaerobic Blood Culture - Preliminary NO GROWTH IN 1 DAY Resulted 03/25/17 03:45 Blood Peripheral Aerobic Blood Culture - Preliminary NO GROWTH IN 1 DAY Resulted 03/25/17 03:45 Blood Peripheral Anaerobic Blood Culture - Preliminary NO GROWTH IN 1 DAY Resulted Imaging Last Impressions Chest X-Ray 03/25/17 1204 Signed Impressions: Service Date/Time: March 12:09 - CONCLUSION: 1. Left basilar patchiness consistent with probable pneumonia. 2. Left internal jugular central line has its tip in good position in the superior vena cava. There is no pneumothorax. 3. Cardiomegaly. 4. Degenerative changes throughout the thoracic spine. Sai Dallas MD Renal Ultrasound 03/25/17 0000 Signed Impressions: Service Date/Time: March 09:15 - CONCLUSION: No hydronephrosis. Mild lateral wall thickening. Chato Kolb MD Lower Extremity Ultrasound 03/25/17 0000 Signed Impressions: Service Date/Time: March 08:54 - CONCLUSION: Normal examination. Mony Osuna MD Lower Extremity CT 03/25/17 0000 Signed Impressions: Service Date/Time: March 23:59 - CONCLUSION: 1. Mild diffuse soft tissue edema throughout the left calf and ankle without evidence for significant focal fluid collection or subcutaneous emphysema. Cecilio Garrido MD Head CT 03/25/17 0000 Signed Impressions: Service Date/Time: March 23:54 - CONCLUSION: 1. No acute intracranial abnormality. 2. Right maxillary sinus disease. Cecilio Garrido MD Physical Exam GENERAL: awake and alert, NAD. SKIN: Warm and dry. No generalized rash, no ecchymoses and no evidence of embolic lesions. HEAD: Atraumatic. Normocephalic. No temporal wasting, or tenderness. EYES: Harvest conjunctiva. No petechia or hemorrhage. Pupils equal, round and reactive to light. Extraocular movements full and intact. No scleral icterus. No injection or drainage. EARS, NOSE AND THROAT: Nose without bleeding or purulent nasal discharge. No sinus tenderness. Mucous membranes pink and moist. No oral lesions noted. No exudate. No oral thrush. NECK: Trachea midline. Supple and not tender, no meningeal signs CARDIOVASCULAR: Regular rate and rhythm. No murmurs, rubs or gallops heard. AICD L upper chest with no evidence of infection RESPIRATORY: Clear to auscultation. Breath sounds equal bilaterally. No rales , wheezing or rhonchi. Decreased BS at bases ABDOMEN: Soft, non-tender, nondistended. Bowel sounds present and normoactive. No guarding. No rebound. No organomegaly. EXTREMITIES: No clubbing, cyanosis, or edema RLE. LLE with some edema, has improving erythema from below knee down to ankle, with a dry small skin avulsion upper leg, indurated at distal leg and posteriorly, less tender on palpation, no crepitus. No joint effusion, has good ROM. No R calf tenderness. Well perfused and warm. NEUROLOGICAL: NOn-focal PSYCHIATRIC: Calm and cooperative LINE: No evidence of infection Assessment & Plan Remarks IMPRESSION Sepsis due to LLE cellulitis, better Cellulitis, better - has much more pain that seem dispropotionate to his cellulitis Renal insufficiency, due to sepsis, hypotension Known CAD, CM Encephalopathy., better, likely due to sepsis RECOMMENDATION Continue Vancomycin for GPC coverage Stop Clinda Change Cefepime to Levaquin Follow LLE Follow C/S Monitor progress D/W Joan Thayer MD Mar 26, 2017 15:26
--- NOTE | 2017-03-26 15:56 | HHI.CCPN ---
Subjective Remarks/Hospital Course 61-year-old male. Date of admission 03/25/2017. Date of consultation . Past medical includes atrial fibrillation, chronic systolic heart failure, hypertension depression/anxiety, chronic anticoagulation, and history of AICD placement less than 2 years ago in [facility]. Patient was admitted late last month with CHF exacerbation and defibrillation of his AICD. His torsemide has discontinued by Dr. Frias and he was started on bumetanide 1 mg twice a day along with metolazone 5 mill grams daily. He was supposed to start on sacubitral/valsartan was unable to afford and so was started on lisinopril. He was to follow-up with Dr. Frias for outpatient for possible further workup. He was still discussing due to the fact he has a set enlarged left atrium and might not be a candidate for atrial fibrillation ablation then he will need AV node modification and bi-V pacing. Patient presented to [facility] with nausea and vomiting, acute kidney injury with a creatinine of 2.7 and potassium 2.5. Initially hemodynamically stable however on the floor he came somewhat hypotensive with a map around 60 and a lactate 3.1. Neurologically intact. Overnight hospitalist did not feel comfortable taking care of the patient therefore requested dinkey locomotive engineer manage 03/26: Less erythema leg. Worsening renal function. Acceptable respiratory effort and gas exchange. Objective Vital Signs Date Time Temp Pulse Resp B/P (MAP) Pulse Ox O2 Delivery O2 Flow Rate FiO2 03/26/17 14:00 118 03/26/17 12:00 98.7 22 110/70 (83) 96 03/26/17 07:00 Nasal Cannula 2.00 Intake and Output 03/26/17 03/26/17 03/26/17 07:59 15:59 23:59 Intake Total 1077 ml Balance 1077 ml Result Diagram: 03/26/17 0328 03/26/17 0328 Imaging Last Impressions Chest X-Ray 03/25/17212 Signed Impressions: Service Date/Time: , March 25, 2017 02:51 - CONCLUSION: 1. Stable cardiomegaly without failure. 2. No acute abnormality or significant interval change. Cecilio Garrido MD Objective Remarks GENERAL: 61-year-old male, critically ill currently resting in bed in no acute distress SKIN: Warm and dry. Open skin tear on left anterior xiong 3 x 3 7 m. Erythema from below the knee to ankle/pretibial region of left lower extremity. Ecchymosis noted. No crepitus or bullae noted. No woody induration. Some cyanosis to right lower extremity. HEAD: Atraumatic. Normocephalic. EYES: Pupils equal and round about 2 mm bilaterally and reactive. No scleral icterus. No injection or drainage. ENT: No nasal bleeding or discharge. Mucous membranes pink and moist. NECK: Trachea midline. No JVD. CARDIOVASCULAR: Tachycardia, IR. S1, S2 no S4. 2/6 murmur at the left lower sternal border. RESPIRATORY: Clear to auscultation bilaterally without wheezes rales or rhonchi. Breath sounds equal bilaterally. GASTROINTESTINAL: Abdomen soft, non-tender, nondistended. Hypoactive bowel sounds appreciated MUSCULOSKELETAL: Extremities with 1+ pretibial edema left greater than right before meals skin above. . Dorsalis pedis and posterior tibials are palpable bilaterally. NEUROLOGICAL: Awake and alert. No obvious cranial nerve deficits. Motor grossly within normal limits. Five out of 5 muscle strength in the arms and legs. Normal speech. A/P Assessment and Plan Neuro/Psych: Depression/anxiety Continue duloxetine 60 mg by mouth daily for depression Continue trazodone 50 mill grams by mouth at night for depression/insomnia Acetaminophen 650 mg every 6 hours when necessary fever/pain 1-3 Hydrocodone/acetaminophen 5/325 one tablet every 4 hours when necessary pain. 10 Morphine sulfate 2 mg IV every 2 hours when necessary breakthrough pain CV: Chronic systolic heart failure ejection fraction 30% Small pericardial effusion Hypertension Dyslipidemia Lactic acidosis Severe Sepsis Elevated troponin 0.06 Echocardiogram 03/04 revealed EF 25-30%. Decreased LV systolic function. Moderate MR. Mild AR. Small pericardial effusion. Medications include lisinopril 10 mg daily, metoprolol 100 mg by mouth twice a day. Easily held in light of hypotension Holding bumetanide 1 mg twice a day and metolazone 5 mg daily in light of hypotension Intermittent normal saline boluses 250 cc an hour Cycle serial lactates until cleared Elevated troponin likely demand ischemia secondary to hypotension. Trop normal Wean off neosynephrine Resp: Nasal cannula to maintain saturations greater than equal to 92% Incentive spirometry while awake GI: Nausea/vomiting Liver function tests within normal limits. Follow lipase/amylase Clear liquid diet Pantoprazole for GI prophylaxis Docusate sodium/senna 1 tablet twice a day for bowel regimen Ondansetron 4 mg IV every 4 hours when necessary nausea : Frank catheter only if indicated for accurate I's and O's in a critically ill patient Endo: Hyperglycemia of critical illness Sliding-scale insulin if indicated to maintain euglycemia Renal: Acute kidney injury in the setting of chronic kidney disease stage IIIa Creatinine 2.6 on admission. Baseline 1.6. Gentle hydration light of heart failure Accurate I's and O's Monitor urine output Avoid nephrotoxic drugs. NAYELI inhibitor and diuretics currently been held for today. Resume when clinically indicated Check urine electrolytes and eosinophil/kidney ultrasound Heme: Leukocytosis Microcytic anemia Monitor CBC daily. Follow trends. Outpatient workup for microcytic anemia ID: Left lower extremity cellulitis rule out necrotizing fasciitis Blood cultures 2 pending Currently on vancomycin/ciprofloxacin and clindamycin. Doppler ultrasound bilateral lower extremities pending. Will order MRI stat. Possible surgical consultation depending on careful monitoring left lower extremity Demarcated left lower extremity skin marker FEN: Hyponatremia Hypopotassemia Ordered 90 mEq IV potassium along with 20 mEq by mouth. Recheck at 1800 hrs. Replace electrolytes as clinically indicated MSK: Physical therapy evaluate and treat Access - Utilize peripheral IV. Central line if indicated Prophylaxis - GI - pantoprazole - DVT - SCD/Apixaban will provide adequate DVT prophylaxis Overall impression: Late stage systolic heart failure and severe chronic kidney disease, worsening overnight. Khanh Garrett MD Mar 26, 2017 15:56
[2017-03-26 16:53] LABS: BLOOD, URINE NEG (NEG); GLUCOSE,URINE TRACE mg/dL (NEG); HYALINE CAST, URINE 1 /lpf (RARE); KETONE, URINE NEG (NEG); NITRITE,URINE NEG (NEG); SQUAMOUS EPITHELIAL CELL URINE <1 /hpf (0-5); URINE COLOR YELLOW (YELLW/STRAW)
[2017-03-26 17:06] LABS: COMMENT (UR) CATH-CULT NOT IND; CULTURE IF INDICATED CATH CULTURE NOT IND
[2017-03-26] MEDS: LORazepam 2 MG/ML VIAL IV PUSH PRN (21:03)
[2017-03-26] MEDS ORDERED: SODIUM CHLOR 0.9% 1000 ML INJ 1,000 ML IV ONE (23:30)
[2017-03-27] VITALS (14 sets, daily range): BP systolic 97–125; BP diastolic 55–76; PULSE 95–125; RESP 20–22; TEMP 98–98.5; O2SAT 95–100
[2017-03-27] MEDS: CEFEPIME INJ 1,000 MG in SODIUM CHLORIDE 0.9% INJ 100 ML IV SCH ×2 (03:15→14:21)
[2017-03-27] MEDS: RESP: ALBUTEROL 2.5 MG/IPRATROPIUM 0.5 MG NEB (SCH) INH ×4 (03:48→20:23)
[2017-03-27] MEDS: FREE WATER PO SCH ×7 (04:00→23:48)
[2017-03-27] MEDS: CHLORHEXIDINE GLUCONATE 2 % 1 PACK (2 CLOTHS) TOP SCH (04:00)
[2017-03-27] MEDS: SODIUM CHLOR 0.9% 1000 ML INJ 1,000 ML IV SCH ×2 (05:10→19:35)
--- NOTE | 2017-03-27 05:18 | RADRPT ---
EXAM DATE/TIME: 03/27/2017 04:28 [facility] COMPARISON: CHEST SINGLE AP, March 25, 2017, 12:09. INDICATIONS : Congestive heart failure. MEDICAL HISTORY : Hypertension. Congestive heart failure. Sleep apnea. Diabetes. Skull fracture. ADHD. Depression. Anxi ety. Anticoagulant therapy, Eliquis SURGICAL HISTORY : Tonsillectomy. Pacemaker. Appendectomy. Cardiac catheterization. Gastric bypass. Hiatal hernia repair x2. ENCOUNTER: Subsequent ACUITY: 2 days PAIN SCORE: 0/10 LOCATION: Bilateral chest FINDINGS: Left base consolidation improving, now very mild. No large effusion seen. No pneumothorax. Mild cardiomegaly is stable. Cardiac pacer again noted. Left IJ line has been removed. CONCLUSION: Decreasing left base consolidation. Left IJ line out. Mild cardiomegaly unchanged. Chato Reyna MD on March 27, 2017 at 5:15 Board Certified Radiologist. This report was verified electronically.
[2017-03-27 05:24] LABS: AUTOMATED NEUTROPHIL # 8.9 TH/MM3 (1.8-7.7); BASOPHIL % 0.4 % (0.0-2.0); EOSINOPHIL # 0.1 TH/MM3 (0-0.4); EOSINOPHIL % 1.2 % (0.0-4.0); HEMATOCRIT 33.8 % (39.0-51.0); HEMO FLAGS DIFF FINAL; LYMPH % 7.3 % (9.0-44.0); LYMPHOCYTE # 0.8 TH/MM3 (1.0-4.8); MEAN CELL VOLUME 72.1 FL (80.0-100.0); MEAN CORPUSCULAR HEMOGLOBIN 22.4 PG (27.0-34.0); MONO % 5.7 % (0.0-8.0); NEUT % 85.4 % (16.0-70.0); PLATELET COUNT 136 TH/MM3 (150-450); RED BLOOD COUNT 4.69 MIL/MM3 (4.50-5.90); RED CELL DISTRIBUTION WIDTH 20.4 % (11.6-17.2); WHITE BLOOD COUNT 10.5 TH/MM3 (4.0-11.0)
[2017-03-27] MEDS: METOPROLOL TARTRATE 25 MG TAB PO SCH ×3 (05:33→22:00)
[2017-03-27] MEDS: CLINDAMYCIN INJ 900 MG in SODIUM CHLORIDE 0.9% INJ 100 ML IV SCH ×3 (05:36→22:31)
[2017-03-27 05:53] LABS: ALT (GPT) 18 U/L (12-78); ANION GAP 12 MEQ/L (5-15); AST (GOT) 16 U/L (15-37); BICARBONATE 22.2 MEQ/L (21.0-32.0); BLOOD UREA NITROGEN 60 MG/DL (7-18); CHLORIDE 103 MEQ/L (98-107); GLOMERULAR FILTRATION RATE 28 ML/MIN (>89); MAGNESIUM 1.9 MG/DL (1.5-2.5); SODIUM (NA) 137 MEQ/L (136-145)
[2017-03-27 05:55] LABS: ALKALINE PHOSPHATASE 55 U/L (45-117); TOTAL BILIRUBIN ADULT 0.7 MG/DL (0.2-1.0)
[2017-03-27 06:00] LABS: POTASSIUM 2.9 MEQ/L (3.5-5.1)
[2017-03-27] MEDS ORDERED: POTASSIUM CHLOR 40 MEQ PREMIX 100 ML IV ONE (07:30)
[2017-03-27] MEDS: POTASSIUM CHLORIDE 20 MEQ CONTROLLED RELEASE TAB PO SCH (08:28)
[2017-03-27] MEDS: PANTOPRAZOLE SODIUM 40 MG VIAL IV SCH (08:28)
[2017-03-27] MEDS: POTASSIUM CHLOR 20 MEQ PREMIX 100 ML IV SCH ×2 (08:29→10:12)
[2017-03-27] MEDS: DOCUSATE SODIUM 50 MG/SENNA 8.6 MG TAB PO SCH ×2 (08:30→20:39)
[2017-03-27] MEDS: SODIUM CHLORIDE 0.9% FLUSH 10 ML FLUSH IV FLUSH SCH ×2 (08:30→20:39)
[2017-03-27] MEDS: APIXABAN 5 MG TABLET PO SCH ×2 (08:30→20:38)
[2017-03-27] MEDS: SODIUM CHLORIDE 0.9% FLUSH 10 ML FLUSH IVF SCH (08:30)
[2017-03-27] MEDS: ARTIFICIAL TEARS OPTH SOLN 15 ML BTL EACH EYE SCH ×3 (08:30→17:49)
--- NOTE | 2017-03-27 10:13 | HHI.PR ---
Subjective Remarks Follow-up hypotension, atrial fibrillation with RVR, CHF. Patient denies chest pain or dyspnea. No specific complaints at this time. Objective Vitals Vital Signs Date Time Temp Pulse Resp B/P (MAP) Pulse Ox O2 Delivery O2 Flow Rate FiO2 03/27/17 09:06 100 21 03/27/17 08:00 98.0 106 22 108/55 (72) 98 03/27/17 08:00 106 03/27/17 07:00 98 Room Air 03/27/17 06:00 118 03/27/17 04:00 124 03/27/17 04:00 98.1 124 20 125/59 (81) 100 03/27/17 02:00 108 03/27/17 00:00 98.1 116 20 115/63 (80) 100 03/27/17 00:00 118 03/26/17 22:00 116 03/26/17 20:46 96 03/26/17 20:00 98.4 116 20 101/62 (75) 100 03/26/17 20:00 116 03/26/17 19:00 98 Room Air 03/26/17 18:00 115 03/26/17 16:00 104 03/26/17 16:00 98.4 104 22 105/71 (82) 100 03/26/17 14:00 118 03/26/17 12:00 103 03/26/17 12:00 98.7 103 22 110/70 (83) 96 I/O 03/26/17 03/26/17 03/26/17 03/27/17 03/27/17 03/27/17 06:59 14:59 22:59 06:59 14:59 22:59 Intake Total 1077 ml 1728 ml 1300 ml Output Total 450 ml Balance 1077 ml 1278 ml 1300 ml Intake Oral 600 ml 200 ml IV Total 1077 ml 1128 ml 1100 ml Output Urine Total 450 ml # Voids 3 4 5 # Bowel Movements 2 3 Result Diagram: 03/27/17 0351 03/27/17 0507 Imaging Last Impressions Chest X-Ray 03/27/17 0600 Signed Impressions: Service Date/Time: Monday, March 27, 2017 04:28 - CONCLUSION: Decreasing left base consolidation. Left IJ line out. Mild cardiomegaly unchanged. Chato Reyna MD Renal Ultrasound 03/25/17 0000 Signed Impressions: Service Date/Time: March 09:15 - CONCLUSION: No hydronephrosis. Mild lateral wall thickening. Chato Kolb MD Lower Extremity Ultrasound 03/25/17 0000 Signed Impressions: Service Date/Time: March 08:54 - CONCLUSION: Normal examination. Mony Osuna MD Lower Extremity CT 03/25/17 0000 Signed Impressions: Service Date/Time: March 23:59 - CONCLUSION: 1. Mild diffuse soft tissue edema throughout the left calf and ankle without evidence for significant focal fluid collection or subcutaneous emphysema. Cecilio Garrido MD Head CT 03/25/17 0000 Signed Impressions: Service Date/Time: March 23:54 - CONCLUSION: 1. No acute intracranial abnormality. 2. Right maxillary sinus disease. Cecilio Garrido MD Objective Remarks General: No acute distress. Heart: Regular rate and rhythm. No murmur. Lungs: Clear to auscultation bilaterally. No wheezes, rales, or rhonchi. Breathing is nonlabored. Abdomen: Soft, nontender, nondistended. Extremities: 1+ right and 2+ left lower extremity edema. There is venous stasis changes of the left lower leg. Erythema has improved compared to the markings. Psych: Alert and oriented. Procedures 03/25/17 left IJ central line placement Urinary Catheter: No Vascular Central Line Catheter: No A/P Problem List: (1) Left leg cellulitis ICD Code: L03.116 - Cellulitis of left lower limb Status: Acute (2) Sepsis ICD Code: A41.9 - Sepsis, unspecified organism Status: Acute (3) Hypokalemia ICD Code: E87.6 - Hypokalemia; N18.9 - Chronic kidney disease, unspecified Status: Acute (4) Hypotension ICD Code: I95.9 - Hypotension, unspecified Status: Acute (5) Atrial fibrillation with RVR ICD Code: I48.91 - Unspecified atrial fibrillation Status: Acute (6) Acute renal failure ICD Code: N17.9 - Acute kidney failure, unspecified (7) Chronic systolic CHF (congestive heart failure) ICD Code: I50.22 - Chronic systolic (congestive) heart failure (8) Acute exacerbation of CHF (congestive heart failure) ICD Code: I50.9 - Heart failure, unspecified Assessment and Plan 1. Acute exacerbation of chronic systolic congestive heart failure: Ejection fraction noted to be 25-30% last month. Bumex and metolazone on hold secondary to hypotension. Patient receiving intermittent normal saline boluses. Consult patient's mold stamper. 2. Hypotension: Wean off Sampson-Synephrine. Maintain mean arterial pressure of 60. Metoprolol and lisinopril on hold secondary to low blood pressure. 3. Hypokalemia: Receiving supplementation. Follow labs. 4. Acute renal failure superimposed on CKD stage 3: Consult nephrology. Creatinine trending down. Unable to increase fluids at this time due to CHF. 5. Hyperglycemia of critical illness: Monitor accu-checks and cover with sliding scale insulin. 6. Left lower extremity cellulitis: Appreciate infectious disease, general surgery recommendations. Improving. Continue antibiotics. 7. GI prophylaxis: Protonix. 8. DVT prophylaxis: SCDs, apixaban. Problem Qualifiers (1) Sepsis: Qualified Codes: A41.9 - Sepsis, unspecified organism (2) Hypotension: Qualified Codes: I95.89 - Other hypotension Gil Dupont MD Mar 27, 2017 10:12
--- NOTE | 2017-03-27 10:21 | HHI.PR ---
Subjective Subjective Notes feels better, no fevers, less pain, redness improving. Objective Vitals/I&O Vital Signs Date Time Temp Pulse Resp B/P (MAP) Pulse Ox O2 Delivery O2 Flow Rate FiO2 03/27/17 10:00 123 03/27/17 09:06 100 21 03/27/17 08:00 98.0 22 108/55 (72) 03/27/17 07:00 Room Air 03/26/17 07:00 2.00 Labs Laboratory Tests Test 03/26/17 16:00 03/27/17 03:51 03/27/17 05:01 03/27/17 05:07 Urine Color YELLOW Urine Turbidity HAZY Urine pH 5.0 Urine Specific [place] 1.012 Urine Protein TRACE Urine Glucose (UA) TRACE Urine Ketones NEG Urine Occult Blood NEG Urine Nitrite NEG Urine Bilirubin NEG Urine Urobilinogen LESS THAN 2.0 Urine Leukocyte Esterase TRACE Urine WBC 3 Urine Squamous Epithelial Cells <1 Urine Hyaline Casts 1 Microscopic Urinalysis Comment CATH-CULT NOT IND Urine Eosinophils NONE SEEN Urine Random Creatinine 79.9 Urine Random Sodium 34 White Blood Count 10.5 Red Blood Count 4.69 Hemoglobin 10.5 Hematocrit 33.8 Mean Corpuscular Volume 72.1 Mean Corpuscular Hemoglobin 22.4 Mean Corpuscular Hemoglobin Concent 31.0 Red Cell Distribution Width 20.4 Platelet Count 136 Mean Platelet Volume 7.9 Neutrophils (%) (Auto) 85.4 Lymphocytes (%) (Auto) 7.3 Monocytes (%) (Auto) 5.7 Eosinophils (%) (Auto) 1.2 Basophils (%) (Auto) 0.4 Neutrophils # (Auto) 8.9 Lymphocytes # (Auto) 0.8 Monocytes # (Auto) 0.6 Eosinophils # (Auto) 0.1 Basophils # (Auto) 0.0 CBC Comment DIFF FINAL Differential Comment B-Type Natriuretic Peptide 332 Blood Urea Nitrogen 60 Creatinine 2.36 Random Glucose 82 Total Protein 5.8 Albumin 2.4 Calcium Level 7.7 Phosphorus Level 3.9 Magnesium Level 1.9 Alkaline Phosphatase 55 Aspartate Amino Transf (AST/SGOT) 16 Alanine Aminotransferase (ALT/SGPT) 18 Total Bilirubin 0.7 Sodium Level 137 Potassium Level 2.9 Chloride Level 103 Carbon Dioxide Level 22.2 Anion Gap 12 Estimat Glomerular Filtration Rate 28 Random Vancomycin Level 12.7 Date/Time Source Procedure Growth Status 03/25/17 13:52 Blood Peripheral Aerobic Blood Culture - Preliminary NO GROWTH IN 1 DAY Resulted 03/25/17 13:52 Blood Peripheral Anaerobic Blood Culture - Preliminary NO GROWTH IN 1 DAY Resulted Radiology Last Impressions Chest X-Ray 03/25/17 1204 Signed Impressions: Service Date/Time: March 12:09 - CONCLUSION: 1. Left basilar patchiness consistent with probable pneumonia. 2. Left internal jugular central line has its tip in good position in the superior vena cava. There is no pneumothorax. 3. Cardiomegaly. 4. Degenerative changes throughout the thoracic spine. Sai Dallas MD Renal Ultrasound 03/25/17 0000 Signed Impressions: Service Date/Time: March 09:15 - CONCLUSION: No hydronephrosis. Mild lateral wall thickening. Chato Kolb MD Lower Extremity Ultrasound 03/25/17 0000 Signed Impressions: Service Date/Time: March 08:54 - CONCLUSION: Normal examination. KJaved Osuna MD Lower Extremity CT 03/25/17 0000 Signed Impressions: Service Date/Time: March 23:59 - CONCLUSION: 1. Mild diffuse soft tissue edema throughout the left calf and ankle without evidence for significant focal fluid collection or subcutaneous emphysema. Cecilio Garrido MD Head CT 03/25/17 0000 Signed Impressions: Service Date/Time: March 23:54 - CONCLUSION: 1. No acute intracranial abnormality. 2. Right maxillary sinus disease. Cecilio Garrido MD Narrative Exam LLE look good, redness much improved, no fluctuance noted Wound Wound : Wound Location: Left leg Appearance: Clean & Dry, Erythema A/P Problem List: (1) Left leg cellulitis ICD Codes: L03.116 - Cellulitis of left lower limb Status: Acute (2) Hypokalemia ICD Codes: E87.6 - Hypokalemia; N18.9 - Chronic kidney disease, unspecified Status: Acute (3) Sepsis ICD Codes: A41.9 - Sepsis, unspecified organism Status: Acute (4) Congestive heart failure ICD Codes: I50.9 - Heart failure, unspecified Status: Chronic (5) Atrial fibrillation ICD Codes: I48.91 - Unspecified atrial fibrillation Status: Chronic (6) Generalized weakness ICD Codes: R53.1 - Weakness Status: Acute (7) Acute on chronic renal insufficiency ICD Codes: N28.9 - Disorder of kidney and ureter, unspecified; N18.9 - Chronic kidney disease, unspecified Status: Acute (8) Atrial fibrillation with RVR ICD Codes: I48.91 - Unspecified atrial fibrillation Status: Acute (9) Poor historian ICD Codes: Z78.9 - Other specified health status (10) Hypotension ICD Codes: I95.9 - Hypotension, unspecified Status: Acute Assessment and Plan Cellulitis LLE, no surgical intervention required at this time continue ABX Problem Qualifiers (1) Sepsis: Qualified Codes: A41.9 - Sepsis, unspecified organism (2) Hypotension: Qualified Codes: I95.89 - Other hypotension Ramu Ambrocio MD Mar 27, 2017 10:21
--- NOTE | 2017-03-27 11:48 | MB ---
cc: CLIFTON MARIN MD, HANSCY M.D. DATE OF CONSULTATION: 03/27/2017. REASON FOR CONSULTATION: Chronic congestive heart failure and atrial fibrillation. HISTORY OF PRESENT ILLNESS: The patient is a very pleasant 61-year-old gentleman who sees my partner, Dr. Frias, with a history of a nonischemic cardiomyopathy and an ejection fraction of around 20% as well as a defibrillator and chronic atrial fibrillation. He presented with left leg redness and swelling and confusion and was felt to have cellulitis. His atrial fibrillation has been difficult to control since he has been here, and thus I was consulted. He denies any current cardiac symptoms such as chest pain, shortness of breath, lightheadedness, dizziness or syncope. He says that his dizziness has improved once he stopped Entresto. PAST MEDICAL HISTORY: As above. CURRENT MEDICATIONS: 1. Lopressor 25 milligrams q.8 h. 2. Eliquis 5 milligrams twice a day. 3. Cefepime. 4. Clindamycin. ALLERGIES: AMPICILLIN. PHYSICAL EXAMINATION: VITAL SIGNS: Afebrile, pulse 110 to 120, respiratory rate 22, blood pressure 108/55, satting at 100% on two liters. GENERAL: In general, a pleasant gentleman in no distress. NECK: No jugular venous distention. LUNGS: Clear to auscultation bilaterally. CARDIOVASCULAR: Irregularly irregular rhythm with a mildly rapid rate. No murmurs appreciated. ABDOMEN: Benign. EXTREMITIES: Left leg cellulitic-appearing with 1+ edema. Right leg without edema. LABORATORY DATA: White count 10.5, hematocrit 33.8, platelets 136,000. Sodium 137, potassium 2.9, chloride 103, bicarb 22.2, BUN 60, creatinine 2.36 down from 3.29. IMAGING STUDIES: Chest x-ray shows decreasing left base consolidation. EKGS: EKG showed atrial fibrillation with rapid ventricular response with lateral T-wave changes. Nuclear stress test from earlier this year on 03/05/17 showed global hypokinesis without any ischemia. IMPRESSION: 1. Congestive heart failure: The patient actually appears relatively euvolemic and may have even been dehydrated on admission per the patient's history. His left leg edema appears more related to his cellulitis than to an exacerbation of congestive heart failure. At this point, given the lack of any respiratory symptoms and his improving creatinine, I would keep him on his current regimen and aim for euvolemia. 2. Atrial fibrillation: The patient's atrial fibrillation is difficult to control, particularly in the setting of an infectious process / sepsis. I will try adding low-dose Cardizem to his regimen as his blood pressure tolerates. I would avoid Digoxin if possible given his renal dysfunction. At some point, he might require a procedure to improve his atrial fibrillation control, whether that be an atrial fibrillation ablation or AV kian modification. Further recommendation will be based on his clinical course. Thank you again for the opportunity to participate in this patient's care. MD EARNEST Matute/JAIME /11:02 AM /11:36 AM
[2017-03-27] MEDS: DILTIAZEM HCL 30 MG TAB PO SCH ×3 (12:28→23:47)
[2017-03-27] MEDS ORDERED: VANCOMYCIN INJ 2,000 MG in SODIUM CHLORID 0.9% 500 ML INJ 500 ML IV ONE (13:00)
--- NOTE | 2017-03-27 17:22 | PD.CONS ---
HPI Service Nephrology Consult Requested By Dr. Dupont Reason for Consult Acute renal insufficiency Primary Care Physician No Primary Care Physician History of Present Illness Patient is a 61-year-old now male with history of Deb-en-Y surgery, cardiomyopathy, he states that he has been feeling weak and had a fall and had left leg swelling and has been admitted for cellulitis of left leg, his creatinine was above 3 and he has improvement in the creatinine is declined he states that he has kidney stones once he is now feeling better he is passing urine denies dysuria Review of Systems Constitutional: COMPLAINS OF: Fatigue Cardiovascular: COMPLAINS OF: Lower Extremity Edema Neurologic: COMPLAINS OF: Abnormal gait Past Family Social History Allergies: Coded Allergies: ampicillin (Unverified Allergy, Severe, 03/02/17) fire ant (Unverified Allergy, Severe, Anaphylaxis, 03/02/17) MRI PRECAUTION (Verified Adverse Reaction, Severe, 03/25/17) Patient has a [employer] non compatible mri pacemaker. EG 03/25/2017 Past Medical History Congestive heart failure EF of 15-25% Defibrillator Peripheral edema Kidney stone Weight loss surgery/gastric bypass Past Surgical History Abdomen hernia Tonsillectomy Adenoidectomy Deb-en-Y surgery Defibrillator Fracture ankle Reported Medications Reported Meds & Active Scripts Active Lisinopril 10 Mg Tab 10 Mg PO DAILY Potassium Chloride ER (Potassium Chloride) 20 Meq Tab 20 Meq PO DAILY Bumetanide 1 Mg Tab 1 Mg PO BID May take extra pill per every 24 hours for worsening swelling in legs Metolazone 5 Mg Tab 5 Mg PO DAILY Lopressor (Metoprolol Tartrate) 100 Mg Tab 100 Mg PO BID@08,20 Eliquis (Apixaban) 5 Mg Tab 5 Mg PO BID Trazodone (Trazodone HCl) 50 Mg Tab 50 [address] (Duloxetine HCl) 60 Mg Capdr 60 Mg PO DAILY Reported Entresto (Sacubitril-Valsartan) 49-51 Mg Tab 1 Tab PO BID Metoprolol Tartrate 50 Mg Tab 50 Mg PO BID Active Ordered Medications Current Medications Medications (Trade) Dose Ordered Sig/Dyllan Route Start Time Stop Time Status Last Admin (Narcan Inj) 0.4 mg UNSCH PRN IV 03/25/17 03:45 (Eliquis) 5 mg BID PO 03/25/17 09:00 03/27/17 08:30 (KCl) 20 meq DAILY PO 03/25/17 09:00 03/27/17 08:28 (Free Water) 200 ml Q4HR PO 03/25/17 08:00 03/27/17 16:18 Sodium Chloride 1,000 ml @ 84 mls/hr [id number] IV 03/25/17 08:00 03/27/17 05:10 (NS Flush) 2 ml UNSCH PRN IV FLUSH 03/25/17 07:45 (NS Flush) 2 ml BID IV FLUSH 03/25/17 09:00 03/26/17 21:03 (Tylenol) 650 mg Q6H PRN PO 03/25/17 09:00 ([place] 5-325 Mg) 1 tab Q4H PRN PO 03/25/17 09:00 (Morphine Inj) 2 mg Q2H PRN IV 03/25/17 09:00 03/25/17 20:40 (Protonix Inj) 40 mg DAILY IV 03/25/17 09:00 03/27/17 08:28 (Tears Naturale Opth Soln) 1 drop TID EACH EYE 03/25/17 09:00 03/27/17 12:29 (Zofran Inj) 4 mg Q6H PRN IV 03/25/17 09:00 03/25/17 16:19 (Duoneb Neb) 1 ampule Q6HR NEB INH 03/25/17 10:00 03/26/17 20:44 (Albuterol Neb) 2.5 mg Q2HR NEB PRN INH 03/25/17 08:00 Miscellaneous Information 1 Q361D XX 03/25/17 07:45 (Chlorhexidine 2% Cloth) 3 pack Taper DAILY@04 TOP 03/26/17 04:00 03/22/18 03:59 (Chlorhexidine 2% Cloth) 3 pack UNSCH PRN TOP 03/25/17 07:45 (Kathie-Colace) 1 tab BID PO 03/25/17 09:00 03/26/17 09:14 (Milk Of Magnesia Liq) 30 ml Q12H PRN PO 03/25/17 09:00 (Senokot) 17.2 mg Q12H PRN PO 03/25/17 09:00 (Dulcolax Supp) 10 mg DAILY PRN RECTAL 03/25/17 09:00 (Lactulose Liq) 30 ml DAILY PRN PO 03/25/17 09:00 Pharmacy Profile Note 0 ml @ 0 mls/hr UNSCH OTHER 03/25/17 09:00 (NS Flush) DAILY IVF 03/25/17 12:15 03/26/17 09:00 (NS Flush) UNSCH PRN IVF 03/25/17 12:15 Clindamycin Phosphate 900 mg/ Sodium Chloride 106 ml @ 212 mls/hr Q8H IV 03/25/17 14:00 03/27/17 13:25 Phenylephrine HCl 160 mg/Dextrose 500 ml @ 7.5 mls/hr TITRATE PRN IV 03/25/17 12:15 (Brethine Inj) 1 mg UNSCH PRN SQ 03/25/17 12:15 Cefepime HCl 1000 mg/Sodium Chloride 100 ml @ 200 mls/hr Q12H IV 03/25/17 15:00 03/27/17 14:21 (Ativan Inj) 1 mg Q4H PRN IV PUSH 03/25/17 15:30 03/26/17 21:03 (Lopressor) 25 mg Q8HR PO 03/25/17 22:00 03/26/17 14:18 (Cardizem) 30 mg Q6HR PO 03/27/17 12:00 03/27/17 12:28 Family History Noncontributory Social History Denies smoking or alcohol Physical Exam Vital Signs Vital Signs Date Time Temp Pulse Resp B/P (MAP) Pulse Ox O2 Delivery O2 Flow Rate FiO2 03/27/17 16:00 104 03/27/17 16:00 98.1 104 20 114/56 (75) 100 03/27/17 14:00 95 03/27/17 12:00 98.5 123 21 97/59 (72) 100 03/27/17 12:00 115 03/27/17 10:00 123 03/27/17 09:06 100 21 03/27/17 08:00 98.0 106 22 108/55 (72) 98 03/27/17 08:00 106 03/27/17 07:00 98 Room Air 03/27/17 06:00 118 03/27/17 04:00 124 03/27/17 04:00 98.1 124 20 125/59 (81) 100 03/27/17 02:00 108 03/27/17 00:00 98.1 116 20 115/63 (80) 100 03/27/17 00:00 118 03/26/17 22:00 116 03/26/17 20:46 96 03/26/17 20:00 98.4 116 20 101/62 (75) 100 03/26/17 20:00 116 03/26/17 19:00 98 Room Air 03/26/17 18:00 115 Physical Exam GENERAL: Well-nourished, well-developed patient. SKIN: Warm and dry. HEAD: Normocephalic. EYES: No scleral icterus. No injection or drainage. NECK: Supple, trachea midline. No JVD or lymphadenopathy. CARDIOVASCULAR: S1 and S2 distant heart sounds RESPIRATORY: Breath sounds equal bilaterally. No accessory muscle use. GASTROINTESTINAL: Abdomen soft, non-tender, nondistended. EXTREMITIES: No cyanosis, 2+ edema. Left leg red NEUROLOGICAL: Awake, alert, and oriented x 3. Non-focal. Laboratory Laboratory Tests Test 03/27/17 03:51 03/27/17 05:01 03/27/17 05:07 White Blood Count 10.5 Red Blood Count 4.69 Hemoglobin 10.5 Hematocrit 33.8 Mean Corpuscular Volume 72.1 Mean Corpuscular Hemoglobin 22.4 Mean Corpuscular Hemoglobin Concent 31.0 Red Cell Distribution Width 20.4 Platelet Count 136 Mean Platelet Volume 7.9 Neutrophils (%) (Auto) 85.4 Lymphocytes (%) (Auto) 7.3 Monocytes (%) (Auto) 5.7 Eosinophils (%) (Auto) 1.2 Basophils (%) (Auto) 0.4 Neutrophils # (Auto) 8.9 Lymphocytes # (Auto) 0.8 Monocytes # (Auto) 0.6 Eosinophils # (Auto) 0.1 Basophils # (Auto) 0.0 CBC Comment DIFF FINAL Differential Comment B-Type Natriuretic Peptide 332 Blood Urea Nitrogen 60 Creatinine 2.36 Random Glucose 82 Total Protein 5.8 Albumin 2.4 Calcium Level 7.7 Phosphorus Level 3.9 Magnesium Level 1.9 Alkaline Phosphatase 55 Aspartate Amino Transf (AST/SGOT) 16 Alanine Aminotransferase (ALT/SGPT) 18 Total Bilirubin 0.7 Sodium Level 137 Potassium Level 2.9 Chloride Level 103 Carbon Dioxide Level 22.2 Anion Gap 12 Estimat Glomerular Filtration Rate 28 Random Vancomycin Level 12.7 Date/Time Source Procedure Growth Status 03/25/17 13:52 Blood Peripheral Aerobic Blood Culture - Preliminary NO GROWTH IN 2 DAYS Resulted 03/25/17 13:52 Blood Peripheral Anaerobic Blood Culture - Preliminary NO GROWTH IN 2 DAYS Resulted Result Diagram: 03/27/17 0351 03/27/17 0507 Imaging Last Impressions Chest X-Ray 03/27/17 0600 Signed Impressions: Service Date/Time: Monday, March 27, 2017 04:28 - CONCLUSION: Decreasing left base consolidation. Left IJ line out. Mild cardiomegaly unchanged. Chato Reyna MD Renal Ultrasound 03/25/17 0000 Signed Impressions: Service Date/Time: March 09:15 - CONCLUSION: No hydronephrosis. Mild lateral wall thickening. Chato Kolb MD Lower Extremity Ultrasound 03/25/17 0000 Signed Impressions: Service Date/Time: March 08:54 - CONCLUSION: Normal examination. Mony Osuna MD Lower Extremity CT 03/25/17 0000 Signed Impressions: Service Date/Time: , March 25, 2017 23:59 - CONCLUSION: 1. Mild diffuse soft tissue edema throughout the left calf and ankle without evidence for significant focal fluid collection or subcutaneous emphysema. Cecilio Garrido MD Head CT 03/25/17 0000 Signed Impressions: Service Date/Time: March 23:54 - CONCLUSION: 1. No acute intracranial abnormality. 2. Right maxillary sinus disease. Cecilio Garrido MD Assessment and Plan Problem List: (1) Acute on chronic renal insufficiency ICD Codes: N28.9 - Disorder of kidney and ureter, unspecified; N18.9 - Chronic kidney disease, unspecified Status: Acute Plan: This is likely due to dehydration and cardiorenal syndrome, he is passing urine his creatinine is declining potassium is being replaced Monitor BMP As his kidney function improved I will just monitor along (2) Congestive heart failure ICD Codes: I50.9 - Heart failure, unspecified Status: Chronic Plan: Continue to monitor and he may need to resume diuretics at some point (3) Sepsis ICD Codes: A41.9 - Sepsis, unspecified organism Status: Acute Plan: Cellulitis he is getting clindamycin and cefepime Problem Qualifiers (1) Sepsis: Qualified Codes: A41.9 - Sepsis, unspecified organism Quintin Sky MD Mar 27, 2017 17:22
[2017-03-27 21:20] LABS: BICARBONATE 19.8 MEQ/L (21.0-32.0); POTASSIUM 3.5 MEQ/L (3.5-5.1)
[2017-03-27] MEDS: LORazepam 2 MG/ML VIAL IV PUSH PRN (22:49)
[2017-03-28] VITALS (14 sets, daily range): BP systolic 107–129; BP diastolic 68–81; PULSE 82–126; RESP 20–28; TEMP 97.7–98.5; O2SAT 96–100
[2017-03-28] MEDS: CEFEPIME INJ 1,000 MG in SODIUM CHLORIDE 0.9% INJ 100 ML IV SCH ×2 (02:38→16:27)
[2017-03-28] MEDS: CHLORHEXIDINE GLUCONATE 2 % 1 PACK (2 CLOTHS) TOP SCH (04:00)
[2017-03-28] MEDS: FREE WATER PO SCH (04:00)
[2017-03-28] MEDS: RESP: ALBUTEROL 2.5 MG/IPRATROPIUM 0.5 MG NEB (SCH) INH ×4 (04:00→21:15)
[2017-03-28 05:52] LABS: AUTOMATED NEUTROPHIL # 3.8 TH/MM3 (1.8-7.7); BASOPHIL % 0.7 % (0.0-2.0); EOSINOPHIL # 0.2 TH/MM3 (0-0.4); EOSINOPHIL % 3.8 % (0.0-4.0); HEMATOCRIT 31.1 % (39.0-51.0); HEMO FLAGS DIFF FINAL; LYMPH % 16.9 % (9.0-44.0); LYMPHOCYTE # 0.9 TH/MM3 (1.0-4.8); MEAN CORPUSCULAR HEMOGLOBIN 22.7 PG (27.0-34.0); MEAN CORPUSCULAR HGB CONC 31.9 % (32.0-36.0); MONO % 6.3 % (0.0-8.0); NEUT % 72.3 % (16.0-70.0); PLATELET COUNT 125 TH/MM3 (150-450); RED BLOOD COUNT 4.38 MIL/MM3 (4.50-5.90); RED CELL DISTRIBUTION WIDTH 21.2 % (11.6-17.2); WHITE BLOOD COUNT 5.3 TH/MM3 (4.0-11.0)
[2017-03-28] MEDS: METOPROLOL TARTRATE 25 MG TAB PO SCH ×3 (06:00→20:02)
[2017-03-28 06:08] LABS: BICARBONATE 22.2 MEQ/L (21.0-32.0); MAGNESIUM 1.9 MG/DL (1.5-2.5); POTASSIUM 3.3 MEQ/L (3.5-5.1)
[2017-03-28] MEDS: DILTIAZEM HCL 30 MG TAB PO SCH (06:08)
[2017-03-28] MEDS: CLINDAMYCIN INJ 900 MG in SODIUM CHLORIDE 0.9% INJ 100 ML IV SCH ×3 (06:08→22:59)
--- NOTE | 2017-03-28 07:24 | PD.CARD.PN ---
Subjective Subjective Remarks Pt starting to feel "bloated" afib rates better but slightly high Objective Medications Administered Medications Medications (Trade) Dose Ordered Sig/Dyllan Route PRN Reason Start Time Stop Time Status Last Admin Dose Admin Apixaban (Eliquis) 5 mg BID PO 03/25/17 09:00 03/27/17 20:38 Potassium Chloride (KCl) 20 meq DAILY PO 03/25/17 09:00 03/27/17 08:28 Water (Free Water) 200 ml Q4HR PO 03/25/17 08:00 03/28/17 04:00 Sodium Chloride 1,000 ml @ 84 mls/hr [id number] IV 03/25/17 08:00 03/27/17 19:35 Sodium Chloride (NS Flush) 2 ml BID IV FLUSH 03/25/17 09:00 03/27/17 20:39 Morphine Sulfate (Morphine Inj) 2 mg Q2H PRN IV PAIN SCALE 6 TO 10 03/25/17 09:00 03/25/17 20:40 Pantoprazole Sodium (Protonix Inj) 40 mg DAILY IV 03/25/17 09:00 03/27/17 08:28 Artificial Tears (Tears Naturale Opth Soln) 1 drop TID EACH EYE 03/25/17 09:00 03/27/17 17:49 Ondansetron HCl (Zofran Inj) 4 mg Q6H PRN IV NAUSEA OR VOMITING 03/25/17 09:00 03/25/17 16:19 Albuterol/ Ipratropium (Duoneb Neb) 1 ampule Q6HR NEB INH 03/25/17 10:00 03/26/17 20:44 Senna/Docusate Sodium (Kathie-Colace) 1 tab BID PO 03/25/17 09:00 03/26/17 09:14 Sodium Chloride (NS Flush) DAILY IVF 03/25/17 12:15 03/26/17 09:00 Clindamycin Phosphate 900 mg/ Sodium Chloride 106 ml @ 212 mls/hr Q8H IV 03/25/17 14:00 03/28/17 06:08 Cefepime HCl 1000 mg/Sodium Chloride 100 ml @ 200 mls/hr Q12H IV 03/25/17 15:00 03/28/17 02:38 Lorazepam (Ativan Inj) 1 mg Q4H PRN IV PUSH severe agitation 03/25/17 15:30 03/27/17 22:49 Metoprolol Tartrate (Lopressor) 25 mg Q8HR PO 03/25/17 22:00 03/26/17 14:18 Diltiazem HCl (Cardizem) 30 mg Q6HR PO 03/27/17 12:00 03/28/17 06:08 Vital Signs / I&O Vital Signs Date Time Temp Pulse Resp B/P (MAP) Pulse Ox O2 Delivery O2 Flow Rate FiO2 03/28/17 06:00 120 03/28/17 04:00 98.0 105 21 112/75 (87) 100 03/28/17 04:00 105 03/28/17 02:00 92 03/28/17 00:00 98.5 118 22 117/75 (89) 99 03/28/17 00:00 118 03/27/17 22:00 113 03/27/17 20:23 95 03/27/17 20:00 98.3 102 20 114/76 (89) 100 03/27/17 20:00 102 03/27/17 19:00 100 Room Air 03/27/17 18:00 125 03/27/17 16:00 104 03/27/17 16:00 98.1 104 20 114/56 (75) 100 03/27/17 14:00 95 03/27/17 12:00 98.5 123 21 97/59 (72) 100 03/27/17 12:00 115 03/27/17 10:00 123 03/27/17 09:06 100 21 03/27/17 08:00 98.0 106 22 108/55 (72) 98 03/27/17 08:00 106 I/O 03/27/17 03/27/17 03/27/17 03/28/17 03/28/17 03/28/17 06:59 14:59 22:59 06:59 14:59 22:59 Intake Total 1300 ml 1950 ml 1339 ml Balance 1300 ml 1950 ml 1339 ml Intake Oral 200 ml 200 ml 240 ml IV Total 1100 ml 1750 ml 1099 ml # Voids 5 6 5 # Bowel Movements 3 0 1 Physical Exam GENERAL: This is a well-nourished, well-developed patient, in no apparent distress. CARDIOVASCULAR: Mildly rapid rate and irregular rhythm without murmurs, gallops , or rubs. RESPIRATORY: Clear to auscultation. Breath sounds equal bilaterally. No wheezes , rales, or rhonchi. GASTROINTESTINAL: Abdomen soft, non-tender, nondistended. Normal, active bowel sounds MUSCULOSKELETAL: 1-2+ edema bilaterally, L>R NEURO: Alert & Oriented x4 to person, place, time, situation. Moves all ext x4 Laboratory Laboratory Tests Test 03/27/17 20:10 03/28/17 05:13 Blood Urea Nitrogen 57 MG/DL 47 MG/DL Creatinine 1.83 MG/DL 1.67 MG/DL Random Glucose 122 MG/DL 120 MG/DL Calcium Level 7.5 MG/DL 8.2 MG/DL Sodium Level 134 MEQ/L 135 MEQ/L Potassium Level 3.5 MEQ/L 3.3 MEQ/L Chloride Level 105 MEQ/L 103 MEQ/L Carbon Dioxide Level 19.8 MEQ/L 22.2 MEQ/L Anion Gap 9 MEQ/L 10 MEQ/L Estimat Glomerular Filtration Rate 38 ML/MIN 42 ML/MIN White Blood Count 5.3 TH/MM3 Red Blood Count 4.38 MIL/MM3 Hemoglobin 9.9 GM/DL Hematocrit 31.1 % Mean Corpuscular Volume 71.0 FL Mean Corpuscular Hemoglobin 22.7 PG Mean Corpuscular Hemoglobin Concent 31.9 % Red Cell Distribution Width 21.2 % Platelet Count 125 TH/MM3 Mean Platelet Volume 7.9 FL Neutrophils (%) (Auto) 72.3 % Lymphocytes (%) (Auto) 16.9 % Monocytes (%) (Auto) 6.3 % Eosinophils (%) (Auto) 3.8 % Basophils (%) (Auto) 0.7 % Neutrophils # (Auto) 3.8 TH/MM3 Lymphocytes # (Auto) 0.9 TH/MM3 Monocytes # (Auto) 0.3 TH/MM3 Eosinophils # (Auto) 0.2 TH/MM3 Basophils # (Auto) 0.0 TH/MM3 CBC Comment DIFF FINAL Differential Comment Phosphorus Level 1.9 MG/DL Magnesium Level 1.9 MG/DL Imaging Last Impressions Chest X-Ray 03/27/17 0600 Signed Impressions: Service Date/Time: Monday, March 27, 2017 04:28 - CONCLUSION: Decreasing left base consolidation. Left IJ line out. Mild cardiomegaly unchanged. Chato Reyna MD Renal Ultrasound 03/25/17 Signed Impressions: Service Date/Time: March 09:15 - CONCLUSION: No hydronephrosis. Mild lateral wall thickening. Chato Kolb MD Lower Extremity Ultrasound 03/25/17 Signed Impressions: Service Date/Time: March 08:54 - CONCLUSION: Normal examination. KJaved Osuna MD Lower Extremity CT 03/25/17 Signed Impressions: Service Date/Time: March 23:59 - CONCLUSION: 1. Mild diffuse soft tissue edema throughout the left calf and ankle without evidence for significant focal fluid collection or subcutaneous emphysema. Cecilio Garrido MD Head CT 03/25/17 Signed Impressions: Service Date/Time: March 23:54 - CONCLUSION: 1. No acute intracranial abnormality. 2. Right maxillary sinus disease. Cecilio Garrido MD Assessment and Plan Problem List: (1) Chronic systolic CHF (congestive heart failure) ICD Codes: I50.22 - Chronic systolic (congestive) heart failure Plan: will stop his IV fluids and re-initiated his home dose bumex as Cr. has come down and now pt starting to feel fluid overloaded. (2) Acute exacerbation of CHF (congestive heart failure) ICD Codes: I50.9 - Heart failure, unspecified (3) Acute on chronic renal insufficiency ICD Codes: N28.9 - Disorder of kidney and ureter, unspecified; N18.9 - Chronic kidney disease, unspecified Status: Acute Plan: improved w/ hydration, likely cardio-renal (4) Left leg cellulitis ICD Codes: L03.116 - Cellulitis of left lower limb Status: Acute (5) Atrial fibrillation with RVR ICD Codes: I48.91 - Unspecified atrial fibrillation Status: Acute Plan: On eliquis, rates still high, will try increasing oral cardizem Assessment and Plan Dr. Cordero will round tomorrow and Dr. Frias will be available thereafter. Mark Curiel MD Mar 28, 2017 07:24
[2017-03-28] MEDS: PANTOPRAZOLE SODIUM 40 MG VIAL IV SCH (08:54)
[2017-03-28] MEDS: APIXABAN 5 MG TABLET PO SCH ×2 (08:54→20:02)
[2017-03-28] MEDS: POTASSIUM CHLORIDE 20 MEQ CONTROLLED RELEASE TAB PO SCH ×2 (08:54→20:02)
[2017-03-28] MEDS: SODIUM CHLORIDE 0.9% FLUSH 10 ML FLUSH IVF SCH (09:00)
[2017-03-28] MEDS: SODIUM CHLORIDE 0.9% FLUSH 10 ML FLUSH IV FLUSH SCH ×2 (09:00→20:01)
[2017-03-28] MEDS: DOCUSATE SODIUM 50 MG/SENNA 8.6 MG TAB PO SCH ×2 (09:00→20:02)
[2017-03-28] MEDS: ARTIFICIAL TEARS OPTH SOLN 15 ML BTL EACH EYE SCH ×3 (09:00→17:49)
[2017-03-28] MEDS: BUMETANIDE 1 MG TAB PO SCH ×2 (09:12→20:02)
--- NOTE | 2017-03-28 12:04 | HHI.PR ---
cc: Haroldo Hernandez MD Subjective Subjective Notes DAILY PROGRESS NOTE FOR SURGICAL ATTENDING, DR. HAROLDO HERNANDEZ Feels better at bedside Objective Vitals/I&O Vital Signs Date Time Temp Pulse Resp B/P (MAP) Pulse Ox O2 Delivery O2 Flow Rate FiO2 03/28/17 10:00 126 03/28/17 08:09 100 21 03/28/17 08:00 97.9 24 116/68 (84) 03/28/17 07:00 Room Air 03/26/17 07:00 2.00 Labs Laboratory Tests Test 03/25/17 13:10 03/25/17 13:50 03/26/17 03:28 03/26/17 16:00 Ammonia 19 MCMOL/L Total Creatine Kinase 85 U/L Troponin I 0.08 NG/ML Amylase Level 12 U/L Lipase 60 U/L Thyroid Stimulating Hormone 3rd Gen 2.120 uIU/ML Nasal Screen MRSA (PCR) MRSA NOT DETECTED Prothrombin Time 13.3 SEC Prothromb Time International Ratio 1.2 RATIO Activated Partial Thromboplast Time 37.6 SEC Lactic Acid Level 1.4 mmol/L Urine Color YELLOW Urine Turbidity HAZY Urine pH 5.0 Urine Specific Duncan 1.012 Urine Protein TRACE mg/dL Urine Glucose (UA) TRACE mg/dL Urine Ketones NEG mg/dL Urine Occult Blood NEG Urine Nitrite NEG Urine Bilirubin NEG Urine Urobilinogen LESS THAN 2.0 MG/DL Urine Leukocyte Esterase TRACE Urine WBC 3 /hpf Urine Squamous Epithelial Cells <1 /hpf Urine Hyaline Casts 1 /lpf Microscopic Urinalysis Comment CATH-CULT NOT IND Urine Eosinophils NONE SEEN /HPF Urine Random Creatinine 79.9 MG/DL Urine Random Sodium 34 MEQ/L Test 03/27/17 05:01 03/27/17 05:07 03/28/17 05:13 B-Type Natriuretic Peptide 332 PG/ML Blood Urea Nitrogen 60 MG/DL 47 MG/DL Creatinine 2.36 MG/DL 1.67 MG/DL Random Glucose 82 MG/DL 120 MG/DL Total Protein 5.8 GM/DL Albumin 2.4 GM/DL Calcium Level 7.7 MG/DL 8.2 MG/DL Phosphorus Level 3.9 MG/DL 1.9 MG/DL Magnesium Level 1.9 MG/DL 1.9 MG/DL Alkaline Phosphatase 55 U/L Aspartate Amino Transf (AST/SGOT) 16 U/L Alanine Aminotransferase (ALT/SGPT) 18 U/L Total Bilirubin 0.7 MG/DL Sodium Level 137 MEQ/L 135 MEQ/L Potassium Level 2.9 MEQ/L 3.3 MEQ/L Chloride Level 103 MEQ/L 103 MEQ/L Carbon Dioxide Level 22.2 MEQ/L 22.2 MEQ/L Random Vancomycin Level 12.7 COMMENT White Blood Count 5.3 TH/MM3 Red Blood Count 4.38 MIL/MM3 Hemoglobin 9.9 GM/DL Hematocrit 31.1 % Mean Corpuscular Volume 71.0 FL Mean Corpuscular Hemoglobin 22.7 PG Mean Corpuscular Hemoglobin Concent 31.9 % Red Cell Distribution Width 21.2 % Platelet Count 125 TH/MM3 Mean Platelet Volume 7.9 FL Neutrophils (%) (Auto) 72.3 % Lymphocytes (%) (Auto) 16.9 % Monocytes (%) (Auto) 6.3 % Eosinophils (%) (Auto) 3.8 % Basophils (%) (Auto) 0.7 % Neutrophils # (Auto) 3.8 TH/MM3 Lymphocytes # (Auto) 0.9 TH/MM3 Monocytes # (Auto) 0.3 TH/MM3 Eosinophils # (Auto) 0.2 TH/MM3 Basophils # (Auto) 0.0 TH/MM3 CBC Comment DIFF FINAL Differential Comment Anion Gap 10 MEQ/L Estimat Glomerular Filtration Rate 42 ML/MIN Radiology Last Impressions Chest X-Ray 03/25/17 1204 Signed Impressions: Service Date/Time: March 12:09 - CONCLUSION: 1. Left basilar patchiness consistent with probable pneumonia. 2. Left internal jugular central line has its tip in good position in the superior vena cava. There is no pneumothorax. 3. Cardiomegaly. 4. Degenerative changes throughout the thoracic spine. Sai Dallas MD Renal Ultrasound 03/25/17 0000 Signed Impressions: Service Date/Time: March 09:15 - CONCLUSION: No hydronephrosis. Mild lateral wall thickening. Chato Kolb MD Lower Extremity Ultrasound 03/25/17 0000 Signed Impressions: Service Date/Time: March 08:54 - CONCLUSION: Normal examination. Mony Osuna MD Lower Extremity CT 03/25/17 0000 Signed Impressions: Service Date/Time: March 23:59 - CONCLUSION: 1. Mild diffuse soft tissue edema throughout the left calf and ankle without evidence for significant focal fluid collection or subcutaneous emphysema. Cecilio Garrido MD Head CT 03/25/17 0000 Signed Impressions: Service Date/Time: March 23:54 - CONCLUSION: 1. No acute intracranial abnormality. 2. Right maxillary sinus disease. Cecilio Garrido MD Lungs: Clear Extremities: Perfused, Other (erythema much improved mild edema Pain and left calf resolved) Narrative Exam Left lower extremity cellulitis improved dramatically in the last 2 days Mild edema both extremities left greater than A/P Problem List: (1) Left leg cellulitis ICD Codes: L03.116 - Cellulitis of left lower limb Status: Acute (2) Hypokalemia ICD Codes: E87.6 - Hypokalemia; N18.9 - Chronic kidney disease, unspecified Status: Acute (3) Sepsis ICD Codes: A41.9 - Sepsis, unspecified organism Status: Acute (4) Congestive heart failure ICD Codes: I50.9 - Heart failure, unspecified Status: Chronic (5) Atrial fibrillation ICD Codes: I48.91 - Unspecified atrial fibrillation Status: Chronic (6) Generalized weakness ICD Codes: R53.1 - Weakness Status: Acute (7) Acute on chronic renal insufficiency ICD Codes: N28.9 - Disorder of kidney and ureter, unspecified; N18.9 - Chronic kidney disease, unspecified Status: Acute (8) Atrial fibrillation with RVR ICD Codes: I48.91 - Unspecified atrial fibrillation Status: Acute (9) Poor historian ICD Codes: Z78.9 - Other specified health status (10) Hypotension ICD Codes: I95.9 - Hypotension, unspecified Status: Acute Assessment and Plan 61-year-old gentleman who had cellulitic response in his left lower extremity has improved on antibiotic therapy his pain in his calf is resolved. He has some mild edema on his both his legs more and the left than the right. White count normal At this time I think his cellulitis being treated with antibiotics IV no surgical intervention required at this time Attending Statement NOTE FOR SURGICAL ATTENDING, DR. HAROLDO HERNANDEZ I agree with above assessment and plan. The exam, history, and the medical decision-making described in the above note were completed with the assistance of the mid-level provider. I reviewed and agree with the findings presented. I attest that I had a [id number] encounter with the patient on the same day, and personally performed and documented my assessment and findings in the medical record. The following services were provided during this hospital visit: Chart data review, vital sign assessments/reviewing monitor data Review of consultations notes if present. Medication orders/review and/or management Ordering and/or reviewing lab tests Ordering and/or interpreting/reviewing x-rays and/or diagnostic studies Care of the patient and discussion of the patient with the care team Documentation time To help prompt me to consider important information that might be impacting today's encounter and assessment, information from prior notes written by myself or my colleagues may have been "brought forward/copy and pasted" into today's note. Problem Qualifiers (1) Sepsis: Qualified Codes: A41.9 - Sepsis, unspecified organism (2) Hypotension: Qualified Codes: I95.89 - Other hypotension Haroldo Hernandez MD Mar 28, 2017 12:04
--- NOTE | 2017-03-28 12:12 | HHI.NPPN ---
Subjective History of Present Illness 61 year old with cardiomyopathy ARF Objective Data Data 03/28/17 03/29/17 18:59 06:59 Intake Total 164 ml Balance 164 ml IV Total 164 ml Vital Signs Date Time Temp Pulse Resp B/P (MAP) Pulse Ox O2 Delivery O2 Flow Rate FiO2 03/28/17 10:00 126 03/28/17 08:09 100 21 03/28/17 08:00 97.9 104 24 116/68 (84) 100 03/28/17 08:00 104 03/28/17 07:00 100 Room Air 03/28/17 06:00 120 03/28/17 04:00 98.0 105 21 112/75 (87) 100 03/28/17 04:00 105 03/28/17 02:00 92 03/28/17 00:00 98.5 118 22 117/75 (89) 99 03/28/17 00:00 118 03/27/17 22:00 113 03/27/17 20:23 95 03/27/17 20:00 98.3 102 20 114/76 (89) 100 03/27/17 20:00 102 03/27/17 19:00 100 Room Air 03/27/17 18:00 125 03/27/17 16:00 104 03/27/17 16:00 98.1 104 20 114/56 (75) 100 03/27/17 14:00 95 -: 03/28/17 0513 03/28/17 0513 Physical Exam General Appearance: Well Developed Neck Neck Exam: Neck Supple Pulmonary Resp Exam: Clear Bilaterally, Breath Sounds Equal Cardiology CV Exam: Regular, Normal Sinus Rhythm Gastrointestinal/Abdomen GI Exam: Soft, Non-Tender, Bowel Sounds Present, Positive Bowel Movement Extremeties Extremities Exam: Moderate Edema Assessment/Plan Problem List: (1) Acute on chronic renal insufficiency ICD Codes: N28.9 - Disorder of kidney and ureter, unspecified; N18.9 - Chronic kidney disease, unspecified Status: Acute Plan: This is likely due to dehydration and cardiorenal syndrome, he is passing urine his creatinine is declining potassium is being replaced Bumex resumed Cr declined K can take bid I will follow as needed (2) Congestive heart failure ICD Codes: I50.9 - Heart failure, unspecified Status: Chronic Plan: Continue to monitor and he may need to resume diuretics at some point (3) Sepsis ICD Codes: A41.9 - Sepsis, unspecified organism Status: Acute Plan: Cellulitis he is getting clindamycin and cefepime Problem Qualifiers (1) Sepsis: Qualified Codes: A41.9 - Sepsis, unspecified organism Quintin Sky MD Mar 28, 2017 12:12
[2017-03-28] MEDS: DILTIAZEM HCL 60 MG TAB PO SCH ×2 (12:26→17:49)
--- NOTE | 2017-03-28 15:16 | HHI.PR ---
Subjective Remarks Follow-up atrial fibrillation, hypotension, CHF, cellulitis. Patient states that he feels much better today. Denies chest pain or dyspnea. Left leg is less painful today. Objective Vitals Vital Signs Date Time Temp Pulse Resp B/P (MAP) Pulse Ox O2 Delivery O2 Flow Rate FiO2 03/28/17 12:00 98.0 126 28 107/70 (82) 100 03/28/17 12:00 126 03/28/17 10:00 126 03/28/17 08:09 100 21 03/28/17 08:00 97.9 104 24 116/68 (84) 100 03/28/17 08:00 104 03/28/17 07:00 100 Room Air 03/28/17 06:00 120 03/28/17 04:00 98.0 105 21 112/75 (87) 100 03/28/17 04:00 105 03/28/17 02:00 92 03/28/17 00:00 98.5 118 22 117/75 (89) 99 03/28/17 00:00 118 03/27/17 22:00 113 03/27/17 20:23 95 03/27/17 20:00 98.3 102 20 114/76 (89) 100 03/27/17 20:00 102 03/27/17 19:00 100 Room Air 03/27/17 18:00 125 03/27/17 16:00 104 03/27/17 16:00 98.1 104 20 114/56 (75) 100 I/O 03/27/17 03/27/17 03/27/17 03/28/17 03/28/17 03/28/17 06:59 14:59 22:59 06:59 14:59 22:59 Intake Total 1300 ml 1950 ml 1339 ml 164 ml Balance 1300 ml 1950 ml 1339 ml 164 ml Intake Oral 200 ml 200 ml 240 ml IV Total 1100 ml 1750 ml 1099 ml 164 ml # Voids 5 6 5 # Bowel Movements 3 0 1 Result Diagram: 03/28/1751203/28/17512 Imaging Last Impressions Chest X-Ray 03/27/17 0600 Signed Impressions: Service Date/Time: Monday, March 27, 2017 04:28 - CONCLUSION: Decreasing left base consolidation. Left IJ line out. Mild cardiomegaly unchanged. Chato Reyna MD Renal Ultrasound 03/25/17 0000 Signed Impressions: Service Date/Time: March 09:15 - CONCLUSION: No hydronephrosis. Mild lateral wall thickening. Chato Kolb MD Lower Extremity Ultrasound 03/25/17 0000 Signed Impressions: Service Date/Time: March 08:54 - CONCLUSION: Normal examination. Mony Osuna MD Lower Extremity CT 03/25/17 0000 Signed Impressions: Service Date/Time: March 23:59 - CONCLUSION: 1. Mild diffuse soft tissue edema throughout the left calf and ankle without evidence for significant focal fluid collection or subcutaneous emphysema. Cecilio Garrido MD Head CT 03/25/17 0000 Signed Impressions: Service Date/Time: March 23:54 - CONCLUSION: 1. No acute intracranial abnormality. 2. Right maxillary sinus disease. Cecilio Garrido MD Objective Remarks General: No acute distress. Heart: Tachycardic, irregular. No murmur. Lungs: Clear to auscultation bilaterally. No wheezes, rales, or rhonchi. Breathing is nonlabored. Abdomen: Soft, nontender, nondistended. Extremities: 1+ right and 2+ left lower extremity edema. There is venous stasis changes of the left lower leg. There is erythema overlying much of the left lower leg. Psych: Alert and oriented. Procedures 03/25/17 left IJ central line placement Urinary Catheter: No Vascular Central Line Catheter: No A/P Problem List: (1) Left leg cellulitis ICD Code: L03.116 - Cellulitis of left lower limb Status: Acute (2) Sepsis ICD Code: A41.9 - Sepsis, unspecified organism Status: Acute (3) Hypokalemia ICD Code: E87.6 - Hypokalemia; N18.9 - Chronic kidney disease, unspecified Status: Acute (4) Hypotension ICD Code: I95.9 - Hypotension, unspecified Status: Acute (5) Atrial fibrillation with RVR ICD Code: I48.91 - Unspecified atrial fibrillation Status: Acute (6) Acute renal failure ICD Code: N17.9 - Acute kidney failure, unspecified (7) Chronic systolic CHF (congestive heart failure) ICD Code: I50.22 - Chronic systolic (congestive) heart failure (8) Acute exacerbation of CHF (congestive heart failure) ICD Code: I50.9 - Heart failure, unspecified Assessment and Plan 1. Acute exacerbation of chronic systolic congestive heart failure: Ejection fraction noted to be 25-30% last month. Bumex restarted. Appreciate cardiology recommendations. 2. Hypotension: Weaned off Sampson-Synephrine. Blood pressure much improved today. 3. Hypokalemia: Receiving supplementation. Follow labs. 4. Acute renal failure superimposed on CKD stage 3: Consult nephrology. Creatinine trending down. Unable to increase fluids at this time due to CHF. 5. Hyperglycemia of critical illness: Monitor accu-checks and cover with sliding scale insulin. 6. Left lower extremity cellulitis: Appreciate infectious disease, general surgery recommendations. Improving. Continue antibiotics. 7. GI prophylaxis: Protonix. 8. DVT prophylaxis: SCDs, apixaban. 9. Atrial fibrillation: Appreciate cardiology recommendations. Diltiazem increased today by cardiology. Rate still somewhat elevated. Restart metoprolol. At 12.5 mg twice a day. Monitor blood pressure closely. Problem Qualifiers (1) Sepsis: Qualified Codes: A41.9 - Sepsis, unspecified organism (2) Hypotension: Qualified Codes: I95.89 - Other hypotension Gil Dupont MD Mar 28, 2017 15:16
[2017-03-29] VITALS (14 sets, daily range): BP systolic 107–128; BP diastolic 60–94; PULSE 82–114; RESP 12–22; TEMP 97.6–98.2; O2SAT 92–100
[2017-03-29] MEDS: LORazepam 2 MG/ML VIAL IV PUSH PRN ×3 (00:12→20:08)
[2017-03-29] MEDS: DILTIAZEM HCL 60 MG TAB PO SCH ×4 (00:12→17:39)
[2017-03-29] MEDS: CEFEPIME INJ 1,000 MG in SODIUM CHLORIDE 0.9% INJ 100 ML IV SCH (03:37)
[2017-03-29] MEDS: CHLORHEXIDINE GLUCONATE 2 % 1 PACK (2 CLOTHS) TOP SCH (04:00)
[2017-03-29] MEDS: RESP: ALBUTEROL 2.5 MG/IPRATROPIUM 0.5 MG NEB (SCH) INH (04:00)
[2017-03-29] MEDS: CLINDAMYCIN INJ 900 MG in SODIUM CHLORIDE 0.9% INJ 100 ML IV SCH (05:49)
[2017-03-29 06:22] LABS: BICARBONATE 25.2 MEQ/L (21.0-32.0); POTASSIUM 3.3 MEQ/L (3.5-5.1)
[2017-03-29 06:28] LABS: AUTOMATED NEUTROPHIL # 2.4 TH/MM3 (1.8-7.7); EOSINOPHIL # 0.2 TH/MM3 (0-0.4); EOSINOPHIL % 4.2 % (0.0-4.0); HEMATOCRIT 30.8 % (39.0-51.0); HEMO FLAGS DIFF FINAL; LYMPH % 32.2 % (9.0-44.0); LYMPHOCYTE # 1.4 TH/MM3 (1.0-4.8); MEAN CORPUSCULAR HEMOGLOBIN 22.8 PG (27.0-34.0); MEAN CORPUSCULAR HGB CONC 32.5 % (32.0-36.0); MONO % 9.6 % (0.0-8.0); PLATELET COUNT 122 TH/MM3 (150-450); RED CELL DISTRIBUTION WIDTH 20.6 % (11.6-17.2); WHITE BLOOD COUNT 4.5 TH/MM3 (4.0-11.0)
[2017-03-29] MEDS: SODIUM CHLORIDE 0.9% FLUSH 10 ML FLUSH IVF SCH (09:00)
[2017-03-29] MEDS: DOCUSATE SODIUM 50 MG/SENNA 8.6 MG TAB PO SCH ×2 (09:00→19:48)
[2017-03-29] MEDS: BUMETANIDE 1 MG TAB PO SCH ×2 (09:41→20:01)
[2017-03-29] MEDS: APIXABAN 5 MG TABLET PO SCH ×2 (09:41→20:01)
[2017-03-29] MEDS: METOPROLOL TARTRATE 25 MG TAB PO SCH ×2 (09:41→20:06)
[2017-03-29] MEDS: POTASSIUM CHLORIDE 20 MEQ CONTROLLED RELEASE TAB PO SCH (09:41)
[2017-03-29] MEDS: PANTOPRAZOLE SODIUM 40 MG VIAL IV SCH (09:42)
[2017-03-29] MEDS: ARTIFICIAL TEARS OPTH SOLN 15 ML BTL EACH EYE SCH ×3 (09:42→17:39)
[2017-03-29] MEDS: SODIUM CHLORIDE 0.9% FLUSH 10 ML FLUSH IV FLUSH SCH ×2 (09:42→20:01)
--- NOTE | 2017-03-29 11:18 | HHI.PR ---
Subjective Remarks Follow-up atrial fibrillation, hypotension, CHF, cellulitis. The patient denies chest pain, dyspnea. Still having discomfort in left leg, "but not really pain". Objective Vitals Vital Signs Date Time Temp Pulse Resp B/P (MAP) Pulse Ox O2 Delivery O2 Flow Rate FiO2 03/29/17 10:00 90 03/29/17 08:05 94 21 03/29/17 08:00 97.6 89 22 127/91 (103) 96 03/29/17 08:00 90 03/29/17 07:00 94 Room Air 03/29/17 06:00 85 03/29/17 04:00 98.2 84 18 107/65 (79) 96 03/29/17 04:00 84 03/29/17 02:00 82 03/29/17 00:00 98.0 94 22 123/82 (96) 98 03/29/17 00:00 94 03/28/17 22:00 82 03/28/17 21:15 96 03/28/17 20:00 104 03/28/17 20:00 97.7 104 20 129/81 (97) 100 03/28/17 19:00 99 Room Air 03/28/17 18:00 108 03/28/17 16:00 82 03/28/17 16:00 98.2 82 24 112/75 (87) 100 03/28/17 14:00 126 03/28/17 12:00 98.0 126 28 107/70 (82) 100 03/28/17 12:00 126 I/O 03/28/17 03/28/17 03/28/17 03/29/17 03/29/17 03/29/17 07:00 15:00 23:00 07:00 15:00 23:00 Intake Total 1339 ml 164 ml 750 ml 900 ml Output Total 950 ml 900 ml Balance 1339 ml 164 ml -200 ml 0 ml Intake Oral 240 ml 650 ml 660 ml IV Total 1099 ml 164 ml 100 ml 240 ml Output Urine Total 950 ml 900 ml # Voids 5 3 6 # Bowel Movements 1 2 1 Result Diagram: 03/29/17 0515 03/29/17 0515 Imaging Last Impressions Chest X-Ray 03/27/17 0600 Signed Impressions: Service Date/Time: Monday, March 27, 2017 04:28 - CONCLUSION: Decreasing left base consolidation. Left IJ line out. Mild cardiomegaly unchanged. Chato Reyna MD Renal Ultrasound 03/25/17 0000 Signed Impressions: Service Date/Time: March 09:15 - CONCLUSION: No hydronephrosis. Mild lateral wall thickening. Chato Kolb MD Lower Extremity Ultrasound 03/25/17 0000 Signed Impressions: Service Date/Time: March 08:54 - CONCLUSION: Normal examination. Mony Osuna MD Lower Extremity CT 03/25/17 0000 Signed Impressions: Service Date/Time: March 23:59 - CONCLUSION: 1. Mild diffuse soft tissue edema throughout the left calf and ankle without evidence for significant focal fluid collection or subcutaneous emphysema. Cecilio Garrido MD Head CT 03/25/17 0000 Signed Impressions: Service Date/Time: March 23:54 - CONCLUSION: 1. No acute intracranial abnormality. 2. Right maxillary sinus disease. Cecilio Garrido MD Objective Remarks General: No acute distress. Heart: Irregular rhythm. No murmur. Lungs: Clear to auscultation bilaterally. No wheezes, rales, or rhonchi. Breathing is nonlabored. Abdomen: Soft, nontender, nondistended. Extremities: 1+ right and 2+ left lower extremity edema. There is venous stasis changes of the left lower leg. There is erythema overlying much of the left lower leg, slightly less than yesterday. Psych: Alert and oriented. Procedures 03/25/17 left IJ central line placement Urinary Catheter: No Vascular Central Line Catheter: No A/P Problem List: (1) Left leg cellulitis ICD Code: L03.116 - Cellulitis of left lower limb Status: Acute (2) Sepsis ICD Code: A41.9 - Sepsis, unspecified organism Status: Acute (3) Hypokalemia ICD Code: E87.6 - Hypokalemia; N18.9 - Chronic kidney disease, unspecified Status: Acute (4) Hypotension ICD Code: I95.9 - Hypotension, unspecified Status: Acute (5) Atrial fibrillation with RVR ICD Code: I48.91 - Unspecified atrial fibrillation Status: Acute (6) Acute renal failure ICD Code: N17.9 - Acute kidney failure, unspecified (7) Chronic systolic CHF (congestive heart failure) ICD Code: I50.22 - Chronic systolic (congestive) heart failure (8) Acute exacerbation of CHF (congestive heart failure) ICD Code: I50.9 - Heart failure, unspecified Assessment and Plan 1. Acute exacerbation of chronic systolic congestive heart failure: Ejection fraction noted to be 25-30% last month. Continue Bumex. Appreciate cardiology recommendations. 2. Hypotension: Resolved. 3. Hypokalemia: Supplement potassium. Recheck labs in AM. 4. Acute renal failure superimposed on CKD stage 3: Creatinine trending down. Appreciate Nephrology recommendations. Unable to increase fluids at this time due to CHF. 5. Hyperglycemia of critical illness: Monitor accu-checks and cover with sliding scale insulin. 6. Left lower extremity cellulitis: Appreciate infectious disease, general surgery recommendations. Improving. Continue antibiotics. 7. GI prophylaxis: Protonix. 8. DVT prophylaxis: SCDs, apixaban. 9. Atrial fibrillation: Appreciate cardiology recommendations. Continue diltiazem. Rate improved. Continue metoprolol 12.5 mg twice a day. Problem Qualifiers (1) Sepsis: Qualified Codes: A41.9 - Sepsis, unspecified organism (2) Hypotension: Qualified Codes: I95.89 - Other hypotension Gil Dupont MD Mar 29, 2017 11:18
--- NOTE | 2017-03-29 11:22 | HHI.IDPN ---
Subjective Subjective Remarks Patient is a very poor historian. He is a 61-year-old male, [facility], brought into the hospital for evaluation of fever or chills, nausea and vomiting there's been no diarrhea. Patient also was complaining all redness and pain in his left lower extremity. It's unclear as to how long he has had the problem on his left leg. There is mention that he was given an antibiotic for the left leg. Patient since admission has not had any fever. His WBC is elevated. He was initially admitted to the medical floor , but he developed some hypotension and transferred to the ICU. Patient currently is very restless and complaining of pain in his left lower extremity. Infectious disease consultation is requested to evaluate the patient. Notes reviewed Temps better Clinically better BC negative Antibiotics Cefepime Vancomycin Clindamycin Lines [facility] TLC Past Medical History Atrial fibrillation Congestive heart failure/chronic systolic EF of 25-30% Moderate MR Hypertension Chronic Apixaban Dyslipidemia Depression/anxiety Past Surgical History AICD placement Tonsillectomy Allergies: Coded Allergies: ampicillin (Unverified Allergy, Severe, 03/02/17) fire ant (Unverified Allergy, Severe, Anaphylaxis, 03/02/17) MRI PRECAUTION (Verified Adverse Reaction, Severe, 03/25/17) Patient has a XAware non compatible mri pacemaker. EG 03/25/2017 Objective . Vital Signs Date Time Temp Pulse Resp B/P (MAP) Pulse Ox O2 Delivery O2 Flow Rate FiO2 03/29/17 10:00 90 03/29/17 08:05 94 21 03/29/17 08:00 97.6 89 22 127/91 (103) 96 03/29/17 08:00 90 03/29/17 07:00 94 Room Air 03/29/17 06:00 85 03/29/17 04:00 98.2 84 18 107/65 (79) 96 03/29/17 04:00 84 03/29/17 02:00 82 03/29/17 00:00 98.0 94 22 123/82 (96) 98 03/29/17 00:00 94 03/28/17 22:00 82 03/28/17 21:15 96 03/28/17 20:00 104 03/28/17 20:00 97.7 104 20 129/81 (97) 100 03/28/17 19:00 99 Room Air 03/28/17 18:00 108 03/28/17 16:00 82 03/28/17 16:00 98.2 82 24 112/75 (87) 100 03/28/17 14:00 126 03/28/17 12:00 98.0 126 28 107/70 (82) 100 03/28/17 12:00 126 . Laboratory Tests Test 03/28/17 05:13 03/29/17 05:15 White Blood Count 5.3 TH/MM3 4.5 TH/MM3 Red Blood Count 4.38 MIL/MM3 4.40 MIL/MM3 Hemoglobin 9.9 GM/DL 10.0 GM/DL Hematocrit 31.1 % 30.8 % Mean Corpuscular Volume 71.0 FL 70.0 FL Mean Corpuscular Hemoglobin 22.7 PG 22.8 PG Mean Corpuscular Hemoglobin Concent 31.9 % 32.5 % Red Cell Distribution Width 21.2 % 20.6 % Platelet Count 125 TH/MM3 122 TH/MM3 Mean Platelet Volume 7.9 FL 8.4 FL Neutrophils (%) (Auto) 72.3 % 53.0 % Lymphocytes (%) (Auto) 16.9 % 32.2 % Monocytes (%) (Auto) 6.3 % 9.6 % Eosinophils (%) (Auto) 3.8 % 4.2 % Basophils (%) (Auto) 0.7 % 1.0 % Neutrophils # (Auto) 3.8 TH/MM3 2.4 TH/MM3 Lymphocytes # (Auto) 0.9 TH/MM3 1.4 TH/MM3 Monocytes # (Auto) 0.3 TH/MM3 0.4 TH/MM3 Eosinophils # (Auto) 0.2 TH/MM3 0.2 TH/MM3 Basophils # (Auto) 0.0 TH/MM3 0.0 TH/MM3 CBC Comment DIFF FINAL DIFF FINAL Differential Comment Laboratory Tests Test 03/27/17 20:10 03/28/17 05:13 03/29/17 05:15 Blood Urea Nitrogen 57 MG/DL 47 MG/DL 38 MG/DL Creatinine 1.83 MG/DL 1.67 MG/DL 1.44 MG/DL Random Glucose 122 MG/DL 120 MG/DL 105 MG/DL Calcium Level 7.5 MG/DL 8.2 MG/DL 8.6 MG/DL Sodium Level 134 MEQ/L 135 MEQ/L 137 MEQ/L Potassium Level 3.5 MEQ/L 3.3 MEQ/L 3.3 MEQ/L Chloride Level 105 MEQ/L 103 MEQ/L 103 MEQ/L Carbon Dioxide Level 19.8 MEQ/L 22.2 MEQ/L 25.2 MEQ/L Anion Gap 9 MEQ/L 10 MEQ/L 9 MEQ/L Estimat Glomerular Filtration Rate 38 ML/MIN 42 ML/MIN 50 ML/MIN Phosphorus Level 1.9 MG/DL Magnesium Level 1.9 MG/DL Imaging Last Impressions Chest X-Ray 03/25/17 1204 Signed Impressions: Service Date/Time: March 12:09 - CONCLUSION: 1. Left basilar patchiness consistent with probable pneumonia. 2. Left internal jugular central line has its tip in good position in the superior vena cava. There is no pneumothorax. 3. Cardiomegaly. 4. Degenerative changes throughout the thoracic spine. Sai Dallas MD Renal Ultrasound 03/25/17 0000 Signed Impressions: Service Date/Time: March 09:15 - CONCLUSION: No hydronephrosis. Mild lateral wall thickening. Chato Kolb MD Lower Extremity Ultrasound 03/25/17 0000 Signed Impressions: Service Date/Time: March 08:54 - CONCLUSION: Normal examination. K. Richard Osuna MD Lower Extremity CT 03/25/17 0000 Signed Impressions: Service Date/Time: March 23:59 - CONCLUSION: 1. Mild diffuse soft tissue edema throughout the left calf and ankle without evidence for significant focal fluid collection or subcutaneous emphysema. Cecilio Garrido MD Head CT 03/25/17 0000 Signed Impressions: Service Date/Time: March 23:54 - CONCLUSION: 1. No acute intracranial abnormality. 2. Right maxillary sinus disease. Cecilio Garrido MD Physical Exam GENERAL: awakens easily, NAD. SKIN: Warm and dry. No generalized rash, no ecchymoses and no evidence of embolic lesions. HEAD: Atraumatic. Normocephalic. No temporal wasting, or tenderness. EYES: Giltner conjunctiva. No petechia or hemorrhage. Pupils equal, round and reactive to light. Extraocular movements full and intact. No scleral icterus. No injection or drainage. EARS, NOSE AND THROAT: Nose without bleeding or purulent nasal discharge. No sinus tenderness. Mucous membranes pink and moist. No oral lesions noted. No exudate. No oral thrush. NECK: Trachea midline. Supple and not tender, no meningeal signs CARDIOVASCULAR: Regular rate and rhythm. No murmurs, rubs or gallops heard. AICD L upper chest with no evidence of infection RESPIRATORY: Clear to auscultation. Breath sounds equal bilaterally. No rales , wheezing or rhonchi. Decreased BS at bases ABDOMEN: Soft, non-tender, nondistended. Bowel sounds present and normoactive. No guarding. No rebound. No organomegaly. EXTREMITIES: No clubbing, cyanosis, or edema RLE. LLE with some edema, has improving erythema from below knee down to ankle, with a dry small skin avulsion upper leg, indurated at distal leg and posteriorly better. Less tender. No joint effusion, has good ROM. No R calf tenderness. Well perfused and warm. NEUROLOGICAL: Non focal PSYCH: cooperative LINE: No evidence of infection Assessment & Plan Remarks IMPRESSION Sepsis due to LLE cellulitis, better Cellulitis, better - has much more pain that seem dispropotionate to his cellulitis Renal insufficiency, due to sepsis, hypotension Known CAD, CM Encephalopathy., better, likely due to sepsis RECOMMENDATION Continue Vancomycin for GPC coverage Stop Clinda Change Cefepime to Levaquin Follow LLE Monitor progress Joan Coffey MD Mar 29, 2017 11:22
[2017-03-29] MEDS: POTASSIUM CHLORIDE 10 MEQ CONTROLLED RELEASE TAB PO ONE ×2 (11:30→14:06)
[2017-03-29] MEDS: LEVOFLOXACIN 750 MG TAB PO SCH ×2 (13:00→14:07)
[2017-03-29] MEDS: VANCOMYCIN INJ 1,500 MG in SODIUM CHLORID 0.9% 500 ML INJ 500 ML IV ONE ×2 (13:00→14:07)
--- NOTE | 2017-03-29 13:00 | PD.CARD.PN ---
Subjective Subjective Remarks No angina. No dyspnea Objective Medications Current Medications Medications (Trade) Dose Ordered Sig/Dyllan Route Start Time Stop Time Status Last Admin (Narcan Inj) 0.4 mg UNSCH PRN IV 03/25/17 03:45 (Eliquis) 5 mg BID PO 03/25/17 09:00 03/29/17 09:41 (NS Flush) 2 ml UNSCH PRN IV FLUSH 03/25/17 07:45 (NS Flush) 2 ml BID IV FLUSH 03/25/17 09:00 03/29/17 09:42 (Tylenol) 650 mg Q6H PRN PO 03/25/17 09:00 ([place] 5-325 Mg) 1 tab Q4H PRN PO 03/25/17 09:00 (Morphine Inj) 2 mg Q2H PRN IV 03/25/17 09:00 03/25/17 20:40 (Protonix Inj) 40 mg DAILY IV 03/25/17 09:00 03/29/17 09:42 (Tears Naturale Opth Soln) 1 drop TID EACH EYE 03/25/17 09:00 03/29/17 09:42 (Zofran Inj) 4 mg Q6H PRN IV 03/25/17 09:00 03/25/17 16:19 (Albuterol Neb) 2.5 mg Q2HR NEB PRN INH 03/25/17 08:00 Miscellaneous Information 1 Q361D XX 03/25/17 07:45 (Chlorhexidine 2% Cloth) 3 pack Taper DAILY@04 TOP 03/26/17 04:00 03/22/18 03:59 (Chlorhexidine 2% Cloth) 3 pack UNSCH PRN TOP 03/25/17 07:45 (Kathie-Colace) 1 tab BID PO 03/25/17 09:00 03/26/17 09:14 (Milk Of Magnesia Liq) 30 ml Q12H PRN PO 03/25/17 09:00 (Senokot) 17.2 mg Q12H PRN PO 03/25/17 09:00 (Dulcolax Supp) 10 mg DAILY PRN RECTAL 03/25/17 09:00 (Lactulose Liq) 30 ml DAILY PRN PO 03/25/17 09:00 Pharmacy Profile Note 0 ml @ 0 mls/hr UNSCH OTHER 03/25/17 09:00 (NS Flush) DAILY IVF 03/25/17 12:15 03/26/17 09:00 (NS Flush) UNSCH PRN IVF 03/25/17 12:15 Phenylephrine HCl 160 mg/Dextrose 500 ml @ 7.5 mls/hr TITRATE PRN IV 03/25/17 12:15 (Brethine Inj) 1 mg UNSCH PRN SQ 03/25/17 12:15 (Ativan Inj) 1 mg Q4H PRN IV PUSH 03/25/17 15:30 03/29/17 10:42 (Cardizem) 60 mg Q6HR PO 03/28/17 12:00 03/29/17 10:41 (Bumetanide) 1 mg BID PO 03/28/17 09:00 03/29/17 09:41 (KCl) 20 meq BID PO 03/28/17 21:00 03/29/17 09:41 (Lopressor) 12.5 mg Q12HR PO 03/28/17 21:00 03/29/17 09:41 (Levaquin) 750 mg Q48H PO 03/29/17 13:00 Vancomycin HCl 1500 mg/Sodium Chloride 515 ml @ 257.5 mls/ hr ONCE ONCE IV 03/29/17 13:00 03/29/17 14:59 Vital Signs / I&O Vital Signs Date Time Temp Pulse Resp B/P (MAP) Pulse Ox O2 Delivery O2 Flow Rate FiO2 03/29/17 10:00 90 03/29/17 08:05 94 21 03/29/17 08:00 97.6 89 22 127/91 (103) 96 03/29/17 08:00 90 03/29/17 07:00 94 Room Air 03/29/17 06:00 85 03/29/17 04:00 98.2 84 18 107/65 (79) 96 03/29/17 04:00 84 03/29/17 02:00 82 03/29/17 00:00 98.0 94 22 123/82 (96) 98 03/29/17 00:00 94 03/28/17 22:00 82 03/28/17 21:15 96 03/28/17 20:00 104 03/28/17 20:00 97.7 104 20 129/81 (97) 100 03/28/17 19:00 99 Room Air 03/28/17 18:00 108 03/28/17 16:00 82 03/28/17 16:00 98.2 82 24 112/75 (87) 100 03/28/17 14:00 126 I/O 03/28/17 03/28/17 03/28/17 03/29/17 03/29/17 03/29/17 07:00 15:00 23:00 07:00 15:00 23:00 Intake Total 1339 ml 164 ml 750 ml 1106 ml Output Total 950 ml 900 ml Balance 1339 ml 164 ml -200 ml 206 ml Intake Oral 240 ml 650 ml 660 ml IV Total 1099 ml 164 ml 100 ml 446 ml Output Urine Total 950 ml 900 ml # Voids 5 3 6 # Bowel Movements 1 2 1 Physical Exam Alert Chest clear CV S1S2 irr irr rate 80-100 Ext cellulitis right leg Laboratory Laboratory Tests Test 03/29/17 05:15 White Blood Count 4.5 TH/MM3 Red Blood Count 4.40 MIL/MM3 Hemoglobin 10.0 GM/DL Hematocrit 30.8 % Mean Corpuscular Volume 70.0 FL Mean Corpuscular Hemoglobin 22.8 PG Mean Corpuscular Hemoglobin Concent 32.5 % Red Cell Distribution Width 20.6 % Platelet Count 122 TH/MM3 Mean Platelet Volume 8.4 FL Neutrophils (%) (Auto) 53.0 % Lymphocytes (%) (Auto) 32.2 % Monocytes (%) (Auto) 9.6 % Eosinophils (%) (Auto) 4.2 % Basophils (%) (Auto) 1.0 % Neutrophils # (Auto) 2.4 TH/MM3 Lymphocytes # (Auto) 1.4 TH/MM3 Monocytes # (Auto) 0.4 TH/MM3 Eosinophils # (Auto) 0.2 TH/MM3 Basophils # (Auto) 0.0 TH/MM3 CBC Comment DIFF FINAL Differential Comment Blood Urea Nitrogen 38 MG/DL Creatinine 1.44 MG/DL Random Glucose 105 MG/DL Calcium Level 8.6 MG/DL Sodium Level 137 MEQ/L Potassium Level 3.3 MEQ/L Chloride Level 103 MEQ/L Carbon Dioxide Level 25.2 MEQ/L Anion Gap 9 MEQ/L Estimat Glomerular Filtration Rate 50 ML/MIN Random Vancomycin Level 15.7 COMMENT Assessment and Plan Problem List: (1) Chronic systolic CHF (congestive heart failure) ICD Codes: I50.22 - Chronic systolic (congestive) heart failure Plan: stable (2) Acute exacerbation of CHF (congestive heart failure) ICD Codes: I50.9 - Heart failure, unspecified (3) Acute on chronic renal insufficiency ICD Codes: N28.9 - Disorder of kidney and ureter, unspecified; N18.9 - Chronic kidney disease, unspecified Status: Acute (4) Left leg cellulitis ICD Codes: L03.116 - Cellulitis of left lower limb Status: Acute (5) Atrial fibrillation with RVR ICD Codes: I48.91 - Unspecified atrial fibrillation Status: Acute Plan: HR better since Dilt added Junior Cordero MD Mar 29, 2017 13:00
[2017-03-29] MEDS ORDERED: POTASSIUM CHLORIDE 25 MEQ EFFERVESCENT TAB PO ONE (18:00)
--- NOTE | 2017-03-29 18:43 | HHI.NPPN ---
Subjective History of Present Illness 61 year old with cardiomyopathy ARF Objective Data Data 03/29/17 03/30/17 19:00 07:00 Intake Total 1560 ml Output Total 800 ml Balance 760 ml Intake Oral 1440 ml Other 120 ml Output Urine Total 800 ml # Voids 3 # Bowel Movements 1 Vital Signs Date Time Temp Pulse Resp B/P (MAP) Pulse Ox O2 Delivery O2 Flow Rate FiO2 03/29/17 18:00 114 03/29/17 16:00 97.8 86 19 124/79 (94) 100 03/29/17 16:00 88 03/29/17 14:00 88 03/29/17 12:00 90 03/29/17 12:00 97.9 96 12 128/94 (105) 98 03/29/17 10:00 90 03/29/17 08:05 94 21 03/29/17 08:00 97.6 89 22 127/91 (103) 96 03/29/17 08:00 90 03/29/17 07:00 94 Room Air 03/29/17 06:00 85 03/29/17 04:00 98.2 84 18 107/65 (79) 96 03/29/17 04:00 84 03/29/17 02:00 82 03/29/17 00:00 98.0 94 22 123/82 (96) 98 03/29/17 00:00 94 03/28/17 22:00 82 03/28/17 21:15 96 03/28/17 20:00 104 03/28/17 20:00 97.7 104 20 129/81 (97) 100 03/28/17 19:00 99 Room Air -: 03/29/17 0515 03/29/17 0515 Physical Exam General Appearance: Well Developed Neck Neck Exam: Neck Supple Pulmonary Resp Exam: Clear Bilaterally, Breath Sounds Equal Cardiology CV Exam: Regular, Normal Sinus Rhythm Gastrointestinal/Abdomen GI Exam: Soft, Non-Tender, Bowel Sounds Present, Positive Bowel Movement Extremeties Extremities Exam: Moderate Edema Assessment/Plan Problem List: (1) Acute on chronic renal insufficiency ICD Codes: N28.9 - Disorder of kidney and ureter, unspecified; N18.9 - Chronic kidney disease, unspecified Status: Acute Plan: This is likely due to dehydration and cardiorenal syndrome, he is passing urine his creatinine is declining potassium is being replaced Bumex resumed Cr declined K change to smaller size pills KCL 8 meq 2 bid Since unable to take KCl tablet I will follow as needed (2) Congestive heart failure ICD Codes: I50.9 - Heart failure, unspecified Status: Chronic Plan: Continue to monitor and he may need to resume diuretics at some point (3) Sepsis ICD Codes: A41.9 - Sepsis, unspecified organism Status: Acute Plan: Cellulitis he is getting clindamycin and cefepime Problem Qualifiers (1) Sepsis: Qualified Codes: A41.9 - Sepsis, unspecified organism Quintin Sky MD Mar 29, 2017 18:43
[2017-03-29] MEDS ORDERED: POTASSIUM BICARBONATE 25 MEQ EFFERVESCENT TAB PO SCH (18:45)
--- NOTE | 2017-03-29 19:44 | HHI.PR ---
Subjective Subjective Notes feels better Objective Vitals/I&O Vital Signs Date Time Temp Pulse Resp B/P (MAP) Pulse Ox O2 Delivery O2 Flow Rate FiO2 03/29/17 18:00 114 03/29/17 16:00 97.8 19 124/79 (94) 100 03/29/17 08:05 21 03/29/17 07:00 Room Air 03/26/17 07:00 2.00 Labs Laboratory Tests Test 03/29/17 05:15 White Blood Count 4.5 Red Blood Count 4.40 Hemoglobin 10.0 Hematocrit 30.8 Mean Corpuscular Volume 70.0 Mean Corpuscular Hemoglobin 22.8 Mean Corpuscular Hemoglobin Concent 32.5 Red Cell Distribution Width 20.6 Platelet Count 122 Mean Platelet Volume 8.4 Neutrophils (%) (Auto) 53.0 Lymphocytes (%) (Auto) 32.2 Monocytes (%) (Auto) 9.6 Eosinophils (%) (Auto) 4.2 Basophils (%) (Auto) 1.0 Neutrophils # (Auto) 2.4 Lymphocytes # (Auto) 1.4 Monocytes # (Auto) 0.4 Eosinophils # (Auto) 0.2 Basophils # (Auto) 0.0 CBC Comment DIFF FINAL Differential Comment Blood Urea Nitrogen 38 Creatinine 1.44 Random Glucose 105 Calcium Level 8.6 Sodium Level 137 Potassium Level 3.3 Chloride Level 103 Carbon Dioxide Level 25.2 Anion Gap 9 Estimat Glomerular Filtration Rate 50 Random Vancomycin Level 15.7 Date/Time Source Procedure Growth Status 03/25/17 13:52 Blood Peripheral Aerobic Blood Culture - Preliminary NO GROWTH IN 4 DAYS Resulted 03/25/17 13:52 Blood Peripheral Anaerobic Blood Culture - Preliminary NO GROWTH IN 4 DAYS Resulted Radiology Last Impressions Chest X-Ray 03/25/17 1204 Signed Impressions: Service Date/Time: March 12:09 - CONCLUSION: 1. Left basilar patchiness consistent with probable pneumonia. 2. Left internal jugular central line has its tip in good position in the superior vena cava. There is no pneumothorax. 3. Cardiomegaly. 4. Degenerative changes throughout the thoracic spine. Sai Dallas MD Renal Ultrasound 03/25/17 Signed Impressions: Service Date/Time: March 09:15 - CONCLUSION: No hydronephrosis. Mild lateral wall thickening. Chato Kolb MD Lower Extremity Ultrasound 03/25/17 Signed Impressions: Service Date/Time: March 08:54 - CONCLUSION: Normal examination. KJaved Osuna MD Lower Extremity CT 03/25/17 Signed Impressions: Service Date/Time: March 23:59 - CONCLUSION: 1. Mild diffuse soft tissue edema throughout the left calf and ankle without evidence for significant focal fluid collection or subcutaneous emphysema. Cecilio Garrido MD Head CT 03/25/17 Signed Impressions: Service Date/Time: March 23:54 - CONCLUSION: 1. No acute intracranial abnormality. 2. Right maxillary sinus disease. Cecilio Garrido MD Extremities: Perfused Narrative Exam cellulitis better, no fluctuance or abscess A/P Problem List: (1) Left leg cellulitis ICD Codes: L03.116 - Cellulitis of left lower limb Status: Acute (2) Hypokalemia ICD Codes: E87.6 - Hypokalemia; N18.9 - Chronic kidney disease, unspecified Status: Acute (3) Sepsis ICD Codes: A41.9 - Sepsis, unspecified organism Status: Acute (4) Congestive heart failure ICD Codes: I50.9 - Heart failure, unspecified Status: Chronic (5) Atrial fibrillation ICD Codes: I48.91 - Unspecified atrial fibrillation Status: Chronic (6) Generalized weakness ICD Codes: R53.1 - Weakness Status: Acute (7) Acute on chronic renal insufficiency ICD Codes: N28.9 - Disorder of kidney and ureter, unspecified; N18.9 - Chronic kidney disease, unspecified Status: Acute (8) Atrial fibrillation with RVR ICD Codes: I48.91 - Unspecified atrial fibrillation Status: Acute (9) Poor historian ICD Codes: Z78.9 - Other specified health status (10) Hypotension ICD Codes: I95.9 - Hypotension, unspecified Status: Acute Assessment and Plan 61yo with LLE cellulitis, no abscess clinically, slightly better, follow. Problem Qualifiers (1) Sepsis: Qualified Codes: A41.9 - Sepsis, unspecified organism (2) Hypotension: Qualified Codes: I95.89 - Other hypotension Neil Fletcher MD Mar 29, 2017 19:44
[2017-03-29] MEDS: POTASSIUM CHLORIDE 8 MEQ CAP PO SCH (20:01)
[2017-03-30] VITALS (14 sets, daily range): BP systolic 109–138; BP diastolic 62–81; PULSE 86–120; RESP 16–25; TEMP 97.4–98.6; O2SAT 93–100
[2017-03-30] MEDS: DILTIAZEM HCL 60 MG TAB PO SCH ×5 (00:14→23:01)
[2017-03-30] MEDS: CHLORHEXIDINE GLUCONATE 2 % 1 PACK (2 CLOTHS) TOP SCH (00:14)
[2017-03-30] MEDS: LORazepam 2 MG/ML VIAL IV PUSH PRN ×2 (06:15→23:01)
[2017-03-30] MEDS: DOCUSATE SODIUM 50 MG/SENNA 8.6 MG TAB PO SCH ×2 (07:45→20:38)
--- NOTE | 2017-03-30 08:52 | PD.CARD.PN ---
Subjective Subjective Remarks no dyspnea or angina Objective Medications Current Medications Medications (Trade) Dose Ordered Sig/Dyllan Route Start Time Stop Time Status Last Admin (Narcan Inj) 0.4 mg UNSCH PRN IV 03/25/17 03:45 (Eliquis) 5 mg BID PO 03/25/17 09:00 03/29/17 20:01 (NS Flush) 2 ml UNSCH PRN IV FLUSH 03/25/17 07:45 (NS Flush) 2 ml BID IV FLUSH 03/25/17 09:00 03/29/17 20:01 (Tylenol) 650 mg Q6H PRN PO 03/25/17 09:00 ([place] 5-325 Mg) 1 tab Q4H PRN PO 03/25/17 09:00 (Morphine Inj) 2 mg Q2H PRN IV 03/25/17 09:00 03/25/17 20:40 (Protonix Inj) 40 mg DAILY IV 03/25/17 09:00 03/29/17 09:42 (Tears Naturale Opth Soln) 1 drop TID EACH EYE 03/25/17 09:00 03/29/17 17:39 (Zofran Inj) 4 mg Q6H PRN IV 03/25/17 09:00 03/25/17 16:19 (Albuterol Neb) 2.5 mg Q2HR NEB PRN INH 03/25/17 08:00 Miscellaneous Information 1 Q361D XX 03/25/17 07:45 (Chlorhexidine 2% Cloth) 3 pack Taper DAILY@04 TOP 03/26/17 04:00 03/22/18 03:59 (Chlorhexidine 2% Cloth) 3 pack UNSCH PRN TOP 03/25/17 07:45 (Kathie-Colace) 1 tab BID PO 03/25/17 09:00 03/26/17 09:14 (Milk Of Magnesia Liq) 30 ml Q12H PRN PO 03/25/17 09:00 (Senokot) 17.2 mg Q12H PRN PO 03/25/17 09:00 (Dulcolax Supp) 10 mg DAILY PRN RECTAL 03/25/17 09:00 (Lactulose Liq) 30 ml DAILY PRN PO 03/25/17 09:00 Pharmacy Profile Note 0 ml @ 0 mls/hr UNSCH OTHER 03/25/17 09:00 (NS Flush) DAILY IVF 03/25/17 12:15 03/26/17 09:00 (NS Flush) UNSCH PRN IVF 03/25/17 12:15 Phenylephrine HCl 160 mg/Dextrose 500 ml @ 7.5 mls/hr TITRATE PRN IV 03/25/17 12:15 (Brethine Inj) 1 mg UNSCH PRN SQ 03/25/17 12:15 (Ativan Inj) 1 mg Q4H PRN IV PUSH 03/25/17 15:30 03/30/17 06:15 (Cardizem) 60 mg Q6HR PO 03/28/17 12:00 03/30/17 05:51 (Bumetanide) 1 mg BID PO 03/28/17 09:00 03/29/17 20:01 (Lopressor) 12.5 mg Q12HR PO 03/28/17 21:00 03/29/17 20:06 (Levaquin) 750 mg Q48H PO 03/29/17 13:00 (KCl) 16 meq BID PO 03/29/17 21:00 03/29/17 20:01 Vital Signs / I&O Vital Signs Date Time Temp Pulse Resp B/P (MAP) Pulse Ox O2 Delivery O2 Flow Rate FiO2 03/30/17 08:00 98.0 86 25 112/64 (80) 93 03/30/17 08:00 100 03/30/17 07:00 95 Room Air 03/30/17 06:00 120 03/30/17 04:00 100 03/30/17 04:00 98.6 100 19 109/64 (79) 95 03/30/17 02:00 100 03/30/17 00:00 96 03/30/17 00:00 98.6 96 20 118/71 (87) 96 03/29/17 22:00 86 03/29/17 20:08 92 21 03/29/17 20:00 96 03/29/17 20:00 97.6 96 19 121/60 (80) 92 03/29/17 19:00 100 Room Air 03/29/17 18:00 114 03/29/17 16:00 97.8 86 19 124/79 (94) 100 03/29/17 16:00 88 03/29/17 14:00 88 03/29/17 12:00 90 03/29/17 12:00 97.9 96 12 128/94 (105) 98 03/29/17 10:00 90 I/O 03/29/17 03/29/17 03/29/17 03/30/17 03/30/17 03/30/17 07:00 15:00 23:00 07:00 15:00 23:00 Intake Total 1106 ml 1560 ml 400 ml Output Total 900 ml 800 ml Balance 206 ml 760 ml 400 ml Intake Oral 660 ml 1440 ml 400 ml IV Total 446 ml Other 120 ml Output Urine Total 900 ml 800 ml # Voids 6 3 4 # Bowel Movements 1 1 0 Physical Exam Alert Chest clear CV S1S2 irr irr rate 80-100 Ext cellulitis right leg Laboratory Laboratory Tests Test 03/25/17 13:10 03/25/17 13:50 03/26/17 03:28 03/26/17 16:00 Ammonia 19 MCMOL/L Total Creatine Kinase 85 U/L Troponin I 0.08 NG/ML Amylase Level 12 U/L Lipase 60 U/L Thyroid Stimulating Hormone 3rd Gen 2.120 uIU/ML Nasal Screen MRSA (PCR) MRSA NOT DETECTED Prothrombin Time 13.3 SEC Prothromb Time International Ratio 1.2 RATIO Activated Partial Thromboplast Time 37.6 SEC Lactic Acid Level 1.4 mmol/L Urine Color YELLOW Urine Turbidity HAZY Urine pH 5.0 Urine Specific [place] 1.012 Urine Protein TRACE mg/dL Urine Glucose (UA) TRACE mg/dL Urine Ketones NEG mg/dL Urine Occult Blood NEG Urine Nitrite NEG Urine Bilirubin NEG Urine Urobilinogen LESS THAN 2.0 MG/DL Urine Leukocyte Esterase TRACE Urine WBC 3 /hpf Urine Squamous Epithelial Cells <1 /hpf Urine Hyaline Casts 1 /lpf Microscopic Urinalysis Comment CATH-CULT NOT IND Urine Eosinophils NONE SEEN /HPF Urine Random Creatinine 79.9 MG/DL Urine Random Sodium 34 MEQ/L Test 03/27/17 05:01 03/27/17 05:07 03/28/17 05:13 03/29/17 05:15 B-Type Natriuretic Peptide 332 PG/ML Blood Urea Nitrogen 60 MG/DL 47 MG/DL 38 MG/DL Creatinine 2.36 MG/DL 1.67 MG/DL 1.44 MG/DL Random Glucose 82 MG/DL 120 MG/DL 105 MG/DL Total Protein 5.8 GM/DL Albumin 2.4 GM/DL Calcium Level 7.7 MG/DL 8.2 MG/DL 8.6 MG/DL Phosphorus Level 3.9 MG/DL 1.9 MG/DL Magnesium Level 1.9 MG/DL 1.9 MG/DL Alkaline Phosphatase 55 U/L Aspartate Amino Transf (AST/SGOT) 16 U/L Alanine Aminotransferase (ALT/SGPT) 18 U/L Total Bilirubin 0.7 MG/DL Sodium Level 137 MEQ/L 135 MEQ/L 137 MEQ/L Potassium Level 2.9 MEQ/L 3.3 MEQ/L 3.3 MEQ/L Chloride Level 103 MEQ/L 103 MEQ/L 103 MEQ/L Carbon Dioxide Level 22.2 MEQ/L 22.2 MEQ/L 25.2 MEQ/L White Blood Count 4.5 TH/MM3 Red Blood Count 4.40 MIL/MM3 Hemoglobin 10.0 GM/DL Hematocrit 30.8 % Mean Corpuscular Volume 70.0 FL Mean Corpuscular Hemoglobin 22.8 PG Mean Corpuscular Hemoglobin Concent 32.5 % Red Cell Distribution Width 20.6 % Platelet Count 122 TH/MM3 Mean Platelet Volume 8.4 FL Neutrophils (%) (Auto) 53.0 % Lymphocytes (%) (Auto) 32.2 % Monocytes (%) (Auto) 9.6 % Eosinophils (%) (Auto) 4.2 % Basophils (%) (Auto) 1.0 % Neutrophils # (Auto) 2.4 TH/MM3 Lymphocytes # (Auto) 1.4 TH/MM3 Monocytes # (Auto) 0.4 TH/MM3 Eosinophils # (Auto) 0.2 TH/MM3 Basophils # (Auto) 0.0 TH/MM3 CBC Comment DIFF FINAL Differential Comment Anion Gap 9 MEQ/L Estimat Glomerular Filtration Rate 50 ML/MIN Random Vancomycin Level 15.7 COMMENT Assessment and Plan Problem List: (1) Chronic systolic CHF (congestive heart failure) ICD Codes: I50.22 - Chronic systolic (congestive) heart failure (2) Acute exacerbation of CHF (congestive heart failure) ICD Codes: I50.9 - Heart failure, unspecified Plan: stable at present (3) Acute on chronic renal insufficiency ICD Codes: N28.9 - Disorder of kidney and ureter, unspecified; N18.9 - Chronic kidney disease, unspecified Status: Acute (4) Left leg cellulitis ICD Codes: L03.116 - Cellulitis of left lower limb Status: Acute (5) Atrial fibrillation with RVR ICD Codes: I48.91 - Unspecified atrial fibrillation Status: Acute Plan: increase metoprolol to 25 mg bid Junior Cordero MD Mar 30, 2017 08:52
[2017-03-30] MEDS: POTASSIUM CHLORIDE 8 MEQ CAP PO SCH ×2 (08:53→23:00)
[2017-03-30] MEDS: PANTOPRAZOLE SODIUM 40 MG VIAL IV SCH (08:53)
[2017-03-30] MEDS: APIXABAN 5 MG TABLET PO SCH ×2 (08:54→21:49)
[2017-03-30] MEDS: BUMETANIDE 1 MG TAB PO SCH ×2 (08:54→21:49)
[2017-03-30] MEDS: ARTIFICIAL TEARS OPTH SOLN 15 ML BTL EACH EYE SCH ×3 (09:00→16:30)
[2017-03-30] MEDS: SODIUM CHLORIDE 0.9% FLUSH 10 ML FLUSH IVF SCH (09:00)
[2017-03-30] MEDS: METOPROLOL TARTRATE 25 MG TAB PO SCH ×2 (09:00→21:49)
[2017-03-30] MEDS: SODIUM CHLORIDE 0.9% FLUSH 10 ML FLUSH IV FLUSH SCH ×2 (09:00→21:00)
--- NOTE | 2017-03-30 11:44 | HHI.PR ---
cc: Haroldo Hernandez MD Subjective Subjective Notes DAILY PROGRESS NOTE FOR SURGICAL ATTENDING, DR. HAROLDO HERNANDEZ Resting in bed at bedside Mr. Varela thinks wound is getting better but feels swelling is much worse today Objective Vitals/I&O Vital Signs Date Time Temp Pulse Resp B/P (MAP) Pulse Ox O2 Delivery O2 Flow Rate FiO2 03/30/17 10:00 94 03/30/17 08:00 98.0 25 112/64 (80) 93 03/30/17 07:00 Room Air 03/29/17 20:08 21 03/26/17 07:00 2.00 Labs Date/Time Source Procedure Growth Status 03/25/17 13:52 Blood Peripheral Aerobic Blood Culture - Final NO GROWTH IN 5 DAYS Complete 03/25/17 13:52 Blood Peripheral Anaerobic Blood Culture - Final NO GROWTH IN 5 DAYS Complete Radiology Last Impressions Lower Extremity Ultrasound 03/30/17 0000 Signed Impressions: Service Date/Time: Thursday, March 30, 2017 12:44 - CONCLUSION: 1. No sonographic evidence for left lower extremity DVT. Cecilio Garrido MD Chest X-Ray 03/27/17 0600 Signed Impressions: Service Date/Time: Monday, March 27, 2017 04:28 - CONCLUSION: Decreasing left base consolidation. Left IJ line out. Mild cardiomegaly unchanged. Chato Reyna MD Renal Ultrasound 03/25/17 0000 Signed Impressions: Service Date/Time: March 09:15 - CONCLUSION: No hydronephrosis. Mild lateral wall thickening. Chato Kolb MD Lower Extremity CT 03/25/17 0000 Signed Impressions: Service Date/Time: March 23:59 - CONCLUSION: 1. Mild diffuse soft tissue edema throughout the left calf and ankle without evidence for significant focal fluid collection or subcutaneous emphysema. eCcilio Garrido MD Head CT 03/25/17 0000 Signed Impressions: Service Date/Time: March 23:54 - CONCLUSION: 1. No acute intracranial abnormality. 2. Right maxillary sinus disease. Cecilio Garrido MD Cardiovascular: Regular Lungs: Clear Abdomen: Non-distended, Non-tender Extremities: Other (see below ) Narrative Exam LEFT leg: open wound on leg just below knee without drainage; skin surrounds and down distal until the ankle with erythema but much improved from prior exam ; no palpable fluid collection; minimally painful; edematous A/P Problem List: (1) Left leg cellulitis ICD Codes: L03.116 - Cellulitis of left lower limb Status: Acute (2) Sepsis ICD Codes: A41.9 - Sepsis, unspecified organism Status: Resolved (3) Congestive heart failure ICD Codes: I50.9 - Heart failure, unspecified Status: Chronic (4) Atrial fibrillation ICD Codes: I48.91 - Unspecified atrial fibrillation Status: Chronic (5) Generalized weakness ICD Codes: R53.1 - Weakness Status: Acute (6) Acute on chronic renal insufficiency ICD Codes: N28.9 - Disorder of kidney and ureter, unspecified; N18.9 - Chronic kidney disease, unspecified Status: Acute (7) Atrial fibrillation with RVR ICD Codes: I48.91 - Unspecified atrial fibrillation Status: Acute (8) Poor historian ICD Codes: Z78.9 - Other specified health status (9) Hypotension ICD Codes: I95.9 - Hypotension, unspecified Status: Acute Assessment and Plan 61 year old male with multiple medical problems with LEFT leg wound -CT leg with no palpable fluid collection -Follow WBC; today 4.5 -ID following --- PO Levaquin -Clinically wound has improved -Increased edema---will eval for DVT -No surgical plans at this time Attending Statement NOTE FOR SURGICAL ATTENDING, DR. HAROLDO HERNANDEZ I agree with above assessment and plan. The exam, history, and the medical decision-making described in the above note were completed with the assistance of the mid-level provider. I reviewed and agree with the findings presented. I attest that I had a [id number] encounter with the patient on the same day, and personally performed and documented my assessment and findings in the medical record. Patient appears to be much improved Call if needed i will not follow on a daily basis The following services were provided during this hospital visit: Chart data review, vital sign assessments/reviewing monitor data Review of consultations notes if present. Medication orders/review and/or management Ordering and/or reviewing lab tests Ordering and/or interpreting/reviewing x-rays and/or diagnostic studies Care of the patient and discussion of the patient with the care team Documentation time To help prompt me to consider important information that might be impacting today's encounter and assessment, information from prior notes written by myself or my colleagues may have been "brought forward/copy and pasted" into today's note. Problem Qualifiers (1) Sepsis: Qualified Codes: A41.9 - Sepsis, unspecified organism (2) Hypotension: Qualified Codes: I95.89 - Other hypotension Stephany Minor Mar 30, 2017 11:44 Haroldo Hernandez MD Mar 31, 2017 14:22
--- NOTE | 2017-03-30 12:49 | HHI.PR ---
Subjective Remarks Follow up hypokalemia, acute renal insufficiency. Patient reports slightly increased swelling in the left leg. Denies chest pain, dyspnea. No nausea/ vomiting. Objective Vitals Vital Signs Date Time Temp Pulse Resp B/P (MAP) Pulse Ox O2 Delivery O2 Flow Rate FiO2 03/30/17 10:00 94 03/30/17 08:00 98.0 86 25 112/64 (80) 93 03/30/17 08:00 100 03/30/17 07:00 95 Room Air 03/30/17 06:00 120 03/30/17 04:00 100 03/30/17 04:00 98.6 100 19 109/64 (79) 95 03/30/17 02:00 100 03/30/17 00:00 96 03/30/17 00:00 98.6 96 20 118/71 (87) 96 03/29/17 22:00 86 03/29/17 20:08 92 21 03/29/17 20:00 96 03/29/17 20:00 97.6 96 19 121/60 (80) 92 03/29/17 19:00 100 Room Air 03/29/17 18:00 114 03/29/17 16:00 97.8 86 19 124/79 (94) 100 03/29/17 16:00 88 03/29/17 14:00 88 I/O 03/29/17 03/29/17 03/29/17 03/30/17 03/30/17 03/30/17 07:00 15:00 23:00 07:00 15:00 23:00 Intake Total 1106 ml 1560 ml 400 ml Output Total 900 ml 800 ml Balance 206 ml 760 ml 400 ml Intake Oral 660 ml 1440 ml 400 ml IV Total 446 ml Other 120 ml Output Urine Total 900 ml 800 ml # Voids 6 3 4 # Bowel Movements 1 1 0 Result Diagram: 03/29/17 0515 03/29/17 0515 Imaging Last Impressions Chest X-Ray 03/27/17 0600 Signed Impressions: Service Date/Time: Monday, March 27, 2017 04:28 - CONCLUSION: Decreasing left base consolidation. Left IJ line out. Mild cardiomegaly unchanged. Chato Reyna MD Renal Ultrasound 03/25/17 0000 Signed Impressions: Service Date/Time: March 09:15 - CONCLUSION: No hydronephrosis. Mild lateral wall thickening. Chato Kolb MD Lower Extremity Ultrasound 03/25/17 0000 Signed Impressions: Service Date/Time: March 08:54 - CONCLUSION: Normal examination. Mony Osuna MD Lower Extremity CT 03/25/17 0000 Signed Impressions: Service Date/Time: March 23:59 - CONCLUSION: 1. Mild diffuse soft tissue edema throughout the left calf and ankle without evidence for significant focal fluid collection or subcutaneous emphysema. Cecilio Garrido MD Head CT 03/25/17 0000 Signed Impressions: Service Date/Time: March 23:54 - CONCLUSION: 1. No acute intracranial abnormality. 2. Right maxillary sinus disease. Cecilio Grarido MD Objective Remarks General: No acute distress. Sitting up on the edge of the bed. Heart: Irregular rhythm. No murmur. Lungs: Clear to auscultation bilaterally. No wheezes, rales, or rhonchi. Breathing is nonlabored. Abdomen: Soft, nontender, nondistended. Extremities: 1+ right and 2+ left lower extremity edema. There is venous stasis changes of the left lower leg. There is erythema overlying much of the left lower leg. Psych: Alert and oriented. Procedures 03/25/17 left IJ central line placement Urinary Catheter: No Vascular Central Line Catheter: No A/P Problem List: (1) Left leg cellulitis ICD Code: L03.116 - Cellulitis of left lower limb Status: Acute (2) Sepsis ICD Code: A41.9 - Sepsis, unspecified organism Status: Acute (3) Hypokalemia ICD Code: E87.6 - Hypokalemia; N18.9 - Chronic kidney disease, unspecified Status: Acute (4) Hypotension ICD Code: I95.9 - Hypotension, unspecified Status: Acute (5) Atrial fibrillation with RVR ICD Code: I48.91 - Unspecified atrial fibrillation Status: Acute (6) Acute renal failure ICD Code: N17.9 - Acute kidney failure, unspecified (7) Chronic systolic CHF (congestive heart failure) ICD Code: I50.22 - Chronic systolic (congestive) heart failure (8) Acute exacerbation of CHF (congestive heart failure) ICD Code: I50.9 - Heart failure, unspecified Assessment and Plan 1. Acute exacerbation of chronic systolic congestive heart failure: Ejection fraction noted to be 25-30% last month. Continue Bumex. Appreciate cardiology recommendations. 2. Hypotension: Resolved. 3. Hypokalemia: Supplement potassium. Recheck labs in AM. 4. Acute renal failure superimposed on CKD stage 3: Creatinine trending down. Appreciate Nephrology recommendations. Unable to increase fluids at this time due to CHF. 5. Hyperglycemia of critical illness: Monitor accu-checks and cover with sliding scale insulin. 6. Left lower extremity cellulitis: Appreciate infectious disease, general surgery recommendations. Continue antibiotics. Increased swelling today. Check ultrasound to rule out DVT. 7. GI prophylaxis: Protonix. 8. DVT prophylaxis: SCDs, apixaban. 9. Atrial fibrillation with RVR: Appreciate cardiology recommendations. Continue diltiazem. Rate improved. Increase metoprolol to 25 mg twice a day per cardiology. Discharge Planning Transfer to [facility] when bed is available. Problem Qualifiers (1) Sepsis: Qualified Codes: A41.9 - Sepsis, unspecified organism (2) Hypotension: Qualified Codes: I95.89 - Other hypotension Gil Dupont MD Mar 30, 2017 12:49
[2017-03-30] MEDS: DULoxetine HCl DR 30 MG CAP PO SCH (13:09)
--- NOTE | 2017-03-30 13:10 | HHI.IDPN ---
Subjective Subjective Remarks Patient is a very poor historian. He is a 61-year-old male, currently living in the homeless long term, brought into the hospital for evaluation of fever or chills, nausea and vomiting there's been no diarrhea. Patient also was complaining all redness and pain in his left lower extremity. It's unclear as to how long he has had the problem on his left leg. There is mention that he was given an antibiotic for the left leg. Patient since admission has not had any fever. His WBC is elevated. He was initially admitted to the medical floor , but he developed some hypotension and transferred to the ICU. Patient currently is very restless and complaining of pain in his left lower extremity. Infectious disease consultation is requested to evaluate the patient. Notes reviewed Temps better Has been working with PT No pain Clinically better BC negative US no DVT Antibiotics Levaquin Vancomycin Lines LIJ TLC Past Medical History Atrial fibrillation Congestive heart failure/chronic systolic EF of 25-30% Moderate MR Hypertension Chronic Apixaban Dyslipidemia Depression/anxiety Past Surgical History AICD placement Tonsillectomy Allergies: Coded Allergies: ampicillin (Unverified Allergy, Severe, 03/02/17) fire ant (Unverified Allergy, Severe, Anaphylaxis, 03/02/17) MRI PRECAUTION (Verified Adverse Reaction, Severe, 03/25/17) Patient has a [employer] non compatible mri pacemaker. EG 03/25/2017 Objective . Vital Signs Date Time Temp Pulse Resp B/P (MAP) Pulse Ox O2 Delivery O2 Flow Rate FiO2 03/30/17 12:00 98.0 100 16 130/68 (88) 100 03/30/17 12:00 108 03/30/17 10:00 94 03/30/17 08:00 98.0 86 25 112/64 (80) 93 03/30/17 08:00 100 03/30/17 07:00 95 Room Air 03/30/17 06:00 120 03/30/17 04:00 100 03/30/17 04:00 98.6 100 19 109/64 (79) 95 03/30/17 02:00 100 03/30/17 00:00 96 03/30/17 00:00 98.6 96 20 118/71 (87) 96 03/29/17 22:00 86 03/29/17 20:08 92 21 03/29/17 20:00 96 03/29/17 20:00 97.6 96 19 121/60 (80) 92 03/29/17 19:00 100 Room Air 03/29/17 18:00 114 03/29/17 16:00 97.8 86 19 124/79 (94) 100 03/29/17 16:00 88 03/29/17 14:00 88 . Laboratory Tests Test 03/29/17 05:15 White Blood Count 4.5 TH/MM3 Red Blood Count 4.40 MIL/MM3 Hemoglobin 10.0 GM/DL Hematocrit 30.8 % Mean Corpuscular Volume 70.0 FL Mean Corpuscular Hemoglobin 22.8 PG Mean Corpuscular Hemoglobin Concent 32.5 % Red Cell Distribution Width 20.6 % Platelet Count 122 TH/MM3 Mean Platelet Volume 8.4 FL Neutrophils (%) (Auto) 53.0 % Lymphocytes (%) (Auto) 32.2 % Monocytes (%) (Auto) 9.6 % Eosinophils (%) (Auto) 4.2 % Basophils (%) (Auto) 1.0 % Neutrophils # (Auto) 2.4 TH/MM3 Lymphocytes # (Auto) 1.4 TH/MM3 Monocytes # (Auto) 0.4 TH/MM3 Eosinophils # (Auto) 0.2 TH/MM3 Basophils # (Auto) 0.0 TH/MM3 CBC Comment DIFF FINAL Differential Comment Laboratory Tests Test 03/29/17 05:15 Blood Urea Nitrogen 38 MG/DL Creatinine 1.44 MG/DL Random Glucose 105 MG/DL Calcium Level 8.6 MG/DL Sodium Level 137 MEQ/L Potassium Level 3.3 MEQ/L Chloride Level 103 MEQ/L Carbon Dioxide Level 25.2 MEQ/L Anion Gap 9 MEQ/L Estimat Glomerular Filtration Rate 50 ML/MIN Imaging Last Impressions Chest X-Ray 03/25/17 1204 Signed Impressions: Service Date/Time: March 12:09 - CONCLUSION: 1. Left basilar patchiness consistent with probable pneumonia. 2. Left internal jugular central line has its tip in good position in the superior vena cava. There is no pneumothorax. 3. Cardiomegaly. 4. Degenerative changes throughout the thoracic spine. Sai Dallas MD Renal Ultrasound 03/25/17 0000 Signed Impressions: Service Date/Time: March 09:15 - CONCLUSION: No hydronephrosis. Mild lateral wall thickening. Chato Kolb MD Lower Extremity Ultrasound 03/25/17 Signed Impressions: Service Date/Time: March 08:54 - CONCLUSION: Normal examination. Mony Osuna MD Lower Extremity CT 03/25/17 Signed Impressions: Service Date/Time: March 23:59 - CONCLUSION: 1. Mild diffuse soft tissue edema throughout the left calf and ankle without evidence for significant focal fluid collection or subcutaneous emphysema. Cecilio Garrido MD Head CT 03/25/17 Signed Impressions: Service Date/Time: March 23:54 - CONCLUSION: 1. No acute intracranial abnormality. 2. Right maxillary sinus disease. Cecilio Garrido MD Physical Exam GENERAL: awake and alert, NAD. SKIN: Warm and dry. No generalized rash, no ecchymoses HEAD: Atraumatic. Normocephalic. No temporal wasting, or tenderness. EYES: Maurice conjunctiva. No petechia or hemorrhage. No scleral icterus. No injection or drainage. EARS, NOSE AND THROAT: Nose without bleeding or purulent nasal discharge. No sinus tenderness. Mucous membranes pink and moist. No oral lesions noted. No exudate. No oral thrush. NECK: Trachea midline. Supple and not tender, no meningeal signs CARDIOVASCULAR: Regular rate and rhythm. No murmurs, rubs or gallops heard. AICD L upper chest with no evidence of infection RESPIRATORY: Clear to auscultation. Breath sounds equal bilaterally. No rales , wheezing or rhonchi. Decreased BS at bases ABDOMEN: Soft, non-tender, nondistended. Bowel sounds present and normoactive. No guarding. No rebound. No organomegaly. EXTREMITIES: No clubbing, cyanosis, or edema RLE. LLE with more pedal edema, has improving erythema from below knee down to ankle, with a dry small skin avulsion upper leg, indurated at distal leg and posteriorly better.No joint effusion, has good ROM. No R calf tenderness. Well perfused and warm. NEUROLOGICAL: Non focal PSYCH: cooperative LINE: No evidence of infection Assessment & Plan Remarks IMPRESSION Sepsis due to LLE cellulitis, better Cellulitis, better Renal insufficiency, due to sepsis, hypotension, better Known CAD, CM Encephalopathy., better, likely due to sepsis RECOMMENDATION Continue Vancomycin for GPC coverage Continue Levaquin CHERYL stockings to LLE If stable, possibly change Vanco to po Clinda Monitor progress Explained plan to the patient Joan Coffey MD Mar 30, 2017 13:10
--- NOTE | 2017-03-30 13:16 | RADRPT ---
EXAM DATE/TIME: 03/30/2017 12:44 [facility] COMPARISON: No previous studies available for comparison. INDICATIONS : Left calf redness and edema. MEDICAL HISTORY : ADHD. Depression. Anxiety. Anticoagulant therapy, Eliquis. Hypertension. Congestive heart failure. Sl eep apnea. Diabetes. Skull fracture. SURGICAL HISTORY : Tonsillectomy.Pacemaker. Appendectomy.Cardiac cath. Gastric bypass. Hiatal hernia repair x2. ENCOUNTER: Subsequent ACUITY: 4 - 6 days PAIN SCORE: 0/10 LOCATION: Left leg. TECHNIQUE: Venous ultrasound of the leg was performed from the inguinal ligament to the proximal calf. Real-janey e, color Doppler and spectral tracing, compression and augmentation techniques were used. FINDINGS: There is normal compressibility of the deep venous system from the inguinal region to the proximal ca lf. No echogenic clot is seen in the lumen of the common femoral, femoral, popliteal, and posterior tibial veins. There is a normal response of the venous system to proximal and distal augmentation an d respiration. Diffuse soft tissue edema in the calf. CONCLUSION: 1. No sonographic evidence for left lower extremity DVT. Cecilio Garrido MD on March 30, 2017 at 13:13 Board Certified Radiologist. This report was verified electronically.
[2017-03-30 15:40] LABS: AUTOMATED NEUTROPHIL # 3.8 TH/MM3 (1.8-7.7); BASOPHIL # 0.1 TH/MM3 (0-0.2); BASOPHIL % 0.8 % (0.0-2.0); EOSINOPHIL # 0.1 TH/MM3 (0-0.4); EOSINOPHIL % 2.2 % (0.0-4.0); HEMATOCRIT 32.7 % (39.0-51.0); HEMO FLAGS DIFF FINAL; LYMPH % 23.5 % (9.0-44.0); LYMPHOCYTE # 1.4 TH/MM3 (1.0-4.8); MEAN CELL VOLUME 71.3 FL (80.0-100.0); MEAN CORPUSCULAR HEMOGLOBIN 22.9 PG (27.0-34.0); MEAN CORPUSCULAR HGB CONC 32.2 % (32.0-36.0); NEUT % 62.5 % (16.0-70.0); PLATELET COUNT 138 TH/MM3 (150-450); RED BLOOD COUNT 4.59 MIL/MM3 (4.50-5.90); RED CELL DISTRIBUTION WIDTH 20.4 % (11.6-17.2); WHITE BLOOD COUNT 6.1 TH/MM3 (4.0-11.0)
[2017-03-30 15:55] LABS: MAGNESIUM 1.3 MG/DL (1.5-2.5); POTASSIUM 3.5 MEQ/L (3.5-5.1)
[2017-03-30] MEDS: MAGNESIUM SULFATE 1 GM PREMIX 100 ML IV SCH ×2 (18:14→19:36)
[2017-03-30] MEDS: VANCOMYCIN INJ 1,500 MG in SODIUM CHLORID 0.9% 500 ML INJ 500 ML IV SCH (19:44)
[2017-03-31] VITALS (9 sets, daily range): BP systolic 103–146; BP diastolic 58–81; PULSE 81–108; RESP 18–20; TEMP 97.7–98.5; O2SAT 97–98
[2017-03-31] MEDS: CHLORHEXIDINE GLUCONATE 2 % 1 PACK (2 CLOTHS) TOP SCH (04:00)
[2017-03-31] MEDS: DILTIAZEM HCL 60 MG TAB PO SCH ×4 (05:50→23:05)
[2017-03-31] MEDS: SODIUM CHLORIDE 0.9% FLUSH 10 ML FLUSH IVF SCH (09:00)
[2017-03-31 10:10] LABS: AUTOMATED NEUTROPHIL # 3.9 TH/MM3 (1.8-7.7); BASOPHIL # 0.1 TH/MM3 (0-0.2); EOSINOPHIL # 0.2 TH/MM3 (0-0.4); EOSINOPHIL % 2.7 % (0.0-4.0); HEMATOCRIT 31.6 % (39.0-51.0); HEMO FLAGS DIFF FINAL; LYMPH % 25.8 % (9.0-44.0); LYMPHOCYTE # 1.6 TH/MM3 (1.0-4.8); MEAN CELL VOLUME 70.8 FL (80.0-100.0); MEAN CORPUSCULAR HEMOGLOBIN 22.7 PG (27.0-34.0); MONO % 9.1 % (0.0-8.0); NEUT % 61.4 % (16.0-70.0); PLATELET COUNT 154 TH/MM3 (150-450); RED BLOOD COUNT 4.46 MIL/MM3 (4.50-5.90); RED CELL DISTRIBUTION WIDTH 20.1 % (11.6-17.2); WHITE BLOOD COUNT 6.3 TH/MM3 (4.0-11.0)
[2017-03-31] MEDS: SODIUM CHLORIDE 0.9% FLUSH 10 ML FLUSH IV FLUSH SCH ×2 (10:14→20:50)
[2017-03-31] MEDS: PANTOPRAZOLE SODIUM 40 MG VIAL IV SCH (10:14)
[2017-03-31] MEDS: APIXABAN 5 MG TABLET PO SCH ×2 (10:15→20:49)
[2017-03-31] MEDS: DULoxetine HCl DR 30 MG CAP PO SCH (10:15)
[2017-03-31] MEDS: ARTIFICIAL TEARS OPTH SOLN 15 ML BTL EACH EYE SCH ×3 (10:15→17:53)
[2017-03-31] MEDS: BUMETANIDE 1 MG TAB PO SCH ×2 (10:15→20:50)
[2017-03-31] MEDS: POTASSIUM CHLORIDE 8 MEQ CAP PO SCH ×2 (10:16→20:50)
[2017-03-31] MEDS: METOPROLOL TARTRATE 25 MG TAB PO SCH ×2 (10:16→20:49)
[2017-03-31] MEDS: DOCUSATE SODIUM 50 MG/SENNA 8.6 MG TAB PO SCH (10:16)
[2017-03-31 10:35] LABS: BICARBONATE 29.1 MEQ/L (21.0-32.0); MAGNESIUM 1.6 MG/DL (1.5-2.5); POTASSIUM 3.3 MEQ/L (3.5-5.1)
[2017-03-31] MEDS: VANCOMYCIN INJ 1,500 MG in SODIUM CHLORID 0.9% 500 ML INJ 500 ML IV SCH (12:07)
[2017-03-31] MEDS: LEVOFLOXACIN 750 MG TAB PO SCH (12:08)
[2017-03-31] MEDS ORDERED: POTASSIUM CHLORIDE 20 MEQ CONTROLLED RELEASE TAB PO ONE (12:45)
--- NOTE | 2017-03-31 13:38 | HHI.PR ---
Subjective Remarks Follow-up cellulitis, hypokalemia, acute renal insufficiency. The patient reports diarrhea, which he attributes to the Colace he took this morning. Denies chest pain, dyspnea, nausea, vomiting. Objective Vitals Vital Signs Date Time Temp Pulse Resp B/P (MAP) Pulse Ox O2 Delivery O2 Flow Rate FiO2 03/31/17 12:00 98.0 84 18 123/69 (87) 98 03/31/17 08:00 98.0 108 20 146/78 (100) 98 03/31/17 07:15 98 Room Air 03/31/17 04:01 98 03/31/17 04:00 98.1 91 18 117/75 (89) 97 03/31/17 00:00 97.7 81 18 103/58 (73) 98 03/30/17 21:45 98.3 97 20 138/62 (87) 97 03/30/17 21:37 97.4 97 20 137/81 (99) 97 03/30/17 19:52 Room Air 03/30/17 19:39 93 03/30/17 18:00 97.8 101 18 119/75 (90) 96 03/30/17 16:00 98.0 95 18 112/70 (84) 03/30/17 16:00 101 03/30/17 15:44 98.0 114 16 114/72 (86) 100 03/30/17 14:00 110 I/O 03/30/17 03/30/17 03/30/17 03/31/17 03/31/17 03/31/17 07:00 15:00 23:00 07:00 15:00 23:00 Intake Total 400 ml 1265 ml 241 ml Output Total 800 ml 200 ml Balance 400 ml 465 ml 41 ml Intake Oral 400 ml 650 ml 241 ml IV Total 615 ml Output Urine Total 800 ml 200 ml # Voids 4 6 2 # Bowel Movements 0 0 Result Diagram: 03/31/17 0855 03/31/17 0855 Imaging Last Impressions Lower Extremity Ultrasound 03/30/17 0000 Signed Impressions: Service Date/Time: Thursday, March 30, 2017 12:44 - CONCLUSION: 1. No sonographic evidence for left lower extremity DVT. Cecilio Garrido MD Chest X-Ray 03/27/17 0600 Signed Impressions: Service Date/Time: Monday, March 27, 2017 04:28 - CONCLUSION: Decreasing left base consolidation. Left IJ line out. Mild cardiomegaly unchanged. Chato Reyna MD Renal Ultrasound 03/25/17 0000 Signed Impressions: Service Date/Time: March 09:15 - CONCLUSION: No hydronephrosis. Mild lateral wall thickening. Chato Kolb MD Lower Extremity CT 03/25/17 0000 Signed Impressions: Service Date/Time: March 23:59 - CONCLUSION: 1. Mild diffuse soft tissue edema throughout the left calf and ankle without evidence for significant focal fluid collection or subcutaneous emphysema. Cecilio Garrido MD Head CT 03/25/17 0000 Signed Impressions: Service Date/Time: March 23:54 - CONCLUSION: 1. No acute intracranial abnormality. 2. Right maxillary sinus disease. Cecilio Garrido MD Objective Remarks General: No acute distress. Sitting up on the edge of the bed. Heart: Irregular rhythm. No murmur. Lungs: Clear to auscultation bilaterally. No wheezes, rales, or rhonchi. Breathing is nonlabored. Abdomen: Soft, nontender, nondistended. Extremities: 1+ right and 2+ left lower extremity edema. CHERYL hose. Anterior left lower leg wound with serous drainage. Psych: Alert and oriented. Procedures 03/25/17 left IJ central line placement Urinary Catheter: No Vascular Central Line Catheter: No A/P Problem List: (1) Left leg cellulitis ICD Code: L03.116 - Cellulitis of left lower limb Status: Acute (2) Sepsis ICD Code: A41.9 - Sepsis, unspecified organism Status: Acute (3) Hypokalemia ICD Code: E87.6 - Hypokalemia; N18.9 - Chronic kidney disease, unspecified Status: Acute (4) Hypotension ICD Code: I95.9 - Hypotension, unspecified Status: Acute (5) Atrial fibrillation with RVR ICD Code: I48.91 - Unspecified atrial fibrillation Status: Acute (6) Acute renal failure ICD Code: N17.9 - Acute kidney failure, unspecified (7) Chronic systolic CHF (congestive heart failure) ICD Code: I50.22 - Chronic systolic (congestive) heart failure (8) Acute exacerbation of CHF (congestive heart failure) ICD Code: I50.9 - Heart failure, unspecified Assessment and Plan 1. Acute exacerbation of chronic systolic congestive heart failure: Ejection fraction noted to be 25-30% last month. Continue Bumex. Appreciate cardiology recommendations. 2. Hypotension: Resolved. 3. Hypokalemia: Supplement potassium. Recheck labs in AM. 4. Acute renal failure superimposed on CKD stage 3: Creatinine trending down. Appreciate Nephrology recommendations. 5. Hyperglycemia of critical illness: Monitor accu-checks and cover with sliding scale insulin. 6. Left lower extremity cellulitis: Appreciate infectious disease, general surgery recommendations. Continue antibiotics. Ultrasound negative for DVT. 7. GI prophylaxis: Protonix. 8. DVT prophylaxis: SCDs, apixaban. 9. Atrial fibrillation with RVR: Appreciate cardiology recommendations. Rate improved. Continue metoprolol, Cardizem. Problem Qualifiers (1) Sepsis: Qualified Codes: A41.9 - Sepsis, unspecified organism (2) Hypotension: Qualified Codes: I95.89 - Other hypotension Gil Dupont MD Mar 31, 2017 13:38
[2017-03-31] MEDS: MAGNESIUM OXIDE 400 MG TAB PO SCH (16:07)
[2017-03-31] MEDS: LORazepam 2 MG/ML VIAL IV PUSH PRN (23:05)
[2017-04-01] VITALS (8 sets, daily range): BP systolic 121–141; BP diastolic 67–86; PULSE 76–100; RESP 16–21; TEMP 97.8–98.8; O2SAT 95–100
[2017-04-01] MEDS: LORazepam 2 MG/ML VIAL IV PUSH PRN ×2 (03:23→21:25)
[2017-04-01] MEDS: CHLORHEXIDINE GLUCONATE 2 % 1 PACK (2 CLOTHS) TOP SCH (04:00)
[2017-04-01] MEDS ORDERED: PHARMACY ORDERED LAB ONE (05:45)
[2017-04-01] MEDS: DILTIAZEM HCL 60 MG TAB PO SCH ×3 (06:28→16:48)
[2017-04-01] MEDS: VANCOMYCIN INJ 1,500 MG in SODIUM CHLORID 0.9% 500 ML INJ 500 ML IV SCH (06:28)
[2017-04-01 06:54] LABS: AUTOMATED NEUTROPHIL # 3.4 TH/MM3 (1.8-7.7); BASOPHIL # 0.1 TH/MM3 (0-0.2); BASOPHIL % 1.1 % (0.0-2.0); EOSINOPHIL # 0.2 TH/MM3 (0-0.4); EOSINOPHIL % 3.6 % (0.0-4.0); HEMATOCRIT 30.6 % (39.0-51.0); HEMO FLAGS DIFF FINAL; LYMPH % 29.8 % (9.0-44.0); LYMPHOCYTE # 1.8 TH/MM3 (1.0-4.8); MEAN CORPUSCULAR HGB CONC 32.4 % (32.0-36.0); MONO % 9.5 % (0.0-8.0); PLATELET COUNT 150 TH/MM3 (150-450); RED BLOOD COUNT 4.31 MIL/MM3 (4.50-5.90); RED CELL DISTRIBUTION WIDTH 20.5 % (11.6-17.2); WHITE BLOOD COUNT 6.1 TH/MM3 (4.0-11.0)
[2017-04-01 07:40] LABS: BICARBONATE 28.3 MEQ/L (21.0-32.0); MAGNESIUM 1.3 MG/DL (1.5-2.5); POTASSIUM 3.7 MEQ/L (3.5-5.1)
[2017-04-01 07:41] LABS: VANCOMYCIN TROUGH 18.1 MCG/ML (5.0-10.0)
[2017-04-01] MEDS: ARTIFICIAL TEARS OPTH SOLN 15 ML BTL EACH EYE SCH ×3 (09:00→16:49)
[2017-04-01] MEDS: SODIUM CHLORIDE 0.9% FLUSH 10 ML FLUSH IV FLUSH SCH ×2 (09:00→21:00)
[2017-04-01] MEDS: SODIUM CHLORIDE 0.9% FLUSH 10 ML FLUSH IVF SCH (09:00)
[2017-04-01] MEDS: POTASSIUM CHLORIDE 8 MEQ CAP PO SCH ×2 (09:00→21:00)
[2017-04-01] MEDS: PANTOPRAZOLE SODIUM 40 MG VIAL IV SCH (09:48)
[2017-04-01] MEDS: MAGNESIUM OXIDE 400 MG TAB PO SCH (09:49)
[2017-04-01] MEDS: METOPROLOL TARTRATE 25 MG TAB PO SCH ×2 (09:49→21:18)
[2017-04-01] MEDS: APIXABAN 5 MG TABLET PO SCH ×2 (09:49→21:18)
[2017-04-01] MEDS: DULoxetine HCl DR 30 MG CAP PO SCH (09:49)
[2017-04-01] MEDS: BUMETANIDE 1 MG TAB PO SCH ×2 (09:49→21:00)
[2017-04-01] MEDS ORDERED: MAGNESIUM SULFATE 1 GM PREMIX 100 ML IV SCH (10:00)
--- NOTE | 2017-04-01 13:08 | HHI.IDPN ---
Subjective Subjective Remarks Patient is a very poor historian. He is a 61-year-old male, currently living in the homeless nursing home, brought into the hospital for evaluation of fever or chills, nausea and vomiting there's been no diarrhea. Patient also was complaining all redness and pain in his left lower extremity. It's unclear as to how long he has had the problem on his left leg. There is mention that he was given an antibiotic for the left leg. Patient since admission has not had any fever. His WBC is elevated. He was initially admitted to the medical floor , but he developed some hypotension and transferred to the ICU. Patient currently is very restless and complaining of pain in his left lower extremity. Infectious disease consultation is requested to evaluate the patient. Notes reviewed Temps ok No pain Clinically better BC negative US no DVT Antibiotics Levaquin Vancomycin Lines LIJ TLC Past Medical History Atrial fibrillation Congestive heart failure/chronic systolic EF of 25-30% Moderate MR Hypertension Chronic Apixaban Dyslipidemia Depression/anxiety Past Surgical History AICD placement Tonsillectomy Allergies: Coded Allergies: ampicillin (Unverified Allergy, Severe, 03/02/17) fire ant (Unverified Allergy, Severe, Anaphylaxis, 03/02/17) MRI PRECAUTION (Verified Adverse Reaction, Severe, 03/25/17) Patient has a [employer] non compatible mri pacemaker. EG 03/25/2017 Objective . Vital Signs Date Time Temp Pulse Resp B/P (MAP) Pulse Ox O2 Delivery O2 Flow Rate FiO2 04/01/17 12:00 98.0 89 18 137/81 (99) 100 04/01/17 08:00 97.8 76 18 125/68 (87) 95 04/01/17 04:00 98.8 90 17 126/70 (88) 99 04/01/17 00:00 98.5 95 21 121/67 (85) 98 03/31/17 21:30 Room Air 03/31/17 20:21 103 03/31/17 20:00 98.5 94 19 134/76 (95) 98 03/31/17 18:01 94 130/81 (97) 03/31/17 16:00 97.8 83 18 121/72 (88) 98 . Laboratory Tests Test 03/30/17 14:31 03/31/17 08:55 04/01/17 06:25 White Blood Count 6.1 TH/MM3 6.3 TH/MM3 6.1 TH/MM3 Red Blood Count 4.59 MIL/MM3 4.46 MIL/MM3 4.31 MIL/MM3 Hemoglobin 10.5 GM/DL 10.1 GM/DL 9.9 GM/DL Hematocrit 32.7 % 31.6 % 30.6 % Mean Corpuscular Volume 71.3 FL 70.8 FL 71.0 FL Mean Corpuscular Hemoglobin 22.9 PG 22.7 PG 23.0 PG Mean Corpuscular Hemoglobin Concent 32.2 % 32.0 % 32.4 % Red Cell Distribution Width 20.4 % 20.1 % 20.5 % Platelet Count 138 TH/MM3 154 TH/MM3 150 TH/MM3 Mean Platelet Volume 7.6 FL 7.0 FL 7.0 FL Neutrophils (%) (Auto) 62.5 % 61.4 % 56.0 % Lymphocytes (%) (Auto) 23.5 % 25.8 % 29.8 % Monocytes (%) (Auto) 11.0 % 9.1 % 9.5 % Eosinophils (%) (Auto) 2.2 % 2.7 % 3.6 % Basophils (%) (Auto) 0.8 % 1.0 % 1.1 % Neutrophils # (Auto) 3.8 TH/MM3 3.9 TH/MM3 3.4 TH/MM3 Lymphocytes # (Auto) 1.4 TH/MM3 1.6 TH/MM3 1.8 TH/MM3 Monocytes # (Auto) 0.7 TH/MM3 0.6 TH/MM3 0.6 TH/MM3 Eosinophils # (Auto) 0.1 TH/MM3 0.2 TH/MM3 0.2 TH/MM3 Basophils # (Auto) 0.1 TH/MM3 0.1 TH/MM3 0.1 TH/MM3 CBC Comment DIFF FINAL DIFF FINAL DIFF FINAL Differential Comment Laboratory Tests Test 03/30/17 14:31 03/31/17 08:55 04/01/17 06:25 Blood Urea Nitrogen 30 MG/DL 22 MG/DL 21 MG/DL Creatinine 1.40 MG/DL 1.19 MG/DL 1.21 MG/DL Random Glucose 98 MG/DL 106 MG/DL 113 MG/DL Calcium Level 8.4 MG/DL 8.7 MG/DL 8.9 MG/DL Phosphorus Level 1.7 MG/DL Magnesium Level 1.3 MG/DL 1.6 MG/DL 1.3 MG/DL Sodium Level 138 MEQ/L 137 MEQ/L 137 MEQ/L Potassium Level 3.5 MEQ/L 3.3 MEQ/L 3.7 MEQ/L Chloride Level 101 MEQ/L 101 MEQ/L 102 MEQ/L Carbon Dioxide Level 30.0 MEQ/L 29.1 MEQ/L 28.3 MEQ/L Anion Gap 7 MEQ/L 7 MEQ/L 7 MEQ/L Estimat Glomerular Filtration Rate 52 ML/MIN 63 ML/MIN 61 ML/MIN Imaging Last Impressions Chest X-Ray 03/25/17 1204 Signed Impressions: Service Date/Time: March 12:09 - CONCLUSION: 1. Left basilar patchiness consistent with probable pneumonia. 2. Left internal jugular central line has its tip in good position in the superior vena cava. There is no pneumothorax. 3. Cardiomegaly. 4. Degenerative changes throughout the thoracic spine. Sai Dallas MD Renal Ultrasound 03/25/17 0000 Signed Impressions: Service Date/Time: March 09:15 - CONCLUSION: No hydronephrosis. Mild lateral wall thickening. Chato Kolb MD Lower Extremity Ultrasound 03/25/17 0000 Signed Impressions: Service Date/Time: March 08:54 - CONCLUSION: Normal examination. KJaved Osuna MD Lower Extremity CT 03/25/17 0000 Signed Impressions: Service Date/Time: March 23:59 - CONCLUSION: 1. Mild diffuse soft tissue edema throughout the left calf and ankle without evidence for significant focal fluid collection or subcutaneous emphysema. Cecilio Garrido MD Head CT 03/25/17 0000 Signed Impressions: Service Date/Time: March 23:54 - CONCLUSION: 1. No acute intracranial abnormality. 2. Right maxillary sinus disease. Cecilio Garrido MD Physical Exam GENERAL: awake and alert, NAD. SKIN: Warm and dry. No generalized rash, no ecchymoses HEAD: Atraumatic. Normocephalic. No temporal wasting, or tenderness. EYES: [place] conjunctiva. No petechia or hemorrhage. No scleral icterus. No injection or drainage. EARS, NOSE AND THROAT: Nose without bleeding or purulent nasal discharge. No sinus tenderness. Mucous membranes pink and moist. No oral lesions noted. No exudate. No oral thrush. NECK: Trachea midline. Supple and not tender, no meningeal signs CARDIOVASCULAR: Regular rate and rhythm. No murmurs, rubs or gallops heard. AICD L upper chest with no evidence of infection RESPIRATORY: Clear to auscultation. Breath sounds equal bilaterally. No rales , wheezing or rhonchi. Decreased BS at bases ABDOMEN: Soft, non-tender, nondistended. Bowel sounds present and normoactive. No guarding. No rebound. No organomegaly. EXTREMITIES: No clubbing, cyanosis, or edema RLE. Erythema markedly improved NEUROLOGICAL: Non focal PSYCH: cooperative LINE: No evidence of infection Assessment & Plan Remarks IMPRESSION Sepsis due to LLE cellulitis, better Cellulitis, better Renal insufficiency, due to sepsis, hypotension, better Known CAD, CM Encephalopathy., better, likely due to sepsis RECOMMENDATION Stop Vanco Continue Levaquin Clinda po x 10 days End dates ordered in [facility] CHERYL stockings Edema control Clinically doing well from ID standpoint I will sign off Please reconsult if with any new ID issue or question Joan Coffey MD Apr 01, 2017 13:08
[2017-04-01] MEDS ORDERED: MAGNESIUM SULFATE 1 GM PREMIX 100 ML IV ONE (16:15)
[2017-04-01] MEDS: CLINDAMYCIN 150 MG CAP PO SCH ×2 (16:43→21:17)
--- NOTE | 2017-04-01 17:29 | HHI.PR ---
Subjective Remarks Follow up cellulitis, hypomagnesemia. Patient states that he feels the swelling in his left leg is decreasing. No chest pain, dyspnea, nausea, vomiting. Objective Vitals Vital Signs Date Time Temp Pulse Resp B/P (MAP) Pulse Ox O2 Delivery O2 Flow Rate FiO2 04/01/17 16:00 97.8 100 18 141/86 (104) 99 04/01/17 12:00 98.0 89 18 137/81 (99) 100 04/01/17 08:00 97.8 76 18 125/68 (87) 95 04/01/17 04:00 98.8 90 17 126/70 (88) 99 04/01/17 00:00 98.5 95 21 121/67 (85) 98 03/31/17 21:30 Room Air 03/31/17 20:21 103 03/31/17 20:00 98.5 94 19 134/76 (95) 98 03/31/17 18:01 94 130/81 (97) I/O 03/31/17 03/31/17 03/31/17 04/01/17 04/01/17 04/01/17 07:00 15:00 23:00 07:00 15:00 23:00 Intake Total 241 ml 720 ml 380 ml Output Total 200 ml 1500 ml 900 ml Balance 41 ml -780 ml -520 ml Intake Oral 241 ml 720 ml 380 ml Output Urine Total 200 ml 1500 ml 900 ml # Voids 2 # Bowel Movements 0 2 0 Result Diagram: 04/01/17 0625 04/01/17 0625 Imaging Last Impressions Lower Extremity Ultrasound 03/30/17 0000 Signed Impressions: Service Date/Time: Thursday, March 30, 2017 12:44 - CONCLUSION: 1. No sonographic evidence for left lower extremity DVT. Cecilio Garrido MD Chest X-Ray 03/27/17 0600 Signed Impressions: Service Date/Time: Monday, March 27, 2017 04:28 - CONCLUSION: Decreasing left base consolidation. Left IJ line out. Mild cardiomegaly unchanged. Chato Reyna MD Renal Ultrasound 03/25/17 0000 Signed Impressions: Service Date/Time: March 09:15 - CONCLUSION: No hydronephrosis. Mild lateral wall thickening. Chato Kolb MD Lower Extremity CT 03/25/17 0000 Signed Impressions: Service Date/Time: March 23:59 - CONCLUSION: 1. Mild diffuse soft tissue edema throughout the left calf and ankle without evidence for significant focal fluid collection or subcutaneous emphysema. Cecilio Garrido MD Head CT 03/25/17 0000 Signed Impressions: Service Date/Time: March 23:54 - CONCLUSION: 1. No acute intracranial abnormality. 2. Right maxillary sinus disease. Cecilio Garrido MD Objective Remarks General: No acute distress. Heart: Irregular rhythm. No murmur. Lungs: Clear to auscultation bilaterally. No wheezes, rales, or rhonchi. Breathing is nonlabored. Abdomen: Soft, nontender, nondistended. Extremities: Trace right and 2+ left lower extremity edema (slightly improved today). Anterior left lower leg wound under tegaderm, with dried blood collection under bandage. Psych: Alert and oriented. Procedures 03/25/17 left IJ central line placement Urinary Catheter: No Vascular Central Line Catheter: No A/P Problem List: (1) Left leg cellulitis ICD Code: L03.116 - Cellulitis of left lower limb Status: Acute (2) Sepsis ICD Code: A41.9 - Sepsis, unspecified organism Status: Resolved (3) Hypokalemia ICD Code: E87.6 - Hypokalemia; N18.9 - Chronic kidney disease, unspecified Status: Acute (4) Hypotension ICD Code: I95.9 - Hypotension, unspecified Status: Acute (5) Atrial fibrillation with RVR ICD Code: I48.91 - Unspecified atrial fibrillation Status: Acute (6) Acute renal failure ICD Code: N17.9 - Acute kidney failure, unspecified (7) Chronic systolic CHF (congestive heart failure) ICD Code: I50.22 - Chronic systolic (congestive) heart failure (8) Acute exacerbation of CHF (congestive heart failure) ICD Code: I50.9 - Heart failure, unspecified Assessment and Plan 1. Acute exacerbation of chronic systolic congestive heart failure: Ejection fraction noted to be 25-30% last month. Continue Bumex. Appreciate cardiology recommendations. 2. Hypotension: Resolved. 3. Hypokalemia: Improved. 4. Acute renal failure superimposed on CKD stage 3: Improved. Appreciate Nephrology recommendations. 5. Hyperglycemia of critical illness: Monitor accu-checks and cover with sliding scale insulin. 6. Left lower extremity cellulitis: Appreciate infectious disease, general surgery recommendations. Continue antibiotics. Ultrasound negative for DVT. ID has signed off. 7. GI prophylaxis: Protonix. 8. DVT prophylaxis: SCDs, apixaban. 9. Atrial fibrillation with RVR: Appreciate cardiology recommendations. Rate improved. Continue metoprolol, Cardizem. 10. Hypomagnesemia: Supplement magnesium. Discharge Planning Possible discharge next 1-2 days. Case management to assist with discharge planning. Patient states that he cannot return to the place he was before this hospitalization "because it isn't safe". Problem Qualifiers (1) Sepsis: Qualified Codes: A41.9 - Sepsis, unspecified organism (2) Hypotension: Qualified Codes: I95.89 - Other hypotension Gil Dupont MD Apr 01, 2017 17:29
[2017-04-02] VITALS: BP 126/75; PULSE 87; RESP 18; TEMP 98.6; O2SAT 97
[2017-04-02] MEDS: DILTIAZEM HCL 60 MG TAB PO SCH ×4 (00:41→18:10)
[2017-04-02] MEDS: CLINDAMYCIN 150 MG CAP PO SCH ×4 (00:41→21:18)
[2017-04-02] MEDS: LORazepam 2 MG/ML VIAL IV PUSH PRN ×2 (02:50→22:49)
[2017-04-02] MEDS: CHLORHEXIDINE GLUCONATE 2 % 1 PACK (2 CLOTHS) TOP SCH (04:00)
[2017-04-02 08:00] VITALS: BP 128/87; PULSE 91; RESP 18; TEMP 98.7; O2SAT 96
[2017-04-02 08:26] VITALS: PULSE 90
[2017-04-02] MEDS: SODIUM CHLORIDE 0.9% FLUSH 10 ML FLUSH IV FLUSH SCH ×2 (09:00→21:20)
[2017-04-02] MEDS: ARTIFICIAL TEARS OPTH SOLN 15 ML BTL EACH EYE SCH ×3 (09:00→18:00)
[2017-04-02] MEDS: SODIUM CHLORIDE 0.9% FLUSH 10 ML FLUSH IVF SCH (09:00)
[2017-04-02] MEDS: POTASSIUM CHLORIDE 8 MEQ CAP PO SCH ×2 (09:00→21:00)
[2017-04-02] MEDS: METOPROLOL TARTRATE 25 MG TAB PO SCH ×2 (10:11→21:36)
[2017-04-02] MEDS: MAGNESIUM OXIDE 400 MG TAB PO SCH (10:11)
[2017-04-02] MEDS: BUMETANIDE 1 MG TAB PO SCH ×2 (10:11→21:00)
[2017-04-02] MEDS: DULoxetine HCl DR 30 MG CAP PO SCH (10:11)
[2017-04-02] MEDS: APIXABAN 5 MG TABLET PO SCH ×2 (10:11→21:18)
[2017-04-02] MEDS: PANTOPRAZOLE SODIUM 40 MG VIAL IV SCH (10:12)
[2017-04-02 10:50] LABS: AUTOMATED NEUTROPHIL # 3.7 TH/MM3 (1.8-7.7); BASOPHIL # 0.1 TH/MM3 (0-0.2); BASOPHIL % 1.2 % (0.0-2.0); EOSINOPHIL # 0.2 TH/MM3 (0-0.4); HEMATOCRIT 29.6 % (39.0-51.0); HEMO FLAGS DIFF FINAL; LYMPH % 26.9 % (9.0-44.0); LYMPHOCYTE # 1.6 TH/MM3 (1.0-4.8); MEAN CELL VOLUME 71.1 FL (80.0-100.0); MEAN CORPUSCULAR HEMOGLOBIN 23.1 PG (27.0-34.0); MEAN CORPUSCULAR HGB CONC 32.5 % (32.0-36.0); MONO % 8.2 % (0.0-8.0); NEUT % 60.7 % (16.0-70.0); PLATELET COUNT 182 TH/MM3 (150-450); RED BLOOD COUNT 4.16 MIL/MM3 (4.50-5.90); RED CELL DISTRIBUTION WIDTH 19.9 % (11.6-17.2); WHITE BLOOD COUNT 6.1 TH/MM3 (4.0-11.0)
[2017-04-02 10:56] LABS: BICARBONATE 27.9 MEQ/L (21.0-32.0); MAGNESIUM 1.8 MG/DL (1.5-2.5); POTASSIUM 3.9 MEQ/L (3.5-5.1)
[2017-04-02 12:00] VITALS: BP 132/84; PULSE 72; RESP 18; TEMP 98; O2SAT 97
[2017-04-02] MEDS: LEVOFLOXACIN 750 MG TAB PO SCH (14:12)
--- NOTE | 2017-04-02 15:53 | HHI.PR ---
Subjective Remarks Follow up cellulitis, electrolyte abnormalities. Patient feels better today. Left leg redness/swelling are improving. No chest pain, dyspnea. Objective Vitals Vital Signs Date Time Temp Pulse Resp B/P (MAP) Pulse Ox O2 Delivery O2 Flow Rate FiO2 04/02/17 12:00 98.0 72 18 132/84 (100) 97 04/02/17 08:26 90 04/02/17 08:00 Room Air 04/02/17 08:00 98.7 91 18 128/87 (101) 96 04/02/17 00:00 98.6 87 18 126/75 (92) 97 04/01/17 21:31 Room Air 04/01/17 20:00 98.4 92 16 132/79 (96) 98 04/01/17 19:53 89 04/01/17 16:00 97.8 100 18 141/86 (104) 99 I/O 04/01/17 04/01/17 04/01/17 04/02/17 04/02/17 04/02/17 07:00 15:00 23:00 07:00 15:00 23:00 Intake Total 380 ml 960 ml 120 ml 100 ml Output Total 900 ml 1100 ml 200 ml Balance -520 ml -140 ml -80 ml 100 ml Intake Oral 380 ml 960 ml 120 ml IV Total 100 ml Output Urine Total 900 ml 1100 ml 200 ml # Bowel Movements 0 2 0 Result Diagram: 04/02/17 0907 04/02/17 0907 Imaging Last Impressions Lower Extremity Ultrasound 03/30/17 0000 Signed Impressions: Service Date/Time: Thursday, March 30, 2017 12:44 - CONCLUSION: 1. No sonographic evidence for left lower extremity DVT. Cecilio Garrido MD Chest X-Ray 03/27/17 0600 Signed Impressions: Service Date/Time: Monday, March 27, 2017 04:28 - CONCLUSION: Decreasing left base consolidation. Left IJ line out. Mild cardiomegaly unchanged. Chato Reyna MD Renal Ultrasound 03/25/17 0000 Signed Impressions: Service Date/Time: March 09:15 - CONCLUSION: No hydronephrosis. Mild lateral wall thickening. Chato Kolb MD Lower Extremity CT 03/25/17 0000 Signed Impressions: Service Date/Time: March 23:59 - CONCLUSION: 1. Mild diffuse soft tissue edema throughout the left calf and ankle without evidence for significant focal fluid collection or subcutaneous emphysema. Cecilio Garrido MD Head CT 03/25/17 0000 Signed Impressions: Service Date/Time: March 23:54 - CONCLUSION: 1. No acute intracranial abnormality. 2. Right maxillary sinus disease. Cecilio Garrido MD Objective Remarks General: No acute distress. Heart: Irregular rhythm. No murmur. Lungs: Clear to auscultation bilaterally. No wheezes, rales, or rhonchi. Breathing is nonlabored. Abdomen: Soft, nontender, nondistended. Extremities: Trace right and 2+ left lower extremity edema (slightly improved today). Anterior left lower leg wound under tegaderm, with dried blood collection under bandage. Psych: Alert and oriented. Procedures 03/25/17 left IJ central line placement Urinary Catheter: No Vascular Central Line Catheter: No A/P Problem List: (1) Left leg cellulitis ICD Code: L03.116 - Cellulitis of left lower limb Status: Acute (2) Sepsis ICD Code: A41.9 - Sepsis, unspecified organism Status: Resolved (3) Hypokalemia ICD Code: E87.6 - Hypokalemia; N18.9 - Chronic kidney disease, unspecified Status: Acute (4) Hypotension ICD Code: I95.9 - Hypotension, unspecified Status: Acute (5) Atrial fibrillation with RVR ICD Code: I48.91 - Unspecified atrial fibrillation Status: Acute (6) Acute renal failure ICD Code: N17.9 - Acute kidney failure, unspecified (7) Chronic systolic CHF (congestive heart failure) ICD Code: I50.22 - Chronic systolic (congestive) heart failure (8) Acute exacerbation of CHF (congestive heart failure) ICD Code: I50.9 - Heart failure, unspecified Assessment and Plan 1. Acute exacerbation of chronic systolic congestive heart failure: Ejection fraction noted to be 25-30% last month. Continue Bumex. Appreciate cardiology recommendations. 2. Hypotension: Resolved. 3. Hypokalemia: Improved. 4. Acute renal failure superimposed on CKD stage 3: Improved. Appreciate Nephrology recommendations. 5. Hypomagnesemia: Improving. 6. Left lower extremity cellulitis: Appreciate infectious disease, general surgery recommendations. Continue antibiotics. Ultrasound negative for DVT. ID has signed off. 7. GI prophylaxis: Protonix. 8. DVT prophylaxis: SCDs, apixaban. 9. Atrial fibrillation with RVR: Appreciate cardiology recommendations. Rate improved. Continue metoprolol, Cardizem. Discharge Planning Possible discharge next 1-2 days. Case management assisting with discharge planning. Patient states that he cannot return to the place he was before this hospitalization "because it isn't safe". Patient is homeless. Problem Qualifiers (1) Sepsis: Qualified Codes: A41.9 - Sepsis, unspecified organism (2) Hypotension: Qualified Codes: I95.89 - Other hypotension Gil Dupont MD Apr 02, 2017 15:53
[2017-04-02 16:00] VITALS: BP 125/68; PULSE 71; RESP 18; TEMP 97.9; O2SAT 98
[2017-04-02 20:00] VITALS: BP 137/66; PULSE 81; PULSE 84; RESP 20; TEMP 97.9; O2SAT 99
[2017-04-03] VITALS: BP 131/71; PULSE 62; RESP 18; TEMP 98.5; O2SAT 98
[2017-04-03] MEDS: DILTIAZEM HCL 60 MG TAB PO SCH ×3 (00:15→13:23)
[2017-04-03] MEDS: CLINDAMYCIN 150 MG CAP PO SCH ×3 (02:54→14:44)
[2017-04-03] MEDS: LORazepam 2 MG/ML VIAL IV PUSH PRN ×2 (02:54→14:44)
[2017-04-03 04:00] VITALS: BP 125/60; PULSE 85; RESP 18; TEMP 98.5; O2SAT 97
[2017-04-03] MEDS: CHLORHEXIDINE GLUCONATE 2 % 1 PACK (2 CLOTHS) TOP SCH (04:00)
[2017-04-03 08:00] VITALS: BP 128/71; PULSE 70; PULSE 94; RESP 18; TEMP 98.4; O2SAT 96
[2017-04-03] MEDS: POTASSIUM CHLORIDE 8 MEQ CAP PO SCH (09:00)
[2017-04-03] MEDS: APIXABAN 5 MG TABLET PO SCH (09:51)
[2017-04-03] MEDS: DULoxetine HCl DR 30 MG CAP PO SCH (09:51)
[2017-04-03] MEDS: METOPROLOL TARTRATE 25 MG TAB PO SCH (09:51)
[2017-04-03] MEDS: SODIUM CHLORIDE 0.9% FLUSH 10 ML FLUSH IV FLUSH SCH (09:52)
[2017-04-03] MEDS: PANTOPRAZOLE SODIUM 40 MG VIAL IV SCH (09:52)
[2017-04-03] MEDS: MAGNESIUM OXIDE 400 MG TAB PO SCH (09:52)
[2017-04-03] MEDS: BUMETANIDE 1 MG TAB PO SCH (09:52)
[2017-04-03] MEDS ORDERED: POTA-163 PO (12:39)
[2017-04-03] MEDS ORDERED: CLIN150 PO (12:39)
[2017-04-03] MEDS ORDERED: BUME1TAB PO (12:39)
[2017-04-03] MEDS ORDERED: SACU1TAB7 PO (12:39)
[2017-04-03] MEDS ORDERED: TRAZ50TA12 PO (12:39)
[2017-04-03] MEDS ORDERED: CYMB60CA PO (12:39)
[2017-04-03] MEDS ORDERED: LEVA750T9 PO (12:39)
[2017-04-03] MEDS ORDERED: DILT60TA33 PO (12:40)
[2017-04-03] MEDS ORDERED: APIX5TAB PO (12:40)
[2017-04-03] MEDS ORDERED: METO25TA3 PO (12:40)
--- NOTE | 2017-04-03 12:41 | HHI.DCPOC ---
Discharge Care Plan Goals to Promote Your Health * To prevent worsening of your condition and complications take all medications as prescribed * To maintain your health at the optimal level follow-up discharge instructions Directions to Meet Your Goals Take your medications as prescribed Follow your dietary instruction Follow activity as directed Keep your appointments as scheduled Take your immunizations and boosters as scheduled If your symptoms worsen call your PCP, if no PCP go to Urgent Care Center or Emergency Room Smoking is Dangerous to Your Health. Avoid second hand smoke Call the 24-hour hour crisis hotline for domestic abuse at Lori Wright MD R3 Apr 03, 2017 12:41
--- NOTE | 2017-04-03 12:46 | HHI.DS ---
Discharge Summary Admission Date Mar 25, 2017 at 06:18 Discharge Date: Apr 03, 2017 Admitting Diagnosis left leg cellulitis, A. fib with RVR, hypokalemia, generalized weakn (1) Left leg cellulitis ICD Code: L03.116 - Cellulitis of left lower limb Status: Acute (2) Sepsis ICD Code: A41.9 - Sepsis, unspecified organism Status: Resolved (3) Hypokalemia ICD Code: E87.6 - Hypokalemia; N18.9 - Chronic kidney disease, unspecified Status: Acute (4) Hypotension ICD Code: I95.9 - Hypotension, unspecified Status: Acute (5) Atrial fibrillation with RVR ICD Code: I48.91 - Unspecified atrial fibrillation Status: Acute (6) Acute renal failure ICD Code: N17.9 - Acute kidney failure, unspecified (7) Chronic systolic CHF (congestive heart failure) ICD Code: I50.22 - Chronic systolic (congestive) heart failure (8) Acute exacerbation of CHF (congestive heart failure) ICD Code: I50.9 - Heart failure, unspecified Procedures 03/25/17 left IJ central line placement Brief History - From Admission Written by Zoey Us, acting as scribe for Dr. Diane on 03/25/17 at 04:11. The patient was sent from a homeless residential with fever, chills, nausea, and vomiting. He reports he vomited 4 - 5 times daily, emesis was yellow. He denies diarrhea. He denies syncope, black stool or red stool. He reports left lower extremity erythema for one day. He states he was given antibiotics but is not sure of the name of the antibiotics. He appears quite ill during the visit and fails to provide accurate medical history when compared to previous admissions. Able to confirm most of history from prior visits but initially, denied any illness other than hypertension. Reviewed: echocardiogram 03/06/17 - EF 25-30%; patient has an AICD; mild to moderate MVR, mild aortic regurg. . CBC/BMP: 04/02/17 0907 04/02/17 0907 Significant Findings Laboratory Tests Test 04/01/17 06:25 04/02/17 09:07 Red Blood Count 4.31 MIL/MM3 (4.50-5.90) 4.16 MIL/MM3 (4.50-5.90) Hemoglobin 9.9 GM/DL (13.0-17.0) 9.6 GM/DL (13.0-17.0) Hematocrit 30.6 % (39.0-51.0) 29.6 % (39.0-51.0) Mean Corpuscular Volume 71.0 FL (80.0-100.0) 71.1 FL (80.0-100.0) Mean Corpuscular Hemoglobin 23.0 PG (27.0-34.0) 23.1 PG (27.0-34.0) Red Cell Distribution Width 20.5 % (11.6-17.2) 19.9 % (11.6-17.2) Monocytes (%) (Auto) 9.5 % (0.0-8.0) 8.2 % (0.0-8.0) Blood Urea Nitrogen 21 MG/DL (7-18) Random Glucose 113 MG/DL (74-106) Magnesium Level 1.3 MG/DL (1.5-2.5) Estimat Glomerular Filtration Rate 61 ML/MIN (>89) 76 ML/MIN (>89) Vancomycin Level Trough 18.1 MCG/ML (5.0-10.0) Sodium Level 135 MEQ/L (136-145) Imaging Last Impressions Lower Extremity Ultrasound 03/30/17 0000 Signed Impressions: Service Date/Time: Thursday, March 30, 2017 12:44 - CONCLUSION: 1. No sonographic evidence for left lower extremity DVT. Cecilio Garrido MD Chest X-Ray 03/27/17 0600 Signed Impressions: Service Date/Time: Monday, March 27, 2017 04:28 - CONCLUSION: Decreasing left base consolidation. Left IJ line out. Mild cardiomegaly unchanged. Chato Reyna MD Renal Ultrasound 03/25/17 0000 Signed Impressions: Service Date/Time: March 09:15 - CONCLUSION: No hydronephrosis. Mild lateral wall thickening. Chato Kolb MD Lower Extremity CT 03/25/17 0000 Signed Impressions: Service Date/Time: March 23:59 - CONCLUSION: 1. Mild diffuse soft tissue edema throughout the left calf and ankle without evidence for significant focal fluid collection or subcutaneous emphysema. Cecilio Garrido MD Head CT 03/25/17 0000 Signed Impressions: Service Date/Time: March 23:54 - CONCLUSION: 1. No acute intracranial abnormality. 2. Right maxillary sinus disease. Cecilio Garrido MD PE at Discharge General: No acute distress. Heart: Irregular rhythm. No murmur. Lungs: Clear to auscultation bilaterally. No wheezes, rales, or rhonchi. Breathing is nonlabored. Abdomen: Soft, nontender, nondistended. Extremities: Trace right and 2+ left lower extremity edema (slightly improved today). Anterior left lower leg wound under tegaderm, with dried blood collection under bandage. Psych: Alert and oriented. Hospital Course 1. Acute exacerbation of chronic systolic congestive heart failure: Ejection fraction noted to be 25-30% last month. Continue medications as documented below. Patient seen by cardiology who stated that his CHF was stable at this time. 2. Hypotension: Resolved. 3. Hypokalemia: Improved. 4. Acute renal failure superimposed on CKD stage 3: Improved. 5. Hypomagnesemia: Improved 6. Left lower extremity cellulitis: Appreciate infectious disease, general surgery recommendations. Continue antibiotics. Ultrasound negative for DVT. ID has signed off. Patient will complete course of antibiotics as documented in medication list below. 9. Atrial fibrillation with RVR: Continue metoprolol, Cardizem, Eliquis. Pt Condition on Discharge: Stable Discharge Disposition: Discharge Home Discharge Time: <= 30 minutes Discharge Instructions DIET: Follow Instructions for: As Tolerated, No Restrictions Activities you can perform: Regular-No Restrictions Follow up Referrals: PCP Follow-up - 1 Week New Medications: Apixaban (Eliquis) 5 Mg Tab 5 MG PO BID, #60 TAB Clindamycin (Cleocin) 150 Mg Cap 300 MG PO Q6H, #27 CAP Diltiazem (Cardizem) 60 Mg Tab 60 MG PO Q6HR, #90 TAB Levofloxacin (Levaquin) 750 Mg Tablet 750 MG PO Q48H, #3 TAB Metoprolol Tartrate (Metoprolol Tartrate) 25 Mg Tab 25 MG PO Q12HR, #60 TAB Continued Medications: Bumetanide (Bumetanide) 1 Mg Tab 1 MG PO BID, #60 TAB 0 Refills (This prescription has been renewed) May take extra pill per every 24 hours for worsening swelling in legs Duloxetine DR (Cymbalta DR) 60 Mg Capdr 60 MG PO DAILY for Depression Control, #30 CAP 0 Refills (This prescription has been renewed) Potassium Chloride ER (Potassium Chloride ER) 20 Meq Tab 20 MEQ PO DAILY for Electrolyte Replacement, #30 TAB 0 Refills (This prescription has been renewed) Sacubitril-Valsartan (Entresto) 49-51 Mg Tab 1 TAB PO BID for Heart Failure, #30 TAB 0 Refills (This prescription has been renewed) Trazodone (Trazodone) 50 Mg Tab 50 MG PO HS for Control Depression, #30 TAB 0 Refills (This prescription has been renewed) Discontinued Medications: Apixaban (Eliquis) 5 Mg Tab 5 MG PO BID for Blood Clot Prevention, #60 TAB 0 Refills Lisinopril (Lisinopril) 10 Mg Tab 10 MG PO DAILY for Blood Pressure Management, #30 TAB 0 Refills Metolazone (Metolazone) 5 Mg Tab 5 MG PO DAILY for Regulate Heart Beat, #30 TAB 0 Refills Metoprolol Tartrate (Lopressor) 100 Mg Tab 100 MG PO BID@08,20 for Regulate Heart Beat, #60 TAB Metoprolol Tartrate (Metoprolol Tartrate) 50 Mg Tab 50 MG PO BID, #60 TAB 0 Refills Lori Wright MD R3 Apr 03, 2017 12:46
== END 2017-04-03 17:51 | disposition home or self-care (01) | DRG 871 ==
LOC: NEPE 01:56 → NEDA 03:31 → INTOOBSV 03:31 → OBSVTOIN 06:18 → N03A 07:39 → N04B 03-30 17:21
PROVIDERS: ADMIT Family Medicine; ATTEND Family Medicine
PROC: 05HN33Z Insertion of Infusion Device into Left Internal Jugular Vein, Percutaneous Approach (ICD-10-PCS; principal; 2017-03-25)
DX: A41.9 Sepsis, unspecified organism (principal); I50.23 Acute on chronic systolic (congestive) heart failure; G93.40 Encephalopathy, unspecified; E87.2 Acidosis; I31.3 Pericardial effusion (noninflammatory); N17.9 Acute kidney failure, unspecified; N18.3 Chronic kidney disease, stage 3 (moderate); E83.42 Hypomagnesemia; I48.2 Chronic atrial fibrillation; E86.0 Dehydration; I42.9 Cardiomyopathy, unspecified; L03.116 Cellulitis of left lower limb; I13.0 Hypertensive heart and chronic kidney disease with heart failure and stage 1 through stage 4 chronic kidney disease, or unspecified chronic kidney disease; E87.1 Hypo-osmolality and hyponatremia; E11.22 Type 2 diabetes mellitus with diabetic chronic kidney disease; E11.65 Type 2 diabetes mellitus with hyperglycemia; I25.10 Atherosclerotic heart disease of native coronary artery without angina pectoris; Z79.01 Long term (current) use of anticoagulants; F90.9 Attention-deficit hyperactivity disorder, unspecified type; F32.9 Major depressive disorder, single episode, unspecified; F41.9 Anxiety disorder, unspecified; G47.33 Obstructive sleep apnea (adult) (pediatric); Z95.810 Presence of automatic (implantable) cardiac defibrillator; I08.0 Rheumatic disorders of both mitral and aortic valves; E87.6 Hypokalemia; E78.5 Hyperlipidemia, unspecified; G47.00 Insomnia, unspecified; D50.9 Iron deficiency anemia, unspecified; Z59.0 Homelessness; Z98.84 Bariatric surgery status; Z87.442 Personal history of urinary calculi
CPT/HCPCS: 36556; 70450; 71010; 73700; 76775; 76937; 80048; 80053; 80202; 81001; 82140; 82150; 82550; 82570; 83605; 83690; 83735; 83880; 84100; 84132; 84300; 84443; 84484; 85025; 85610; 85730; 87040; 87205; 87641; 93005; 93970; 93971; 94150; 94640; 94664; 96374; C9113; J0692; J2060; J2270; J2405; J3370; J3475; J3480; J7030; J7040; J7050

== ENCOUNTER 2017-04-19 17:32 | Inpatient (IN) | payer SELFPAY ==
[~2017-04-19] VITALS: Ht 177.8 cm; Wt 100.0 kg
[~2017-04-19 17:32] MED LIST changes: +CLIN150 PO; +DILT60TA33 PO; +LEVA750T9 PO; -LISI10TA3 PO; -METO-338 PO; +METO25TA3 PO; -METO5TAB3 PO; +SACU1TAB7 PO
--- NOTE | 2017-04-19 17:41 | PD ---
Physical Exam Time Seen by Provider: 17:39 Narrative Defibrillator has fired 9 times prior to 11a. Has not fired since, but got returned call from correspondence analyst Dr. Spaulding who advised he come to ED. Pt having shortness of breath within the last hour. Intermittent chest pain. No recent illnesses. Took metoprolol this am which seemed to help. No other symptoms. Data Data Last Documented VS Vital Signs Date Time Temp Pulse Resp B/P (MAP) Pulse Ox O2 Delivery O2 Flow Rate FiO2 04/19/17 19:07 85 24 135/90 (105) 100 Nasal Cannula 2.00 Orders Orders Complete Blood Count With Diff (04/19/17 18:08) Basic Metabolic Panel (Bmp) (04/19/17 18:08) B-Type Natriuretic Peptide (04/19/17 18:08) Act Partial Throm Time (Ptt) (04/19/17 18:08) Prothrombin Time / Inr (Pt) (04/19/17 18:08) Magnesium (Mg) (04/19/17 18:08) Troponin I (04/19/17 18:08) Iv Access Insert/Monitor (04/19/17 18:08) Ecg Monitoring (04/19/17 18:08) Oximetry (04/19/17 18:08) Oxygen Administration (04/19/17 18:08) Chest, Single Ap (04/19/17 18:08) Nitroglycerin 2% Oint (Nitroglycerin 2% (04/19/17 20:00) Aspirin Chew (Aspirin Chew) (04/19/17 20:00) Potassium Chloride (Kcl) (04/19/17 20:00) Creatine Kinase (Cpk) (04/19/17 19:52) Ckmb (Isoenzyme) Profile (04/19/17 19:52) Admit Order (Ed Use Only) (04/19/17 20:08) Labs Laboratory Tests Test 04/19/17 18:20 White Blood Count 5.0 TH/MM3 Red Blood Count 4.62 MIL/MM3 Hemoglobin 11.1 GM/DL Hematocrit 33.7 % Mean Corpuscular Volume 73.0 FL Mean Corpuscular Hemoglobin 24.0 PG Mean Corpuscular Hemoglobin Concent 32.8 % Red Cell Distribution Width 21.2 % Platelet Count 241 TH/MM3 Mean Platelet Volume 6.6 FL Neutrophils (%) (Auto) 56.1 % Lymphocytes (%) (Auto) 32.5 % Monocytes (%) (Auto) 8.7 % Eosinophils (%) (Auto) 1.5 % Basophils (%) (Auto) 1.2 % Neutrophils # (Auto) 2.8 TH/MM3 Lymphocytes # (Auto) 1.6 TH/MM3 Monocytes # (Auto) 0.4 TH/MM3 Eosinophils # (Auto) 0.1 TH/MM3 Basophils # (Auto) 0.1 TH/MM3 CBC Comment DIFF FINAL Differential Comment Prothrombin Time 11.5 SEC Prothromb Time International Ratio 1.0 RATIO Activated Partial Thromboplast Time 30.0 SEC Blood Urea Nitrogen 10 MG/DL Creatinine 1.30 MG/DL Random Glucose 86 MG/DL Calcium Level 9.2 MG/DL Magnesium Level 1.9 MG/DL Sodium Level 138 MEQ/L Potassium Level 3.4 MEQ/L Chloride Level 101 MEQ/L Carbon Dioxide Level 24.2 MEQ/L Anion Gap 13 MEQ/L Estimat Glomerular Filtration Rate 57 ML/MIN Total Creatine Kinase 81 U/L Troponin I 1.41 NG/ML B-Type Natriuretic Peptide 1816 PG/ML [facility] Medical Record Reviewed: Yes Supervised Visit with JOCELYNN: No Condition: Stable Jenny Bustamante Apr 19, 2017 17:41
[2017-04-19 17:49] VITALS: BP 150/98; PULSE 107; RESP 20; O2SAT 95
[2017-04-19] MEDS ORDERED: SODIUM CHLORIDE 0.9% FLUSH 10 ML FLUSH IVF PRN (18:15)
--- NOTE | 2017-04-19 18:16 | PD ---
HPI Chief Complaint: Cardiac Complaint Time Seen by Provider: 17:48 Travel History International Travel<30 days: No Contact w/Intl Traveler<30days: No History of Present Illness HPI 61yo M with PMH of CHF, afib on eliquis and s/p AICD, depression presents to the ED with c/o firing of AICD. States it fired 9 times this morning and then he took his metoprolol and it stopped. States he got a call from warehouse shift supervisor' s Dr. Hayes's office and told to come to the ED. Pt became sob en route. Said he had some sharp left sided chest pain after firing of AICD. Denies any fever , cough, n/v, abdominal pain. States that he has been compliant with bumex and lower extremity swelling seems to be better. Pt was admitted 03/25/17-04/03/17 for left leg cellulitis, afib RVR, hypokalemia. PFSH Past Medical History Hx Anticoagulant Therapy: Yes (ELOQUIS ) ADHD: Yes Arthritis: No Asthma: No Autoimmune Disease: No Anxiety: Yes Depression: Yes Heart Rhythm Problems: Yes (ATRIAL FIBRILLATION ) Cancer: No Cardiac Catheterization: Yes (CATH WAS NEGATIVE, NO STENT PLACEMENT) Cardiovascular Problems: Yes (AICD , HTN) High Cholesterol: No Chest Pain: No Congestive Heart Failure: Yes (EF 15-22%) COPD: No Cerebrovascular Accident: No Diabetes: Yes Diminished Hearing: No Endocrine: No GERD: No Genitourinary: No Headaches: No Hepatitis: No Hiatal Hernia: No Hypertension: Yes Immune Disorder: No Implanted Vascular Access Dvce: Yes Kidney Stones: No Musculoskeletal: Yes (FX ANKLE LEFT, SKULL FX AGE 7) Neurologic: No Psychiatric: Yes Reproductive: No Respiratory: No Immunizations Current: Yes Migraines: No Myocardial Infarction: No Renal Failure: No Seizures: No Sleep Apnea: Yes (ON CPAP NIGHT) Thyroid Disease: No Ulcer: No Past Surgical History Abdominal Surgery: Yes (GASTRIC BYPASS 2003, APPENDECTOMY age 24) AICD: Yes Appendectomy: Yes Cardiac Surgery: No Cholecystectomy: No Ear Surgery: No Endocrine Surgery: No Eye Surgery: No Genitourinary Surgery: No Gynecologic Surgery: No Neurologic Surgery: No Oral Surgery: Yes (TONSILECTOMY age 9) Pacemaker: Yes ([employer]) Thoracic Surgery: No Tonsillectomy: Yes Other Surgery: Yes (HIATAL HERNIA REPAIR AGE 4) Social History Alcohol Use: No (QUIT 10/2008) Tobacco Use: No Substance Use: No Allergies-Medications (Allergen,Severity, Reaction): Coded Allergies: ampicillin (Unverified Allergy, Severe, 03/02/17) fire ant (Unverified Allergy, Severe, Anaphylaxis, 03/02/17) MRI PRECAUTION (Verified Adverse Reaction, Severe, 03/25/17) Patient has a [employer] non compatible mri pacemaker. EG 03/25/2017 Reported Meds & Prescriptions Reported Meds & Active Scripts Active Cardizem (Diltiazem HCl) 60 Mg Tab 60 Mg PO Q6HR Metoprolol Tartrate 25 Mg Tab 25 Mg PO Q12HR Eliquis (Apixaban) 5 Mg Tab 5 Mg PO BID Entresto (Sacubitril-Valsartan) 49-51 Mg Tab 1 Tab PO BID Potassium Chloride ER (Potassium Chloride) 20 Meq Tab 20 Meq PO DAILY Bumetanide 1 Mg Tab 1 Mg PO BID May take extra pill per every 24 hours for worsening swelling in legs Trazodone (Trazodone HCl) 50 Mg Tab 50 Mg PO HS Cymbalta DR (Duloxetine HCl) 60 Mg Capdr 60 Mg PO DAILY Review of Systems Except as stated in HPI: all other systems reviewed are Neg Physical Exam Narrative GENERAL: 61yo M in mild distress. SKIN: Focused skin assessment warm/dry. HEAD: Atraumatic. Normocephalic. EYES: Pupils equal and round. No scleral icterus. No injection or drainage. ENT: No nasal bleeding or discharge. Mucous membranes pink and moist. NECK: Trachea midline. No JVD. CARDIOVASCULAR: Regular rate and rhythm. No murmur appreciated. RESPIRATORY: No accessory muscle use. Clear to auscultation. Breath sounds equal bilaterally. GASTROINTESTINAL: Abdomen soft, non-tender, nondistended. No rebound tenderness or guarding. MUSCULOSKELETAL: +Bilateral lower extremity. NEUROLOGICAL: Awake and alert. No obvious cranial nerve deficits. Motor grossly within normal limits. Normal speech. PSYCHIATRIC: Appropriate mood and affect; insight and judgment normal. Data Data Last Documented VS Vital Signs Date Time Temp Pulse Resp B/P (MAP) Pulse Ox O2 Delivery O2 Flow Rate FiO2 04/19/17 19:07 85 24 135/90 (105) 100 Nasal Cannula 2.00 Orders Orders Complete Blood Count With Diff (04/19/17 18:08) Basic Metabolic Panel (Bmp) (04/19/17 18:08) B-Type Natriuretic Peptide (04/19/17 18:08) Act Partial Throm Time (Ptt) (04/19/17 18:08) Prothrombin Time / Inr (Pt) (04/19/17 18:08) Magnesium (Mg) (04/19/17 18:08) Troponin I (04/19/17 18:08) Iv Access Insert/Monitor (04/19/17 18:08) Ecg Monitoring (04/19/17 18:08) Oximetry (04/19/17 18:08) Oxygen Administration (04/19/17 18:08) Chest, Single Ap (04/19/17 18:08) Nitroglycerin 2% Oint (Nitroglycerin 2% (04/19/17 20:00) Aspirin Chew (Aspirin Chew) (04/19/17 20:00) Potassium Chloride (Kcl) (04/19/17 20:00) Creatine Kinase (Cpk) (04/19/17 19:52) Ckmb (Isoenzyme) Profile (04/19/17 19:52) Admit Order (Ed Use Only) (04/19/17 20:08) Labs Laboratory Tests Test 04/19/17 18:20 White Blood Count 5.0 TH/MM3 Red Blood Count 4.62 MIL/MM3 Hemoglobin 11.1 GM/DL Hematocrit 33.7 % Mean Corpuscular Volume 73.0 FL Mean Corpuscular Hemoglobin 24.0 PG Mean Corpuscular Hemoglobin Concent 32.8 % Red Cell Distribution Width 21.2 % Platelet Count 241 TH/MM3 Mean Platelet Volume 6.6 FL Neutrophils (%) (Auto) 56.1 % Lymphocytes (%) (Auto) 32.5 % Monocytes (%) (Auto) 8.7 % Eosinophils (%) (Auto) 1.5 % Basophils (%) (Auto) 1.2 % Neutrophils # (Auto) 2.8 TH/MM3 Lymphocytes # (Auto) 1.6 TH/MM3 Monocytes # (Auto) 0.4 TH/MM3 Eosinophils # (Auto) 0.1 TH/MM3 Basophils # (Auto) 0.1 TH/MM3 CBC Comment DIFF FINAL Differential Comment Prothrombin Time 11.5 SEC Prothromb Time International Ratio 1.0 RATIO Activated Partial Thromboplast Time 30.0 SEC Blood Urea Nitrogen 10 MG/DL Creatinine 1.30 MG/DL Random Glucose 86 MG/DL Calcium Level 9.2 MG/DL Magnesium Level 1.9 MG/DL Sodium Level 138 MEQ/L Potassium Level 3.4 MEQ/L Chloride Level 101 MEQ/L Carbon Dioxide Level 24.2 MEQ/L Anion Gap 13 MEQ/L Estimat Glomerular Filtration Rate 57 ML/MIN Total Creatine Kinase 81 U/L Troponin I 1.41 NG/ML B-Type Natriuretic Peptide 1816 PG/ML MDM Medical Decision Making Medical Screen Exam Complete: Yes Emergency Medical Condition: Yes Interpretation(s) EKG: Afib at 93bpm. Normal axis. TWI V4-V6. Differential Diagnosis Electrolyte abnormality vs. Vtach Narrative Course 61yo M sent here by warehouse shift supervisor Dr. Hayes because his AICD fired 9 times today. Pt has a AICD by [email or web address] so will call them to come interrogate patient's AICD. HR is controlled. [email or web address] called and they will be here at 8pm to interrogate AICD. Pt has not had any more firing since he took his metoprolol. Labs pending, sign out to next team to follow up and admit. Diagnosis Primary Impression: AICD discharge Admitting Information Admitting Physician Requests: Admit Ivette Sharma DO Apr 19, 2017 18:16
--- NOTE | 2017-04-19 18:55 | RADRPT ---
EXAM DATE/TIME: 04/19/2017 18:11 [facility] COMPARISON: CHEST EXPIRATION ONLY, March 05, 2017, 11:49. CHEST SINGLE AP, March 25, 2017, 2:51. CHEST SIN GLE AP, March 27, 2017, 4:28. INDICATIONS : Chest pain. MEDICAL HISTORY : Hypertension. Congestive heart failure SURGICAL HISTORY : Tonsillectomy. Pacemaker. Appendectomy. Cardiac catheterization. Gastric ENCOUNTER: Initial ACUITY: 1 day PAIN SCORE: 5/10 LOCATION: Bilateral chest FINDINGS: There is a pacing device in place from the left subclavian approach. The heart size is mildly enlarge d. There continues to be linear increased density at the left lateral base. This could relate to scar ring, atelectasis or pleural thickening.. It was present previously. The lungs were grossly clear. Th e costophrenic angles are clear. The bony structures are intact. Nipple rings are in place. CONCLUSION: Stable chest x-ray with mild cardiomegaly and suspected scarring, atelectasis, or pleural thickening at the left lateral base. Chato Navarrete MD on April 19, 2017 at 18:50 Board Certified Radiologist. This report was verified electronically.
[2017-04-19 19:03] LABS: AUTOMATED NEUTROPHIL # 2.8 TH/MM3 (1.8-7.7); BASOPHIL # 0.1 TH/MM3 (0-0.2); BASOPHIL % 1.2 % (0.0-2.0); EOSINOPHIL # 0.1 TH/MM3 (0-0.4); EOSINOPHIL % 1.5 % (0.0-4.0); HEMATOCRIT 33.7 % (39.0-51.0); HEMO FLAGS DIFF FINAL; LYMPH % 32.5 % (9.0-44.0); LYMPHOCYTE # 1.6 TH/MM3 (1.0-4.8); MEAN CORPUSCULAR HGB CONC 32.8 % (32.0-36.0); MONO % 8.7 % (0.0-8.0); NEUT % 56.1 % (16.0-70.0); PLATELET COUNT 241 TH/MM3 (150-450); RED BLOOD COUNT 4.62 MIL/MM3 (4.50-5.90); RED CELL DISTRIBUTION WIDTH 21.2 % (11.6-17.2)
[2017-04-19 19:07] VITALS: BP 135/90; PULSE 85; RESP 24; O2SAT 100
[2017-04-19 19:13] LABS: PROTHROMBIN TIME - PATIENT 11.5 SEC (9.8-11.6)
[2017-04-19 19:26] LABS: BICARBONATE 24.2 MEQ/L (21.0-32.0); MAGNESIUM 1.9 MG/DL (1.5-2.5); POTASSIUM 3.4 MEQ/L (3.5-5.1)
--- NOTE | 2017-04-19 19:48 | PD ---
Data Data Last Documented VS Vital Signs Date Time Temp Pulse Resp B/P (MAP) Pulse Ox O2 Delivery O2 Flow Rate FiO2 04/19/17 19:07 85 24 135/90 (105) 100 Nasal Cannula 2.00 Orders Orders Complete Blood Count With Diff (04/19/17 18:08) Basic Metabolic Panel (Bmp) (04/19/17 18:08) B-Type Natriuretic Peptide (04/19/17 18:08) Act Partial Throm Time (Ptt) (04/19/17 18:08) Prothrombin Time / Inr (Pt) (04/19/17 18:08) Magnesium (Mg) (04/19/17 18:08) Troponin I (04/19/17 18:08) Iv Access Insert/Monitor (04/19/17 18:08) Ecg Monitoring (04/19/17 18:08) Oximetry (04/19/17 18:08) Oxygen Administration (04/19/17 18:08) Chest, Single Ap (04/19/17 18:08) Nitroglycerin 2% Oint (Nitroglycerin 2% (04/19/17 20:00) Aspirin Chew (Aspirin Chew) (04/19/17 20:00) Potassium Chloride (Kcl) (04/19/17 20:00) Creatine Kinase (Cpk) (04/19/17 19:52) Ckmb (Isoenzyme) Profile (04/19/17 19:52) Admit Order (Ed Use Only) (04/19/17 20:08) Labs Laboratory Tests Test 04/19/17 18:20 White Blood Count 5.0 TH/MM3 Red Blood Count 4.62 MIL/MM3 Hemoglobin 11.1 GM/DL Hematocrit 33.7 % Mean Corpuscular Volume 73.0 FL Mean Corpuscular Hemoglobin 24.0 PG Mean Corpuscular Hemoglobin Concent 32.8 % Red Cell Distribution Width 21.2 % Platelet Count 241 TH/MM3 Mean Platelet Volume 6.6 FL Neutrophils (%) (Auto) 56.1 % Lymphocytes (%) (Auto) 32.5 % Monocytes (%) (Auto) 8.7 % Eosinophils (%) (Auto) 1.5 % Basophils (%) (Auto) 1.2 % Neutrophils # (Auto) 2.8 TH/MM3 Lymphocytes # (Auto) 1.6 TH/MM3 Monocytes # (Auto) 0.4 TH/MM3 Eosinophils # (Auto) 0.1 TH/MM3 Basophils # (Auto) 0.1 TH/MM3 CBC Comment DIFF FINAL Differential Comment Prothrombin Time 11.5 SEC Prothromb Time International Ratio 1.0 RATIO Activated Partial Thromboplast Time 30.0 SEC Blood Urea Nitrogen 10 MG/DL Creatinine 1.30 MG/DL Random Glucose 86 MG/DL Calcium Level 9.2 MG/DL Magnesium Level 1.9 MG/DL Sodium Level 138 MEQ/L Potassium Level 3.4 MEQ/L Chloride Level 101 MEQ/L Carbon Dioxide Level 24.2 MEQ/L Anion Gap 13 MEQ/L Estimat Glomerular Filtration Rate 57 ML/MIN Troponin I 1.41 NG/ML B-Type Natriuretic Peptide 1816 PG/ML [facility] Medical Record Reviewed: Yes Supervised Visit with JOCELYNN: No Narrative Course During the course of the patients emergency department visit, the patients history, examination, and differential diagnosis were reviewed with the patient. The patient had IV access obtained and blood work sent for analysis. The patient was placed on a brisket puller with oximetry and blood pressure monitoring. The patient's case was checked out to me by Dr. Sharma who requested that I review the patient's laboratory studies and admit the patient for repeated AICD fire. The patient according to the record was placed on 2 L nasal cannula O2. Pacemaker interrogation rep was called by the equal opportunity specialist. The patient was provided by me aspirin 162 mg by mouth 1, nitroglycerin 1 inch the chest wall. The patients laboratory studies were reviewed and remarkable for a white count of 5.0, hemoglobin 11.1, platelets 241 with 8.7 monocytes. Basic metabolic profile is remarkable for a potassium at 3.4 which will be supplemented orally, GFR 57, magnesium is 1.9, troponin I 1.41, BNP CPK, PT 11.5, INR 1.0, PTT 30, a review of the electronic medical record reveals that the patient's last troponin I done at this facility was on March 25, 2017 a.m. at that time was 0.08. The patient's elevated troponin could be related to an acute coronary syndrome, versus AICD repeated fire. Radiology studies were reviewed and remarkable for a chest x-ray that shows a stable chest x-ray with mild cardiomegaly and suspected scarring, atelectasis, or pleural thickening at the left lateral base. The patient upon my initial evaluation denies having any chest pain currently. He does report having some shortness of breath with exertion. The pacemaker interrogator is currently at the bedside. The patient reports that he has been taking his Eliquis as prescribed. He last took a dose today for The patients results were discussed with the patient, including the plan of care. I explained that further testing and/ or monitoring is indicated based on the patients history, examination, and/ or laboratory findings. Therefore, I recommended admission for additional evaluation. The patient expressed understanding and was agreeable with this plan. The patient was admitted to the hospital in guarded condition and [facility] Physician Communication Physician Communication The Patient's case will be discussed with the [facility] service for admission. The patient's case is discussed with Dr. Diane who did agree to admit the patient for further evaluation and treatment at this time Diagnosis Primary Impression: AICD discharge Additional Impressions: Elevated troponin I level Congestive heart failure Qualified Codes: I50.22 - Chronic systolic (congestive) heart failure Admitting Information Admitting Physician Requests: Angela Thapa MD Apr 19, 2017 19:48
[2017-04-19] MEDS ORDERED: ASPIRIN 81 MG CHEW TAB CHEW ONE (20:00)
[2017-04-19] MEDS ORDERED: NITROGLYCERIN 2% OINT 1 GM PACKET TOPICAL ONE (20:00)
[2017-04-19] MEDS ORDERED: POTASSIUM CHLORIDE 20 MEQ CONTROLLED RELEASE TAB PO ONE ×2 (20:00→20:15)
[2017-04-19] MEDS ORDERED: SODIUM CHLORIDE 0.9% FLUSH 10 ML FLUSH IV FLUSH PRN (20:15)
[2017-04-19] MEDS ORDERED: NALOXONE HCL 0.4 MG/ML AMP IV PUSH PRN (20:15)
[2017-04-19] MEDS: SODIUM CHLORIDE 0.9% FLUSH 10 ML FLUSH IV FLUSH SCH (21:00)
--- NOTE | 2017-04-19 21:29 | HHI.HP ---
[facility] Service [facility] ([place], [place])ists Primary Care Physician No Primary Care Physician Admission Diagnosis Elevated troponin, CHf, repeated AICD fire Diagnoses: (1) AICD discharge Chief Complaint: AICD fired 9 times this morning Travel History International Travel<30 Days: No Contact w/Intl Traveler <30 Da: No Traveled to Known Affected Are: No History of Present Illness Written by Zoey Us, acting as scribe for Dr. Diane on 04/19/17 at 21:29. The patient has been home for 2 weeks from prior hospitalization here. Defibrillator fired "nine" times this morning at about 10:30 a.m. he had awakened and walked out to his car to retrieve an item and felt increased heart rate while walking back inside. The patient states he took Metoprolol 50 mg p.o. and it stopped firing. He called the circuit tester to notify them and he heard back from them this afternoon and he was advised to come into the hospital. The AICD has been interrogated. Denies chest pain, shortness of breath, cold extremities, weakness, or dizziness. + palpitations Past two weeks: denies fevers, nausea, vomiting, black or red stool, dysuria, hematuria. He has had a couple of days of loose stools once or twice during the day which has spontaneously resolved. Extremity swelling in right leg has slightly increased. His medication doses have not changed from discharge 2 weeks ago. He reports chronic erythema to bilateral lower extremities due to "poor circulation" in the xiong and calf areas. No recent long distant plane or car rides Review of Systems Except as stated in HPI: all other systems reviewed are Neg Past Family Social History Past Medical History Atrial fibrillation with RVR Hypertension CHF - EF 25 - 30% JUSTYN - CPAP Depression Anxiety History of DM - off insulin for at least two months - has not required insulin BPH Denies CAD (4 catheterizations - negative - has no stents - no bypass history, most recent cardiac cath 2 years ago), breathing problems, liver problems, kidney problems, blood clots in legs or lungs, CVA, seizures, thyroid problems, or cancers . Past Surgical History AICD Tonsillectomy . Reported Medications Reported Meds & Active Scripts Active Cardizem (Diltiazem HCl) 60 Mg Tab 60 Mg PO Q6HR Metoprolol Tartrate 25 Mg Tab 25 Mg PO Q12HR Eliquis (Apixaban) 5 Mg Tab 5 Mg PO BID Entresto (Sacubitril-Valsartan) 49-51 Mg Tab 1 Tab PO BID Potassium Chloride ER (Potassium Chloride) 20 Meq Tab 20 Meq PO DAILY Bumetanide 1 Mg Tab 1 Mg PO BID May take extra pill per every 24 hours for worsening swelling in legs Trazodone (Trazodone HCl) 50 Mg Tab 50 Mg PO HS Cymbalta DR (Duloxetine HCl) 60 Mg Capdr 60 Mg PO DAILY . Allergies: Coded Allergies: ampicillin (Unverified Allergy, Severe, 03/02/17) fire ant (Unverified Allergy, Severe, Anaphylaxis, 03/02/17) MRI PRECAUTION (Verified Adverse Reaction, Severe, 03/25/17) Patient has a [employer] non compatible mri pacemaker. EG 03/25/2017 Active Ordered Medications Current Medications Sodium Chloride (NS Flush) 2 ml UNSCH PRN IVF FLUSH AFTER USING IV ACCESS; Start 04/19/17 at 18:15; Status Cancel Nitroglycerin (Nitroglycerin 2% Oint) 1 inch ONCE ONCE TOPICAL Last administered on 04/19/17 20:00; Start 04/19/17 at 20:00; Stop 04/19/17 at 20:01 ; Status DC Aspirin (Aspirin Chew) 162 mg ONCE ONCE CHEW Last administered on 04/19/17 20 :00; Start 04/19/17 at 20:00; Stop 04/19/17 at 20:01; Status DC Potassium Chloride (KCl) 20 meq ONCE ONCE PO ; Start 04/19/17 at 20:00; Stop 04/19/17 at 20:01; Status DC Sodium Chloride (NS Flush) 2 ml UNSCH PRN IV FLUSH FLUSH AFTER USING IV ACCESS ; Start 04/19/17 at 20:15 Sodium Chloride (NS Flush) 2 ml BID IV FLUSH ; Start 04/19/17 at 21:00 Naloxone HCl (Narcan Inj) 0.4 mg UNSCH PRN IV PUSH SEE LABEL COMMENTS; Start 04/19/17 at 20:15 Potassium Chloride (KCl) 40 meq ONCE ONCE PO ; Start 04/19/17 at 20:15; Stop 04/19/17 at 20:20; Status DC . Family History Mother with Hypertension and CAD and end-stage COPD age 72 Father age 58 stage IV lung cancer . Social History Tobacco: denies Alcohol: no alcohol in 8 months, previously was a heavy drinker Physical Exam Vital Signs Vital Signs Date Time Temp Pulse Resp B/P (MAP) Pulse Ox O2 Delivery O2 Flow Rate FiO2 04/19/17 20:49 100 Nasal Cannula 2.00 04/19/17 19:07 85 24 135/90 (105) 100 Nasal Cannula 2.00 04/19/17 17:49 107 20 150/98 (115) 95 Room Air Physical Exam GENERAL: This is an overweight male patient, in no apparent distress. SKIN: No rashes. Cool and dry. HEAD: Atraumatic. Normocephalic. No temporal or scalp tenderness. EYES: Pupils equal round and reactive. Extraocular motions intact. No scleral icterus. No injection or drainage. ENT: Nose without bleeding, purulent drainage. Uvula midline. Airway patent. NECK: Trachea midline. No JVD. CARDIOVASCULAR: Regular rate and rhythm without murmurs, gallops, or rubs. 3+ lower extremity edema with reddish discoloration on shins and calves bilaterally. RESPIRATORY: Clear to auscultation. Breath sounds equal bilaterally. No wheezes , rales, or rhonchi. GASTROINTESTINAL: Abdomen soft, non-tender, nondistended. No hepato-splenomegaly , or palpable masses. No guarding. MUSCULOSKELETAL: Extremities without clubbing, cyanosis. No calf tenderness. NEUROLOGICAL: Awake and alert. Motor and sensory grossly within normal limits. Normal speech. . Laboratory Laboratory Tests Test 04/19/17 18:20 White Blood Count 5.0 Red Blood Count 4.62 Hemoglobin 11.1 Hematocrit 33.7 Mean Corpuscular Volume 73.0 Mean Corpuscular Hemoglobin 24.0 Mean Corpuscular Hemoglobin Concent 32.8 Red Cell Distribution Width 21.2 Platelet Count 241 Mean Platelet Volume 6.6 Neutrophils (%) (Auto) 56.1 Lymphocytes (%) (Auto) 32.5 Monocytes (%) (Auto) 8.7 Eosinophils (%) (Auto) 1.5 Basophils (%) (Auto) 1.2 Neutrophils # (Auto) 2.8 Lymphocytes # (Auto) 1.6 Monocytes # (Auto) 0.4 Eosinophils # (Auto) 0.1 Basophils # (Auto) 0.1 CBC Comment DIFF FINAL Differential Comment Prothrombin Time 11.5 Prothromb Time International Ratio 1.0 Activated Partial Thromboplast Time 30.0 Blood Urea Nitrogen 10 Creatinine 1.30 Random Glucose 86 Calcium Level 9.2 Magnesium Level 1.9 Sodium Level 138 Potassium Level 3.4 Chloride Level 101 Carbon Dioxide Level 24.2 Anion Gap 13 Estimat Glomerular Filtration Rate 57 Troponin I 1.41 B-Type Natriuretic Peptide 1815 Result Diagram: 04/19/17181904/19/171819 Caprini VTE Risk Assessment Caprini VTE Risk Assessment: Mod/High Risk (score >= 2) Caprini Risk Assessment Model Point Value = 1 Point Value = 2 Point Value = 3 Point Value = 5 Age 41-60 Minor surgery BMI > 25 kg/m2 Swollen legs Varicose veins or History of unexplained or recurrent spontaneous Oral contraceptives or hormone replacement Sepsis (< 1 month) Serious lung disease, including pneumonia (< 1 month) Abnormal pulmonary function Acute myocardial infarction Congestive heart failure (< 1 month) History of inflammatory bowel disease Medical patient at bed rest Age 61-74 Arthroscopic surgery Major open surgery (> 45 min) Laparoscopic surgery (> 45 min) Malignancy Confined to bed (> 72 hours) Immobilizing plaster cast Central venous access Age >= 75 History of VTE Family history of VTE Factor V Leiden Prothrombin [id number] Lupus anticoagulant Anticardiolipin antibodies Elevated serum homocysteine Heparin-induced thrombocytopenia Other congenital or acquired thrombophilia Stroke (< 1 month) Elective arthroplasty Hip, pelvis, or leg fracture Acute spinal cord injury (< 1 month) Prophylaxis Regimen Total Risk Factor Score Risk Level Prophylaxis Regimen 0-1 Low Early ambulation 2 Moderate Order ONE of the following: *Sequential Compression Device (SCD) *Heparin 5000 units SQ BID 3-4 Higher Order ONE of the following medications: *Heparin 5000 units SQ TID *Enoxaparin/Lovenox 40 mg SQ daily (WT < 150 kg, CrCl > 30 mL/min) *Enoxaparin/Lovenox 30 mg SQ daily (WT < 150 kg, CrCl > 10-29 mL/min) *Enoxaparin/Lovenox 30 mg SQ BID (WT < 150 kg, CrCl > 30 mL/min) AND/OR *Sequential Compression Device (SCD) 5 or more Highest Order ONE of the following medications: *Heparin 5000 units SQ TID (Preferred with Epidurals) *Enoxaparin/Lovenox 40 mg SQ daily (WT < 150 kg, CrCl > 30 mL/min) *Enoxaparin/Lovenox 30 mg SQ daily (WT < 150 kg, CrCl > 10-29 mL/min) *Enoxaparin/Lovenox 30 mg SQ BID (WT < 150 kg, CrCl > 30 mL/min) AND *Sequential Compression Device (SCD) Assessment and Plan Problem List: (1) AICD discharge ICD Code: Z45.02 - Encounter for adjustment and management of automatic implantable cardiac defibrillator Status: Resolved (2) Hypokalemia ICD Code: E87.6 - Hypokalemia Status: Acute (3) Elevated troponin I level ICD Code: R74.8 - Abnormal levels of other serum enzymes Status: Acute (4) Atrial fibrillation ICD Code: I48.91 - Unspecified atrial fibrillation Status: Resolved (5) History of type 2 diabetes mellitus ICD Code: Z86.39 - Personal history of other endocrine, nutritional and metabolic disease Status: Chronic (6) Congestive heart failure ICD Code: I50.9 - Heart failure, unspecified Status: Chronic Permanent Comment: Ejection fraction 25%, February 2017 Last Edited By: Kathleen Preston on Apr 22, 2017 09:12 (7) Lower extremity edema ICD Code: R60.0 - Localized edema Status: Chronic Assessment and Plan 61 y/o with nonischemic cardiomyopathy who presented for evaluation due to AICD firing 9 times on 04/19/17: AICD discharged - AICD discharged 9 times in a.m. 04/19/17 - ACS vs electrolyte disturbance - AICD has been interrogated - Stress Test last month negative per patient - consult cardiology - further management with amiodarone per cardiology - Magnesium checked - 2.0 Hypokalemia - Potassium 3.4 on admission - replace potassium - consider increased dose of daily potassium replacement - recheck BMP Elevated troponin I - most likely secondary to v-tach and AICD shock - Troponin I - 1.41 - continue serial cardiac enzymes and EKGs - follow results Atrial fibrillation with variable heart rate - continue Eliquis from home History of Type 2 DM - does not take any medications for this - will check HgA1C Compensated CHF Chronic bilateral lower extremity edema - continue home Lasix - BNP 1816 - elevated compared to prior levels - continue to monitor DVT prophylaxis - home Eliquis will be continued . This note was transcribed by toneiblarry [Zoey sU]. I, Dr. Marcelina Diane personally performed the history, physical exam, and medical decision making; and confirmed the accuracy of the information in the transcribed note. Authenticated by Dr. Marcelina Diane on 04/19/17 at 21:29. Discussed Condition With ER physician, RN, and patient . Physician Certification 2 Midnight Certification Type: Admission for Inpatient Services Order for Inpatient Services The services are ordered in accordance with Medicare regulations or non- Medicare payer requirements, as applicable. In the case of services not specified as inpatient-only, they are appropriately provided as inpatient services in accordance with the 2-midnight benchmark. Estimated LOS (days): 3 days is the estimated time the patient will need to remain in the hospital, assuming treatment plan goals are met and no additional complications. Post-Hospital Plan: Home Problem Qualifiers (1) Congestive heart failure: Qualified Codes: I50.22 - Chronic systolic (congestive) heart failure Zoey Us Apr 19, 2017 21:29 Marcelina Diane MD Apr 27, 2017 23:06
[2017-04-19 22:17] VITALS: BP 118/62
[2017-04-19 22:22] LABS: CREATINE KINASE 81 U/L (39-308)
[2017-04-19 22:35] VITALS: BP 140/93; PULSE 95; RESP 20; TEMP 98; O2SAT 98
[2017-04-19] MEDS ORDERED: POTASSIUM CHLORIDE 10 MEQ CONTROLLED RELEASE TAB PO SCH (23:40)
[2017-04-19] MEDS ORDERED: APIXABAN 5 MG TABLET PO ONE (23:45)
[2017-04-20] VITALS (21 sets, daily range): BP systolic 118–130; BP diastolic 65–83; PULSE 63–84; RESP 16–20; TEMP 97.6–98.6; O2SAT 98–100
[2017-04-20] MEDS: DILTIAZEM HCL 60 MG TAB PO SCH ×4 (00:09→17:49)
[2017-04-20] MEDS: SACUBITRIL/VALSARTAN 49 MG-51 MG TAB PO SCH ×3 (00:09→20:24)
[2017-04-20] MEDS: METOPROLOL TARTRATE 25 MG TAB PO SCH ×3 (00:09→20:24)
[2017-04-20] MEDS: traZODone HCL 50 MG TAB PO SCH ×2 (00:13→20:24)
[2017-04-20] MEDS ORDERED: POTASSIUM CHLORIDE 10 MEQ CONTROLLED RELEASE TAB PO SCH ×2 (00:30→09:00)
[2017-04-20 07:03] LABS: AUTOMATED NEUTROPHIL # 2.3 TH/MM3 (1.8-7.7); BASOPHIL % 0.7 % (0.0-2.0); EOSINOPHIL # 0.1 TH/MM3 (0-0.4); EOSINOPHIL % 2.5 % (0.0-4.0); HEMATOCRIT 27.8 % (39.0-51.0); HEMO FLAGS DIFF FINAL; LYMPH % 37.9 % (9.0-44.0); LYMPHOCYTE # 1.8 TH/MM3 (1.0-4.8); MEAN CORPUSCULAR HEMOGLOBIN 23.9 PG (27.0-34.0); MEAN CORPUSCULAR HGB CONC 32.8 % (32.0-36.0); MONO % 9.8 % (0.0-8.0); NEUT % 49.1 % (16.0-70.0); PLATELET COUNT 203 TH/MM3 (150-450); RED BLOOD COUNT 3.81 MIL/MM3 (4.50-5.90); RED CELL DISTRIBUTION WIDTH 21.2 % (11.6-17.2); WHITE BLOOD COUNT 4.7 TH/MM3 (4.0-11.0)
[2017-04-20 07:07] LABS: BICARBONATE 27.1 MEQ/L (21.0-32.0); POTASSIUM 3.9 MEQ/L (3.5-5.1)
--- NOTE | 2017-04-20 08:12 | EKG ---
Date Performed: 04/19/2017 Time Performed: 18:05:17 PTAGE: 61 years EKG: ATRIAL FIBRILLATION MODERATE INTRAVENTRICULAR CONDUCTION DELAY NONSPECIFIC ST & T-WAVE ABNO RMALITY ABNORMAL RHYTHM ECG Compared to prior tracing no significant change PREVIOUS TRACING : 03/25/2017 03.14 DOCTOR: Rosuara Wills Interpretating Date/Time 04/20/2017 08:10:22
[2017-04-20] MEDS ORDERED: POTASSIUM CHLORIDE 20 MEQ CONTROLLED RELEASE TAB PO SCH (09:00)
[2017-04-20] MEDS: POTASSIUM CHLORIDE 20 MEQ CONTROLLED RELEASE TAB PO SCH (09:00)
[2017-04-20] MEDS: BUMETANIDE 1 MG TAB PO SCH ×2 (09:32→20:24)
[2017-04-20] MEDS: SODIUM CHLORIDE 0.9% FLUSH 10 ML FLUSH IV FLUSH SCH ×2 (09:34→20:29)
[2017-04-20] MEDS: APIXABAN 5 MG TABLET PO SCH ×2 (09:34→20:24)
[2017-04-20] MEDS: DULoxetine HCl DR 60 MG CAP PO SCH (09:34)
--- NOTE | 2017-04-20 16:29 | HHI.PR ---
Subjective Remarks Nursing reports that the patient stated that he felt a little funny in his chest just recently today, denies any isreal further shocking sensation from his device. Patient himself denies any shortness of breath, reports that his lower sternal edema is essentially chronic and unchanged. Denies any chest pain outside of the shocks just prior to coming to the hospital. States that he had an appointment with electrophysiology as an outpatient but was was not able to hold off long enough for the appointment next week since the shocks started occurring again, prompting him to come to the hospital. Objective Vital Signs Date Time Temp Pulse Resp B/P (MAP) Pulse Ox O2 Delivery O2 Flow Rate FiO2 04/20/17 14:07 71 04/20/17 13:00 71 04/20/17 12:03 74 04/20/17 11:05 72 04/20/17 11:00 70 04/20/17 11:00 97.6 77 18 118/73 (88) 99 04/20/17 10:00 76 04/20/17 09:00 72 04/20/17 08:12 97.9 78 16 123/77 (92) 99 04/20/17 08:00 82 04/20/17 07:03 78 04/20/17 04:20 98.0 63 20 125/81 (96) 98 04/19/17 22:35 98.0 95 20 140/93 (109) 98 04/19/17 22:17 108 20 118/62 (80) 100 04/19/17 20:49 100 Nasal Cannula 2.00 04/19/17 19:07 85 24 135/90 (105) 100 Nasal Cannula 2.00 04/19/17 17:49 107 20 150/98 (115) 95 Room Air I/O 04/19/17 04/19/17 04/19/17 04/20/17 04/20/17 04/20/17 07:00 15:00 23:00 07:00 15:00 23:00 Intake Total 480 ml Output Total 550 ml Balance -70 ml Intake Oral 480 ml Output Urine Total 550 ml Result Diagram: 04/20/17 0613 04/20/17 06 Imaging Last Impressions Chest X-Ray 04/19/17 180 Signed Impressions: Service Date/Time: Wednesday, April 19, 2017 18:11 - CONCLUSION: Stable chest x-ray with mild cardiomegaly and suspected scarring, atelectasis, or pleural thickening at the left lateral base. Chato Navarrete MD Objective Remarks Sitting up in bed, no acute distress Heart rate regular rate and rhythm, no murmurs, chronic unchanged moderate +1 lower extremity edema bilaterally Lungs are clear to auscultation bilaterally A/P Assessment and Plan 61 y/o with nonischemic cardiomyopathy who presented for evaluation due to AICD firing 9 times on 04/19/17: AICD discharged - AICD discharged 9 times in a.m. 04/19/17 - ACS vs electrolyte disturbance - AICD has been interrogated - Stress Test last month negative per patient - Awaiting on electrophysiology consultation Hypokalemia - Resolved, likely due to diuretic use Elevated troponin I - most likely secondary to v-tach and AICD shock Atrial fibrillation with variable heart rate - continue Eliquis from home History of Type 2 DM - does not take any medications for this - will check HgA1C Compensated CHF Chronic bilateral lower extremity edema - continue home Lasix and KCL DVT prophylaxis - home Eliquis will be continued Rick William MD Apr 20, 2017 16:29
--- NOTE | 2017-04-20 16:39 | EKG ---
Date Performed: 04/19/2017 Time Performed: 23:56:52 PTAGE: 61 years EKG: Atrial fibrillation with fusion complexes Demand pacing Extensive ST-T changes are nonspeci fic Compared to prior tracing no significant change Abnormal ECG PREVIOUS TRACING : 04/19/2017 18.05 DOCTOR: Rosaura Wills Interpretating Date/Time 04/20/2017 16:36:50
--- NOTE | 2017-04-20 16:40 | EKG ---
Date Performed: 04/20/2017 Time Performed: 05:26:14 PTAGE: 61 years EKG: Atrial fibrillation Demand pacing Anterolateral T wave changes are nonspecific Low QRS volt ages in limb leads Compared to prior tracing no significant change Abnormal ECG PREVIOUS TRACING : 04/19/17 @ 1156 DOCTOR: Rosaura Wills Interpretating Date/Time 04/20/2017 16:37:07
--- NOTE | 2017-04-20 19:59 | MB ---
cc: DAVID SOLORZANO M.D. DATE OF CONSULTATION: 04/20/2017 REASON FOR CONSULTATION: Recurrent defibrillatory shock. HISTORY OF PRESENT ILLNESS: Mr. Varela is a 61 year-old gentleman with a history of cardiomyopathy, has a previous defibrillator implanted maybe a year or two ago. The gentleman does not remember how long ago the defibrillator was implanted. He is on medical treatment. Atrial fibrillation was diagnosed a cisew-ysh-h-half ago. He was put on anticoagulation and he was admitted yesterday morning due to recurrent defibrillatory shock. The gentleman had nine defibrillatory shocks, all of them due to atrial fibrillation with biventricular response. The chart was reviewed. The patient was evaluated. ALLERGIES MRI PRECAUTION AMPICILLIN FIRE ANTS. SOCIAL HISTORY The gentleman currently denied smoking and drinking. FAMILY HISTORY: Noncontributory to his current medical condition. MEDICATIONS: 1. Cardizem. 2. Metoprolol. 3. Eliquis 4. Potassium 5. Bumex 6. Cardizem 7. Cymbalta REVIEW OF SYSTEMS: Currently the patient refers no chest pain, no chest discomfort. No vomiting, no fever. PHYSICAL EXAMINATION Alert fully oriented. VITAL SIGNS: Blood pressure is 130/83, pulse 70, respiratory 18. LUNGS: Ventilated. CARDIOVASCULAR: S1-S2. No gallop, no murmur. ABDOMEN: Obese. No masses. EXTREMITIES: No edema. Electrocardiogram shows atrial fibrillation from demand pacing episode. LABORATORY DATA Hemoglobin 9.1, white blood cells 4.7, potassium 3.9, creatinine 1.32, troponin coming down to 0.41. INR 1.0. ASSESSMENT AND RECOMMENDATION: Mr. Varela has atrial fibrillation with biventricular response. Reviewed the dual chamber defibrillator interrogation, indicates episode of atrial fibrillation with biventricular response. Heart rate is controlled. There is no ____ to continue to push medication. He was on Eliquis, ejection fraction 25%. The increase in troponin most likely is due to the recurrent shock. It is coming down. My assessment and recommendation is observation. There is no chest pain. The gentleman will need electrophysiology study and atrial fibrillation ablation. The risks, the nature and the benefit of the procedure are clearly stated to him. The risks include pneumothorax, cardiac perforation, stroke and even . He understands and agrees to proceed. Procedure will be performed during hospitalization. MD JJ Martinez /6:35 PM /7:15 PM
[2017-04-21] VITALS (24 sets, daily range): BP systolic 117–147; BP diastolic 76–88; PULSE 70–82; RESP 16; TEMP 98.2–98.7; O2SAT 98–100
[2017-04-21] MEDS: DILTIAZEM HCL 60 MG TAB PO SCH ×4 (00:58→17:19)
[2017-04-21] MEDS: DULoxetine HCl DR 60 MG CAP PO SCH (08:26)
[2017-04-21] MEDS: APIXABAN 5 MG TABLET PO SCH (08:26)
[2017-04-21] MEDS: BUMETANIDE 1 MG TAB PO SCH ×2 (08:26→21:00)
[2017-04-21] MEDS: METOPROLOL TARTRATE 25 MG TAB PO SCH ×2 (08:28→21:00)
[2017-04-21] MEDS: SODIUM CHLORIDE 0.9% FLUSH 10 ML FLUSH IV FLUSH SCH ×2 (08:28→20:59)
[2017-04-21] MEDS: POTASSIUM CHLORIDE 20 MEQ CONTROLLED RELEASE TAB PO SCH (08:28)
[2017-04-21] MEDS: SACUBITRIL/VALSARTAN 49 MG-51 MG TAB PO SCH ×2 (08:28→21:00)
--- NOTE | 2017-04-21 18:10 | HHI.PR ---
Subjective Remarks Feeling ok Objective Vital Signs Date Time Temp Pulse Resp B/P (MAP) Pulse Ox O2 Delivery O2 Flow Rate FiO2 04/21/17 16:00 72 04/21/17 16:00 98.2 74 16 117/80 (92) 98 04/21/17 15:00 72 04/21/17 14:00 70 04/21/17 13:00 74 04/21/17 12:00 81 04/21/17 12:00 98.6 74 16 147/88 (107) 100 04/21/17 11:00 70 04/21/17 10:00 72 04/21/17 09:00 72 04/21/17 08:00 98.6 75 16 124/80 (95) 99 04/21/17 08:00 72 04/21/17 08:00 70 04/21/17 07:00 72 04/21/17 06:00 70 04/21/17 05:00 76 04/21/17 04:00 74 04/21/17 03:00 74 04/21/17 02:00 76 04/21/17 01:00 70 04/21/17 00:00 70 04/20/17 23:00 70 04/20/17 22:00 74 04/20/17 21:00 70 04/20/17 20:17 98.6 83 16 118/65 (82) 100 04/20/17 20:00 76 04/20/17 19:00 84 I/O 04/20/17 04/20/17 04/20/17 04/21/17 04/21/17 04/21/17 07:00 15:00 23:00 07:00 15:00 23:00 Intake Total 480 ml 720 ml 540 ml Output Total 550 ml 840 ml 775 ml 1280 ml Balance -70 ml -120 ml -775 ml -740 ml Intake Oral 480 ml 720 ml 540 ml Output Urine Total 550 ml 840 ml 775 ml 1280 ml # Bowel Movements 0 1 Result Diagram: 04/20/1761204/20/17612 Imaging Alert, fully oriented Lungs: ventilated Heart: s1, S2 regular, no gallop Abdomen: soft, no mass Ext: No edema Last Impressions Chest X-Ray 04/19/17 2201 Signed Impressions: Service Date/Time: Wednesday, April 19, 2017 18:11 - CONCLUSION: Stable chest x-ray with mild cardiomegaly and suspected scarring, atelectasis, or pleural thickening at the left lateral base. Chato Navarrete MD Current Medications Medications (Trade) Dose Ordered Sig/Dyllan Route Start Time Stop Time Status Last Admin (NS Flush) 2 ml UNSCH PRN IV FLUSH 04/19/17 20:15 (NS Flush) 2 ml BID IV FLUSH 04/19/17 21:00 04/21/17 08:28 (Narcan Inj) 0.4 mg UNSCH PRN IV PUSH 04/19/17 20:15 (Eliquis) 5 mg BID PO 04/20/17 09:00 Future Hold 04/21/17 08:26 (Bumetanide) 1 mg BID PO 04/20/17 09:00 04/21/17 08:26 (Cardizem) 60 mg Q6HR PO 04/20/17 00:00 04/21/17 17:19 (Cymbalta Dr) 60 mg DAILY PO 04/20/17 09:00 04/21/17 08:26 (Lopressor) 25 mg Q12HR PO 04/19/17 22:15 04/21/17 08:28 (Desyrel) 50 mg HS PO 04/19/17 22:15 04/20/17 20:24 (Entresto 49-51 Mg) 1 tab Q12HR PO 04/19/17 22:15 04/21/17 08:28 (KCl) 20 meq DAILY PO 04/20/17 09:00 Assessment and Plan Problem List: (1) Atrial fibrillation ICD Codes: I48.91 - Unspecified atrial fibrillation Status: Chronic Plan: In sinus rhythm Hr control Ablation cancel. Patient received pradaxa in AM EPS and ablation scheduled for tomorrow (2) Congestive heart failure ICD Codes: I50.9 - Heart failure, unspecified Status: Chronic Plan: Stable. Less SOB Problem Qualifiers (1) Congestive heart failure: Qualified Codes: I50.22 - Chronic systolic (congestive) heart failure Aminata Frias MD Apr 21, 2017 18:10
--- NOTE | 2017-04-21 19:11 | HHI.PR ---
Subjective Remarks Nursing denies any acute deterioration since last night. Patient himself denies any for having further shocks chest pain or shortness of breath. Objective Vital Signs Date Time Temp Pulse Resp B/P (MAP) Pulse Ox O2 Delivery O2 Flow Rate FiO2 04/21/17 18:00 82 04/21/17 17:00 72 04/21/17 16:00 72 04/21/17 16:00 98.2 74 16 117/80 (92) 98 04/21/17 15:00 72 04/21/17 14:00 70 04/21/17 13:00 74 04/21/17 12:00 81 04/21/17 12:00 98.6 74 16 147/88 (107) 100 04/21/17 11:00 70 04/21/17 10:00 72 04/21/17 09:00 72 04/21/17 08:00 98.6 75 16 124/80 (95) 99 04/21/17 08:00 72 04/21/17 08:00 70 04/21/17 07:00 72 04/21/17 06:00 70 04/21/17 05:00 76 04/21/17 04:00 74 04/21/17 03:00 74 04/21/17 02:00 76 04/21/17 01:00 70 04/21/17 00:00 70 04/20/17 23:00 70 04/20/17 22:00 74 04/20/17 21:00 70 04/20/17 20:17 98.6 83 16 118/65 (82) 100 04/20/17 20:00 76 I/O 04/20/17 04/20/17 04/20/17 04/21/17 04/21/17 04/21/17 07:00 15:00 23:00 07:00 15:00 23:00 Intake Total 480 ml 720 ml 540 ml Output Total 550 ml 840 ml 775 ml 1280 ml Balance -70 ml -120 ml -775 ml -740 ml Intake Oral 480 ml 720 ml 540 ml Output Urine Total 550 ml 840 ml 775 ml 1280 ml # Bowel Movements 0 1 Result Diagram: 04/20/1761204/20/17612 Objective Remarks Sitting up in bed, no acute distress, eating dinner Heart rate regular rate and rhythm, no murmurs, chronic unchanged moderate +1 lower extremity edema bilaterally Lungs are clear to auscultation bilaterally A/P Assessment and Plan 61 y/o with nonischemic cardiomyopathy who presented for evaluation due to AICD firing 9 times on 04/19/17: AICD discharged - AICD discharged 9 times in a.m. 04/19/17 - ACS vs electrolyte disturbance - AICD has been interrogated - Stress Test last month negative per patient - EP ablation set for tomorrow Elevated troponin I - most likely secondary to v-tach and AICD shock Atrial fibrillation with variable heart rate - continue Eliquis from home History of Type 2 DM - does not take any medications for this - awaiting A1c hypokalemia - 2/2 diuretic use, trend in AM Compensated CHF Chronic bilateral lower extremity edema - continue home Lasix and KCL, entresto DVT prophylaxis - holding eliquis for ablation tomorrow Anxiety/dep - Continue home Rick Sherwood MD Apr 21, 2017 19:11
[2017-04-21] MEDS: POTASSIUM CHLORIDE 10 MEQ CONTROLLED RELEASE TAB PO SCH (20:59)
[2017-04-21] MEDS: traZODone HCL 50 MG TAB PO SCH (21:00)
[2017-04-22] VITALS (17 sets, daily range): BP systolic 79–139; BP diastolic 50–90; PULSE 61–94; RESP 16–20; TEMP 98.2–98.6; O2SAT 97–100
[2017-04-22] MEDS: DILTIAZEM HCL 60 MG TAB PO SCH ×3 (01:03→11:26)
[2017-04-22 07:10] LABS: ANION GAP 5 MEQ/L (5-15); BICARBONATE 29.7 MEQ/L (21.0-32.0); BLOOD UREA NITROGEN 10 MG/DL (7-18); CHLORIDE 103 MEQ/L (98-107); GLOMERULAR FILTRATION RATE 65 ML/MIN (>89); POTASSIUM 3.4 MEQ/L (3.5-5.1); SODIUM (NA) 138 MEQ/L (136-145)
[2017-04-22] MEDS: METOPROLOL TARTRATE 25 MG TAB PO SCH ×2 (08:14→22:39)
[2017-04-22] MEDS: BUMETANIDE 1 MG TAB PO SCH ×2 (08:14→22:39)
[2017-04-22] MEDS: DULoxetine HCl DR 60 MG CAP PO SCH (08:14)
[2017-04-22] MEDS: SACUBITRIL/VALSARTAN 49 MG-51 MG TAB PO SCH ×2 (08:14→22:39)
[2017-04-22] MEDS: POTASSIUM CHLORIDE 10 MEQ CONTROLLED RELEASE TAB PO SCH (08:15)
[2017-04-22] MEDS: SODIUM CHLORIDE 0.9% FLUSH 10 ML FLUSH IV FLUSH SCH ×2 (08:15→21:00)
--- NOTE | 2017-04-22 09:13 | HHI.PR ---
Subjective Remarks No palpitations. No complaint of chest pain shortness of breath. Objective Vitals Vital Signs Date Time Temp Pulse Resp B/P (MAP) Pulse Ox O2 Delivery O2 Flow Rate FiO2 04/22/17 08:00 98.3 82 20 137/82 (100) 99 04/22/17 08:00 71 04/22/17 04:41 98.6 73 122/74 (90) 99 04/22/17 04:00 72 04/22/17 03:00 78 04/22/17 02:00 72 04/22/17 01:00 94 04/22/17 00:00 98.4 88 127/85 (99) 97 04/22/17 00:00 72 04/21/17 23:00 76 04/21/17 22:00 70 04/21/17 21:00 76 04/21/17 20:00 98.7 71 127/76 (93) 100 04/21/17 20:00 78 04/21/17 19:00 75 04/21/17 18:00 82 04/21/17 17:00 72 04/21/17 16:00 72 04/21/17 16:00 98.2 74 16 117/80 (92) 98 04/21/17 15:00 72 04/21/17 14:00 70 04/21/17 13:00 74 04/21/17 12:00 81 04/21/17 12:00 98.6 74 16 147/88 (107) 100 04/21/17 11:00 70 04/21/17 10:00 72 I/O 04/21/17 04/21/17 04/21/17 04/22/17 04/22/17 04/22/17 07:00 15:00 23:00 07:00 15:00 23:00 Intake Total 540 ml 240 ml Output Total 775 ml 1280 ml 800 ml Balance -775 ml -740 ml -560 ml Intake Oral 540 ml 240 ml Output Urine Total 775 ml 1280 ml 800 ml # Bowel Movements 1 Result Diagram: 04/20/1761204/22/17612 Objective Remarks GENERAL: This is a well-nourished, well-developed patient, in no apparent distress. CARDIOVASCULAR: Regular rate and rhythm w RESPIRATORY: Clear to auscultation. Breath sounds equal bilaterally. No wheezes , rales, or rhonchi. GASTROINTESTINAL: Abdomen soft, non-tender, nondistended. Normal active bowel sounds MUSCULOSKELETAL: Extremities without clubbing, cyanosis, or edema. NEURO: Alert & Oriented x4 to person, place, time, situation. Moves all ext x4 A/P Problem List: (1) AICD discharge ICD Code: Z45.02 - Encounter for adjustment and management of automatic implantable cardiac defibrillator Status: Acute (2) Hypokalemia ICD Code: E87.6 - Hypokalemia (3) Elevated troponin I level ICD Code: R74.8 - Abnormal levels of other serum enzymes Status: Acute (4) Atrial fibrillation ICD Code: I48.91 - Unspecified atrial fibrillation Status: Chronic (5) History of type 2 diabetes mellitus ICD Code: Z86.39 - Personal history of other endocrine, nutritional and metabolic disease (6) Congestive heart failure ICD Code: I50.9 - Heart failure, unspecified Status: Chronic (7) Lower extremity edema ICD Code: R60.0 - Localized edema Status: Chronic Assessment and Plan 61 y/o with nonischemic cardiomyopathy who presented for evaluation due to AICD firing 9 times on 04/19/17: AICD discharged - AICD discharged 9 times in a.m. 04/19/17 - ACS vs electrolyte disturbance - AICD has been interrogated - Stress Test last month negative per patient - EP ablation with Dr. Frias today, anticoagulation Eliquis on hold. Elevated troponin I - most likely secondary to v-tach and AICD shock Paroxysmal Atrial fibrillation with variable heart rate currently in sinus - continue Lopressor and for EP study today History of Type 2 DM - continue Accu-Cheks with sliding scale insulin coverage - awaiting hemoglobin A1c hypokalemia -replete Compensated chronic systolic CHF with Chronic bilateral lower extremity edema - continue home Lasix and KCL, e DVT prophylaxis - holding eliquis for ablation today and will restart after his procedure. Anxiety/dep - Continue home Cymbalta Discharge Planning Home when cleared by cardiology. Problem Qualifiers (1) Congestive heart failure: Qualified Codes: I50.22 - Chronic systolic (congestive) heart failure Kathleen Preston MD Apr 22, 2017 09:13
[2017-04-22] MEDS ORDERED: DEXTROSE 50% IN WATER 50 ML VIAL(D50) IV PUSH PRN (09:15)
[2017-04-22] MEDS ORDERED: GLUCAGON 1 MG/ML VIAL OTHER PRN (09:15)
[2017-04-22 09:36] LABS: HEMOGLOBIN A1a 0.9 %; HEMOGLOBIN A1b 1.6 %; HEMOGLOBIN Ao 85.5 %; HEMOGLOBIN LA1C 2.1 %; HEMOGLOBIN P3 5.2 %
[2017-04-22] MEDS ORDERED: POTASSIUM CHLORIDE 20 MEQ CONTROLLED RELEASE TAB PO ONE (11:00)
[2017-04-22] MEDS ORDERED: ONDANSETRON HCL 4 MG/2 ML VIAL IV PUSH ONE (12:00)
[2017-04-22] MEDS ORDERED: LIDOCAINE HCL 1% PF 5 ML AMPULE OTHER ONE (12:00)
[2017-04-22] MEDS ORDERED: PROPOFOL 200 MG/20 ML AMP IV ONE (12:00)
[2017-04-22] MEDS ORDERED: GLYCOPYRROLATE 1 MG/5 ML SYRINGE IV PUSH ONE (12:00)
[2017-04-22] MEDS ORDERED: METOPROLOL TARTRATE 5 MG/5 ML VIAL IV PUSH ONE (12:00)
[2017-04-22] MEDS ORDERED: SODIUM CHLORID 0.9% 500 ML INJ 500 ML IV ONE (12:00)
[2017-04-22] MEDS ORDERED: PHENYLEPH/NS 1000 MCG/10 ML SYR IV ONE (12:00)
[2017-04-22] MEDS ORDERED: INSULIN ASPART SUPPLEMENTAL SCALE SQ SCH (12:00)
[2017-04-22] MEDS ORDERED: ROCURONIUM INJ 50 MG/5 ML SYRINGE IV PUSH ONE (12:00)
[2017-04-22] MEDS ORDERED: NEOSTIGMINE 3 MG/3 ML SYR IV ONE (12:00)
[2017-04-22] MEDS ORDERED: ePHEDrine/NS 25 MG/5 ML SYR IV ONE (12:00)
[2017-04-22] MEDS ORDERED: LEVOFLOXACIN 500 MG PREMIX INJ 100 ML IV ONE (14:13)
[2017-04-22] MEDS ORDERED: HEPARIN-NS/PF INJ 1,000 ML ONE (14:13)
[2017-04-22] MEDS ORDERED: HEPARIN SODIUM - IV 10,000 UNITS/10 ML VIAL ONE ×2 (14:21→14:22)
[2017-04-22] MEDS ORDERED: PROTAMINE SULFATE 50 MG/5 ML VIAL ONE (14:21)
[2017-04-22] MEDS ORDERED: HEPARIN-D5W 25,000 U/250 ML 250 ML ONE (14:21)
[2017-04-22] MEDS ORDERED: ISOPROTERENOL HCL 1 MG/5 ML AMP ONE (14:21)
[2017-04-22] MEDS ORDERED: FUROSEMIDE 40 MG/4 ML VIAL ONE (16:47)
[2017-04-22] MEDS ORDERED: LIDOCAINE HCL 1% 50 ML VIAL INFIL PRN (17:00)
[2017-04-22] MEDS ORDERED: ATROPINE SULFATE 1 MG/ML VIAL IV PUSH PRN (17:00)
[2017-04-22] MEDS ORDERED: oxyCODONE/ACETAMINOPHEN 5 MG/325 MG TAB PO PRN (17:00)
[2017-04-22] MEDS ORDERED: ONDANSETRON HCL 4 MG/2 ML VIAL IV PUSH PRN (17:00)
[2017-04-22] MEDS ORDERED: SODIUM CHLOR 0.9% 250 ML INJ 250 ML IV PRN (17:00)
[2017-04-22] MEDS ORDERED: LORazepam 2 MG/ML VIAL IV PUSH PRN (17:00)
[2017-04-22] MEDS ORDERED: METOCLOPRAMIDE HCL 10 MG/2 ML VIAL IV PUSH PRN (17:00)
[2017-04-22] MEDS: BACITRACIN OINT 0.9 GM PKT TOP ONE (17:00)
--- NOTE | 2017-04-22 17:40 | CATHPROC ---
[employer] HIS Report Study Information Study Number Admission Scheduled Start Study Start [id number] Apr 19 2017 8:10PM 04/21/2017 Apr 22 2017 2:28PM [place] Service Electrophysiology Study Admit Source Facility Department Other [facility] - Film Developer Physician and Clinical Staff Initial Aminata Dobbins Towel Cabinet Repairer Raymond Gonzalez,RT(R) Other Anesthesia, HANDBAG STITCHER Other [place], Janki,TREE KILLER Recorder Kathy Mendosa,RN Scrub Danielle Crowder,HEADER SET UP OPERATOR TECH2 Procedures Performed Procedure Location (Site) Vessel Name Ablation Procedure Cardioversion ICE CATHETER INSERT RA Atruim Equipment Time Residential Installer Description Size Mfg Part Number Used/Scraped NEEDLE, TRANSSEPTAL NRG 98 14:40 [facility] [id number] Used C1 [employer]/ EP 14:40 KIT, TRANSDUCER / AFIB [id number] Used PACER [id number] CATHETER, TACTICATH ABLAT BUNDLE 14:40 [place] Used 65 BUNDLE *[id number] BUNDLE [id number] CATHETER, FR7 OPTIMA SPIRAL 14:40 [place] FR7 *[id number] Used BUNDLE BUNDLE [id number] 14:40 [place] CATHETER, JSN, QUAD BUNDLE FR 5 *[id number] Used BUNDLE [id number] 14:40 [place] CATHETER, JSN, QUAD BUNDLE FR 5 *[id number]- Used BUNDLE [id number] SET, COOL POINT TUBING 14:40 [place] *[id number]- Used BUNDLE BUNDLE SHEATH, FR8.5 STEERABLE SM 14:40 [place] 71CM [id number] Used 71CM BUNDLE COVER, TRANSDUCER CABLE 14:40 [employer] [id number] Used ACUNAV 14:40 CORDIS/PACER SHEATH, FR10 SARITA 11CM FR 10 [id number] Used 14:40 CORDIS/PACER SHEATH, FR9 SARITA 11CM FR 9 [id number] Used [id number] 14:40 [employer] PACK, CCL CUSTOM * Used *[id number] 14:40 MEDLINE PACER SCOTT, LIMB * 1480 *[id number] Used [id number] 14:40 [employer] MEDICAL SHEATH, FR4.5 PRELUDE 11CM FR 4.5 Used 035ACT [id number] 14:40 NAMIC TUBING, HIGH PRESSURE 48" 48" Used *[id number] 14:40 NAMIC TUBING, HIGH PRESSURE 48" 48" Used *[id number] 14:40 [place] [employer] BL[employer]ET,WARM AIR CCL * Used *[id number] 14:40 [place] MEDICAL ELECTRODE KIT, ALEX X SURFACE * [id number] Used [id number] 14:40 [place] MEDICAL SHEATH, EPS, FR6 FAST CATH FR 6 Used *[id number] 14:40 [place] MEDICAL SHEATH, EPS, FR7 FAST CATH FR 7 [id number] Used [id number] 14:40 [place] MEDICAL SHEATH, EPS, FR8 FAST CATH FR 8 Used *[id number] [facility] PAD, ELECTROSURGICAL 14:40 * [id number] *[id number] Used SURGICAL GROUNDING (BLUE) Medication Medication Total Dose (Bolus/Oral) Medication Total Dosage/Unit 1% XYLOCAINE 40 mL HEPARIN 6000 units LASIX 20 mg PROTAMINE 40 mg Medications (Bolus/Oral) Medication Time Given Dosage/Unit Administered By Reason 1% XYLOCAINE 04/22/2017 3:05:09 PM 20 mL Aminata Frias 20 mL 1% XYLOCAINE given in lab by Aminata Frias in Right Groin via Subcutaneous. 1% XYLOCAINE 04/22/2017 3:11:35 PM 20 mL Aminata Frias 20 mL 1% XYLOCAINE given in lab by Aminata Frias in Right Groin via Subcutaneous. HEPARIN 04/22/2017 3:28:09 PM 3000 units Anesthesia, HANDBAG STITCHER 3000 units HEPARIN given in lab by Anesthesia, HANDBAG STITCHER in Right Antecubital via Peripheral IV. Ordered Aminata Bhardwaj. HEPARIN 04/22/2017 3:48:34 PM 3000 units Anesthesia, HANDBAG STITCHER 3000 units HEPARIN given in lab by Anesthesia, HANDBAG STITCHER in Right Antecubital via Peripheral IV. Ordered Aminata Bhardwaj. PROTAMINE 04/22/2017 4:47:01 PM 40 mg Anesthesia, HANDBAG STITCHER 40 mg PROTAMINE given in lab by Anesthesia, HANDBAG STITCHER via Peripheral IV. Ordered by Aminata Frias. LASIX 04/22/2017 4:49:20 PM 20 mg Anesthesia, HANDBAG STITCHER 20 mg LASIX given in lab by Anesthesia, HANDBAG STITCHER via Peripheral IV. Ordered by Aminata Frias. Medication (Drip) Medication Time Given Dosage/Unit Concentration/Unit Diluent (ml) Solution HEPARIN DRIP 04/22/2017 3:28:57 PM 1000 units/hr 16640 units 250 D5W 1000 units/hr HEPARIN DRIP given in lab by Anesthesia, HANDBAG STITCHER via Peripheral IV. Pump/Drip Flow = 10 ml /hr using [place] [address] units in 250 ml. Ordered by Aminata Frias. ISUPREL 04/22/2017 4:31:00 PM 10 mcg/min 1 mg 250 NaCl .9 10 mcg/min ISUPREL given in lab by Anesthesia, HANDBAG STITCHER via Peripheral IV. Pump/Drip Flow = 150 ml/hr usi ng NaCl .9 with a concentration of 1 mg in 250 ml. Ordered by Aminata Frias. Initial Case Assessment Cardiovascular HR Rhythm NIBP Chest Pain 71 a fib 128/68 0 Edema Present Skin color Skin Moderate Normal Warm Dry Circulatory - Right Pulses Dorsalis Pedis d Scale (0,1,2,3,4,d) Circulatory - Left Pulses Dorsalis Pedis d Scale (0,1,2,3,4,d) Neurological State Oriented to time-place- Alert Moves all extremities person Respiration - General Respiration Rate SpO2 (%) (B/min) 18 99 Chronological Log Time Study Chronological Log 14:05:00 Patient arrived via Bed. 14:05:01 Patient Name, D.O.B, / Armband Verified By R.N. 14:07:00 Anesthesia at bedside. Assumes care of patient. See records for alll meds and vitals during procedure 14:10:00 Patient has been NPO for More than 6Hrs. 14:16:50 Skin Breakdown- bilat lower legs edema and discoloration 14:35:15 DR SHEEHAN PRESENT FOR INTUBATION WITH HEATHER V HANDBAG STITCHER 14:36:09 Iwona MENDOSA RN INSERTED 14F PIERCE W/O DIFFICULTY CLEAR YELLOW URINE WITH IMMED RETURN 14:36:23 Verbal Stimulation=2 Physical Stimulation=2 Airway=2 Respiration=2 TOTAL=8. (0=absent, 1=li mited, 2=present) 14:38:15 Disposable Defibrillator Pads Placed On Patient. 14:38:17 Eveline Prominences Protected 14:38:18 A # 20 IV was noted in the Antecubital (left). Grade = 0 14:38:26 A # 20 IV was noted in the Antecubital (right). Grade = 0 14:38:33 History and physical on the chart or being dictated. Assessment: Initial Case, HR=71 BPM, Rhythm=a fib, SYWW=689/68 mmhg, Chest Pain=0, Edema=Mod, C olor=Normal, Skin = Warm, Dry Right Pulses: Billy Ped=d 14:38:34 Left Pulses: Billy Ped=d Neurological: State=Alert, Ox3, MULLINS Respiration: Resp=18 B/min, SpO2=99 % 14:39:30 Table restraints applied according to hospital policy 14:39:31 Bilateral groins prepped with 2% chlorhexidine, and draped after a 3 minute waiting time. 14:39:34 MD paged 14:41:00 MD responded 14:55:00 MD arrived. Time Out. Correct patient, procedure, procedure equipment, site and side verified with physicia n present. Time 14:58:15 concurred by MD, individual staff and HANDBAG STITCHER. Time Out #2 - Consents verified, patient in correct position, all results are labled and displa yed, safety precautions 14:58:22 taken, antibiotics administered. Time out concurred by MD, individual staff and HANDBAG STITCHER in procedu re 14:59:30 Case Start 14:59:50 VANESSA IN PROGRESSS 15:02:55 VANESSA COMPLETE 15:05:09 20 mL 1% XYLOCAINE given in lab by Aminata Frias in Right Groin via Subcutaneous. 15:06:06 Vascular access was obtained in the Fem Vein (left). 15:06:09 Vascular access was obtained in the Fem Vein (left). 15:06:10 Vascular access was obtained in the Fem Vein (left). 15:06:12 Vascular access was obtained in the Fem Art (left). 15:06:50 A SHEATH, FR4.5 PRELUDE 11CM FR 4.5 was advanced into the Fem Art (left) using the Modified Seldinger technique. 15:07:01 A SHEATH, EPS, FR6 FAST CATH FR 6 was advanced into the Fem Vein (left) using the Modified Seldinger technique. 15:07:07 A SHEATH, EPS, FR7 FAST CATH FR 7 was advanced into the Fem Vein (left) using the Modified Seldinger technique. 15:07:10 A SHEATH, FR10 SARITA 11CM FR 10 was advanced into the Fem Vein (left) using the Modified S eldinger technique. 15:11:35 20 mL 1% XYLOCAINE given in lab by Aminata Frias in Right Groin via Subcutaneous. 15:11:59 Vascular access was obtained in the Fem Vein (right). 15:12:15 A SHEATH, EPS, FR8 FAST CATH FR 8 was advanced into the Fem Vein (right) using the Modified Seldinger technique. A CATHETER, JSN, QUAD BUNDLE FR 5 was advanced vis Fem Vein (left) and placed in the CS. Placem ent was visually 15:16:33 confirmed under fluoroscopy. A CATHETER, JSN, QUAD BUNDLE FR 5 was advanced vis Fem Vein (left) and placed in the HIS. Place ment was 15:16:55 visually confirmed under fluoroscopy. 15:17:11 ice catheter Was Postioned. A SHEATH, FR8.5 STEERABLE SM 71CM BUNDLE 71CM was exchanged in the Fem Vein (right). This was n ecessary in 15:17:18 order to accomodate a larger catheter. 15:17:19 BAYLIS NEEDLE INSERTED 15:19:10 A eps was advanced to the right atrium and passed through the septal wall to the left atriu m. 15:22:10 BAYLIS REMOVED A CATHETER, FR7 OPTIMA SPIRAL BUNDLE FR7 was advanced vis Fem Vein (right) and placed in the LA . Placement 15:24:32 was visually confirmed under fluoroscopy. 15:25:33 Activated Clotting Time Drawn 15:25:44 Reference ECG taken 15:26:16 MAPPING IN PROGRESS 15:27:38 ACT (Normal Range 90-180) = 323 15:28:09 3000 units HEPARIN given in lab by Anesthesia, HANDBAG STITCHER in Right Antecubital via Peripheral IV. Ordered by Aminata Frias. 1000 units/hr HEPARIN DRIP given in lab by Anesthesia, HANDBAG STITCHER via Peripheral IV. Pump/Drip Flow = 10 ml/hr using 15:28:57 [place] [address] units in 250 ml. Ordered by Aminata Frias. MAPPING CATHERTER REMOVED 15:32:43 15:39:34 Activated Clotting Time Drawn 15:48:23 ACT (Normal Range 90-180) = 324 15:48:34 3000 units HEPARIN given in lab by Anesthesia, HANDBAG STITCHER in Right Antecubital via Peripheral IV . Ordered by Aminata Frias. 15:57:55 Activated Clotting Time Drawn 16:01:36 ACT (Normal Range 90-180) = 414 16:20:52 REMOVED ABLATION CATHETER 16:21:35 ECG rhythm of AF noted. Patient cardioverted at 200 joules. Success SYNC 16:25:46 ACT (Normal Range 90-180) = 437 10 mcg/min ISUPREL given in lab by Anesthesia, HANDBAG STITCHER via Peripheral IV. Pump/Drip Flow = 150 ml /hr using NaCl .9 16:31:00 with a concentration of 1 mg in 250 ml. Ordered by Aminata Frias. 16:40:22 D/C ISUPREL A SHEATH, FR9 SARITA 11CM FR 9 was exchanged in the Fem Vein (right). This was necessary in or fede to minimize 16:43:21 site leakage. 16:44:31 Catheter(s) removed without difficulty 16:47:01 40 mg PROTAMINE given in lab by Anesthesia, HANDBAG STITCHER via Peripheral IV. Ordered by Preet Frias. 16:49:20 20 mg LASIX given in lab by Anesthesia, HANDBAG STITCHER via Peripheral IV. Ordered by Aminata Frias. 16:50:00 wyatt unscrubbed and complete 16:55:01 Activated Clotting Time Drawn 16:57:42 ACT (Normal Range 90-180) = 171 16:58:36 Sheath removed; pressure applied to access site. RIGHT JANKI 17:30:34 Case End 17:39:49 Ablation procedure performed: AFIB. 17:39:55 EP Procedure was performed. End Study - Contrast Media Used In Study Contrast Total Opened (mL) Total Used (mL) Total Wasted (mL) Unspecified 0 0 0 End Study - Radiation Exposure Fluoro Time (minutes) 2.6 End Study - Patient Disposition Complications Transferred To Interventional Outcome No Telemetry Bed successful
[2017-04-22] MEDS ORDERED: DO NOT ADM ANY ANTICOAGULANT DRUGS PRN (18:15)
[2017-04-22] MEDS ORDERED: APIXABAN 5 MG TABLET PO SCH (21:00)
[2017-04-22] MEDS: traZODone HCL 50 MG TAB PO SCH (22:39)
[2017-04-22] MEDS: APIXABAN 5 MG TABLET PO SCH (22:40)
[2017-04-22] MEDS: oxyCODONE/ACETAMINOPHEN 5 MG/325 MG TAB PO PRN (22:40)
[2017-04-23] VITALS (18 sets, daily range): BP systolic 117–130; BP diastolic 67–85; PULSE 65–90; RESP 16; TEMP 97.4–98.4; O2SAT 98–100
[2017-04-23 06:51] LABS: APTT (PATIENT) 31.4 SEC (24.3-30.1); INTERNATIONAL NORMALIZED RATIO 1.1 RATIO; PROTHROMBIN TIME - PATIENT 12.3 SEC (9.8-11.6)
[2017-04-23] MEDS: SODIUM CHLORIDE 0.9% FLUSH 10 ML FLUSH IV FLUSH SCH ×2 (09:29→14:21)
[2017-04-23] MEDS: DULoxetine HCl DR 60 MG CAP PO SCH (09:33)
[2017-04-23] MEDS: BUMETANIDE 1 MG TAB PO SCH ×2 (09:34→20:31)
[2017-04-23] MEDS: APIXABAN 5 MG TABLET PO SCH ×2 (09:35→20:31)
[2017-04-23] MEDS: METOPROLOL TARTRATE 25 MG TAB PO SCH ×2 (09:35→20:31)
[2017-04-23] MEDS: POTASSIUM CHLORIDE 10 MEQ CONTROLLED RELEASE TAB PO SCH ×2 (09:36→09:45)
[2017-04-23] MEDS: SACUBITRIL/VALSARTAN 49 MG-51 MG TAB PO SCH ×2 (10:49→20:31)
[2017-04-23] MEDS: oxyCODONE/ACETAMINOPHEN 5 MG/325 MG TAB PO PRN ×2 (11:53→20:32)
--- NOTE | 2017-04-23 12:55 | EKG ---
Date Performed: 04/22/2017 Time Performed: 18:13:26 PTAGE: 61 years EKG: ELECTRONIC ATRIAL PACEMAKER ST DEVIATION AND MODERATE T-WAVE ABNORMALITY, CONSIDER ANTEROLA TERAL ISCHEMIA ABNORMAL ECG PREVIOUS TRACING : 04/20/2017 05.26 Compared to prior tracing no significant change DOCTOR: Arley Wall Interpretating Date/Time 04/23/2017 12:53:31
--- NOTE | 2017-04-23 12:55 | EKG ---
Date Performed: 04/23/2017 Time Performed: 05:17:32 PTAGE: 61 years EKG: Sinus arrhythmia Prolonged QT interval Poor R wave progression Extensive ST-T changes may b e due to myocardial ischemia Low QRS voltages in limb leads Abnormal ECG PREVIOUS TRACING : 04/22/2017 18.13 Consider anterolateral ischemia. DOCTOR: Arley Wall Interpretating Date/Time 04/23/2017 12:54:36
[2017-04-23] MEDS ORDERED: FUROSEMIDE 40 MG/4 ML VIAL IV PUSH ONE (14:00)
[2017-04-23] MEDS ORDERED: TAMSULOSIN HCL 0.4 MG CAP PO ONE (14:00)
[2017-04-23] MEDS ORDERED: POTASSIUM CHLORIDE 20 MEQ CONTROLLED RELEASE TAB PO ONE (14:00)
--- NOTE | 2017-04-23 14:05 | HHI.PR ---
Subjective Remarks Patient states that he is having difficulty urinating this morning. He states that he had a Frank catheter placed pre-procedure and since remove the Frank catheter has had difficulty urinating and painful around the area. He denies any chills or fever. He states he does not feel comfortable going home today until he is able to urinate better. Objective Vitals Vital Signs Date Time Temp Pulse Resp B/P (MAP) Pulse Ox O2 Delivery O2 Flow Rate FiO2 04/23/17 11:00 98.3 90 16 130/67 (88) 100 04/23/17 11:00 75 04/23/17 07:30 97.4 86 16 117/85 (96) 98 04/23/17 03:19 65 04/23/17 00:06 18 04/22/17 23:00 72 04/22/17 23:00 98.4 71 18 79/50 (60) 100 04/22/17 20:00 98.2 94 18 110/68 (82) 100 04/22/17 19:00 86 04/22/17 18:25 98.4 61 16 103/62 (76) 100 04/22/17 18:15 60 16 93/55 (68) 95 Nasal Cannula 2 04/22/17 18:00 60 16 92/54 (67) 94 Nasal Cannula 2 04/22/17 17:55 60 16 86/51 (63) 94 Nasal Cannula 2 04/22/17 17:47 98.1 60 16 86/54 (65) 96 Nasal Cannula 2 I/O 04/22/17 04/22/17 04/22/17 04/23/17 04/23/17 04/23/17 07:00 15:00 23:00 07:00 15:00 23:00 Intake Total 240 ml 120 ml 620 ml Output Total 800 ml 1075 ml 350 ml Balance -560 ml -955 ml 270 ml Intake Oral 240 ml 120 ml 620 ml IV Total 0 ml Output Urine Total 800 ml 1075 ml 350 ml # Voids 0 # Bowel Movements 0 0 Result Diagram: 04/23/17 1055 04/22/17 0613 Objective Remarks GENERAL: This is a well-nourished, well-developed patient, in no apparent distress. CARDIOVASCULAR: Regular rate and rhythm w RESPIRATORY: Clear to auscultation. Breath sounds equal bilaterally. No wheezes , rales, or rhonchi. GASTROINTESTINAL: Abdomen soft, non-tender, nondistended. Normal active bowel sounds MUSCULOSKELETAL: Extremities without clubbing, cyanosis, or edema. NEURO: Alert & Oriented x4 to person, place, time, situation. Moves all ext x4 A/P Problem List: (1) AICD discharge ICD Code: Z45.02 - Encounter for adjustment and management of automatic implantable cardiac defibrillator Status: Resolved (2) Hypokalemia ICD Code: E87.6 - Hypokalemia Status: Acute (3) Elevated troponin I level ICD Code: R74.8 - Abnormal levels of other serum enzymes Status: Acute (4) Atrial fibrillation ICD Code: I48.91 - Unspecified atrial fibrillation Status: Resolved (5) History of type 2 diabetes mellitus ICD Code: Z86.39 - Personal history of other endocrine, nutritional and metabolic disease Status: Chronic (6) Congestive heart failure ICD Code: I50.9 - Heart failure, unspecified Status: Chronic Permanent Comment: Ejection fraction 25%, February 2017 Last Edited By: Kathleen Preston on Apr 22, 2017 09:12 (7) Lower extremity edema ICD Code: R60.0 - Localized edema Status: Chronic Assessment and Plan 61 y/o with nonischemic cardiomyopathy who presented for evaluation due to AICD firing 9 times on 04/19/17: AICD discharged - AICD discharged 9 times in a.m. 04/19/17 - ACS vs electrolyte disturbance - AICD has been interrogated - Stress Test last month negative per patient - Status post EP ablation with Dr. Frias yesterday April 22, anticoagulation Eliquis restarted Elevated troponin I - most likely secondary to v-tach and AICD shock Paroxysmal Atrial fibrillation with variable heart rate currently in sinus - continue Lopressor and Eliquis History of Type 2 DM - continue Accu-Cheks with sliding scale insulin coverage - awaiting hemoglobin A1c hypokalemia -replete Compensated chronic systolic CHF with Chronic bilateral lower extremity edema - continue home Bumex and KCL, Urinary retention post procedure- obtain bladder scan and urinalysis, Flomax to be given along with an Dose of IV Lasix DVT prophylaxis - eliquis Anxiety/depression - Continue home Cymbalta Discharge Planning DC to home in the morning if patient able to void. Problem Qualifiers (1) Congestive heart failure: Qualified Codes: I50.22 - Chronic systolic (congestive) heart failure Kathleen Preston MD Apr 23, 2017 14:05
[2017-04-23] MEDS ORDERED: POTASSIUM CHLORIDE 10 MEQ CONTROLLED RELEASE TAB PO ONE (14:45)
[2017-04-23 17:17] LABS: BACTERIA, URINE RARE /hpf; BLOOD, URINE SMALL (NEG); GLUCOSE,URINE NEG (NEG); HYALINE CAST, URINE 3 /lpf (RARE); KETONE, URINE NEG (NEG); MUCUS URINE FEW /lpf (OCC); NITRITE,URINE NEG (NEG); URINE COLOR YELLOW (YELLW/STRAW)
[2017-04-23 17:19] LABS: COMMENT (UR) CATH-CULTURE IND; CULTURE IF INDICATED CATH CULTURE IND
[2017-04-23] MEDS: traZODone HCL 50 MG TAB PO SCH (20:31)
[2017-04-24] VITALS (9 sets, daily range): BP systolic 128; BP diastolic 71; PULSE 68–80; RESP 16–18; TEMP 98.9–99.2; O2SAT 98
[2017-04-24 05:29] LABS: BICARBONATE 27.7 MEQ/L (21.0-32.0)
[2017-04-24] MEDS ORDERED: TAMSULOSIN HCL 0.4 MG CAP PO SCH (09:00)
[2017-04-24] MEDS: POTASSIUM CHLORIDE 10 MEQ CONTROLLED RELEASE TAB PO SCH (10:04)
[2017-04-24] MEDS: APIXABAN 5 MG TABLET PO SCH (10:04)
[2017-04-24] MEDS: METOPROLOL TARTRATE 25 MG TAB PO SCH (10:05)
[2017-04-24] MEDS: BUMETANIDE 1 MG TAB PO SCH (10:05)
[2017-04-24] MEDS: SACUBITRIL/VALSARTAN 49 MG-51 MG TAB PO SCH (10:05)
[2017-04-24] MEDS: DULoxetine HCl DR 60 MG CAP PO SCH (10:06)
[2017-04-24] MEDS: SODIUM CHLORIDE 0.9% FLUSH 10 ML FLUSH IV FLUSH SCH (10:06)
[2017-04-24] MEDS ORDERED: TAMS5CAP PO (10:18)
--- NOTE | 2017-04-24 11:19 | HHI.DS ---
Discharge Summary Admission Date Apr 19, 2017 at 20:10 Discharge Date: Apr 24, 2017 Admitting Diagnosis Elevated troponin, CHf, repeated AICD fire (1) AICD discharge ICD Code: Z45.02 - Encounter for adjustment and management of automatic implantable cardiac defibrillator Status: Resolved (2) Hypokalemia ICD Code: E87.6 - Hypokalemia Status: Acute (3) Elevated troponin I level ICD Code: R74.8 - Abnormal levels of other serum enzymes Status: Acute (4) Atrial fibrillation ICD Code: I48.91 - Unspecified atrial fibrillation Status: Resolved (5) History of type 2 diabetes mellitus ICD Code: Z86.39 - Personal history of other endocrine, nutritional and metabolic disease Status: Chronic (6) Congestive heart failure ICD Code: I50.9 - Heart failure, unspecified Status: Chronic (7) Lower extremity edema ICD Code: R60.0 - Localized edema Status: Chronic Procedures EP ablation Brief History - From Admission Written by Zoey Us, acting as scribe for Dr. Diane on 04/19/17 at 21:29. The patient has been home for 2 weeks from prior hospitalization here. Defibrillator fired "nine" times this morning at about 10:30 a.m. he had awakened and walked out to his car to retrieve an item and felt increased heart rate while walking back inside. The patient states he took Metoprolol 50 mg p.o. and it stopped firing. He called the brake repairer bus to notify them and he heard back from them this afternoon and he was advised to come into the hospital. The AICD has been interrogated. Denies chest pain, shortness of breath, cold extremities, weakness, or dizziness. + palpitations Past two weeks: denies fevers, nausea, vomiting, black or red stool, dysuria, hematuria. He has had a couple of days of loose stools once or twice during the day which has spontaneously resolved. Extremity swelling in right leg has slightly increased. His medication doses have not changed from discharge 2 weeks ago. He reports chronic erythema to bilateral lower extremities due to "poor circulation" in the xiong and calf areas. No recent long distant plane or car rides CBC/BMP: 04/23/17 1055 04/24/17 0436 Significant Findings Laboratory Tests Test 04/22/17 06:13 04/23/17 06:28 04/23/17 10:55 04/23/17 16:00 Random Glucose 111 MG/DL (74-106) Potassium Level 3.4 MEQ/L (3.5-5.1) Estimat Glomerular Filtration Rate 65 ML/MIN (>89) Prothrombin Time 12.3 SEC (9.8-11.6) Activated Partial Thromboplast Time 31.4 SEC (24.3-30.1) Hemoglobin 10.9 GM/DL (13.0-17.0) Urine Occult Blood SMALL (NEG) Urine RBC 37 /hpf (0-3) Urine Bacteria RARE /hpf (NONE) Urine Mucus FEW /lpf (OCC) Test 04/24/17 04:36 Creatinine 1.40 MG/DL (0.60-1.30) Calcium Level 8.3 MG/DL (8.5-10.1) Estimat Glomerular Filtration Rate 52 ML/MIN (>89) PE at Discharge GENERAL: This is a well-nourished, well-developed patient, in no apparent distress. CARDIOVASCULAR: Regular rate and rhythm w RESPIRATORY: Clear to auscultation. Breath sounds equal bilaterally. No wheezes , rales, or rhonchi. GASTROINTESTINAL: Abdomen soft, non-tender, nondistended. Normal active bowel sounds MUSCULOSKELETAL: Extremities without clubbing, cyanosis, or edema. NEURO: Alert & Oriented x4 to person, place, time, situation. Moves all ext x4 Hospital Course 61 y/o with nonischemic cardiomyopathy who presented for evaluation due to AICD firing 9 times on 04/19/17: AICD discharged - AICD discharged 9 times in a.m. 04/19/17 - ACS vs electrolyte disturbance - AICD has been interrogated - Stress Test last month negative per patient - Status post EP ablation with Dr. Frias yesterday April 22, anticoagulation Eliquis restarted Elevated troponin I most likely secondary to v-tach and AICD shock Paroxysmal Atrial fibrillation with variable heart rate currently in sinus - continue Lopressor and Eliquis History of Type 2 DM - continue Accu-Cheks with sliding scale insulin coverage A1c is 5.8 wnl , ff outpt Compensated chronic systolic CHF with Chronic bilateral lower extremity edema continue home Bumex and KCL, Urinary retention post procedure- Flomax given, improved Pt Condition on Discharge: Fair Discharge Disposition: Discharge Home Discharge Time: <= 30 minutes Discharge Instructions DIET: Follow Instructions for: Heart Healthy Diet Activities you can perform: Weight Bearing as Stephan Follow up Referrals: Cardiology - 1 Week with Aminata Frias MD New Orders: BASIC METABOLIC PROF - 1 Week New Medications: Tamsulosin (Flomax) 0.4 Mg Cap 0.4 MG PO DAILY for UR, #30 CAP Continued Medications: Apixaban (Eliquis) 5 Mg Tab 5 MG PO BID, #60 TAB Bumetanide (Bumetanide) 1 Mg Tab 1 MG PO BID, #60 TAB 0 Refills May take extra pill per every 24 hours for worsening swelling in legs Duloxetine DR (Cymbalta DR) 60 Mg Capdr 60 MG PO DAILY for Depression Control, #30 CAP 0 Refills Metoprolol Tartrate (Metoprolol Tartrate) 25 Mg Tab 25 MG PO Q12HR, #60 TAB Potassium Chloride ER (Potassium Chloride ER) 20 Meq Tab 20 MEQ PO DAILY for Electrolyte Replacement, #30 TAB 0 Refills Sacubitril-Valsartan (Entresto) 49-51 Mg Tab 1 TAB PO BID for Heart Failure, #30 TAB 0 Refills Trazodone (Trazodone) 50 Mg Tab 50 MG PO HS for Control Depression, #30 TAB 0 Refills Guillermo Graham MD Apr 24, 2017 11:19
--- NOTE | 2017-05-06 23:09 | PD.CARD ---
Atrial Fibrillation Ablation PROCEDURE DATE: Apr 22, 2017 PROCEDURES PERFORMED: 1. Electrophysiology study on Isuprel infusion 2. CS cannulation 3. 3-D mapping 4. Transseptal approach 5. Right and left heart catheterization 6. Intracardiac echo 7. Radiofrequency ablation of atrial fibrillation 8. Pulmonary vein isolation 9. Posterior wall ablation 10. Mitral valve isolation 11. Mitral line creation 12. Left atrial tachycardia ablation 13. Roof line creation 14. Floor line creation 15. Anterior wall ablation 16. Cardioversion INDICATIONS FOR THE PROCEDURE Mr. Varela is a 61-year-old male with Hx of congestive heart failure, cardiomyopathy, defibrillatory shocks due to atrial fibrillation despite multiple medications, on anticoagulation referred for electrophysiology study and ablation. The risks, the nature and the benefits of the procedure were clearly stated to him. The risks include pneumothorax, cardiac perforation, stroke, need for open heart surgery and even . The patient understood and agreed to proceed. DESCRIPTION OF THE PROCEDURE IN DETAIL As written informed consent was obtained prior to transesophageal echocardiogram , the patient was kept on the table where he was prepped and draped in the usual sterile fashion. Conscious sedation was initiated and maintained throughout the procedure by the anesthesiologist. Once sedation was verified, the right and left inguinal areas were anesthetized with 2% Xylocaine. Using modified Seldinger technique, the left femoral vein was cannulated on three occasions, three guidewires were advanced. Over the wire a 6, 7 and a 10- Nauruan Hemaquet were advanced. Then the left femoral artery was cannulated on one occasion, one guidewire was advanced. Over the wire a 4-Nauruan Hemaquet was advanced. Then the right femoral vein was cannulated on one occasion, one guidewire was advanced. Over the wire a 8-Nauruan Hemaquet was advanced. Then under fluoroscopic guidance through the 6 and 7-Nauruan Hemaquet, two 5-Nauruan Wayne curved quadripolar electrophysiology catheters were advanced and placed around the His as well as coronary sinus. Basic interval was measured. The patient was in atrial fibrillation. Through the 10-Nauruan Hemaquet, a Cordis Ledezma AcuNav intracardiac echo catheter was advanced and placed at the right atrium. Multiple view was obtained. There is no pericardial effusion, pulmonary vein was seen, atrial septal was visualized. Then the 8-Nauruan Hemaquet in the right femoral vein was exchanged for Agilis transseptal sheath that was placed all the way to the superior vena cava. Through the sheath a Dereck needle was advanced, then the sheath, the dilator and the needle were progressed until foci engaged. Once engaged, the needle was advanced. RF was delivered for 2 seconds. I was able to cross into the left atrium. Once the needle crossed, the dilator was advanced. Once the dilator crossed, the sheath was advanced. Once the sheath crossed, the dilator and the needle were removed. At this point I did flush the system and fluid movement was seen in the left atrium the indicates the sheath is in good position. The patient already received 10,000 units of heparin. The goal is to keep an ACT around 350 during ablation. Then through the sheath a St. Elier 20 pulse circumferential catheter was advanced. Using [employer] endocardial solution mapping system, a two-dimensional configuration of the left atrium was obtained. Points were taken at the left superior and inferior veins, right superior and inferior veins, mitral valve, and appendages. Then through the sheath a St. Elier TactiCath 65cm 3.5mm irrigated tipped mapping and radiofrequency ablation catheter was advanced. Esophageal probe was placed temperature monitoring during ablation. When it increased to 0.5 degrees Celsius above baseline, I moved to a different area of the atrium. First I did isolate the left superior and inferior vein. I did make a big beaver around the veins. Posterior was ablated. Then a roof line was created, a floor line was created, a mitral line was isolated, then the mitral valve was isolated. At that point the patient was in left atrial tachycardia. I did create a line from the floor to the roof area, passing by the left atrial appendage. Then the right superior and inferior veins were isolated. I did remap the atrium. There is no significant signal in the atrium. At this point I decided to proceed with cardioversion. A 200 sync biphasic joule was delivered that converted the patient into sinus rhythm. At that point I did advance the circumferential catheter again into the vein. There was no signal into the vein, pacing from the vein showed no conduction to the atrium. Isuprel infusion was initiated at 20 mcg for over 10 minutes. No tachyarrhythmia was induced, post Isuprel no tachyarrhythmia was induced. At that point the procedure was complete. All catheters were removed, atrial septal sheath was exchanged for 9-Nauruan Hemaquet, intracardiac echo showed no pericardial effusion. There is still good flow in the pulmonary vein. The patient is going to be transferred to the recovery room. No incident report. The patient tolerated the procedure. Blood loss was minimal. FINDINGS 1. Electrocardiogram: At baseline the patient was in atrial fibrillation, post procedure the patient was in sinus rhythm. 2. Basic interval: Base cycle length was around 760. Post ablation she was around 980 milliseconds. AH at 80 and HV at 52 milliseconds. 3. Tachyarrhythmia: Atrial fibrillation was mapped and ablated. Atrial tachycardia was ablated. The ablation was successful. CONCLUSION Successful electrophysiology study, mapping, radiofrequency ablation of atrial fibrillation, left atrial tachycardia, pulmonary vein isolation, posterior ablation, mitral valve isolation, mitral line creation, roof line creation, floor line creation, left atrial tachycardia, and cardioversion. COMMENTS AND RECOMMENDATIONS The patient is going to be transferred to the telemetry unit. Will be observed and when stable can be discharged home. Aminata Frias MD May 06, 2017 23:09
== END 2017-04-24 14:27 | disposition home or self-care (01) | DRG 274 ==
LOC: NEPC 17:32 → NEDA 20:10 → HCIN 22:41
PROVIDERS: ADMIT Hospitalist; ATTEND Hospitalist
PROC: 4A023FZ Measurement of Cardiac Rhythm, Percutaneous Approach (ICD-10-PCS; principal; 2017-04-19)
PROC: 4A0234Z Measurement of Cardiac Electrical Activity, Percutaneous Approach (ICD-10-PCS; 2017-04-19)
PROC: B246ZZ4 Ultrasonography of Right and Left Heart, Transesophageal (ICD-10-PCS; 2017-04-19)
PROC: 02583ZZ Destruction of Conduction Mechanism, Percutaneous Approach (ICD-10-PCS; 2017-04-19)
PROC: 02K83ZZ Map Conduction Mechanism, Percutaneous Approach (ICD-10-PCS; 2017-04-19)
DX: I48.0 Paroxysmal atrial fibrillation (principal); I47.2 Ventricular tachycardia; I42.9 Cardiomyopathy, unspecified; I50.22 Chronic systolic (congestive) heart failure; I11.0 Hypertensive heart disease with heart failure; R74.8 Abnormal levels of other serum enzymes; Z99.81 Dependence on supplemental oxygen; Z95.810 Presence of automatic (implantable) cardiac defibrillator; F32.9 Major depressive disorder, single episode, unspecified; Z79.01 Long term (current) use of anticoagulants; F90.9 Attention-deficit hyperactivity disorder, unspecified type; F41.9 Anxiety disorder, unspecified; E11.9 Type 2 diabetes mellitus without complications; Z98.84 Bariatric surgery status; G47.33 Obstructive sleep apnea (adult) (pediatric); N40.0 Benign prostatic hyperplasia without lower urinary tract symptoms; Z80.1 Family history of malignant neoplasm of trachea, bronchus and lung; Z82.49 Family history of ischemic heart disease and other diseases of the circulatory system; Z83.6 Family history of other diseases of the respiratory system; E87.6 Hypokalemia; R33.9 Retention of urine, unspecified
CPT/HCPCS: 71010; 76937; 80048; 81001; 82550; 83036; 83735; 83880; 84484; 85002; 85018; 85025; 85610; 85730; 87086; 92960; 93005; 93613; 93623; 93656; 93662; C1730; C1731; C1732; C1759; C1766; C2630; J1644; J1940; J1956; J2370; J2405; J2710; J2720; J3010; J7040

== ENCOUNTER 2017-10-05 02:35 | Inpatient (IN) | payer MEDICAID ==
[2017-10-05] VITALS (10 sets, daily range): BP systolic 87–168; BP diastolic 49–84; PULSE 60–85; RESP 16–20; TEMP 98; O2SAT 97–100
[~2017-10-05 02:35] MED LIST changes: -CLIN150 PO; -LEVA750T9 PO; +TAMS5CAP PO
--- NOTE | 2017-10-05 02:41 | PD ---
HPI Chief Complaint: syncopal episode Time Seen by Provider: 02:41 Travel History International Travel<30 days: No Contact w/Intl Traveler<30days: No Traveled to known affect area: No History of Present Illness HPI 62-year-old male was brought to the emergency room by EMS after having a syncopal episode. Patient is currently awake and says that he remembers getting up from his bed and going to the bathroom but that he does not remember. His and [id number] tried to bring him out of the bathroom and called 911. When EMS arrived her blood pressure was in the 80s. Patient is complaining of lower back pain. He has history of congestive heart failure and has a defibrillator and pacemaker in. Denies of any chest pain. Patient is on blood thinner. Patient's pattern grader is Dr. Frias. [facility] Past Medical History Narrative Medical List of his past medical, surgical, social and family history is reviewed from the nursing note. Hx Anticoagulant Therapy: Yes (ELIQUIS ) ADHD: Yes Arthritis: No Asthma: No Autoimmune Disease: No Anxiety: Yes Depression: Yes Heart Rhythm Problems: Yes (ATRIAL FIBRILLATION ) Cancer: No Cardiac Catheterization: Yes (CATH WAS NEGATIVE, NO STENT PLACEMENT) Cardiovascular Problems: Yes (PACER/DEFIB, HX OF ABLATION ) High Cholesterol: No Chest Pain: No Congestive Heart Failure: Yes (EF 15-22%) COPD: No Cerebrovascular Accident: No Diabetes: Yes Diminished Hearing: No Endocrine: No GERD: No Genitourinary: No Headaches: No Hepatitis: No Hiatal Hernia: No Hypertension: Yes Immune Disorder: No Implanted Vascular Access Dvce: Yes Kidney Stones: No Musculoskeletal: Yes (FX ANKLE LEFT, SKULL FX AGE 7) Neurologic: No Psychiatric: Yes Reproductive: No Respiratory: No Immunizations Current: Yes Migraines: No Myocardial Infarction: No Renal Failure: No Seizures: No Sleep Apnea: Yes (ON CPAP NIGHT) Thyroid Disease: No Ulcer: No Past Surgical History Abdominal Surgery: Yes (GASTRIC BYPASS 2003, APPENDECTOMY age 24) AICD: Yes Appendectomy: Yes Cardiac Surgery: No Cholecystectomy: No Ear Surgery: No Endocrine Surgery: No Eye Surgery: No Genitourinary Surgery: No Gynecologic Surgery: No Neurologic Surgery: No Oral Surgery: Yes (TONSILECTOMY age 9) Pacemaker: Yes ([place] [employer]) Thoracic Surgery: No Tonsillectomy: Yes Other Surgery: Yes (HIATAL HERNIA REPAIR AGE 4) Social History Alcohol Use: No Tobacco Use: No Substance Use: No Allergies-Medications (Allergen,Severity, Reaction): Coded Allergies: ampicillin (Verified Allergy, Severe, 10/05/17) fire ant (Verified Allergy, Severe, Anaphylaxis, 10/05/17) MRI PRECAUTION (Verified Adverse Reaction, Severe, 10/05/17) Patient has a [employer] non compatible mri pacemaker. EG 03/25/2017 Comments List of his allergies reviewed from the nursing note. Reported Meds & Prescriptions Reported Meds & Active Scripts Active Cardizem (Diltiazem HCl) 60 Mg Tab 60 Mg PO Q6HR Eliquis (Apixaban) 5 Mg Tab 5 Mg PO BID Bumetanide 1 Mg Tab 1 Mg PO BID May take extra pill per every 24 hours for worsening swelling in legs Trazodone (Trazodone HCl) 50 Mg Tab 50 Mg PO HS Cymbalta DR (Duloxetine HCl) 60 Mg Capdr 60 Mg PO DAILY Reported Aspirin 81 Mg Chew 81 Mg CHEW DAILY Divalproex DR (Divalproex Sodium) 500 Mg Tabdr 500 Mg PO BID Spironolactone 25 Mg Tab 25 Mg PO DAILY Narrative Medication List of his home medications reviewed from the nursing note. Review of Systems Except as stated in HPI: all other systems reviewed are Neg Musculoskeletal: Positive: Pain Neurologic: Positive: Syncope Physical Exam Narrative GENERAL: Lethargic but answering questions appropriately, obese, moderate distress SKIN: Focused skin assessment warm/dry. HEAD: Atraumatic. Normocephalic. EYES: Pupils equal and round. No scleral icterus. No injection or drainage. ENT: No nasal bleeding or discharge. Dry mucous membrane NECK: Trachea midline. No JVD. CARDIOVASCULAR: Regular rate and rhythm. No murmur appreciated. RESPIRATORY: No accessory muscle use. Clear to auscultation. Breath sounds equal bilaterally. GASTROINTESTINAL: Abdomen soft, non-tender, nondistended. Hepatic and splenic margins not palpable. MUSCULOSKELETAL: No obvious deformities. No clubbing. No cyanosis. No edema. NEUROLOGICAL: Awake and alert. No obvious cranial nerve deficits. Motor grossly within normal limits. Normal speech. PSYCHIATRIC: Appropriate mood and affect; insight and judgment normal. Data Data Last Documented VS Orders Orders Electrocardiogram (10/05/17 02:47) Prothrombin Time / Inr (Pt) (10/05/17 02:47) Complete Blood Count With Diff (10/05/17 02:47) Basic Metabolic Panel (Bmp) (10/05/17 02:47) Creatine Kinase (Cpk) (10/05/17 02:47) Troponin I (10/05/17 02:47) Urinalysis - C+S If Indicated (10/05/17 02:47) Ct Brain W/O Iv Contrast(Rout) (10/05/17 02:47) Chest, Single Ap (10/05/17 02:47) Ecg Monitoring (10/05/17 02:47) Iv Access Insert/Monitor (10/05/17 02:47) Oximetry (10/05/17 02:47) Sodium Chloride 0.9% Flush (Ns Flush) (10/05/17 03:00) Sodium Chlor 0.9% 1000 Ml Inj (Ns 1000 M (10/05/17 03:00) Ct Abd/Pel W/O Iv Contrast (10/05/17 ) Protein Corrected Calcium(Pcc) (10/05/17 03:00) Place In Observation (10/05/17 ) Vital Signs (Adult) Q4H (10/05/17 04:13) Activity Oob With Assistance (10/05/17 04:13) Nuclear Criticality Safety Engineer / Telemetry .CONTINUOUS (10/05/17 04:13) Diet Heart Healthy (10/05/17 Breakfast) Sodium Chloride 0.9% Flush (Ns Flush) (10/05/17 04:15) Sodium Chloride 0.9% Flush (Ns Flush) (10/05/17 09:00) Complete Blood Count With Diff (10/06/17 06:00) Creatine Kinase (Cpk) (10/05/17 09:00) Creatine Kinase (Cpk) (10/05/17 15:00) Troponin I (10/05/17 09:00) Troponin I (10/05/17 15:00) Electrocardiogram (10/05/17 09:00) Electrocardiogram (10/05/17 15:00) Pt Request For Service (10/05/17 04:13) Case Management Consult (10/05/17 04:13) Naloxone Inj (Narcan Inj) (10/05/17 04:15) ^ Other Nursing Orders (10/05/17 04:22) Echo 2d Comp With Doppler (10/05/17 ) Us Carotid Arteries Comp Bilat (10/05/17 ) Admit Order (Ed Use Only) (10/05/17 04:28) Labs Laboratory Tests Test 10/05/17 03:00 White Blood Count 4.3 TH/MM3 Red Blood Count 3.70 MIL/MM3 Hemoglobin 9.0 GM/DL Hematocrit 27.5 % Mean Corpuscular Volume 74.1 FL Mean Corpuscular Hemoglobin 24.3 PG Mean Corpuscular Hemoglobin Concent 32.8 % Red Cell Distribution Width 23.7 % Platelet Count 79 TH/MM3 Mean Platelet Volume 6.9 FL Neutrophils (%) (Auto) 41.7 % Lymphocytes (%) (Auto) 34.8 % Monocytes (%) (Auto) 20.4 % Eosinophils (%) (Auto) 2.3 % Basophils (%) (Auto) 0.8 % Neutrophils # (Auto) 1.8 TH/MM3 Lymphocytes # (Auto) 1.5 TH/MM3 Monocytes # (Auto) 0.9 TH/MM3 Eosinophils # (Auto) 0.1 TH/MM3 Basophils # (Auto) 0.0 TH/MM3 CBC Comment AUTO DIFF Differential Comment AUTO DIFF CONFIRMED Platelet Estimate LOW Platelet Morphology Comment NORMAL Prothrombin Time 11.3 SEC Prothromb Time International Ratio 1.1 RATIO Blood Urea Nitrogen 30 MG/DL Creatinine 1.86 MG/DL Random Glucose 110 MG/DL Total Protein 6.0 GM/DL Calcium Level 7.4 MG/DL Sodium Level 138 MEQ/L Potassium Level 3.4 MEQ/L Chloride Level 105 MEQ/L Carbon Dioxide Level 23.8 MEQ/L Anion Gap 9 MEQ/L Estimat Glomerular Filtration Rate 37 ML/MIN Protein Corrected Calcium 8.0 MG/DL Total Creatine Kinase 71 U/L Troponin I 0.02 NG/ML [facility] Medical Decision Making Medical Screen Exam Complete: Yes Emergency Medical Condition: Yes Medical Record Reviewed: Yes Interpretation(s) Twelve-lead EKG was reviewed. Atrial paced rhythm, normal axis, nonspecific ST- T wave changes. Heart rate of 60 bpm. Differential Diagnosis Orthostatic hypotension, intracranial bleed, lumbar fracture Narrative Course 4:33 AM blood test results of back and within acceptable limits. Head CT is negative. CT scan of his abdomen and pelvis shows L1 transverse process fracture. Patient was given 1 L of IV fluid bolus which brought his blood pressure up to the 90s. I have admitted the patient to the hospitalist. Procedures EKG Prior to Arrival: No Diagnosis Primary Impression: Syncope Qualified Codes: R55 - Syncope and collapse Additional Impressions: Hypotension Qualified Codes: I95.9 - Hypotension, unspecified Lumbar transverse process fracture Qualified Codes: S32.009A - Unspecified fracture of unspecified lumbar vertebra, initial encounter for closed fracture Admitting Information Admitting Physician Requests: it Marialuisa Zuniga MD Oct 05, 2017 02:41
[2017-10-05] MEDS ORDERED: SODIUM CHLOR 0.9% 1000 ML INJ 1,000 ML IV ONE (03:00)
[2017-10-05] MEDS ORDERED: SPIR25TA PO (03:00)
[2017-10-05] MEDS ORDERED: SODIUM CHLORIDE 0.9% FLUSH 10 ML FLUSH IVF PRN (03:00)
[2017-10-05] MEDS ORDERED: ASPI-516 CHEW (03:00)
[2017-10-05] MEDS ORDERED: DIVA500T PO (03:00)
[2017-10-05 03:11] LABS: AUTOMATED NEUTROPHIL # 1.8 TH/MM3 (1.8-7.7); BASOPHIL % 0.8 % (0.0-2.0); EOSINOPHIL # 0.1 TH/MM3 (0-0.4); EOSINOPHIL % 2.3 % (0.0-4.0); HEMATOCRIT 27.5 % (39.0-51.0); LYMPH % 34.8 % (9.0-44.0); LYMPHOCYTE # 1.5 TH/MM3 (1.0-4.8); MEAN CELL VOLUME 74.1 FL (80.0-100.0); MEAN CORPUSCULAR HEMOGLOBIN 24.3 PG (27.0-34.0); MEAN CORPUSCULAR HGB CONC 32.8 % (32.0-36.0); MEAN PLATELET VOLUME 6.9 FL (7.0-11.0); MONO % 20.4 % (0.0-8.0); MONOCYTE # 0.9 TH/MM3 (0-0.9); NEUT % 41.7 % (16.0-70.0); PLATELET COUNT 79 TH/MM3 (150-450); RED CELL DISTRIBUTION WIDTH 23.7 % (11.6-17.2); WHITE BLOOD COUNT 4.3 TH/MM3 (4.0-11.0)
[2017-10-05 03:20] LABS: INTERNATIONAL NORMALIZED RATIO 1.1 RATIO; PROTHROMBIN TIME - PATIENT 11.3 SEC (9.8-11.6)
[2017-10-05 03:37] LABS: BICARBONATE 23.8 MEQ/L (21.0-32.0); CALCIUM 7.4 MG/DL (8.5-10.1); CREATININE 1.86 MG/DL (0.60-1.30); TROPONIN I 0.02 NG/ML (0.02-0.05)
--- NOTE | 2017-10-05 03:46 | RADRPT ---
EXAM DATE/TIME: 10/05/2017 03:29 [facility] COMPARISON: CT BRAIN W/O CONTRAST, March 25, 2017, 23:54. INDICATIONS : Syncope. RADIATION DOSE: 40.15 CTDIvol (mGy) MEDICAL HISTORY : Cardiovascular disease. Hypertension. SURGICAL HISTORY : Pacemaker. ENCOUNTER: Initial ACUITY: 1 day PAIN SCALE: 0/10 LOCATION: cranial TECHNIQUE: Multiple contiguous axial images were obtained of the head. Using automated exposure control and adj ustment of the mA and/or kV according to patient size, radiation dose was kept as low as reasonably a chievable to obtain optimal diagnostic quality images. DICOM format image data is available electro nically for review and comparison. FINDINGS: CEREBRUM: The ventricles are normal for age. No evidence of midline shift, mass lesion, hemorrhage or acute in farction. No extra-axial fluid collections are seen. Cavum septum pellucidum. POSTERIOR FOSSA: The cerebellum and brainstem are intact. The 4th ventricle is midline. The cerebellopontine angle i s unremarkable. EXTRACRANIAL: The visualized portion of the orbits is intact. Stable oval 12 mm retention cyst or polyp in the rig ht maxillary sinus. SKULL: The calvaria is intact. No evidence of skull fracture. CONCLUSION: 1. No acute findings in the brain. Kartik Winters MD on October 05, 2017 at 3:44 Board Certified Radiologist. This report was verified electronically.
--- NOTE | 2017-10-05 03:54 | RADRPT ---
EXAM DATE/TIME: 10/05/2017 03:32 [facility] COMPARISON: No previous studies available for comparison. INDICATIONS : Fall. Abdomen and back pain. ORAL CONTRAST: No oral contrast ingested. RADIATION DOSE: 25.40 CTDIvol (mGy) ; Patient body habitus MEDICAL HISTORY : Cardiovascular disease. Hypertension. SURGICAL HISTORY : Pacemaker. ENCOUNTER: Initial ACUITY: 1 day PAIN SCALE: 7/10 LOCATION: abdomen TECHNIQUE: Volumetric scanning of the abdomen and pelvis was performed. Using automated exposure control and ad justment of the mA and/or kV according to patient size, radiation dose was kept as low as reasonably achievable to obtain optimal diagnostic quality images. DICOM format image data is available electro nically for review and comparison. FINDINGS: LOWER LUNGS: Some minimal linear opacities in the left costophrenic angle may represent contusion or atelectasis. Minimal bilateral pleural effusions. LIVER: Homogeneous density without lesion for noncontrast technique. There is no dilation of the biliary tr ee. No calcified gallstones. SPLEEN: Normal size without lesion. PANCREAS: Within normal limits. KIDNEYS: Normal in size and shape. There is no mass, stone, or hydronephrosis. ADRENAL GLANDS: Within normal limits. VASCULAR: There is no aortic aneurysm. BOWEL/MESENTERY: Evidence of prior bowel surgery with anastomosis suture seen about the stomach air in the left hypoga stric region. A loop of small bowel adjacent to the suture is mildly dilated at 3.4 cm. The remaind er of loops of small bowel are normal in dimension. There is distention of the right and transverse colon with moderate amount of stool present. ABDOMINAL WALL: Within normal limits. RETROPERITONEUM: There is no lymphadenopathy. BLADDER: No wall thickening or mass. REPRODUCTIVE: Within normal limits. INGUINAL: There is no lymphadenopathy or hernia. MUSCULOSKELETAL: There is a nondisplaced fracture of the left transverse process of L1. No other fractures seen. CONCLUSION: 1. Nondisplaced hairline fracture through the left L1 transverse process. 2. Mild opacity in the left costophrenic angle may represent atelectasis or contusion. 3. Tiny bilateral pleural effusions. 4. Mildly distended right and transverse colon. No significant distention of small bowel. Kartik Winters MD on October 05, 2017 at 3:45 Board Certified Radiologist. This report was verified electronically.
[2017-10-05] MEDS ORDERED: SODIUM CHLORIDE 0.9% FLUSH 10 ML FLUSH IV FLUSH PRN ×2 (04:15→10:30)
[2017-10-05] MEDS ORDERED: NALOXONE HCL 0.4 MG/ML AMP IV PUSH PRN ×2 (04:15→10:30)
--- NOTE | 2017-10-05 04:20 | RADRPT ---
EXAM DATE/TIME: 10/05/2017 03:54 [facility] COMPARISON: CT ABDOMEN & PELVIS W/O CONTRAST, October 05, 2017, 3:32. CHEST SINGLE AP, May 15, 2017, 16:39. INDICATIONS : Short of breath and chest pain. MEDICAL HISTORY : Hypertension. Congestive heart failure. SURGICAL HISTORY : Gastric bypass. Cardiac catheterization, Defibrillator, Ablation surgery. ENCOUNTER: Initial ACUITY: 1 day PAIN SCORE: 8/10 LOCATION: Bilateral chest FINDINGS: Cardiac pacer leads stable in position. The right lung is clear. There is a wedge-shaped infiltrate in the medial left lower lobe and there is moderate elevation of left hemidiaphragm, finding from pr ior chest x-ray. The heart is mildly enlarged. CONCLUSION: Partially consolidative infiltrate in the medial left lower lobe with associated volume loss and elev ation of left hemidiaphragm. Kartik Winters MD on October 05, 2017 at 4:17 Board Certified Radiologist. This report was verified electronically.
[2017-10-05] MEDS ORDERED: MORPHINE SULFATE 4 MG/ML INJ IV PUSH ONE (04:45)
[2017-10-05 05:24] LABS: BACTERIA, URINE RARE /hpf; BILIRUBIN, URINE NEG (NEG); BLOOD, URINE SMALL (NEG); GLUCOSE,URINE NEG (NEG); HYALINE CAST, URINE 4 /lpf (RARE); KETONE, URINE NEG (NEG); MUCUS URINE FEW /lpf (OCC); NITRITE,URINE NEG (NEG); PH, URINE 5.5 (5.0-8.5); URINE COLOR YELLOW (YELLW/STRAW); URINE LEUKOCYTE ESTERASE SMALL (NEG)
--- NOTE | 2017-10-05 08:30 | RADRPT ---
EXAM DATE/TIME: 10/05/2017 07:46 [facility] COMPARISON: No previous studies available for comparison. INDICATIONS : Syncope. MEDICAL HISTORY : Congestive heart failure. Hypertension. Afib. Sleep apnea. Diabetes. Depression. ADHD. Anxiety. Ani tocoagulant therapy SURGICAL HISTORY : Tonsillectomy. Pacemaker. Appendectomy. Cardiac cath. Gastric bypass. ENCOUNTER: Initial ACUITY: 1 day PAIN SCORE: 0/10 LOCATION: Bilateral neck PEAK SYSTOLIC VELOCITIES (cm/sec): ICA/CCA RATIO: Right: 0.7 Left: 1.0 ICA: Right: 69 Left: 110 CCA: Right: 106 Left: 114 ECA: Right: 103 Left: 112 VERTEBRAL: Right: 54 antegrade Left: 62 antegrade Elevated flow velocities and ICA/CCA ratios have been found to correlate with increased degrees of vessel stenosis, calculated as percentage of diameter relative to a normal segment of distal ICA/CCA FINDINGS: RIGHT CAROTID: No significant stenosis is visualized. The waveforms are within normal limits. LEFT CAROTID: No significant stenosis is visualized. The waveforms are within normal limits. VERTEBRAL ARTERIES: Antegrade flow is seen in both vertebral arteries. MISCELLANEOUS: None. CONCLUSION: 1. Mild bilateral carotid plaque without significant carotid flow limiting stenosis. 2. Antegrade vertebral artery flow bilaterally. Cecilio Garrido MD on October 05, 2017 at 8:27 Board Certified Radiologist. This report was verified electronically.
--- NOTE | 2017-10-05 08:44 | EKG ---
Date Performed: 10/05/2017 Time Performed: 02:51:06 PTAGE: 62 years EKG: ELECTRONIC ATRIAL PACEMAKER NONSPECIFIC ST/T-WAVE ABNORMALITY ABNORMAL RHYTHM ECG NO PREVIOUS TRACING DOCTOR: Devin Trammell Interpretating Date/Time 10/05/2017 08:25:47
[2017-10-05] MEDS ORDERED: SODIUM CHLORIDE 0.9% FLUSH 10 ML FLUSH IV FLUSH SCH (09:00)
[2017-10-05 09:35] LABS: TROPONIN I LESS THAN 0.02 NG/ML (0.02-0.05)
[2017-10-05] MEDS ORDERED: RESP: ALBUTEROL 2.5 MG/IPRATROPIUM 0.5 MG NEB (PRN) NEB (10:15)
--- NOTE | 2017-10-05 10:26 | HHI.HP ---
[facility] Service [facility] Primary Care Physician No Primary Care Physician Admission Diagnosis syncope, lumbar vertebral fracture, hypotension Diagnoses: (1) Syncope Diagnosis: Principal (2) Hypotension Diagnosis: Principal (3) Lumbar transverse process fracture Diagnosis: Secondary (4) Atrial fibrillation Diagnosis: Principal (5) Congestive heart failure Diagnosis: Principal (6) Lower extremity edema Diagnosis: Secondary (7) Chronic systolic CHF (congestive heart failure) Diagnosis: Principal Chief Complaint: Syncopal episode Travel History International Travel<30 Days: No Contact w/Intl Traveler <30 Da: No Traveled to Known Affected Are: No History of Present Illness Patient is a 62-year-old male who was brought to the emergency department by EMS yesterday after having a syncopal episode. Patient is awake and alert and states that he remembers getting up from his bed and going to the bathroom but then he does not remember anything after that. He states his and his [id number] tried to bring him out of the bathroom but called 911. When EMS arrived his blood pressure with in the 80s. And patient was also complaining of low back pain. Has a history of congestive heart failure has history of AICD/pacemaker defibrillator. This been on Eliquis. 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 Frias Patient is complaining of back pain. He has tried IV pain meds without much relief therefore we will place on oral pain medication Review of Systems Constitutional: COMPLAINS OF: Fatigue, DENIES: Diaphoretic episodes, Fever, Weight gain, Weight loss, Chills, Dizziness, Change in appetite, Night Sweats Endocrine: DENIES: Heat/cold intolerance, Polydipsia, Polyuria, Polyphagia Eyes: DENIES: Blurred vision, Diplopia, Eye inflammation, Eye pain, Vision loss , Photosensitivity, Double Vision Ears, nose, mouth, throat: DENIES: Tinnitus, Hearing loss, Vertigo, Nasal discharge, Oral lesions, Throat pain, Hoarseness, Ear Pain, Running Nose, Epistaxis, Sinus Pain, Toothache, Odynophagia Respiratory: COMPLAINS OF: Cough, Sputum production, Shortness of breath, DENIES: Apneas, Snoring, Wheezing, Hemoptysis Cardiovascular: COMPLAINS OF: Syncope, Lower Extremity Edema, DENIES: Chest pain, Palpitations, Dyspnea on Exertion, PND, Orthopnea, Claudication Gastrointestinal: DENIES: Abdominal pain, Black stools, Bloody stools, Constipation, Diarrhea, Nausea, Vomiting, Difficulty Swallowing, Anorexia Musculoskeletal: COMPLAINS OF: Back pain, DENIES: Joint pain, Muscle aches, Stiffness, Joint Swelling, Neck pain Integumentary: DENIES: Abnormal pigmentation, Nail changes, Pruritus, Rash Hematologic/lymphatic: DENIES: Bruising, Lymphadenopathy Immunologic/allergic: DENIES: Eczema, Urticaria Neurologic: COMPLAINS OF: Abnormal gait, Localized weakness, Poor Balance, DENIES: Headache, Paresthesias, Seizures, Speech Problems, Tremor Psychiatric: DENIES: Anxiety, Confusion, Mood changes, Depression, Hallucinations, Agitation, Suicidal Ideation, Homicidal Ideation, Delusions Except as stated in HPI: all other systems reviewed are Neg Past Family Social History Past Medical History Atrial fibrillation on chronic Eliquis Cardiomyopathy ADHD Depression History of pacemaker defibrillator history of ablation Congestive heart failure with an EF of 15-22% Diabetes mellitus Hypertension History of fracture left ankle History of skull fracture age 7 Obstructive sleep apnea on CPAP at night Obesity Compliance issues due to insurance Past Surgical History Gastric bypass in 2003 Appendectomy AICD pacemaker combo Tonsillectomy Hiatal hernia repair age 4 Reported Medications Reported Meds & Active Scripts Active Cardizem (Diltiazem HCl) 60 Mg Tab 60 Mg PO Q6HR Eliquis (Apixaban) 5 Mg Tab 5 Mg PO BID Bumetanide 1 Mg Tab 1 Mg PO BID May take extra pill per every 24 hours for worsening swelling in legs Trazodone (Trazodone HCl) 50 Mg Tab 50 Mg PO HS Cymbalta DR (Duloxetine HCl) 60 Mg Capdr 60 Mg PO DAILY Reported Aspirin 81 Mg Chew 81 Mg CHEW DAILY Divalproex DR (Divalproex Sodium) 500 Mg Tabdr 500 Mg PO BID Spironolactone 25 Mg Tab 25 Mg PO DAILY Allergies: Coded Allergies: ampicillin (Verified Allergy, Severe, 10/05/17) fire ant (Verified Allergy, Severe, Anaphylaxis, 10/05/17) MRI PRECAUTION (Verified Adverse Reaction, Severe, 10/05/17) Patient has a [employer] non compatible mri pacemaker. EG 03/25/2017 Active Ordered Medications Current Medications Sodium Chloride (NS Flush) 2 ml UNSCH PRN IVF FLUSH AFTER USING IV ACCESS; Start 10/05/17 at 03:00; Stop 10/05/17 at 04:25; Status DC Sodium Chloride 1,000 ml @ 999 mls/hr BOLUS ONCE IV Last administered on 10/05at 03:32; Start 10/05/17 at 03:00; Stop 10/05/17 at 04:00; Status DC Sodium Chloride (NS Flush) 2 ml UNSCH PRN IV FLUSH FLUSH AFTER USING IV ACCESS ; Start 10/05/17 at 04:15 Sodium Chloride (NS Flush) 2 ml BID IV FLUSH Last administered on 10/05/17at 09: 19; Start 10/05/17 at 09:00 Naloxone HCl (Narcan Inj) 0.4 mg UNSCH PRN IV PUSH SEE LABEL COMMENTS; Start at 04:15 Morphine Sulfate (Morphine Inj) 4 mg ONCE ONCE IV PUSH Last administered on at 05:20; Start 10/05/17 at 04:45; Stop 10/05/17 at 04:46; Status DC Family History Mother had hypertension and COPD tobacco abuse Father had lung cancer and tobacco abuse Social History Denies any tobacco alcohol or illicits currently Currently does not have a primary care physician Physical Exam Vital Signs Vital Signs Date Time Temp Pulse Resp B/P (MAP) Pulse Ox O2 Delivery O2 Flow Rate FiO2 10/05/17 08:18 68 16 110/61 (77) 100 Room Air 10/05/17 06:38 62 16 112/71 (85) 98 Room Air 10/05/17 03:25 62 18 98/57 (71) Room Air 10/05/17 03:24 98 Room Air 10/05/17 03:17 60 16 87/49 (62) 98 Physical Exam GENERAL: This is a well-nourished, well-developed patient, in mild distress. Awake alert and oriented 3 talkative and cooperative SKIN: No rashes, ecchymoses or lesions. Cool and dry. HEAD: Atraumatic. Normocephalic. No temporal or scalp tenderness. EYES: Pupils equal round and reactive. Extraocular motions intact. No scleral icterus. No injection or drainage. ENT: Nose without bleeding, purulent drainage or septal hematoma. Throat without erythema, tonsillar hypertrophy or exudate. Uvula midline. Airway patent. NECK: Trachea midline. No JVD or lymphadenopathy. Supple, nontender, no meningeal signs. CARDIOVASCULAR: IRRegular rate and rhythm without murmurs, gallops, or rubs. S1 -S2 no S3 or S4 RESPIRATORY: Breath sounds equal bilaterally. No wheezes, rales, scattered rhonchi- coarse breath sounds bilaterally GASTROINTESTINAL: Abdomen soft, non-tender, nondistended. No hepato-splenomegaly , or palpable masses. No guarding. Obese MUSCULOSKELETAL: Extremities without clubbing, cyanosis, +1 lower extremity edema. No joint tenderness, effusion, or edema noted. No calf tenderness. Negative Homans sign bilaterally. NEUROLOGICAL: Awake and alert. Cranial nerves II through XII intact. Motor and sensory grossly within normal limits. 4 out of 5 muscle strength in all muscle groups. Normal speech. Insight and judgment appears good mood and behavior somewhat appropriate Laboratory Laboratory Tests Test 10/05/17 03:00 10/05/17 05:00 10/05/17 08:49 White Blood Count 4.3 Red Blood Count 3.70 Hemoglobin 9.0 Hematocrit 27.5 Mean Corpuscular Volume 74.1 Mean Corpuscular Hemoglobin 24.3 Mean Corpuscular Hemoglobin Concent 32.8 Red Cell Distribution Width 23.7 Platelet Count 79 Mean Platelet Volume 6.9 Neutrophils (%) (Auto) 41.7 Lymphocytes (%) (Auto) 34.8 Monocytes (%) (Auto) 20.4 Eosinophils (%) (Auto) 2.3 Basophils (%) (Auto) 0.8 Neutrophils # (Auto) 1.8 Lymphocytes # (Auto) 1.5 Monocytes # (Auto) 0.9 Eosinophils # (Auto) 0.1 Basophils # (Auto) 0.0 CBC Comment AUTO DIFF Differential Comment AUTO DIFF CONFIRMED Platelet Estimate LOW Platelet Morphology Comment NORMAL Prothrombin Time 11.3 Prothromb Time International Ratio 1.1 Blood Urea Nitrogen 30 Creatinine 1.86 Random Glucose 110 Total Protein 6.0 Calcium Level 7.4 Sodium Level 138 Potassium Level 3.4 Chloride Level 105 Carbon Dioxide Level 23.8 Anion Gap 9 Estimat Glomerular Filtration Rate 37 Protein Corrected Calcium 8.0 Total Creatine Kinase 71 78 Troponin I 0.02 LESS THAN 0.02 Urine Color YELLOW Urine Turbidity CLEAR Urine pH 5.5 Urine Specific Mcqueeney 1.014 Urine Protein TRACE Urine Glucose (UA) NEG Urine Ketones NEG Urine Occult Blood SMALL Urine Nitrite NEG Urine Bilirubin NEG Urine Urobilinogen LESS THAN 2.0 Urine Leukocyte Esterase SMALL Urine RBC 4 Urine WBC 4 Urine Bacteria RARE Urine Hyaline Casts 4 Urine Mucus FEW Microscopic Urinalysis Comment CATH-CULTURE IND Date/Time Source Procedure Growth Status 10/05/17 05:00 Urine Catheterized Urine Urine Culture Pending Received Result Diagram: 10/05/17 0300 10/05/17 0300 Imaging Last Impressions Head CT 10/05/17246 Signed Impressions: Service Date/Time: Thursday, October 05, 2017 03:29 - CONCLUSION: 1. No acute findings in the brain. Kartik Winters MD Chest X-Ray 10/05/17246 Signed Impressions: Service Date/Time: Thursday, October 05, 2017 03:54 - CONCLUSION: Partially consolidative infiltrate in the medial left lower lobe with associated volume loss and elevation of left hemidiaphragm. Kartik Winters MD Carotid Artery Ultrasound 10/05/17 0000 Signed Impressions: Service Date/Time: Thursday, October 05, 2017 07:46 - CONCLUSION: 1. Mild bilateral carotid plaque without significant carotid flow limiting stenosis. 2. Antegrade vertebral artery flow bilaterally. Cecilio Garrido MD Abdomen/Pelvis CT 10/05/17 0000 Signed Impressions: Service Date/Time: Thursday, October 05, 2017 03:32 - CONCLUSION: 1. Nondisplaced hairline fracture through the left L1 transverse process. 2. Mild opacity in the left costophrenic angle may represent atelectasis or contusion. 3. Tiny bilateral pleural effusions. 4. Mildly distended right and transverse colon. No significant distention of small bowel. Kartik Winters MD Caprini VTE Risk Assessment Caprini VTE Risk Assessment: Mod/High Risk (score >= 2) Caprini Risk Assessment Model Point Value = 1 Point Value = 2 Point Value = 3 Point Value = 5 Age 41-60 Minor surgery BMI > 25 kg/m2 Swollen legs Varicose veins or History of unexplained or recurrent spontaneous Oral contraceptives or hormone replacement Sepsis (< 1 month) Serious lung disease, including pneumonia (< 1 month) Abnormal pulmonary function Acute myocardial infarction Congestive heart failure (< 1 month) History of inflammatory bowel disease Medical patient at bed rest Age 61-74 Arthroscopic surgery Major open surgery (> 45 min) Laparoscopic surgery (> 45 min) Malignancy Confined to bed (> 72 hours) Immobilizing plaster cast Central venous access Age >= 75 History of VTE Family history of VTE Factor V Leiden Prothrombin [id number] Lupus anticoagulant Anticardiolipin antibodies Elevated serum homocysteine Heparin-induced thrombocytopenia Other congenital or acquired thrombophilia Stroke (< 1 month) Elective arthroplasty Hip, pelvis, or leg fracture Acute spinal cord injury (< 1 month) Prophylaxis Regimen Total Risk Factor Score Risk Level Prophylaxis Regimen 0-1 Low Early ambulation 2 Moderate Order ONE of the following: *Sequential Compression Device (SCD) *Heparin 5000 units SQ BID 3-4 Higher Order ONE of the following medications: *Heparin 5000 units SQ TID *Enoxaparin/Lovenox 40 mg SQ daily (WT < 150 kg, CrCl > 30 mL/min) *Enoxaparin/Lovenox 30 mg SQ daily (WT < 150 kg, CrCl > 10-29 mL/min) *Enoxaparin/Lovenox 30 mg SQ BID (WT < 150 kg, CrCl > 30 mL/min) AND/OR *Sequential Compression Device (SCD) 5 or more Highest Order ONE of the following medications: *Heparin 5000 units SQ TID (Preferred with Epidurals) *Enoxaparin/Lovenox 40 mg SQ daily (WT < 150 kg, CrCl > 30 mL/min) *Enoxaparin/Lovenox 30 mg SQ daily (WT < 150 kg, CrCl > 10-29 mL/min) *Enoxaparin/Lovenox 30 mg SQ BID (WT < 150 kg, CrCl > 30 mL/min) AND *Sequential Compression Device (SCD) Assessment and Plan Assessment and Plan Syncopal episode so far workup has been negative. Continue with physical therapy and Occupational Therapy Has been given fluids with relief Carotids have been negative we will get an echocardiogram L1 transverse processes fracture hairline continue pain control Physical therapy and occupational therapy to eval and treat CHF/cardiomyopathy with EF of 15-22% Continue home medications. Renal insufficiency chronic stage III A.m. labs accurate I's and O's Has had fluid bolus already Diabetes mellitus Accu-Cheks before meals and at bedtime with sliding scale coverage diabetic diet-check a hemoglobin A1c Thyroid status will check TSH and free T4 Obstructive sleep apnea or CPAP at home History of gastric bypass Atrial fibrillation continue rate control and continue Eliquis Mild urinary tract infection started on Rocephin Anxiety and depression continue home psychiatric medications Acute back pain status post fall Continue on p.o. pain medications Resume home medications Code Status Full code Discussed Condition With RN and patient Physician Certification 2 Midnight Certification Type: Admission for Inpatient Services Order for Inpatient Services The services are ordered in accordance with Medicare regulations or non- Medicare payer requirements, as applicable. In the case of services not specified as inpatient-only, they are appropriately provided as inpatient services in accordance with the 2-midnight benchmark. Estimated LOS (days): 2 days is the estimated time the patient will need to remain in the hospital, assuming treatment plan goals are met and no additional complications. Post-Hospital Plan: Not yet determined Problem Qualifiers (1) Syncope: Qualified Codes: R55 - Syncope and collapse (2) Hypotension: Qualified Codes: I95.9 - Hypotension, unspecified (3) Lumbar transverse process fracture: Qualified Codes: S32.009A - Unspecified fracture of unspecified lumbar vertebra , initial encounter for closed fracture Clem Martinez DO Oct 05, 2017 10:26
[2017-10-05] MEDS ORDERED: ONDANSETRON HCL 4 MG/2 ML VIAL IVP PRN (10:30)
[2017-10-05] MEDS ORDERED: oxyCODONE/ACETAMINOPHEN 5 MG/325 MG TAB PO PRN (10:30)
[2017-10-05] MEDS ORDERED: BISACODYL 10 MG SUPP RECTAL PRN (10:30)
[2017-10-05] MEDS ORDERED: MAGNESIUM HYDROXIDE SUSP 30 ML CUP PO PRN (10:30)
[2017-10-05] MEDS ORDERED: LACTULOSE SYRUP 20 GM/30 ML CUP PO PRN (10:30)
[2017-10-05] MEDS ORDERED: METOCLOPRAMIDE HCL 10 MG/2 ML VIAL IV PUSH PRN (10:30)
[2017-10-05] MEDS ORDERED: MORPHINE SULFATE 2 MG/ML INJ IV PUSH PRN (10:30)
[2017-10-05] MEDS ORDERED: ACETAMINOPHEN 325 MG TAB PO PRN ×2 (10:30)
[2017-10-05] MEDS ORDERED: SENNOSIDES 8.6 MG TAB PO PRN (10:30)
[2017-10-05] MEDS ORDERED: MORPHINE SULFATE 4 MG/ML INJ IV PUSH PRN (10:45)
[2017-10-05] MEDS: ASPIRIN 81 MG CHEW TAB CHEW SCH (11:07)
[2017-10-05] MEDS: oxyCODONE/ACETAMINOPHEN 10 MG/325 MG TAB PO PRN ×2 (11:07→17:52)
[2017-10-05] MEDS: BUMETANIDE 1 MG TAB PO SCH ×2 (11:07→21:00)
[2017-10-05] MEDS: cefTRIAXone INJ 1,000 MG in SODIUM CHLORIDE 0.9% INJ 100 ML IV SCH (11:07)
[2017-10-05] MEDS: APIXABAN 5 MG TABLET PO SCH ×2 (11:07→22:09)
[2017-10-05] MEDS: guaiFENesin E.R. 600 MG TAB PO SCH ×2 (11:08→22:10)
[2017-10-05] MEDS: DILTIAZEM HCL 60 MG TAB PO SCH ×2 (11:21→17:52)
[2017-10-05] MEDS: DIVALPROEX DR 500 MG TABEC PO SCH ×2 (11:21→22:12)
[2017-10-05 12:05] LABS: MAGNESIUM 2.1 MG/DL (1.5-2.5); PHOSPHORUS 3.2 MG/DL (2.5-4.9)
--- NOTE | 2017-10-05 12:13 | ECHRPT ---
Indication: Cardiomyopathy CONCLUSIONS The left ventricular systolic function is low normal with an estimated ejection fraction in the rang e of 50- 55%. Normal left ventricular size. Mild concentric left ventricular hypertrophy. No regional wall motion abnormalities are present. Trace aortic valve regurgitation. There is trace tricuspid valve regurgitation. The estimated pulmonary arterial pressure is 35.4 mmHg. BP: 99 / 62 HR: 85 Rhythm: Sinus MEASUREMENTS (Male / Female) Normal Values Technical Quality:Fair 2D ECHO LV Diastolic Diameter PLAX 5.6 cm 4.2 - 5.9 / 3.9 - 5.3 cm LV Systolic Diameter PLAX 4.5 cm IVS Diastolic Thickness 1.2 cm 0.6 - 1.0 / 0.6 - 0.9 cm LVPW Diastolic Thickness 1.2 cm 0.6 - 1.0 / 0.6 - 0.9 cm LV Relative Wall Thickness 0.4 RV Internal Dim ED PLAX 3.5 cm LVOT Diameter 2.1 cm LA Systolic Diameter LX 4.4 cm 3.0 - 4.0 / 2.7 - 3.8 cm LV Ejection Fraction MOD 4C 56.6 % LV Cardiac Index MOD 4C 2491.4 cm/minm LV Ejection Fraction 4C AL 58.2 % LV Cardiac Index 4C AL 2671.1 cm/minm M-MODE Aortic Root Diameter MM 2.8 cm LA Systolic Diameter MM 4.2 cm LA Ao Ratio MM 1.5 AV Cusp Separation MM 2.2 cm DOPPLER AV Peak Velocity 148.0 cm/s AV Peak Gradient 8.8 mmHg AI Peak Velocity 279.5 cm/s AI Peak Gradient 31.2 mmHg AI Pressure Half Time 759.5 ms LVOT Peak Velocity 116.0 cm/s LVOT Peak Gradient 5.4 mmHg AV Area Cont Eq pk 2.7 cm MV Area PHT 2.6 cm Mitral E Point Velocity 70.1 cm/s Mitral A Point Velocity 85.4 cm/s Mitral E to A Ratio 0.8 LV E' Lateral Velocity 6.4 cm/s Mitral E to LV E' Lateral Ratio 10.9 LV E' Septal Velocity 7.7 cm/s Mitral E to LV E' Septal Ratio 9.1 TR Peak Velocity 252.0 cm/s TR Peak Gradient 25.4 mmHg Right Atrial Pressure 10.0 mmHg Pulmonary Artery Systolic Pressu 35.4 mmHg Right Ventricular Systolic Press 35.4 mmHg PV Peak Velocity 105.0 cm/s PV Peak Gradient 4.4 mmHg FINDINGS LEFT VENTRICLE The left ventricular systolic function is low normal with an estimated ejection fraction in the rang e of 50- 55%. Normal left ventricular size. Mild concentric left ventricular hypertrophy. No regional wall motion abnormalities are present. RIGHT VENTRICLE Normal right ventricular size and systolic function. LEFT ATRIUM The left atrial size is normal. RIGHT ATRIUM The right atrial size is normal. ATRIAL SEPTUM Normal atrial septal thickness without atrial level shunting by limited color doppler interrogation. AORTA The aortic root and proximal ascending aorta are normal in size on limited imaging. MITRAL VALVE Structurally normal mitral valve. No mitral valve stenosis or regurgitation. AORTIC VALVE Trileaflet aortic valve. Trace aortic valve regurgitation. TRICUSPID VALVE Structurally normal tricuspid valve. There is trace tricuspid valve regurgitation. The estimated pulmonary arterial pressure is 35.4 mmHg. PULMONARY VALVE No pulmonary valve regurgitation or stenosis. VESSELS The inferior vena cava is normal in size. PERICARDIUM No pericardial effusion. Iglesia Leo MD, FACC (Electronically Signed) Final Date:05 October 2017 12:12
[2017-10-05 12:15] LABS: FREE T4 0.79 NG/DL (0.76-1.46)
[2017-10-05] MEDS: SPIRONOLACTONE 25 MG TAB PO SCH (12:56)
[2017-10-05] MEDS: DULoxetine HCl DR 60 MG CAP PO SCH (12:56)
--- NOTE | 2017-10-05 14:49 | EKG ---
Date Performed: 10/05/2017 Time Performed: 08:43:50 PTAGE: 62 years EKG: Sinus rhythm NONSPECIFIC T-WAVE ABNORMALITY ABNORMAL ECG PREVIOUS TRACING : 10/05/2017 02.51 Compared to previous tracing, atrial pacing is no longer pr esent. DOCTOR: Devin Trammell Interpretating Date/Time 10/05/2017 14:48:25
[2017-10-05] MEDS: RESP: ALBUTEROL 2.5 MG/IPRATROPIUM 0.5 MG NEB (SCH) NEB ×2 (15:31→20:00)
[2017-10-05 16:35] LABS: TROPONIN I LESS THAN 0.02 NG/ML (0.02-0.05)
[2017-10-05] MEDS: DOCUSATE SODIUM 50 MG/SENNA 8.6 MG TAB PO SCH (21:00)
[2017-10-05] MEDS: traZODone HCL 50 MG TAB PO SCH (22:11)
[2017-10-05] MEDS: SODIUM CHLORIDE 0.9% FLUSH 10 ML FLUSH IV FLUSH SCH (22:12)
[2017-10-06] VITALS (7 sets, daily range): BP systolic 107–148; BP diastolic 65–89; PULSE 80–95; RESP 18–19; TEMP 97.2–98.9; O2SAT 96–98
[2017-10-06] MEDS: oxyCODONE/ACETAMINOPHEN 10 MG/325 MG TAB PO PRN ×4 (02:05→22:26)
[2017-10-06] MEDS: DILTIAZEM HCL 60 MG TAB PO SCH ×5 (02:05→23:55)
[2017-10-06] MEDS: RESP: ALBUTEROL 2.5 MG/IPRATROPIUM 0.5 MG NEB (SCH) NEB ×3 (08:37→20:13)
[2017-10-06 09:17] LABS: AUTOMATED NEUTROPHIL # 2.5 TH/MM3 (1.8-7.7); BASOPHIL % 0.6 % (0.0-2.0); EOSINOPHIL # 0.1 TH/MM3 (0-0.4); EOSINOPHIL % 1.9 % (0.0-4.0); HEMATOCRIT 32.7 % (39.0-51.0); HEMOGLOBIN 10.6 GM/DL (13.0-17.0); LYMPH % 20.3 % (9.0-44.0); LYMPHOCYTE # 0.8 TH/MM3 (1.0-4.8); MEAN CELL VOLUME 74.4 FL (80.0-100.0); MEAN CORPUSCULAR HGB CONC 32.3 % (32.0-36.0); MEAN PLATELET VOLUME 7.9 FL (7.0-11.0); MONO % 11.7 % (0.0-8.0); MONOCYTE # 0.5 TH/MM3 (0-0.9); NEUT % 65.5 % (16.0-70.0); PLATELET COUNT 74 TH/MM3 (150-450); RED BLOOD COUNT 4.39 MIL/MM3 (4.50-5.90); RED CELL DISTRIBUTION WIDTH 24.3 % (11.6-17.2); WHITE BLOOD COUNT 3.8 TH/MM3 (4.0-11.0)
[2017-10-06] MEDS: DIVALPROEX DR 500 MG TABEC PO SCH ×2 (09:22→22:26)
[2017-10-06] MEDS: SPIRONOLACTONE 25 MG TAB PO SCH (09:22)
[2017-10-06] MEDS: APIXABAN 5 MG TABLET PO SCH ×2 (09:23→22:26)
[2017-10-06] MEDS: DULoxetine HCl DR 60 MG CAP PO SCH (09:23)
[2017-10-06] MEDS: BUMETANIDE 1 MG TAB PO SCH ×2 (09:23→21:00)
[2017-10-06] MEDS: guaiFENesin E.R. 600 MG TAB PO SCH ×2 (09:23→22:25)
[2017-10-06] MEDS: ASPIRIN 81 MG CHEW TAB CHEW SCH (09:23)
[2017-10-06] MEDS: DOCUSATE SODIUM 50 MG/SENNA 8.6 MG TAB PO SCH ×2 (09:23→21:00)
[2017-10-06] MEDS: SODIUM CHLORIDE 0.9% FLUSH 10 ML FLUSH IV FLUSH SCH ×2 (09:24→22:25)
[2017-10-06 09:41] LABS: ALBUMIN 3.3 GM/DL (3.4-5.0); BLOOD UREA NITROGEN 29 MG/DL (7-18); CALCIUM 8.4 MG/DL (8.5-10.1); CHLORIDE 102 MEQ/L (98-107); CREATININE 1.78 MG/DL (0.60-1.30); GLOMERULAR FILTRATION RATE 39 ML/MIN (>89); GLUCOSE,RANDOM 158 MG/DL (74-106); MAGNESIUM 2.2 MG/DL (1.5-2.5); SODIUM (NA) 138 MEQ/L (136-145)
[2017-10-06 09:42] LABS: AST (GOT) 31 U/L (15-37); CHOLESTEROL 135 MG/DL (120-200)
[2017-10-06 09:45] LABS: ALKALINE PHOSPHATASE 118 U/L (45-117); ALT (GPT) 25 U/L (12-78); CHOLESTEROL/ HDL RATIO 3.86 RATIO; HDL CHOLESTEROL 34.9 MG/DL (40.0-60.0); LDL CHOLESTEROL 74 MG/DL (0-99); PHOSPHORUS 3.6 MG/DL (2.5-4.9); TOTAL BILIRUBIN ADULT 0.3 MG/DL (0.2-1.0); TRIGLYCERIDES 132 MG/DL (42-150)
[2017-10-06 09:53] LABS: BANDS 23 % (0-6); BASOPHILS 1 % (0-2); LYMPHOCYTES 12 % (9-44); MONOCYTES 11 % (0-8); NEUTROPHIL # MANUAL DIFF 2.9 TH/MM3 (1.8-7.7); OVALOCYTES 1+ (NORMAL); POLYS (SEG NEUTROPHILS) 52 % (16-70)
[2017-10-06] MEDS: cefTRIAXone INJ 1,000 MG in SODIUM CHLORIDE 0.9% INJ 100 ML IV SCH (11:01)
--- NOTE | 2017-10-06 16:44 | HHI.PR ---
Subjective Remarks 62-year-old male who suffered a fall during a syncopal episode resulting in an L1 transverse process hairline fracture. His main complaint today of course is low back pain. He is also missing a few of his regular medications. Objective Vitals Vital Signs Date Time Temp Pulse Resp B/P (MAP) Pulse Ox O2 Delivery O2 Flow Rate FiO2 10/06/17 16:06 98.3 95 18 122/77 (92) 97 10/06/17 12:11 98.5 95 18 107/65 (79) 97 10/06/17 08:16 98.9 85 18 139/75 (96) 97 10/06/17 04:40 97.2 80 19 146/89 (108) 98 10/06/17 00:00 98.4 88 19 148/80 (102) 98 10/05/17 20:50 98.0 83 18 157/83 (107) 97 10/05/17 17:54 98.0 70 20 124/60 (81) 100 10/05/17 17:45 I/O 10/05/17 10/05/17 10/05/17 10/06/17 10/06/17 10/06/17 06:59 14:59 22:59 06:59 14:59 22:59 Intake Total 1720 ml 900 ml 1150 ml Output Total 200 ml 200 ml 1100 ml 350 ml Balance 1520 ml 700 ml 50 ml -350 ml Intake Oral 720 ml 900 ml 1150 ml IV Total 1000 ml Output Urine Total 200 ml 200 ml 1100 ml 350 ml # Voids 1 1 # Bowel Movements 0 2 Result Diagram: 10/06/17 0842 10/06/17 0842 Objective Remarks GENERAL: Well-nourished, well-developed patient. SKIN: Warm and dry. HEAD: Normocephalic. EYES: No scleral icterus. No injection or drainage. NECK: Supple, trachea midline. No JVD or lymphadenopathy. CARDIOVASCULAR: Regular rate and rhythm without murmurs, gallops, or rubs. RESPIRATORY: Breath sounds equal bilaterally. No accessory muscle use. GASTROINTESTINAL: Abdomen soft, non-tender, nondistended. MUSCULOSKELETAL: Winces to pain when spasms occur during movement NEUROLOGICAL: Awake, alert, and oriented x 3. Non-focal. A/P Problem List: (1) Syncope ICD Code: R55 - Syncope and collapse Status: Acute (2) Hypotension ICD Code: I95.9 - Hypotension, unspecified Status: Acute (3) Lumbar transverse process fracture ICD Code: S32.009A - Unspecified fracture of unspecified lumbar vertebra, initial encounter for closed fracture Status: Acute (4) Atrial fibrillation ICD Code: I48.91 - Unspecified atrial fibrillation Status: Resolved (5) Congestive heart failure ICD Code: I50.9 - Heart failure, unspecified Status: Chronic Permanent Comment: Ejection fraction 25%, February 2017 Last Edited By: Kathleen Preston on Apr 22, 2017 09:12 (6) Lower extremity edema ICD Code: R60.0 - Localized edema Status: Chronic (7) Chronic systolic CHF (congestive heart failure) ICD Code: I50.22 - Chronic systolic (congestive) heart failure Assessment and Plan Syncopal episode So far physical workup has been negative, echocardiogram was normal, left ventricle normal size Consider medication side effects, patient takes metoprolol and anastrozole for history of A. fib, he also takes a sleeping pill (possibly Ambien) We will monitor his blood pressures while he is here L1 transverse process hairline fracture Pain is his chief complaint, 8 out of 10 pain when spasms occur Continue with oxycodone as needed Type 2 diabetes Accu-Cheks with sliding scale coverage Diabetic diet Atrial fibrillation Continue Eliquis, Cardizem, Enestro Benign prostatic hypertrophy Patient fell when he was getting up at night to urinate He would like to be restarted on Flomax which he was on in the past prior to financial strain Urinary tract infection Continue Rocephin Obstructive sleep apnea Continue CPAP at home History of gastric bypass Electrolyte and lab work appear relatively normal Anxiety and depression continue home psychiatric medications Discharge planning Back brace ordered, orthopedics consult for treatment recommendations, patient will likely be discharged tomorrow Problem Qualifiers (1) Syncope: Qualified Codes: R55 - Syncope and collapse (2) Hypotension: Qualified Codes: I95.9 - Hypotension, unspecified (3) Lumbar transverse process fracture: Qualified Codes: S32.009A - Unspecified fracture of unspecified lumbar vertebra , initial encounter for closed fracture Reese Mckeon MD Oct 06, 2017 16:44
--- NOTE | 2017-10-06 20:47 | EKG ---
Date Performed: 10/05/2017 Time Performed: 15:31:57 PTAGE: 62 years EKG: Sinus rhythm NONSPECIFIC T-WAVE ABNORMALITY BORDERLINE ECG PREVIOUS TRACING : 10/05/2017 08.43 Since the previous tracing, no significant change noted DOCTOR: Fredrick Castro Interpretating Date/Time 10/06/2017 20:46:18
[2017-10-06] MEDS: TAMSULOSIN HCL 0.4 MG CAP PO SCH (22:25)
[2017-10-06] MEDS: traZODone HCL 50 MG TAB PO SCH (22:26)
[2017-10-06] MEDS: SACUBITRIL/VALSARTAN 49 MG-51 MG TAB PO SCH (22:26)
[2017-10-07] VITALS (9 sets, daily range): BP systolic 91–138; BP diastolic 59–78; PULSE 76–104; RESP 18–19; TEMP 98.2–99.5; O2SAT 94–97
[2017-10-07] MEDS: DILTIAZEM HCL 60 MG TAB PO SCH ×3 (06:17→16:30)
[2017-10-07] MEDS: oxyCODONE/ACETAMINOPHEN 10 MG/325 MG TAB PO PRN ×3 (06:17→20:38)
--- NOTE | 2017-10-07 08:06 | PD.CONS ---
HPI Service Orthopedic Surgeons Consult Requested By Reason for Consult L1 TP fx Primary Care Physician No Primary Care Physician Admission Diagnosis syncope, lumbar vertebral fracture, hypotension Diagnoses: (1) Syncope Diagnosis: Principal (2) Hypotension Diagnosis: Principal (3) Lumbar transverse process fracture Diagnosis: Secondary (4) Atrial fibrillation Diagnosis: Principal (5) Congestive heart failure Diagnosis: Principal (6) Lower extremity edema Diagnosis: Secondary (7) Chronic systolic CHF (congestive heart failure) Diagnosis: Principal Chief Complaint: Back pain History of Present Illness 62-year-old male who was brought to the emergency department by EMS yesterday after having a syncopal episode. Patient is awake and alert and states that he remembers getting up from his bed and going to the bathroom but then he does not remember anything after that. He states his and his [id number] tried to bring him out of the bathroom but called 911. Patient currently complains of low back pain. He denies weakness, numbness or tingling. He reports mild right knee pain. Of note, he has a history of congestive heart failure and AICD/pacemaker defibrillator. He has been on Eliquis. Review of Systems Constitutional: DENIES: Fever Endocrine: DENIES: Polyuria Eyes: DENIES: Blurred vision Ears, nose, mouth, throat: DENIES: Throat pain Respiratory: DENIES: Cough Cardiovascular: DENIES: Chest pain Gastrointestinal: DENIES: Abdominal pain Genitourinary: DENIES: Urinary incontinence Musculoskeletal: COMPLAINS OF: Joint pain, Back pain Integumentary: DENIES: Rash Hematologic/lymphatic: DENIES: Bruising Immunologic/allergic: DENIES: Eczema Neurologic: DENIES: Abnormal gait Psychiatric: DENIES: Anxiety Past Family Social History Past Medical History Atrial fibrillation on chronic Eliquis Cardiomyopathy ADHD Depression History of pacemaker defibrillator history of ablation Congestive heart failure with an EF of 15-22% Diabetes mellitus Hypertension History of fracture left ankle History of skull fracture age 7 Obstructive sleep apnea on CPAP at night Obesity Compliance issues due to insurance Past Surgical History Gastric bypass in 2003 Appendectomy AICD pacemaker combo Tonsillectomy Hiatal hernia repair age 4 Allergies: Coded Allergies: ampicillin (Verified Allergy, Severe, 10/05/17) fire ant (Verified Allergy, Severe, Anaphylaxis, 10/05/17) MRI PRECAUTION (Verified Adverse Reaction, Severe, 10/05/17) Patient has a Between non compatible mri pacemaker. EG 03/25/2017 Active Ordered Medications Current Medications Medications (Trade) Dose Ordered Sig/Dyllan Route Start Time Stop Time Status Last Admin (Mucinex Er) 600 mg BID PO 10/05/17 10:15 10/06/17 22:25 (Duoneb Neb) 1 ampule Q4HR NEB PRN NEB 10/05/17 10:15 (Duoneb Neb) 1 ampule Q6HR WHILE AWAKE NEB NEB 10/05/17 14:00 10/06/17 20:13 Ceftriaxone Sodium 1000 mg/ Sodium Chloride 100 ml @ 200 mls/hr Q24H IV 10/05/17 11:00 10/06/17 11:01 (Eliquis) 5 mg BID PO 10/05/17 10:30 10/06/17 22:26 (Aspirin Chew) 81 mg DAILY CHEW 10/05/17 10:30 10/05/17 11:07 (Bumetanide) 1 mg BID PO 10/05/17 10:30 10/06/17 09:23 (Cardizem) 60 mg Q6HR PO 10/05/17 12:00 10/07/17 06:17 (Cymbalta [address]) 60 mg DAILY PO 10/05/17 10:30 10/06/17 09:23 (Aldactone) 25 mg DAILY PO 10/05/17 10:30 10/06/17 09:22 (Desyrel) 50 mg HS PO 10/05/17 21:00 10/06/17 22:26 (NS Flush) 2 ml UNSCH PRN IV FLUSH 10/05/17 10:30 (NS Flush) 2 ml BID IV FLUSH 10/05/17 21:00 10/06/17 22:25 (Tylenol) 650 mg Q4H PRN PO 10/05/17 10:30 (Zofran Inj) 4 mg Q6H PRN IVP 10/05/17 10:30 10/06/17 15:18 (Reglan Inj) 5 mg Q6H PRN IV PUSH 10/05/17 10:30 (Tylenol) 650 mg Q6H PRN PO 10/05/17 10:30 (Percocet 5-325 Mg) 1 tab Q6H PRN PO 10/05/17 10:30 (Percocet 10-325 Mg) 1 tab Q6H PRN PO 10/05/17 10:30 10/07/17 06:17 (Morphine Inj) 2 mg Q3H PRN IV PUSH 10/05/17 10:30 (Morphine Inj) 4 mg Q3H PRN IV PUSH 10/05/17 10:45 10/05/17 13:05 (Narcan Inj) 0.4 mg UNSCH PRN IV PUSH 10/05/17 10:30 (Kathie-Colace) 1 tab BID PO 10/05/17 21:00 (Milk Of Magnesia Liq) 30 ml Q12H PRN PO 10/05/17 10:30 (Senokot) 17.2 mg Q12H PRN PO 10/05/17 10:30 (Dulcolax Supp) 10 mg DAILY PRN RECTAL 10/05/17 10:30 (Lactulose Liq) 30 ml DAILY PRN PO 10/05/17 10:30 (Depakote Dr) 500 mg BID PO 10/06/17 21:00 10/06/17 22:26 (Entresto 49-51 Mg) 1 tab BID PO 10/06/17 21:00 10/06/17 22:26 (Flomax) 0.4 mg HS PO 10/06/17 21:00 10/06/17 22:25 Reported Meds & Active Scripts Active Cardizem (Diltiazem HCl) 60 Mg Tab 60 Mg PO Q6HR Eliquis (Apixaban) 5 Mg Tab 5 Mg PO BID Bumetanide 1 Mg Tab 1 Mg PO BID May take extra pill per every 24 hours for worsening swelling in legs Trazodone (Trazodone HCl) 50 Mg Tab 50 Mg PO HS Cymbalta DR (Duloxetine HCl) 60 Mg Capdr 60 Mg PO DAILY Reported Aspirin 81 Mg Chew 81 Mg CHEW DAILY Divalproex DR (Divalproex Sodium) 500 Mg Tabdr 500 Mg PO BID Spironolactone 25 Mg Tab 25 Mg PO DAILY Family History Mother had hypertension and COPD tobacco abuse Father had lung cancer and tobacco abuse Social History Denies any tobacco alcohol or illicits currently Currently does not have a primary care physician Physical Exam Vital Signs Vital Signs Date Time Temp Pulse Resp B/P (MAP) Pulse Ox O2 Delivery O2 Flow Rate FiO2 10/07/17 04:00 98.2 104 18 138/72 (94) 95 10/07/17 00:00 98.4 76 18 127/76 (93) 96 10/06/17 20:14 97 21 10/06/17 20:00 98.7 81 18 122/72 (89) 96 10/06/17 16:06 98.3 95 18 122/77 (92) 97 10/06/17 12:11 98.5 95 18 107/65 (79) 97 10/06/17 08:16 98.9 85 18 139/75 (96) 97 Physical Exam Awake, alert, no acute distress Normocephalic Pupils equal No JVD We take his membranes Nonlabored respirations Nontender abdomen Regular rate Bilateral lower extremities: Mild tenderness about right knee. No ecchymosis or effusion. No deformities. Patient has full active range of motion throughout both lower extremities with minimal to no discomfort. Patient has 5 out of 5 strength in quadriceps, hamstrings, gastrocs, tib ant, EHL and FHL. Sensation intact throughout. Brisk cap refill. Bilateral upper extremity: No tenderness palpation of visible deformities. Full active range of motion and strength throughout. Sensation intact. Radial pulses are palpable. No rash Normal affect Laboratory Laboratory Tests Test 10/06/17 08:42 White Blood Count 3.8 Red Blood Count 4.39 Hemoglobin 10.6 Hematocrit 32.7 Mean Corpuscular Volume 74.4 Mean Corpuscular Hemoglobin 24.0 Mean Corpuscular Hemoglobin Concent 32.3 Red Cell Distribution Width 24.3 Platelet Count 74 Mean Platelet Volume 7.9 Neutrophils (%) (Auto) 65.5 Lymphocytes (%) (Auto) 20.3 Monocytes (%) (Auto) 11.7 Eosinophils (%) (Auto) 1.9 Basophils (%) (Auto) 0.6 Neutrophils # (Auto) 2.5 Lymphocytes # (Auto) 0.8 Monocytes # (Auto) 0.5 Eosinophils # (Auto) 0.1 Basophils # (Auto) 0.0 CBC Comment AUTO DIFF Differential Total Cells Counted 100 Neutrophils % (Manual) 52 Band Neutrophils % 23 Lymphocytes % 12 Monocytes % 11 Eosinophils % 1 Basophils % 1 Neutrophils # (Manual) 2.9 Differential Comment FINAL DIFF MANUAL Platelet Estimate LOW Platelet Morphology Comment NORMAL Ovalocytes 1+ Blood Urea Nitrogen 29 Creatinine 1.78 Random Glucose 158 Total Protein 7.0 Albumin 3.3 Calcium Level 8.4 Phosphorus Level 3.6 Magnesium Level 2.2 Alkaline Phosphatase 118 Aspartate Amino Transf (AST/SGOT) 31 Alanine Aminotransferase (ALT/SGPT) 25 Total Bilirubin 0.3 Sodium Level 138 Potassium Level 4.1 Chloride Level 102 Carbon Dioxide Level 27.0 Anion Gap 9 Estimat Glomerular Filtration Rate 39 Triglycerides Level 132 Cholesterol Level 135 LDL Cholesterol 74 HDL Cholesterol 34.9 Cholesterol/HDL Ratio 3.86 Date/Time Source Procedure Growth Status 10/05/17 05:00 Urine Catheterized Urine Urine Culture - Final 50-100,000 CFU/ML MIXED GRAM POSITIVE... Complete Result Diagram: 10/06/1742 10/06/17841 Imaging Last [address] 10/05/17246 Signed Impressions: Service Date/Time: Thursday, October 05, 2017 03:29 - CONCLUSION: 1. No acute findings in the brain. Kartik Winters MD Chest X-Ray 10/05/17246 Signed Impressions: Service Date/Time: Thursday, October 05, 2017 03:54 - CONCLUSION: Partially consolidative infiltrate in the medial left lower lobe with associated volume loss and elevation of left hemidiaphragm. Kartik Winters MD Carotid Artery Ultrasound 10/05/17 0000 Signed Impressions: Service Date/Time: Thursday, October 05, 2017 07:46 - CONCLUSION: 1. Mild bilateral carotid plaque without significant carotid flow limiting stenosis. 2. Antegrade vertebral artery flow bilaterally. Cecilio Garrido MD Abdomen/Pelvis CT 10/05/17 0000 Signed Impressions: Service Date/Time: Thursday, October 05, 2017 03:32 - CONCLUSION: 1. Nondisplaced hairline fracture through the left L1 transverse process. 2. Mild opacity in the left costophrenic angle may represent atelectasis or contusion. 3. Tiny bilateral pleural effusions. 4. Mildly distended right and transverse colon. No significant distention of small bowel. Kartik Winters MD Assessment & Plan Assessment and Plan 62-year-old man who presented after syncopal fall with complaints of low back pain and mild right knee pain 1. In regards the patient's low back pain, he does have an L1 transverse process fracture. This is nonoperative and does not require bracing except for comfort. I would recommend dedicated lumbar spine films and I have ordered a CT to fully evaluate as CT abdomen does not contain any sagittal series. My suspicion is he will not have any other fractures but given he does have an L1 transverse process fracture I would at least recommend dedicated exam. 2. In regards to his right knee pain, he has full passive range of motion with minimal discomfort and no visible bruising or swelling. I would recommend range of motion as tolerated and weightbearing as tolerated. For completeness, I will order radiographs of his right knee although my suspicion is that it will be chronic arthritic changes but no acute injury. Caity Cuellar MD Oct 07, 2017 08:06
[2017-10-07] MEDS: RESP: ALBUTEROL 2.5 MG/IPRATROPIUM 0.5 MG NEB (SCH) NEB ×2 (08:17→20:28)
[2017-10-07] MEDS: DOCUSATE SODIUM 50 MG/SENNA 8.6 MG TAB PO SCH ×2 (09:00→20:39)
[2017-10-07] MEDS: ASPIRIN 81 MG CHEW TAB CHEW SCH (09:00)
[2017-10-07] MEDS: SODIUM CHLORIDE 0.9% FLUSH 10 ML FLUSH IV FLUSH SCH ×2 (09:00→20:39)
[2017-10-07] MEDS: guaiFENesin E.R. 600 MG TAB PO SCH ×2 (09:10→20:35)
[2017-10-07] MEDS: DIVALPROEX DR 500 MG TABEC PO SCH ×2 (09:10→20:37)
[2017-10-07] MEDS: SACUBITRIL/VALSARTAN 49 MG-51 MG TAB PO SCH ×2 (09:10→20:39)
[2017-10-07] MEDS: SPIRONOLACTONE 25 MG TAB PO SCH (09:11)
[2017-10-07] MEDS: BUMETANIDE 1 MG TAB PO SCH ×2 (09:11→20:37)
[2017-10-07] MEDS: DULoxetine HCl DR 60 MG CAP PO SCH (09:11)
[2017-10-07] MEDS: APIXABAN 5 MG TABLET PO SCH ×2 (09:11→20:38)
--- NOTE | 2017-10-07 11:12 | RADRPT ---
EXAM DATE/TIME: 10/07/2017 10:07 [facility] COMPARISON: No previous studies available for comparison. INDICATIONS : Fell 2 days ago, right knee pain. MEDICAL HISTORY : Congestive heart failure. Hypertension atrial fibrillation, diabetes SURGICAL HISTORY : None. ENCOUNTER: Initial ACUITY: 2 days PAIN SCORE: 9/10 LOCATION: Right knee FINDINGS: There is no acute fracture or dislocation. Mild degenerative changes are noted involving the patellof emoral and medial femorotibial joints. There is a prominent spur along the anterior inferior aspect o f the patella. A tiny knee joint effusion is noted. CONCLUSION: 1. No acute fracture or dislocation. 2. Mild degenerative changes involving the patellofemoral and medial femorotibial joints. 3. Prominent spur along the anterior inferior aspect of the patella. 4. Tiny knee joint effusion. Sai Dallas MD on October 07, 2017 at 11:06 Board Certified Radiologist. This report was verified electronically.
--- NOTE | 2017-10-07 11:33 | RADRPT ---
EXAM DATE/TIME: 10/05/2017 03:32 [facility] COMPARISON: No previous studies available for comparison. INDICATIONS : L-1 fracture RADIATION DOSE: Reconstructed from previous dataset, no dose MEDICAL HISTORY : Cardiovascular disease. Hypertension. Diabetes SURGICAL HISTORY : Pacemaker. Gastric bypass. Appendectomy. ENCOUNTER: Initial ACUITY: 1 day PAIN SCALE: 3/10 LOCATION: Lumbar TECHNIQUE: Volumetric scanning of the lumbar spine was performed. Multiplanar reconstructions in the sagittal, coronal and oblique axial planes were performed. Using automated exposure control and adjustment of the mA and/or kV according to patient size, radiation dose was kept as low as reasonably achievable t o obtain optimal diagnostic quality images. DICOM format image data is available electronically for review and comparison. FINDINGS: Lumbar spine alignment is satisfactory. The vertebra are intact throughout. There is no evidence of b elgin canal or foraminal compromise. There is a minimally displaced fracture involving the left transve rse process of L1. Otherwise no acute bony injury. Moderate degenerative arthritic change and posteri or facet joints at multiple levels, most significantly at L4-5 and L5-S1 and slightly worse on the le ft than the right. There is no evidence of paraspinal hematoma. CONCLUSION: Minimally displaced fracture of the left transverse process of L1. Chato Kolb MD on October 07, 2017 at 11:28 Board Certified Radiologist. This report was verified electronically.
[2017-10-07] MEDS: cefTRIAXone INJ 1,000 MG in SODIUM CHLORIDE 0.9% INJ 100 ML IV SCH (12:05)
--- NOTE | 2017-10-07 15:49 | HHI.PR ---
Subjective Remarks 8-year-old male with syncopal episode and fall that resulted in a L1 transverse process hairline fracture. He has pain with certain movements but is otherwise comfortable. His is concerned about his balance that led to the fall but also his unstable gait following the fall, she is worried he will not be safe at home in the senior care where they live. His back brace was delivered and is at bedside. Objective Vitals Vital Signs Date Time Temp Pulse Resp B/P (MAP) Pulse Ox O2 Delivery O2 Flow Rate FiO2 10/07/17 13:02 16 10/07/17 12:06 99.5 104 19 113/78 (90) 94 10/07/17 09:02 99.0 98 18 117/60 (79) 94 10/07/17 08:22 97 21 10/07/17 07:52 96 10/07/17 04:00 98.2 104 18 138/72 (94) 95 10/07/17 00:00 98.4 76 18 127/76 (93) 96 10/06/17 20:14 97 21 10/06/17 20:00 98.7 81 18 122/72 (89) 96 10/06/17 16:06 98.3 95 18 122/77 (92) 97 I/O 10/06/17 10/06/17 10/06/17 10/07/17 10/07/17 10/07/17 07:00 15:00 23:00 07:00 15:00 23:00 Intake Total 1150 ml Output Total 1100 ml 350 ml Balance 50 ml -350 ml Intake Oral 1150 ml Output Urine Total 1100 ml 350 ml # Voids 1 6 # Bowel Movements 2 Result Diagram: 10/06/17 0842 10/06/17 0842 Objective Remarks GENERAL: Well-nourished, well-developed patient. SKIN: Warm and dry. HEAD: Normocephalic. EYES: No scleral icterus. No injection or drainage. NECK: Supple, trachea midline. No JVD or lymphadenopathy. CARDIOVASCULAR: Regular rate and rhythm without murmurs, gallops, or rubs. RESPIRATORY: Breath sounds equal bilaterally. No accessory muscle use. GASTROINTESTINAL: Abdomen soft, non-tender, nondistended. MUSCULOSKELETAL: Winces to pain when spasms occur during movement NEUROLOGICAL: Awake, alert, and oriented x 3. Non-focal. A/P Problem List: (1) Syncope ICD Code: R55 - Syncope and collapse Status: Acute (2) Hypotension ICD Code: I95.9 - Hypotension, unspecified Status: Acute (3) Lumbar transverse process fracture ICD Code: S32.009A - Unspecified fracture of unspecified lumbar vertebra, initial encounter for closed fracture Status: Acute (4) Atrial fibrillation ICD Code: I48.91 - Unspecified atrial fibrillation Status: Resolved (5) Congestive heart failure ICD Code: I50.9 - Heart failure, unspecified Status: Chronic Permanent Comment: Ejection fraction 25%, February 2017 Last Edited By: Kathleen Preston on Apr 22, 2017 09:12 (6) Lower extremity edema ICD Code: R60.0 - Localized edema Status: Chronic (7) Chronic systolic CHF (congestive heart failure) ICD Code: I50.22 - Chronic systolic (congestive) heart failure Assessment and Plan Syncopal episode So far physical workup has been negative, echocardiogram was normal, left ventricle normal size Consider medication side effects, patient takes metoprolol and Enestro for history of A. fib, he also takes Depakote for bipolar depression and Seroquel 100mg for sleep aid. I recommend against regular use of the Seroquel as a sleep aid. In the very least, cut that dose in half. Blood pressures have remained stable. PT requested for balance and gait assessment L1 transverse process hairline fracture Pain is his chief complaint, 8 out of 10 pain when spasms occur Continue with oxycodone as needed Back brace at bedside Appreciate orthopedics consult Type 2 diabetes Accu-Cheks with sliding scale coverage Diabetic diet Atrial fibrillation Continue Eliquis, Cardizem, Enestro Benign prostatic hypertrophy Patient fell when he was getting up at night to urinate He would like to be restarted on Flomax which he was on in the past prior to financial strain Urinary tract infection Continue Rocephin Obstructive sleep apnea Continue CPAP at home History of gastric bypass Electrolyte and lab work appear relatively normal Anxiety and depression continue home psychiatric medications Discharge planning May go home if PT finds his gait to be stable. Patient may benefit from blue card Problem Qualifiers (1) Syncope: Qualified Codes: R55 - Syncope and collapse (2) Hypotension: Qualified Codes: I95.9 - Hypotension, unspecified (3) Lumbar transverse process fracture: Qualified Codes: S32.009A - Unspecified fracture of unspecified lumbar vertebra , initial encounter for closed fracture Reese Mckeon MD Oct 07, 2017 15:49
[2017-10-07] MEDS: traZODone HCL 50 MG TAB PO SCH (20:38)
[2017-10-07] MEDS: TAMSULOSIN HCL 0.4 MG CAP PO SCH (20:38)
[2017-10-08] VITALS (10 sets, daily range): BP systolic 101–166; BP diastolic 52–72; PULSE 77–104; RESP 14–20; TEMP 97.3–99.4; O2SAT 90–100
[2017-10-08] MEDS: DILTIAZEM HCL 60 MG TAB PO SCH ×4 (05:13→16:29)
[2017-10-08] MEDS: oxyCODONE/ACETAMINOPHEN 10 MG/325 MG TAB PO PRN ×3 (05:15→21:59)
[2017-10-08] MEDS: DOCUSATE SODIUM 50 MG/SENNA 8.6 MG TAB PO SCH ×2 (07:55→21:00)
[2017-10-08] MEDS: ASPIRIN 81 MG CHEW TAB CHEW SCH (07:55)
[2017-10-08] MEDS: DIVALPROEX DR 500 MG TABEC PO SCH ×2 (07:57→21:54)
[2017-10-08] MEDS: SPIRONOLACTONE 25 MG TAB PO SCH (07:57)
[2017-10-08] MEDS: SACUBITRIL/VALSARTAN 49 MG-51 MG TAB PO SCH ×2 (07:57→21:54)
[2017-10-08] MEDS: DULoxetine HCl DR 60 MG CAP PO SCH (07:57)
[2017-10-08] MEDS: guaiFENesin E.R. 600 MG TAB PO SCH ×2 (07:58→21:54)
[2017-10-08] MEDS: APIXABAN 5 MG TABLET PO SCH ×2 (07:58→21:54)
[2017-10-08] MEDS: BUMETANIDE 1 MG TAB PO SCH ×2 (07:58→21:54)
[2017-10-08] MEDS: SODIUM CHLORIDE 0.9% FLUSH 10 ML FLUSH IV FLUSH SCH ×2 (07:59→21:53)
[2017-10-08] MEDS: RESP: ALBUTEROL 2.5 MG/IPRATROPIUM 0.5 MG NEB (SCH) NEB ×2 (08:47→19:18)
[2017-10-08] MEDS: cefTRIAXone INJ 1,000 MG in SODIUM CHLORIDE 0.9% INJ 100 ML IV SCH (10:01)
--- NOTE | 2017-10-08 18:39 | HHI.PR ---
Subjective Remarks Patient may have secured a housing option for discharge planning and he is optimistic about this impact on his recovery. He complains of uncontrolled pain and wishes he could have a garden salad added to his diet. Objective Vitals Vital Signs Date Time Temp Pulse Resp B/P (MAP) Pulse Ox O2 Delivery O2 Flow Rate FiO2 10/08/17 16:30 97.4 89 18 109/59 (76) 98 10/08/17 15:14 16 10/08/17 12:00 97.5 92 18 101/60 (74) 100 10/08/17 08:20 92 10/08/17 08:00 98.1 89 17 126/60 (82) 97 10/08/17 05:17 99.4 104 18 165/72 (103) 94 10/08/17 01:12 98.3 77 18 126/58 (80) 95 10/07/17 21:18 98.9 91 18 124/62 (82) 97 10/07/17 20:27 97 I/O 10/07/17 10/07/17 10/07/17 10/08/17 10/08/17 10/08/17 07:00 15:00 23:00 07:00 15:00 23:00 Intake Total 480 ml Output Total 350 ml 50 ml Balance 130 ml -50 ml Intake Oral 480 ml Output Urine Total 350 ml 50 ml # Voids 6 1 Result Diagram: 10/06/17 0842 10/06/17 0842 Objective Remarks GENERAL: Well-nourished, well-developed patient. SKIN: Warm and dry. HEAD: Normocephalic. EYES: No scleral icterus. No injection or drainage. NECK: Supple, trachea midline. No JVD or lymphadenopathy. CARDIOVASCULAR: Regular rate and rhythm without murmurs, gallops, or rubs. RESPIRATORY: Breath sounds equal bilaterally. No accessory muscle use. GASTROINTESTINAL: Abdomen soft, non-tender, nondistended. MUSCULOSKELETAL: Winces to pain when spasms occur during movement NEUROLOGICAL: Awake, alert, and oriented x 3. Non-focal. A/P Problem List: (1) Syncope ICD Code: R55 - Syncope and collapse Status: Acute (2) Hypotension ICD Code: I95.9 - Hypotension, unspecified Status: Acute (3) Lumbar transverse process fracture ICD Code: S32.009A - Unspecified fracture of unspecified lumbar vertebra, initial encounter for closed fracture Status: Acute (4) Atrial fibrillation ICD Code: I48.91 - Unspecified atrial fibrillation Status: Resolved (5) Congestive heart failure ICD Code: I50.9 - Heart failure, unspecified Status: Chronic Permanent Comment: Ejection fraction 25%, February 2017 Last Edited By: Kathleen Preston on Apr 22, 2017 09:12 (6) Lower extremity edema ICD Code: R60.0 - Localized edema Status: Chronic (7) Chronic systolic CHF (congestive heart failure) ICD Code: I50.22 - Chronic systolic (congestive) heart failure Assessment and Plan Syncopal episode Physical workup has been negative, echocardiogram was normal, left ventricle normal size Consider medication side effects, patient takes metoprolol and Enestro for history of A. fib, he also takes Depakote for bipolar depression and Seroquel 100mg for sleep aid. I recommend against regular use of the Seroquel as a sleep aid. Blood pressure has been stable PT recommends ongoing rehabilitation L1 transverse process hairline fracture Pain is his chief complaint, 8 out of 10 pain when spasms occur Continue with oxycodone as needed, morphine for breakthrough pain Back brace at bedside Appreciate orthopedics consult Type 2 diabetes Accu-Cheks with sliding scale coverage Diabetic diet Atrial fibrillation Continue Eliquis, Cardizem, Enestro Benign prostatic hypertrophy Patient fell when he was getting up at night to urinate Continue with Flomax Urinary tract infection Continue Rocephin Obstructive sleep apnea Continue CPAP at home History of gastric bypass Electrolyte and lab work appear relatively normal Anxiety and depression continue home psychiatric medications Discharge planning PT recommends a little more rehab before discharge Patient states he may have found a place to live, will be discharging to that location when ready Problem Qualifiers (1) Syncope: Qualified Codes: R55 - Syncope and collapse (2) Hypotension: Qualified Codes: I95.9 - Hypotension, unspecified (3) Lumbar transverse process fracture: Qualified Codes: S32.009A - Unspecified fracture of unspecified lumbar vertebra , initial encounter for closed fracture Reese Mckeon MD Oct 08, 2017 18:39
[2017-10-08] MEDS: traZODone HCL 50 MG TAB PO SCH (21:54)
[2017-10-08] MEDS: TAMSULOSIN HCL 0.4 MG CAP PO SCH (21:54)
[2017-10-09] VITALS (9 sets, daily range): BP systolic 100–135; BP diastolic 60–71; PULSE 78–103; RESP 14–18; TEMP 97.4–98.6; O2SAT 93–98
[2017-10-09] MEDS: DILTIAZEM HCL 60 MG TAB PO SCH ×4 (06:00→18:00)
--- NOTE | 2017-10-09 08:08 | PD.ORT.PN ---
Subjective Subjective Remarks States he is progressing well with physical therapy. His pain in his knee is continuing to improve Objective Vitals Vital Signs Date Time Temp Pulse Resp B/P (MAP) Pulse Ox O2 Delivery O2 Flow Rate FiO2 10/09/17 04:28 98.6 83 14 110/60 (77) 98 10/09/17 00:00 88 10/08/17 23:54 97.7 80 20 166/70 (102) 93 10/08/17 23:48 97.3 90 14 102/52 (69) 90 10/08/17 21:17 97.4 103 16 103/58 (73) 96 10/08/17 19:00 88 10/08/17 16:30 97.4 89 18 109/59 (76) 98 10/08/17 15:14 16 10/08/17 12:00 97.5 92 18 101/60 (74) 100 10/08/17 08:20 92 I/O 10/08/17 10/08/17 10/08/17 10/09/17 10/09/17 10/09/17 07:00 15:00 23:00 07:00 15:00 23:00 Output Total 50 ml 925 ml Balance -50 ml -925 ml Output Urine Total 50 ml 925 ml Result Diagram: 10/06/17 0842 10/06/17 0842 Objective Remarks Right lower extremity: Full range of motion of knee and ankle. Distally intact sensation good capillary refills. Is active dorsal flexion plantar flexion foot. He has improved range of motion of the knee with mild tenderness. Knee range of motion is from 0 to 100. Lumbar spine: Continues to have tenderness to palpation. He is improving with range of motion and movement. Bilateral lower extremities are neurovascularly intact with active dorsiflexion plantar flexion of feet Assessment & Plan Assessment and Plan 62-year-old man who presented after syncopal fall with complaints of low back pain and mild right knee pain 1. L1 transverse fracture: Continue to be weightbearing as tolerated and will use lumbar brace as needed. As he continues to progress with physical therapy we will anticipate discharge to home 2. Right knee sprain and contusion from fall: Weightbearing as tolerated right lower extremity and full range of motion Follow-up with Dr. Cuellar in 2 weeks Xavier Monterroso Jr. Oct 09, 2017 08:08
[2017-10-09] MEDS: RESP: ALBUTEROL 2.5 MG/IPRATROPIUM 0.5 MG NEB (SCH) NEB (08:14)
[2017-10-09] MEDS: DOCUSATE SODIUM 50 MG/SENNA 8.6 MG TAB PO SCH ×2 (09:00→21:00)
[2017-10-09] MEDS: SODIUM CHLORIDE 0.9% FLUSH 10 ML FLUSH IV FLUSH SCH ×2 (09:00→21:07)
[2017-10-09] MEDS: ASPIRIN 81 MG CHEW TAB CHEW SCH (09:00)
[2017-10-09] MEDS: APIXABAN 5 MG TABLET PO SCH ×2 (09:16→21:02)
[2017-10-09] MEDS: SACUBITRIL/VALSARTAN 49 MG-51 MG TAB PO SCH ×2 (09:16→21:01)
[2017-10-09] MEDS: DULoxetine HCl DR 60 MG CAP PO SCH (09:16)
[2017-10-09] MEDS: oxyCODONE/ACETAMINOPHEN 10 MG/325 MG TAB PO PRN ×3 (09:17→21:07)
[2017-10-09] MEDS: DIVALPROEX DR 500 MG TABEC PO SCH ×2 (09:17→21:01)
[2017-10-09] MEDS: BUMETANIDE 1 MG TAB PO SCH ×2 (09:17→21:02)
[2017-10-09] MEDS: SPIRONOLACTONE 25 MG TAB PO SCH (09:18)
[2017-10-09] MEDS: guaiFENesin E.R. 600 MG TAB PO SCH ×2 (09:18→21:02)
[2017-10-09] MEDS: cefTRIAXone INJ 1,000 MG in SODIUM CHLORIDE 0.9% INJ 100 ML IV SCH (14:40)
--- NOTE | 2017-10-09 14:54 | HHI.PR ---
Subjective Remarks Patient says that his pain is under better control following adjustment of morphine. He would still like a commis chef salad. Objective Vitals Vital Signs Date Time Temp Pulse Resp B/P (MAP) Pulse Ox O2 Delivery O2 Flow Rate FiO2 10/09/17 14:17 97 21 10/09/17 12:00 98.0 78 18 129/71 (90) 96 10/09/17 08:14 93 10/09/17 08:00 97.9 82 18 135/70 (91) 97 10/09/17 04:28 98.6 83 14 110/60 (77) 98 10/09/17 00:00 88 10/08/17 23:54 97.7 80 20 166/70 (102) 93 10/08/17 23:48 97.3 90 14 102/52 (69) 90 10/08/17 21:17 97.4 103 16 103/58 (73) 96 10/08/17 19:00 88 10/08/17 16:30 97.4 89 18 109/59 (76) 98 10/08/17 15:14 16 I/O 10/08/17 10/08/17 10/08/17 10/09/17 10/09/17 10/09/17 07:00 15:00 23:00 07:00 15:00 23:00 Output Total 50 ml 925 ml Balance -50 ml -925 ml Output Urine Total 50 ml 925 ml Result Diagram: 10/06/17 0842 10/06/17 0842 Objective Remarks GENERAL: Well-nourished, well-developed patient. SKIN: Warm and dry. HEAD: Normocephalic. EYES: No scleral icterus. No injection or drainage. NECK: Supple, trachea midline. No JVD or lymphadenopathy. CARDIOVASCULAR: Regular rate and rhythm without murmurs, gallops, or rubs. RESPIRATORY: Breath sounds equal bilaterally. No accessory muscle use. GASTROINTESTINAL: Abdomen soft, non-tender, nondistended. MUSCULOSKELETAL: Winces to pain when spasms occur during movement NEUROLOGICAL: Awake, alert, and oriented x 3. Non-focal. A/P Problem List: (1) Syncope ICD Code: R55 - Syncope and collapse Status: Acute (2) Hypotension ICD Code: I95.9 - Hypotension, unspecified Status: Acute (3) Lumbar transverse process fracture ICD Code: S32.009A - Unspecified fracture of unspecified lumbar vertebra, initial encounter for closed fracture Status: Acute (4) Atrial fibrillation ICD Code: I48.91 - Unspecified atrial fibrillation Status: Resolved (5) Congestive heart failure ICD Code: I50.9 - Heart failure, unspecified Status: Chronic Permanent Comment: Ejection fraction 25%, February 2017 Last Edited By: Kathleen Preston on Apr 22, 2017 09:12 (6) Lower extremity edema ICD Code: R60.0 - Localized edema Status: Chronic (7) Chronic systolic CHF (congestive heart failure) ICD Code: I50.22 - Chronic systolic (congestive) heart failure Assessment and Plan Syncopal episode Physical workup has been negative, echocardiogram was normal, left ventricle normal size Consider medication side effects, patient takes metoprolol and Enestro for history of A. fib, he also takes Depakote for bipolar depression and Seroquel 100mg for sleep aid. Blood pressure remains stable PT recommends ongoing rehab L1 transverse process hairline fracture Pain under better control following morphine adjustment Continue with oxycodone as needed, morphine for breakthrough pain Back brace at bedside Appreciate orthopedics consult Type 2 diabetes Accu-Cheks with sliding scale coverage Diabetic diet Atrial fibrillation Continue Eliquis, Cardizem, Enestro Benign prostatic hypertrophy Patient fell when he was getting up at night to urinate Continue with Flomax Urinary tract infection Continue Rocephin Obstructive sleep apnea Continue CPAP at home History of gastric bypass Electrolyte and lab work appear relatively normal Anxiety and depression continue home psychiatric medications Discharge planning PT recommends a little more rehab before discharge Patient states he may have found a place to live, will be discharging to that location, possibly Wednesday or Wednesday Problem Qualifiers (1) Syncope: Qualified Codes: R55 - Syncope and collapse (2) Hypotension: Qualified Codes: I95.9 - Hypotension, unspecified (3) Lumbar transverse process fracture: Qualified Codes: S32.009A - Unspecified fracture of unspecified lumbar vertebra , initial encounter for closed fracture Reese Mckeon MD Oct 09, 2017 14:54
[2017-10-09] MEDS: MORPHINE SULFATE 4 MG/ML INJ IV PUSH PRN (16:58)
[2017-10-09] MEDS: TAMSULOSIN HCL 0.4 MG CAP PO SCH (21:01)
[2017-10-09] MEDS: traZODone HCL 50 MG TAB PO SCH (21:02)
[2017-10-10] VITALS (9 sets, daily range): BP systolic 113–158; BP diastolic 58–69; PULSE 81–116; RESP 18; TEMP 97.8–98.4; O2SAT 95–100
[2017-10-10] MEDS: MORPHINE SULFATE 4 MG/ML INJ IV PUSH PRN ×3 (02:15→21:27)
[2017-10-10] MEDS: DILTIAZEM HCL 60 MG TAB PO SCH ×4 (05:49→18:00)
[2017-10-10] MEDS: oxyCODONE/ACETAMINOPHEN 10 MG/325 MG TAB PO PRN ×2 (06:18→09:33)
[2017-10-10] MEDS: DULoxetine HCl DR 60 MG CAP PO SCH (09:33)
[2017-10-10] MEDS: DIVALPROEX DR 500 MG TABEC PO SCH ×2 (09:33→21:25)
[2017-10-10] MEDS: SACUBITRIL/VALSARTAN 49 MG-51 MG TAB PO SCH ×2 (09:34→21:26)
[2017-10-10] MEDS: APIXABAN 5 MG TABLET PO SCH ×2 (09:34→21:26)
[2017-10-10] MEDS: SPIRONOLACTONE 25 MG TAB PO SCH (09:34)
[2017-10-10] MEDS: ASPIRIN 81 MG CHEW TAB CHEW SCH (09:34)
[2017-10-10] MEDS: BUMETANIDE 1 MG TAB PO SCH ×2 (09:34→21:25)
[2017-10-10] MEDS: guaiFENesin E.R. 600 MG TAB PO SCH ×2 (09:34→21:25)
[2017-10-10] MEDS: DOCUSATE SODIUM 50 MG/SENNA 8.6 MG TAB PO SCH ×2 (09:35→21:25)
[2017-10-10] MEDS: cefTRIAXone INJ 1,000 MG in SODIUM CHLORIDE 0.9% INJ 100 ML IV SCH (11:58)
--- NOTE | 2017-10-10 14:50 | HHI.PR ---
Subjective Remarks Patient is walking without distress. He was encouraged to use his back brace but prefers to walk without. He states he had some fasciculations of his left thigh following his last walk. Objective Vitals Vital Signs Date Time Temp Pulse Resp B/P (MAP) Pulse Ox O2 Delivery O2 Flow Rate FiO2 10/10/17 12:00 98.0 116 18 113/58 (76) 100 10/10/17 12:00 90 10/10/17 08:00 85 10/10/17 08:00 97.8 94 18 122/60 (80) 95 10/10/17 04:00 98.3 89 18 142/69 (93) 97 10/10/17 00:00 98.3 89 18 158/69 (98) 97 10/09/17 20:00 98.0 85 18 129/60 (83) 97 10/09/17 19:49 83 10/09/17 16:00 97.4 94 18 100/61 (74) 95 10/09/17 16:00 94 I/O 10/09/17 10/09/17 10/09/17 10/10/17 10/10/17 10/10/17 07:00 15:00 23:00 07:00 15:00 23:00 Output Total 925 ml 750 ml Balance -925 ml -750 ml Output Urine Total 925 ml 750 ml # Voids 2 # Bowel Movements 0 Result Diagram: 10/06/17 0842 10/06/17 0842 Objective Remarks GENERAL: Well-nourished, well-developed patient. SKIN: Warm and dry. HEAD: Normocephalic. EYES: No scleral icterus. No injection or drainage. NECK: Supple, trachea midline. No JVD or lymphadenopathy. CARDIOVASCULAR: Regular rate and rhythm without murmurs, gallops, or rubs. RESPIRATORY: Breath sounds equal bilaterally. No accessory muscle use. GASTROINTESTINAL: Abdomen soft, non-tender, nondistended. MUSCULOSKELETAL: Winces to pain when spasms occur during movement NEUROLOGICAL: Awake, alert, and oriented x 3. Non-focal. A/P Problem List: (1) Syncope ICD Code: R55 - Syncope and collapse Status: Acute (2) Hypotension ICD Code: I95.9 - Hypotension, unspecified Status: Acute (3) Lumbar transverse process fracture ICD Code: S32.009A - Unspecified fracture of unspecified lumbar vertebra, initial encounter for closed fracture Status: Acute (4) Atrial fibrillation ICD Code: I48.91 - Unspecified atrial fibrillation Status: Resolved (5) Congestive heart failure ICD Code: I50.9 - Heart failure, unspecified Status: Chronic Permanent Comment: Ejection fraction 25%, February 2017 Last Edited By: Kathleen Preston on Apr 22, 2017 09:12 (6) Lower extremity edema ICD Code: R60.0 - Localized edema Status: Chronic (7) Chronic systolic CHF (congestive heart failure) ICD Code: I50.22 - Chronic systolic (congestive) heart failure Assessment and Plan Syncopal episode Physical workup has been negative, echocardiogram was normal, left ventricle normal size Consider medication side effects, patient takes metoprolol and Enestro for history of A. fib, he also takes Depakote for bipolar depression and Seroquel 100mg for sleep aid. Blood pressure remains stable PT recommends ongoing rehab, but patient is uninsured at this time. L1 transverse process hairline fracture Pain under better control following morphine adjustment Continue with oxycodone as needed, morphine for breakthrough pain Back brace at bedside Appreciate orthopedics consult Type 2 diabetes Accu-Cheks with sliding scale coverage Diabetic diet Atrial fibrillation Continue Eliquis, Cardizem, Enestro Benign prostatic hypertrophy Patient fell when he was getting up at night to urinate Continue with Flomax Urinary tract infection Continue Rocephin Obstructive sleep apnea Continue CPAP at home History of gastric bypass Electrolyte and lab work appear relatively normal Anxiety and depression continue home psychiatric medications Discharge planning PT recommends a little more rehab before discharge Patient informed me today that he will be ready to leave tomorrow (Wednesday) Problem Qualifiers (1) Syncope: Qualified Codes: R55 - Syncope and collapse (2) Hypotension: Qualified Codes: I95.9 - Hypotension, unspecified (3) Lumbar transverse process fracture: Qualified Codes: S32.009A - Unspecified fracture of unspecified lumbar vertebra , initial encounter for closed fracture Reese Mckeon MD Oct 10, 2017 14:50
[2017-10-10] MEDS: TAMSULOSIN HCL 0.4 MG CAP PO SCH (21:25)
[2017-10-10] MEDS: traZODone HCL 50 MG TAB PO SCH (21:25)
[2017-10-10] MEDS: SODIUM CHLORIDE 0.9% FLUSH 10 ML FLUSH IV FLUSH SCH (21:25)
[2017-10-11] VITALS: BP 140/76; PULSE 95; RESP 18; TEMP 97.7; O2SAT 96
[2017-10-11] MEDS: DILTIAZEM HCL 60 MG TAB PO SCH ×3 (00:24→10:43)
[2017-10-11 04:00] VITALS: BP 137/73; PULSE 118; RESP 18; TEMP 97.9; O2SAT 98
[2017-10-11 08:31] VITALS: BP 126/63; PULSE 101; RESP 19; TEMP 98.4; O2SAT 95
[2017-10-11] MEDS: oxyCODONE/ACETAMINOPHEN 10 MG/325 MG TAB PO PRN (08:58)
[2017-10-11] MEDS: guaiFENesin E.R. 600 MG TAB PO SCH (08:59)
[2017-10-11] MEDS: ASPIRIN 81 MG CHEW TAB CHEW SCH (09:00)
[2017-10-11] MEDS: DULoxetine HCl DR 60 MG CAP PO SCH (09:04)
[2017-10-11] MEDS: SPIRONOLACTONE 25 MG TAB PO SCH (09:04)
[2017-10-11] MEDS: DIVALPROEX DR 500 MG TABEC PO SCH (09:04)
[2017-10-11] MEDS: BUMETANIDE 1 MG TAB PO SCH (09:05)
[2017-10-11] MEDS: DOCUSATE SODIUM 50 MG/SENNA 8.6 MG TAB PO SCH (09:05)
[2017-10-11] MEDS: APIXABAN 5 MG TABLET PO SCH (09:05)
[2017-10-11] MEDS: SACUBITRIL/VALSARTAN 49 MG-51 MG TAB PO SCH (09:06)
[2017-10-11] MEDS: SODIUM CHLORIDE 0.9% FLUSH 10 ML FLUSH IV FLUSH SCH (09:06)
[2017-10-11 09:27] VITALS: PULSE 83
[2017-10-11] MEDS: cefTRIAXone INJ 1,000 MG in SODIUM CHLORIDE 0.9% INJ 100 ML IV SCH (10:42)
[2017-10-11] MEDS ORDERED: OXYC1TAB36 PO (11:37)
[2017-10-11] MEDS ORDERED: TAMS5CAP PO (11:37)
--- NOTE | 2017-10-11 11:42 | HHI.DS ---
Discharge Summary Admission Date Oct 05, 2017 at 04:48 Discharge Date: Oct 11, 2017 Admitting Diagnosis syncope, lumbar vertebral fracture, hypotension (1) Syncope ICD Code: R55 - Syncope and collapse Diagnosis: Principal Status: Acute (2) Hypotension ICD Code: I95.9 - Hypotension, unspecified Diagnosis: Principal Status: Acute (3) Lumbar transverse process fracture ICD Code: S32.009A - Unspecified fracture of unspecified lumbar vertebra, initial encounter for closed fracture Diagnosis: Secondary Status: Acute (4) Atrial fibrillation ICD Code: I48.91 - Unspecified atrial fibrillation Diagnosis: Principal Status: Resolved (5) Congestive heart failure ICD Code: I50.9 - Heart failure, unspecified Diagnosis: Principal Status: Chronic (6) Lower extremity edema ICD Code: R60.0 - Localized edema Diagnosis: Secondary Status: Chronic (7) Chronic systolic CHF (congestive heart failure) ICD Code: I50.22 - Chronic systolic (congestive) heart failure Diagnosis: Principal Procedures none Brief History - From Admission Patient is a 62-year-old male who was brought to the emergency department by EMS yesterday after having a syncopal episode. Patient is awake and alert and states that he remembers getting up from his bed and going to the bathroom but then he does not remember anything after that. He states his and his [id number] tried to bring him out of the bathroom but called 911. When EMS arrived his blood pressure with in the 80s. And patient was also complaining of low back pain. Has a history of congestive heart failure has history of AICD/pacemaker defibrillator. This been on Eliquis. His automation driver is Dr. Frias Patient is complaining of back pain. He has tried IV pain meds without much relief therefore we will place on oral pain medication PE at Discharge GENERAL: Well-nourished, well-developed patient. SKIN: Warm and dry. HEAD: Normocephalic. EYES: No scleral icterus. No injection or drainage. NECK: Supple, trachea midline. No JVD or lymphadenopathy. CARDIOVASCULAR: Regular rate and rhythm without murmurs, gallops, or rubs. RESPIRATORY: Breath sounds equal bilaterally. No accessory muscle use. GASTROINTESTINAL: Abdomen soft, non-tender, nondistended. MUSCULOSKELETAL: Winces to pain when spasms occur during movement NEUROLOGICAL: Awake, alert, and oriented x 3. Non-focal. Hospital Course 62-year-old male who presented to the ER following a syncopal episode that resulted in low back pain following a fall. CT scan revealed a hairline fracture of the right transverse process of L1. He has been improving with rehab. He has been provided a back brace with recommendations to use this for the next 6 weeks. His pain is well controlled with Percocet. Review of his medications revealed that he was using too many sedatives at night namely questionable use of Seroquel 100 mg nightly. I have recommended he stop the Seroquel use. He was getting up frequently at night to urinate due to benign prostatic hypertrophy. He requested Flomax to reduce that and he was started while hospitalized we will continue this on an outpatient basis. He was previously living at a local custodial, he has a friend at a hotel who has secured in the room and he will be discharging there today. I recommended no bending or lifting for the next 6 weeks. Case management is providing him a blue card to assist with medications. Pt Condition on Discharge: Good Discharge Disposition: Discharge Home Discharge Time: <= 30 minutes Discharge Instructions DIET: Follow Instructions for: Diabetic Diet Activities you can perform: Weight Bearing as Stephan Other Activity Instructions: No lifting or bending for 6 weeks to allow healing of fracture Reese Mckeon MD Oct 11, 2017 11:42
[2017-10-11 12:55] VITALS: PULSE 90
== END 2017-10-11 13:45 | disposition home or self-care (01) | DRG 312 ==
LOC: NEPE 02:35 → NEDA 04:30 → OBSVTOIN 04:48 → N05A 17:39
PROVIDERS: ADMIT Family Medicine; ATTEND Family Medicine
DX: R55 Syncope and collapse (principal); I95.9 Hypotension, unspecified; S32.019A Unspecified fracture of first lumbar vertebra, initial encounter for closed fracture; N39.0 Urinary tract infection, site not specified; I42.9 Cardiomyopathy, unspecified; I50.22 Chronic systolic (congestive) heart failure; I11.0 Hypertensive heart disease with heart failure; S83.91XA Sprain of unspecified site of right knee, initial encounter; I48.91 Unspecified atrial fibrillation; S80.01XA Contusion of right knee, initial encounter; W18.39XA Other fall on same level, initial encounter; E11.9 Type 2 diabetes mellitus without complications; R60.0 Localized edema; F90.9 Attention-deficit hyperactivity disorder, unspecified type; M54.5 Low back pain; F41.9 Anxiety disorder, unspecified; G47.33 Obstructive sleep apnea (adult) (pediatric); N28.9 Disorder of kidney and ureter, unspecified; E66.9 Obesity, unspecified; F31.9 Bipolar disorder, unspecified; G47.00 Insomnia, unspecified; R25.3 Fasciculation; N40.0 Benign prostatic hyperplasia without lower urinary tract symptoms; Y92.091 Bathroom in other non-institutional residence as the place of occurrence of the external cause; Y93.89 Activity, other specified; Z82.5 Family history of asthma and other chronic lower respiratory diseases; Z82.49 Family history of ischemic heart disease and other diseases of the circulatory system; Z95.810 Presence of automatic (implantable) cardiac defibrillator; Z91.19 Patient's noncompliance with other medical treatment and regimen; Z98.84 Bariatric surgery status; Z79.01 Long term (current) use of anticoagulants
CPT/HCPCS: 70450; 71045; 72131; 73564; 74176; 76937; 80048; 80053; 80061; 81001; 82550; 82948; 83036; 83735; 84100; 84155; 84439; 84443; 84484; 85007; 85025; 85027; 85610; 87086; 93005; 93306; 93880; 94640; 94664; 99285; J0696; J2270; J2405; J7030; L0200; L0484

== ENCOUNTER 2017-12-28 11:14 | Emergency (ER) | payer OTHER ==
[~2017-12-28] VITALS: Ht 177.8 cm; Wt 110.0 kg
[~2017-12-28 11:14] MED LIST changes: +ASPI-516 CHEW; +DIVA500T PO; -METO25TA3 PO; +OXYC1TAB36 PO; -POTA-163 PO; -SACU1TAB7 PO; +SPIR25TA PO
[2017-12-28 11:37] VITALS: BP 168/97; PULSE 107; RESP 20; TEMP 98.4; O2SAT 97
--- NOTE | 2017-12-28 12:37 | PD ---
HPI Chief Complaint: Edema Time Seen by Provider: 12:17 Travel History International Travel<30 days: No Contact w/Intl Traveler<30days: No Traveled to known affect area: No History of Present Illness HPI The patient is a 62-year-old male who presents to the emergency department for increasing lower extremity edema and shortness of breath. The patient has a history of congestive heart failure and is followed by his geographic area intelligence officer, Dr. Frias. The patient states over the last 2-3 weeks he has had increasing lower extremity edema and distention of his abdomen. The patient called his geographic area intelligence officer's office last night and was referred to the emergency department. He does complain of mild shortness of breath, slightly worse with exertion. He does have a history of sleep apnea for which he uses CPAP, however , had difficulty sleeping last night even with the CPAP machine in place. The patient states his ejection fraction is approximately 20-25%. He also notes increasing difficulty sleeping on his side secondary to recent lumbar vertebral fracture, he currently wears a TLSO brace. He denies any chest pain. He denies any change in bowel habits or difficulty urinating, just complains of mild abdominal distention. Symptoms are moderate. PFSH Past Medical History Hx Anticoagulant Therapy: Yes (ELIQUIS) ADHD: Yes Arthritis: No Asthma: No Autoimmune Disease: No Anxiety: Yes Depression: Yes Heart Rhythm Problems: Yes (ATRIAL FIBRILLATION ) Cancer: No Cardiac Catheterization: Yes (CATH WAS NEGATIVE, NO STENT PLACEMENT) Cardiovascular Problems: Yes (pacemaker) High Cholesterol: No Chest Pain: No Congestive Heart Failure: Yes (EF 15-22%) COPD: No Cerebrovascular Accident: No Diabetes: Yes Diminished Hearing: No Endocrine: No GERD: No Genitourinary: No Headaches: No Hepatitis: No Hiatal Hernia: No Hypertension: Yes Immune Disorder: No Implanted Vascular Access Dvce: Yes Kidney Stones: No Musculoskeletal: Yes (FX ANKLE LEFT, SKULL FX AGE 7) Neurologic: No Psychiatric: Yes Reproductive: No Respiratory: No Immunizations Current: Yes Migraines: No Myocardial Infarction: No Renal Failure: No Seizures: No Sleep Apnea: Yes (ON CPAP NIGHT) Thyroid Disease: No Ulcer: No Past Surgical History Abdominal Surgery: Yes (GASTRIC BYPASS 2003, APPENDECTOMY age 24) AICD: Yes Appendectomy: Yes Cardiac Surgery: Yes (pacemaker) Cholecystectomy: No Ear Surgery: No Endocrine Surgery: No Eye Surgery: No Genitourinary Surgery: No Gynecologic Surgery: No Neurologic Surgery: No Oral Surgery: Yes (TONSILECTOMY age 9) Pacemaker: Yes Thoracic Surgery: No Tonsillectomy: Yes Other Surgery: Yes Social History Alcohol Use: No Tobacco Use: No Substance Use: No Allergies-Medications (Allergen,Severity, Reaction): Coded Allergies: ampicillin (Verified Allergy, Severe, 10/05/17) fire ant (Verified Allergy, Severe, Anaphylaxis, 10/05/17) MRI PRECAUTION (Verified Adverse Reaction, Severe, 10/05/17) Patient has a Standing Cloud non compatible mri pacemaker. EG 03/25/2017 Reported Meds & Prescriptions Reported Meds & Active Scripts Active Flomax (Tamsulosin HCl) 0.4 Mg Cap 0.4 Mg PO HS 30 Days Cardizem (Diltiazem HCl) 60 Mg Tab 60 Mg PO Q6HR Eliquis (Apixaban) 5 Mg Tab 5 Mg PO BID Bumetanide 1 Mg Tab 1 Mg PO BID May take extra pill per every 24 hours for worsening swelling in legs Cymbalta DR (Duloxetine HCl) 60 Mg Capdr 60 Mg PO DAILY Reported Quetiapine (Quetiapine Fumarate) 100 Mg Tab 100 Mg PO HS Entresto (Sacubitril-Valsartan) 49-51 Mg Tab 1 Tab PO DAILY Aspirin 81 Mg Chew 81 Mg CHEW DAILY Divalproex DR (Divalproex Sodium) 500 Mg Tabdr 500 Mg PO BID Spironolactone 25 Mg Tab 25 Mg PO DAILY Review of Systems Except as stated in HPI: all other systems reviewed are Neg HENT: No: Lightheadedness Cardiovascular: Positive: Dyspnea on exertion, No: Chest Pain or Discomfort, Tachycardia, Diaphoresis Respiratory: Positive: Shortness of Breath Gastrointestinal: Positive: Other (Complains of abdominal distention), No: Nausea, Vomiting Musculoskeletal: Positive: Edema Neurologic: No: Dizziness Physical Exam Narrative GENERAL: Awake, alert, pleasant 62-year-old male who appears his stated age and is in no acute respiratory distress. However, he does appear slightly short of breath with talking and transitioning around the bed. Patient is wearing a TLSO brace. SKIN: Focused skin assessment warm/dry. HEAD: Atraumatic. Normocephalic. EYES: No injection or drainage. ENT: No nasal bleeding or discharge. Mucous membranes pink and moist. NECK: Trachea midline. No JVD. CARDIOVASCULAR: Regular, tachycardic, heart rate of 105.. RESPIRATORY: No accessory muscle use. Diminished breath sounds in the bases bilaterally. GASTROINTESTINAL: Abdomen soft, obese, no obvious fluid wave. MUSCULOSKELETAL: Bilateral lower extremity pitting edema from the knees inferiorly. One small blister on the medial aspect the left lower extremity. NEUROLOGICAL: Awake and alert. No obvious cranial nerve deficits. Motor grossly within normal limits. Normal speech. Nonfocal. Oriented 4. PSYCHIATRIC: Appropriate mood and affect; insight and judgment normal. Data Data Last Documented VS Vital Signs Date Time Temp Pulse Resp B/P (MAP) Pulse Ox O2 Delivery O2 Flow Rate FiO2 12/28/17 16:11 97 18 177/84 (115) 98 Room Air 12/28/17 11:37 98.4 Orders Orders Complete Blood Count With Diff (12/28/17 11:41) Comprehensive Metabolic Panel (12/28/17 11:41) Prothrombin Time / Inr (Pt) (12/28/17 11:41) B-Type Natriuretic Peptide (12/28/17 12:33) Magnesium (Mg) (12/28/17 12:33) Ckmb (Isoenzyme) Profile (12/28/17 12:33) Troponin I (12/28/17 12:33) Iv Access Insert/Monitor (12/28/17 12:33) Electrocardiogram (12/28/17 12:33) Ecg Monitoring (12/28/17 12:33) Oximetry (12/28/17 12:33) Oxygen Administration (12/28/17 12:33) Chest, Pa & Lat (12/28/17 12:33) Sodium Chloride 0.9% Flush (Ns Flush) (12/28/17 12:45) Metoprolol Tartrate Inj (Lopressor Inj) (12/28/17 12:45) Ismael Bandage (12/28/17 18:20) Labs Laboratory Tests Test 12/28/17 13:00 White Blood Count 4.6 TH/MM3 Red Blood Count 3.77 MIL/MM3 Hemoglobin 9.7 GM/DL Hematocrit 29.8 % Mean Corpuscular Volume 79.1 FL Mean Corpuscular Hemoglobin 25.6 PG Mean Corpuscular Hemoglobin Concent 32.4 % Red Cell Distribution Width 16.1 % Platelet Count 151 TH/MM3 Mean Platelet Volume 6.4 FL Neutrophils (%) (Auto) 58.2 % Lymphocytes (%) (Auto) 28.8 % Monocytes (%) (Auto) 9.8 % Eosinophils (%) (Auto) 2.3 % Basophils (%) (Auto) 0.9 % Neutrophils # (Auto) 2.7 TH/MM3 Lymphocytes # (Auto) 1.3 TH/MM3 Monocytes # (Auto) 0.4 TH/MM3 Eosinophils # (Auto) 0.1 TH/MM3 Basophils # (Auto) 0.0 TH/MM3 CBC Comment DIFF FINAL Differential Comment Prothrombin Time 10.6 SEC Prothromb Time International Ratio 1.0 RATIO Blood Urea Nitrogen 20 MG/DL Creatinine 1.14 MG/DL Random Glucose 95 MG/DL Total Protein 6.5 GM/DL Albumin 3.1 GM/DL Calcium Level 8.0 MG/DL Alkaline Phosphatase 98 U/L Aspartate Amino Transf (AST/SGOT) 13 U/L Alanine Aminotransferase (ALT/SGPT) 17 U/L Total Bilirubin 0.3 MG/DL Sodium Level 140 MEQ/L Potassium Level 4.2 MEQ/L Chloride Level 110 MEQ/L Carbon Dioxide Level 22.3 MEQ/L Anion Gap 8 MEQ/L Estimat Glomerular Filtration Rate 66 ML/MIN Magnesium Level 2.1 MG/DL Total Creatine Kinase 73 U/L Troponin I LESS THAN 0.02 NG/ML B-Type Natriuretic Peptide 275 PG/ML MDM Medical Decision Making Medical Screen Exam Complete: Yes Emergency Medical Condition: Yes Medical Record Reviewed: Yes Interpretation(s) EKG reveals supraventricular rhythm. No visible P waves. Rate in the 80s. Left axis deviation. Last Impressions Chest X-Ray 12/28/17 1233 Signed Impressions: CONCLUSION: No acute cardiopulmonary disease. Laboratory Tests Test 12/28/17 13:00 White Blood Count 4.6 TH/MM3 Red Blood Count 3.77 MIL/MM3 Hemoglobin 9.7 GM/DL Hematocrit 29.8 % Mean Corpuscular Volume 79.1 FL Mean Corpuscular Hemoglobin 25.6 PG Mean Corpuscular Hemoglobin Concent 32.4 % Red Cell Distribution Width 16.1 % Platelet Count 151 TH/MM3 Mean Platelet Volume 6.4 FL Neutrophils (%) (Auto) 58.2 % Lymphocytes (%) (Auto) 28.8 % Monocytes (%) (Auto) 9.8 % Eosinophils (%) (Auto) 2.3 % Basophils (%) (Auto) 0.9 % Neutrophils # (Auto) 2.7 TH/MM3 Lymphocytes # (Auto) 1.3 TH/MM3 Monocytes # (Auto) 0.4 TH/MM3 Eosinophils # (Auto) 0.1 TH/MM3 Basophils # (Auto) 0.0 TH/MM3 CBC Comment DIFF FINAL Differential Comment Prothrombin Time 10.6 SEC Prothromb Time International Ratio 1.0 RATIO Blood Urea Nitrogen 20 MG/DL Creatinine 1.14 MG/DL Random Glucose 95 MG/DL Total Protein 6.5 GM/DL Albumin 3.1 GM/DL Calcium Level 8.0 MG/DL Alkaline Phosphatase 98 U/L Aspartate Amino Transf (AST/SGOT) 13 U/L Alanine Aminotransferase (ALT/SGPT) 17 U/L Total Bilirubin 0.3 MG/DL Sodium Level 140 MEQ/L Potassium Level 4.2 MEQ/L Chloride Level 110 MEQ/L Carbon Dioxide Level 22.3 MEQ/L Anion Gap 8 MEQ/L Estimat Glomerular Filtration Rate 66 ML/MIN Magnesium Level 2.1 MG/DL Total Creatine Kinase 73 U/L Troponin I LESS THAN 0.02 NG/ML B-Type Natriuretic Peptide 275 PG/ML Differential Diagnosis Differential diagnosis includes volume overload, pulmonary edema, congestive heart failure, cardiomyopathy, acute coronary syndrome, deconditioning, hyponatremia, hypoalbuminemia, DVT, pulmonary embolism. Narrative Course IV was established, labs are drawn and sent, and the patient was placed on cardiac telemetry monitoring and continuous pulse oximetry monitoring. EKG was ordered and interpreted. Chest x-ray was obtained. BNP was sent to lab. Chest x-ray is unremarkable. BNP is 275. Creatinine is unremarkable. The patient's laboratory evaluation is negative. Vitals are within normal limits. The patient does have significant edema and was sent to the emergency department by his geographic area intelligence officer office. Therefore, the patient's geographic area intelligence officer was paged several times she discussed the plan of care, most likely the patient can be discharged home. He is already on Bumex twice a day, however, is not currently wearing CHERYL hose or wrapping the lower extremities for the edema. I discussed the patient with his geographic area intelligence officer who states they will see him in the office on , after discussion was agreed we would not change the medications, but we would place Ismael wrap on the legs and he would elevate them. I discussed the discharge instructions with the patient is comfortable with this plan of care. Diagnosis Primary Impression: Lower extremity edema Additional Instructions: Elevate legs. Ismael wraps as directed. Follow-up with your geographic area intelligence officer on . Please provide the patient a copy of his labs and x-ray results at discharge. Return if symptoms worsen or progress. Med/Other Pt SpecificInfo: No Change to Meds Disposition: 01 DISCHARGE HOME Condition: Stable Jag Crockett MD Dec 28, 2017 12:37
[2017-12-28] MEDS ORDERED: SODIUM CHLORIDE 0.9% FLUSH 10 ML FLUSH IVF PRN (12:45)
[2017-12-28] MEDS ORDERED: METOPROLOL TARTRATE 5 MG/5 ML VIAL IV PUSH ONE (12:45)
[2017-12-28 13:19] VITALS: BP 142/73; PULSE 89; RESP 18; O2SAT 98
[2017-12-28 13:26] LABS: AUTOMATED NEUTROPHIL # 2.7 TH/MM3 (1.8-7.7); BASOPHIL % 0.9 % (0.0-2.0); EOSINOPHIL # 0.1 TH/MM3 (0-0.4); EOSINOPHIL % 2.3 % (0.0-4.0); HEMATOCRIT 29.8 % (39.0-51.0); HEMOGLOBIN 9.7 GM/DL (13.0-17.0); LYMPH % 28.8 % (9.0-44.0); LYMPHOCYTE # 1.3 TH/MM3 (1.0-4.8); MEAN CELL VOLUME 79.1 FL (80.0-100.0); MEAN CORPUSCULAR HEMOGLOBIN 25.6 PG (27.0-34.0); MEAN CORPUSCULAR HGB CONC 32.4 % (32.0-36.0); MEAN PLATELET VOLUME 6.4 FL (7.0-11.0); MONO % 9.8 % (0.0-8.0); MONOCYTE # 0.4 TH/MM3 (0-0.9); NEUT % 58.2 % (16.0-70.0); PLATELET COUNT 151 TH/MM3 (150-450); RED BLOOD COUNT 3.77 MIL/MM3 (4.50-5.90); RED CELL DISTRIBUTION WIDTH 16.1 % (11.6-17.2); WHITE BLOOD COUNT 4.6 TH/MM3 (4.0-11.0)
[2017-12-28 13:40] LABS: PROTHROMBIN TIME - PATIENT 10.6 SEC (9.8-11.6)
[2017-12-28 13:49] LABS: ALBUMIN 3.1 GM/DL (3.4-5.0); ALT (GPT) 17 U/L (12-78); AST (GOT) 13 U/L (15-37); BICARBONATE 22.3 MEQ/L (21.0-32.0); BLOOD UREA NITROGEN 20 MG/DL (7-18); CHLORIDE 110 MEQ/L (98-107); CREATININE 1.14 MG/DL (0.60-1.30); GLOMERULAR FILTRATION RATE 66 ML/MIN (>89); GLUCOSE,RANDOM 95 MG/DL (74-106); SODIUM (NA) 140 MEQ/L (136-145)
[2017-12-28 13:51] LABS: ALKALINE PHOSPHATASE 98 U/L (45-117); TOTAL BILIRUBIN ADULT 0.3 MG/DL (0.2-1.0); TOTAL PROTEIN 6.5 GM/DL (6.4-8.2)
--- NOTE | 2017-12-28 14:12 | RADRPT ---
EXAM DATE: 12/28/2017 1:45 PM EDT AGE/SEX: 62 years / Male INDICATIONS: Lower extremity swelling for several days. CLINICAL DATA: This is the patient's initial encounter. Patient reports that signs and symptoms have been present for 2 days and indicates a pain score of 0/10. MEDICAL/SURGICAL HISTORY: Hypertension. Atrial fibrillation. None. COMPARISON: [facility] – [place]ST SING[place], 10/05/2017. . FINDINGS: The heart is stable. Left subclavian dual lead pacemaker has its tips in right atrium and right ventr icle. No pneumothorax is noted. The lungs are clear. Degenerative changes are noted throughout the th oracic spine. CONCLUSION: No acute cardiopulmonary disease. Electronically signed by: Sai Dallas MD 12/28/2017 2:11 PM EDT
[2017-12-28] MEDS ORDERED: SACU1TAB7 PO (14:24)
[2017-12-28] MEDS ORDERED: QUET1TAB8 PO (14:24)
[2017-12-28 14:44] LABS: MAGNESIUM 2.1 MG/DL (1.5-2.5)
[2017-12-28 14:48] LABS: TROPONIN I LESS THAN 0.02 NG/ML (0.02-0.05)
[2017-12-28 16:11] VITALS: BP 177/84; PULSE 97; RESP 18; O2SAT 98
[2017-12-28 19:00] VITALS: BP 181/76
--- NOTE | 2017-12-29 09:35 | EKG ---
Date Performed: 12/28/2017 Time Performed: 13:16:55 PTAGE: 62 years EKG: SUPRAVENTRICULAR RHYTHM MARKED LEFT AXIS DEVIATION LOW QRS VOLTAGE IN PRECORDIAL LEADS MELINA MARIO CONSISTENT WITH PULMONARY DISEASE ABNORMAL ECG PREVIOUS TRACING : 10/05/2017 15.31 DOCTOR: Iglesia Leo Interpretating Date/Time 12/29/2017 09:33:16
== END 2017-12-28 19:02 | disposition home or self-care (01) ==
LOC: NEPC 11:14
DX: R60.0 Localized edema (principal); R06.02 Shortness of breath; I11.0 Hypertensive heart disease with heart failure; I50.9 Heart failure, unspecified; I48.91 Unspecified atrial fibrillation; G47.30 Sleep apnea, unspecified; F32.9 Major depressive disorder, single episode, unspecified; Z79.01 Long term (current) use of anticoagulants
CPT/HCPCS: 71046; 80053; 82550; 83735; 83880; 84484; 85025; 85610; 93005; 99285

== ENCOUNTER 2018-09-09 09:52 | Inpatient (IN) ==
[2018-09-09] MEDS ORDERED: dilTIAZem Inj 125 MG in Sodium Chlor 0.9% Inj 100 ML IV.CONT PRN ×2 (10:03→15:46)
[2018-09-09] MEDS: Sod Chloride 0.9% Inj 1,000 ML IV.CONT SCH ×2 (10:16→17:46)
[2018-09-09 10:30] LABS: Baso % (Auto) 0.8 % (0.0-2.0); Eos # (Auto) 0.2 th/mm3 (0.0-0.4); Eos % (Auto) 3.5 % (0.0-4.0); Hematocrit 31.6 % (39.0-51.0); Lymph # (Auto) 1.3 th/mm3 (1.0-4.8); Mean Corpuscular HGB Conc 31.6 % (32.0-36.0); Mean Corpuscular Hemoglobin 25.9 pg (27.0-34.0); Mean Corpuscular Volume 81.8 fL (80.0-100.0); Mean Platelet Volume 7.2 fL (7.0-11.0); Mono # (Auto) 0.5 th/mm3 (0.0-0.9); Mono % (Auto) 9.2 % (0.0-8.0); Neut # (Auto) 3.3 th/mm3 (1.8-7.7); Neut % (Auto) 62.5 % (16.0-70.0); Platelet Count 274 th/mm3 (150-450); Red Blood Count 3.86 mil/mm3 (4.50-5.90); Red Cell Distribution Width 20.5 % (11.6-17.2); White Blood Count 5.3 th/mm3 (4.0-11.0)
[2018-09-09 10:40] LABS: Activated Partial Thrombo Time 34.3 sec (23.4-31.7); INR 1.1 Ratio; Prothrombin Time 11.6 sec (9.8-11.6)
[2018-09-09 10:50] LABS: Alanine Aminotransferase 9 U/L (12-78); Anion Gap 15 meq/L (5-15); Aspartate Aminotransferase 15 U/L (15-37); Blood Urea Nitrogen 8 mg/dL (7-18); Calcium 7.5 mg/dL (8.5-10.1); Carbon Dioxide 22.5 meq/L (21.0-32.0); Chloride 101 meq/L (98-107); Glomerular Filtration Rate 48 mL/min (>89); Glucose,Random 196 mg/dL (74-106); Sodium 138 meq/L (136-145)
[2018-09-09 11:00] LABS: Alkaline Phosphatase 104 U/L (45-117); Creatine Kinase 73 U/L (39-308)
[2018-09-09] MEDS ORDERED: Sod Chloride 0.9% Inj 1,000 ML IV.SIG SCH (11:00)
--- NOTE | 2018-09-09 11:12 | XR ---
EXAM DATE: 09/09/2018 10:40 AM EST AGE/SEX: 62 years / Male INDICATIONS: Palpitations. Rapid heart rate. CLINICAL DATA: This is the patient's initial encounter. Patient reports that signs and symptoms have been present for 1 day and indicates a pain score of 0/10. MEDICAL/SURGICAL HISTORY: . Hypertension. Atrial fibrillation . Defibrillator COMPARISON: [facility] [place], CHEST PA & LAT, 12/28/2017. . FINDINGS: Pacemaker implanted left chest. Heart is enlarged. Poor vascularity is normal. Minimal parenchymal ch anges retrocardiac region on the left. No pneumothorax. CONCLUSION: Pacemaker with moderate compensated cardiomegaly Minimal parenchymal changes left base. Electronically signed by: Clem Mendez MD Board Certified Radiologist 09/09/2018 11:11 AM EST
[2018-09-09] MEDS ORDERED: Digoxin Inj 500 MCG/2 ML Ampul IV.PUSH ONE (12:09)
--- NOTE | 2018-09-09 12:22 | ED ---
HPI General Chief Complaint: Arrhythmia / Palpitations Stated Complaint: Cardiac/Emergent Time Seen by Provider: 09/09/18 10:03 Source: patient and EMS Mode of arrival: EMS Limitations: no limitations History of Present Illness HPI narrative: 62-year-old male complains of palpitation and defibrillator discharge this morning. Patient states that he was having palpitation and he first feeling the fever discharged back nighttime this morning. EMS arrived. Patient was in A. fib with RVR. Patient was given Cardizem 20 mg IV bolus on the way to ED. Patient has history of atrial fibrillation. Patient started post defibrillator placement 2 years ago. Patient status post ablation procedure done by Dr. Frias last year. Patient has been doing well. Patient is on Cardizem 240 mg daily. Patient states that he may miss the Cardizem occasionally. Patient denies any chest pain or shortness of breath. Patient has history of CHF with ejection fraction about 25-30%. MD complaint: Reports rapid heart beat, irregular heart beat and atrial fibrillation Onset (ago): hour(s) Duration: constant Severity: severe Context: Reports occurred during rest Arrhythmia history: Reports atrial fibrillation, AICD and history of ablation Associated symptoms: Reports denies other symptoms Treatments prior to arrival: Reports calcium channel sonal Related Data Home Medications Medication Instructions Recorded Confirmed apixaban [Eliquis] 5 mg PO BID 09/09/18 09/09/18 bumetanide 1 mg PO HS 09/09/18 09/09/18 bumetanide 2 mg PO DAILY 09/09/18 09/09/18 diltiazem HCl 240 mg PO DAILY 09/09/18 09/09/18 divalproex 500 mg PO BID 09/09/18 09/09/18 duloxetine 30 mg PO BID 09/09/18 09/09/18 quetiapine 100 mg PO DAILY 09/09/18 09/09/18 sacubitril-valsartan [Entresto] 1 tab PO BID 09/09/18 09/09/18 spironolactone 25 mg PO DAILY 09/09/18 09/09/18 tamsulosin 0.4 mg PO DAILY 09/09/18 09/09/18 Allergies Allergy/AdvReac Type Severity Reaction Status Date / Time ampicillin Allergy Severe Hives Verified 09/09/18 10:05 fire ant Allergy Severe Anaphylaxis Verified 09/09/18 10:05 warfarin Allergy Unknown unknown Verified 09/09/18 10:05 MRI PRECAUTION AdvReac Severe n/a Uncoded 09/09/18 10:05 Review of Systems ROS: all other systems reviewed are negative PMFSH Medical History Medical History Afib (Acute) CHF (congestive heart failure) (Acute) Cardiac defibrillator in place (Acute) Surgical History Surgical History H/O cardiac radiofrequency ablation (Acute) Social History Social History Substance History: No History of Abuse Second Hand Smoke Exposure: No Smoking Status: Never smoker How Often Do You Have a Drink Containing Alcohol: Monthly or less Recent Travel in [facility] within the Last 8 Weeks: No Recent Out of Country Travel within the Last 8 Weeks: No Immunization History Tetanus Immunization: Unsure Exam Narrative Exam Narrative: GENERAL: Well-nourished, well-developed patient. SKIN: Focused skin assessment warm/dry. HEAD: Normocephalic. EYES: No scleral icterus. No injection or drainage. NECK: Supple, trachea midline. No JVD or lymphadenopathy. CARDIOVASCULAR: Irregularly irregular rate and rhythm without murmurs, gallops, or rubs. RESPIRATORY: Breath sounds equal bilaterally. No accessory muscle use. GASTROINTESTINAL: Abdomen soft, non-tender, nondistended. MUSCULOSKELETAL: No cyanosis. +1-+2 edema lower extremity. BACK: Nontender without obvious deformity. No CVA tenderness. Neurologic exam normal. Course Initial Documented Vital Signs Temperature 98.2 F 09/09/18 09:57 Pulse Rate 156 H 09/09/18 09:57 Respiratory Rate 24 09/09/18 09:57 Blood Pressure 135/87 09/09/18 09:57 Pulse Oximetry 97 09/09/18 09:57 Last Documented Vital Signs Temperature 98.2 F 09/09/18 09:57 Pulse Rate 109 H 09/09/18 12:33 Respiratory Rate 15 09/09/18 12:33 Blood Pressure 140/78 09/09/18 12:33 Pulse Oximetry 99 09/09/18 12:33 Medical Decision Making MDM Narrative Medical decision making narrative: 62-year-old male with atrial fibrillation with RVR. Patient has implanted defibrillator. Defibrillator went off 14 times a day. [employer] rep interrogated the defibrillator. I spoke with Dr. Cordero, on-call for . Patient was given Cardizem 20 mg IV by EMS prior to arrival. Patient was given normal saline solution 1 L IV bolus. Normal saline solution 125 cc an hour. Cardizem drip started. Blood pressure started dropping in the 70s and 80s. Cardizem drip was discontinued. Digoxin 0.5 mg IV given. I informed Dr. Cordero of the patient's condition. Patient is awake and alert without any complaint now. Patient's heart rate Medical Screen Exam Complete: Yes Emergency Medical Condition: Yes Lab Data Result diagrams: 09/09/18 10:12 09/09/18 10:12 Lab Results 09/09/18 09/09/18 09/09/18 Range/Units 10:12 10:12 10:12 WBC 5.3 (4.0-11.0) th/mm3 RBC 3.86 L (4.50-5.90) mil/mm3 Hgb 10.0 L (13.0-17.0) gm/dL Hct 31.6 L (39.0-51.0) % MCV 81.8 (80.0-100.0) fL MCH 25.9 L (27.0-34.0) pg MCHC 31.6 L (32.0-36.0) % RDW 20.5 H (11.6-17.2) % Plt Count 274 (150-450) th/mm3 MPV 7.2 (7.0-11.0) fL Neut % (Auto) 62.5 (16.0-70.0) % Lymph % (Auto) 24.0 (9.0-44.0) % [place] % (Auto) 9.2 H (0.0-8.0) % Eos % (Auto) 3.5 (0.0-4.0) % Baso % (Auto) 0.8 (0.0-2.0) % Neut # (Auto) 3.3 (1.8-7.7) th/mm3 Lymph # (Auto) 1.3 (1.0-4.8) th/mm3 [place] # (Auto) 0.5 (0.0-0.9) th/mm3 Eos # (Auto) 0.2 (0.0-0.4) th/mm3 Baso # (Auto) 0.0 (0.0-0.2) th/mm3 WBC Differential . Differential Comment Auto diff final PT (9.8-11.6) sec INR Ratio APTT (23.4-31.7) sec Sodium 138 (136-145) meq/L Potassium 3.0 L (3.5-5.1) meq/L Chloride 101 (98-107) meq/L Carbon Dioxide 22.5 (21.0-32.0) meq/L Anion Gap 15 (5-15) meq/L BUN 8 (7-18) mg/dL Creatinine 1.50 H (0.60-1.30) mg/dL Estimated GFR 48 L (>89) mL/min Random Glucose 196 H (74-106) mg/dL Calcium 7.5 L (8.5-10.1) mg/dL Total Bilirubin 0.6 (0.2-1.0) mg/dL AST 15 (15-37) U/L ALT 9 L (12-78) U/L Alkaline Phosphatase 104 (45-117) U/L Total Creatine Kinase 73 (39-308) U/L Troponin I Less than 0.02 L (0.02-0.05) ng/mL B-Natriuretic Peptide 303 H (0-100) pg/mL Total Protein 7.0 (6.4-8.2) g/dL Albumin 3.0 L (3.4-5.0) g/dL TSH 4.650 H (0.358-3.740) uIU/mL 09/09/18 Range/Units 10:12 WBC (4.0-11.0) th/mm3 RBC (4.50-5.90) mil/mm3 Hgb (13.0-17.0) gm/dL Hct (39.0-51.0) % MCV (80.0-100.0) fL MCH (27.0-34.0) pg MCHC (32.0-36.0) % RDW (11.6-17.2) % Plt Count (150-450) th/mm3 MPV (7.0-11.0) fL Neut % (Auto) (16.0-70.0) % Lymph % (Auto) (9.0-44.0) % [place] % (Auto) (0.0-8.0) % Eos % (Auto) (0.0-4.0) % Baso % (Auto) (0.0-2.0) % Neut # (Auto) (1.8-7.7) th/mm3 Lymph # (Auto) (1.0-4.8) th/mm3 [place] # (Auto) (0.0-0.9) th/mm3 Eos # (Auto) (0.0-0.4) th/mm3 Baso # (Auto) (0.0-0.2) th/mm3 WBC Differential Differential Comment PT 11.6 (9.8-11.6) sec INR 1.1 Ratio APTT 34.3 H (23.4-31.7) sec Sodium (136-145) meq/L Potassium (3.5-5.1) meq/L Chloride (98-107) meq/L Carbon Dioxide (21.0-32.0) meq/L Anion Gap (5-15) meq/L BUN (7-18) mg/dL Creatinine (0.60-1.30) mg/dL Estimated GFR (>89) mL/min Random Glucose (74-106) mg/dL Calcium (8.5-10.1) mg/dL Total Bilirubin (0.2-1.0) mg/dL AST (15-37) U/L ALT (12-78) U/L Alkaline Phosphatase (45-117) U/L Total Creatine Kinase (39-308) U/L Troponin I (0.02-0.05) ng/mL B-Natriuretic Peptide (0-100) pg/mL Total Protein (6.4-8.2) g/dL Albumin (3.4-5.0) g/dL TSH (0.358-3.740) uIU/mL Imaging Data Radiologist's impression: Chest X-Ray 09/09/18 10:05 CONCLUSION: Pacemaker with moderate compensated cardiomegaly Minimal parenchymal changes left base. Discharge Plan Discharge Disposition Patient Disposition: ED Admit(ED Internal Use Only) Discharge Order Discharge Orders: ED Use Only Admit Order (Routine); Ordered 09/09/18 Ordered By: Ross Hensley Discharge Details Diagnosis: Atrial fibrillation with RVR, Acute hypotension Physicians Team ED Provider: Ross Hensley Attending Provider: Kervin Osorio Discharge Interventions Interventions: Vital Signs Last Done: 09/09/18 12:24 Status ED Status: Admitted Patient
[2018-09-09] MEDS ORDERED: Magnesium Sulfate Inj 2 GM in Sodium Chlor 0.9% Inj 96 ML IV.SIG ONE (12:27)
[2018-09-09] MEDS ORDERED: Acetaminophen 325 MG Tablet PO PRN (12:28)
[2018-09-09] MEDS ORDERED: Morphine Sulfate Inj 2 MG/ML Vial IV.PUSH PRN (12:28)
[2018-09-09] MEDS ORDERED: Potassium Chlor 20 mEq Premix 20 MEQ/100 ML PIGGYBACK IV.SIG ONE (12:28)
[2018-09-09] MEDS ORDERED: Bisacodyl 10 MG Supp RECTAL PRN (12:28)
[2018-09-09] MEDS ORDERED: Sodium Phosphate Inj 30 MMOL in Sodium Chlor 0.9% Inj 250 ML IV.SIG PRN (12:31)
[2018-09-09] MEDS ORDERED: Magnesium Sulfate Inj 4 GM in Sodium Chlor 0.9% Inj 92 ML IV.SIG PRN (12:31)
[2018-09-09] MEDS ORDERED: Dextrose 50% in Water 50 ML Vial IV.PUSH PRN (12:31)
[2018-09-09] MEDS ORDERED: Potassium Chlor 40 mEq Premix 40 MEQ/100 ML PIGGYBACK IV.SIG PRN ×2 (12:31)
[2018-09-09] MEDS ORDERED: Potassium Phosphate 500 MG Soluble Tablet PO PRN ×2 (12:31)
[2018-09-09] MEDS ORDERED: Potassium Phosphate Inj 30 MMOL in Sodium Chlor 0.9% Inj 250 ML IV.SIG PRN (12:31)
[2018-09-09] MEDS ORDERED: Magnesium Oxide 400 MG Tablet PO PRN (12:31)
[2018-09-09] MEDS ORDERED: Potassium Chloride Liq 20 MEQ/15 ML UDC PO PRN ×2 (12:31)
[2018-09-09] MEDS ORDERED: Magnesium Sulfate Inj 2 GM in Sodium Chlor 0.9% Inj 96 ML IV.SIG PRN (12:31)
[2018-09-09] MEDS ORDERED: Potassium Chlor 20 mEq Premix 20 MEQ/100 ML PIGGYBACK IV.SIG PRN ×2 (12:31)
--- NOTE | 2018-09-09 12:35 | P.HPCC ---
History of Present Illness Service: Critical care medicine Primary Care Physician: [facility] Chief Complaint: AICD firing multiple times History of Present Illness: This is a 62-year-old male. Admission 09/09/2018. Past medical history includes depression/anxiety, essential hypertension, hyperlipidemia, BPH , chronic systolic heart failure. He states his last ejection was 25%. Last documented ejection fraction 50% with mild TR and a PA P of 35 mmHg on 10/03 by echocardiogram. Patient presents to [facility] after multiple episodes of his defibrillator firing since 3 AM. He states he has had 14 different episodes. He did take his morning medicines which include diltiazem 240 mg daily and sacu/valsartan. Initial troponin was 0.02. He received 20 mg IV diltiazem in route he was transferred to [facility] for further evaluation treatment. He received an additional 20 mg IV diltiazem here. Dr. Cordero/ cardiology was called. Recommended IV 0.5 mg dose of digoxin. He was initially 150s currently about 100-120. His blood pressure however dropped. Received 1 L normal saline. Due to his thought that the EF was 25-30% recommended no more IV fluids. Dr. Cordero recommended consulting EP cardiology which the ED physician stated that Dr. Cordero would notify Dr. Frias. Counseled in place Currently, if necessary will start on low-dose phenylephrine drip temporarily if hypotension secondary to medication. I will place central line if indicated. Patient is currently resting in bed. Denies chest pain, shortness of breath or abdominal pain.. Currently receiving oral and IV potassium chloride and magnesium. - Diagnosis (1) Depression with anxiety (2) BPH (benign prostatic hyperplasia) (3) Hyperlipidemia (4) Chronic anticoagulation (5) Normocytic anemia (6) Thrombocytopenia (7) Elevated TSH (8) Atrial fibrillation with RVR (9) Acute hypotension Review of Systems Constitutional: Denies anorexia, Denies body ache(s), Denies chills, Denies weakness Eyes: Denies blind spots, Denies blurry vision, Denies bulging eyes Ears, Nose, Mouth, and Throat: Denies abnormal hearing, Denies dry mouth, Denies mouth pain, Denies neck lump, Denies sore throat, Denies throat swelling Cardiovascular: Reports irregular heart rhythm, Denies chest pain at rest, Denies generalized swelling, Denies shortness of breath, Denies shortness of breath with activity, Denies shortness of breath when lying down, Denies shortness of breath causing sudden awakening Respiratory: Denies cough, Denies shortness of breath, Denies shortness of breath with activity Gastrointestinal: Denies abdominal pain, Denies constant urge to pass stool Genitourinary: Denies urinary hesitancy, Denies urinary incontinence Musculoskeletal: Denies abnormal walking, Denies muscle weakness Skin/Breast: Denies breast pain, Denies changing lesions Neurologic: Denies abnormal hearing, Denies memory loss, Denies numbness, Denies restless legs, Denies convulsions Psychiatric: Reports depression, Denies abnormal sleep pattern, Denies anxiety, Denies confusion Endocrine: Denies cold intolerance, Denies excessive sweating Hematologic/Lymphatic: Denies easy bleeding, Denies easy bruising Allergic/Immunologic: Denies GI upset with certain foods PMFSH - History History Provided By: Patient - Medical History Medical History: Medical History (Last Updated 09/09/18 @ 14:03 by Kervin Osorio MD) ADHD Afib BMI 40.0-44.9, adult CHF (congestive heart failure) Cardiac defibrillator in place Cardiomyopathy Chronic anticoagulation Diabetes mellitus Essential hypertension History of fracture of left ankle Hyperlipidemia Lumbar transverse process fracture Obstructive sleep apnea - Surgical History Surgical History: Surgical History (Last Updated 09/09/18 @ 14:03 by Kervin Osorio MD) H/O cardiac radiofrequency ablation H/O gastric bypass History of appendectomy History of repair of hiatal hernia History of tonsillectomy - Family History Family History: Family History (Last Updated 09/09/18 @ 14:04 by Kervin Osorio MD) Grandparent No problems noted. Father Family history of lung cancer Other Family history of hypertension in mother - Social History I have reviewed the patient's Social History: Yes - Tobacco History Second Hand Smoke Exposure: No Tobacco Use In Past 30 Days: No Smoking Status: Never smoker - Alcohol History How Often Do You Have a Drink Containing Alcohol: Monthly or less - Substance Use History Substance History: No History of Abuse - Travel History Recent Travel in the [place] Within the Last 8 Weeks: No Recent Travel Out of the Country Within the Last 8 Weeks: No - Immunization History Tetanus Immunization: Unsure Medications and Allergies Active Medications: Active Medications Acetaminophen (Tylenol) 650 mg PO Q6H PRN PRN Reason: Fever >101f Hydrocodone Bitart/Acetaminophen ([place] 5/325) 1 tab PO Q4H PRN PRN Reason: PAIN SCALE 1 TO 5 Al Hydroxide/Mg Hydroxide (Milk Of [address]) 30 ml PO Q12H PRN PRN Reason: Mild Constipation Albuterol (Albuterol Neb (Dyllan)) 2.5 mg NEB Q2HR NEB PRN PRN Reason: SHORTNESS OF BREATH/WHEEZING Bisacodyl (Dulcolax Supp) 10 mg RECTAL DAILY PRN PRN Reason: SEVERE CONSITIPATION Chlorhexidine Gluconate (Chlorhexidine 2% Cloth) 3 pack TOPICAL DAILY@0400 DYLLAN Stop: 09/15/18 03:59 Chlorhexidine Gluconate (Chlorhexidine 2% Cloth) 3 pack TOPICAL DAILY@0400 PRN PRN Reason: Extra cloth needed Stop: 09/15/18 03:59 Dextrose (D50w Vial) 50 ml IV.PUSH UNSCH PRN PRN Reason: PER HYPOGLYCEMIA PROTOCOL Divalproex Sodium (Depakote Er) 500 mg PO BID DYLLAN Glucagon (Glucagon Inj) 1 mg OTHER PRN PRN PRN Reason: for Hypoglycemia Protocol Sodium Chloride (Ns Inj) 1,000 mls @ 125 mls/hr IV.CONT .Q8H [facility] Last Admin: 09/09/18 10:16 Dose: 125 mls/hr Diltiazem HCl 125 mg/ Sodium (Chloride) 125 mls @ 5 mls/hr IV.CONT TITRATE PRN ; Protocol PRN Reason: Per Protocol Last Titration: 09/09/18 11:02 Dose: 0 mg/hr, 0 mls/hr Potassium Chloride (Kcl 10 Meq Premix Inj) 10 meq in 100 mls @ 100 mls/hr IV.SIG Q1H DYLLAN Stop: 09/09/18 15:26 Magnesium Sulfate 2 gm/ Sodium (Chloride) 100 mls @ 50 mls/hr IV.SIG ONCE ONE Stop: 09/09/18 14:26 Magnesium Sulfate 4 gm/ Sodium (Chloride) 100 mls @ 50 mls/hr IV.SIG UNSCH PRN PRN Reason: For Magnesium 0.9 - 1.1 mg/dL Magnesium Sulfate 2 gm/ Sodium (Chloride) 100 mls @ 50 mls/hr IV.SIG UNSCH PRN PRN Reason: For Magnesium 1.2 - 1.6 mg/dL Potassium Chloride (Kcl 40 Meq Premix Inj) 40 meq in 100 mls @ 25 mls/hr IV.SIG Q2H PRN PRN Reason: For Potassium 2.8 - 3.2 mEq/L Potassium Chloride (Kcl 20 Meq Premix Inj) 20 meq in 100 mls @ 50 mls/hr IV.SIG Q2H PRN PRN Reason: For Potassium 3.3 - 3.5 mEq/L Potassium Chloride (Kcl 40 Meq Premix Inj) 40 meq in 100 mls @ 25 mls/hr IV.SIG UNSCH PRN PRN Reason: For Potassium 3.3 - 3.5 mEq/L Potassium Chloride (Kcl 20 Meq Premix Inj) 20 meq in 100 mls @ 50 mls/hr IV.SIG Q2H PRN PRN Reason: For Potassium 2.8 - 3.2 mEq/L Potassium Phosphate 30 mmol/ (Sodium Chloride) 260 mls @ 42 mls/hr IV.SIG UNSCH PRN PRN Reason: SEE LABEL COMMENTS Sodium Phosphate 30 mmol/ (Sodium Chloride) 260 mls @ 42 mls/hr IV.SIG UNSCH PRN PRN Reason: For Phosphorus < 2.5 mg/dL Phenylephrine HCl 160 mg/ (Sodium Chloride) 500 mls @ 7.5 mls/hr IV.CONT TITRATE PRN; Protocol PRN Reason: Per Protocol Insulin Aspart (Novolog Insulin Correctional Sugar Inj) 0 unit SQ Q6HR DYLLAN; Protocol Lactulose (Lactulose Liq) 30 ml PO DAILY PRN PRN Reason: SEVERE CONSITIPATION Magnesium Oxide (Mag-Ox) 800 mg PO UNSCH PRN PRN Reason: For Magnesium 1.2 - 1.6 mg/dL Morphine Sulfate (Morphine Inj) 2 mg IV.PUSH Q2H PRN PRN Reason: PAIN SCALE 6 TO 10 Ondansetron HCl (Zofran Inj) 4 mg IV.PUSH Q6H PRN PRN Reason: NAUSEA OR VOMITING Pantoprazole Sodium (Protonix Inj) 40 mg IV.PUSH DAILY DYLLAN Potassium Chloride (Klor-Con 10) 40 meq PO ONCE ONE Stop: 09/09/18 12:27 Potassium Chloride (Kcl Liq) 40 meq PO UNSCH PRN PRN Reason: Potassium level 3.3-3.5 mEq/L Potassium Chloride (Kcl Liq) 40 meq PO UNSCH PRN PRN Reason: POTASSIUM LESS THAN 3.5 Potassium Phosphate (K-Phos Original) 2,000 mg PO Q4H PRN PRN Reason: Phosphorus Less Than 2.5 mg/dL Potassium Phosphate (K-Phos Original) 2,000 mg PO UNSCH PRN PRN Reason: SEE LABEL COMMENTS Senna/Docusate Sodium (Kathie-Colace) 1 tab PO BID [facility] Sennosides (Senokot) 17.2 mg PO Q12H PRN PRN Reason: Moderate Constipation Sodium Chloride (Ns Flush) 2 ml IV.FLUSH BID DYLLAN Sodium Chloride (Ns Flush) 2 ml IV.FLUSH PRN PRN PRN Reason: FLUSH AFTER USING IV ACCESS Terbutaline Sulfate (Brethine Inj) 1 mg SQ UNSCH PRN PRN Reason: For Extravasation Allergies Allergy/AdvReac Type Severity Reaction Status Date / Time ampicillin Allergy Severe Hives Verified 09/09/18 10:05 fire ant Allergy Severe Anaphylaxis Verified 09/09/18 10:05 warfarin Allergy Unknown unknown Verified 09/09/18 10:05 MRI PRECAUTION AdvReac Severe n/a Uncoded 09/09/18 10:05 Home Medications Medication Instructions Recorded Confirmed Type apixaban [Eliquis] 5 mg PO BID 09/09/18 09/09/18 History bumetanide 1 mg PO HS 09/09/18 09/09/18 History bumetanide 2 mg PO DAILY 09/09/18 09/09/18 History diltiazem HCl 240 mg PO DAILY 09/09/18 09/09/18 History divalproex 500 mg PO BID 09/09/18 09/09/18 History duloxetine 30 mg PO BID 09/09/18 09/09/18 History quetiapine 100 mg PO DAILY 09/09/18 09/09/18 History sacubitril-valsartan [Entresto] 1 tab PO BID 09/09/18 09/09/18 History spironolactone 25 mg PO DAILY 09/09/18 09/09/18 History tamsulosin 0.4 mg PO DAILY 09/09/18 09/09/18 History Results - Labs CBC & Chem 7: 09/09/18 10:12 09/09/18 10:12 Labs: Short CBC 09/09/18 Range/Units 10:12 WBC 5.3 (4.0-11.0) th/mm3 Hgb 10.0 L (13.0-17.0) gm/dL Hct 31.6 L (39.0-51.0) % Plt Count 274 (150-450) th/mm3 BMP 09/09/18 10:12 Sodium 138 Potassium 3.0 L Chloride 101 Carbon Dioxide 22.5 BUN 8 Creatinine 1.50 H Calcium 7.5 L Cardiac Enzymes 09/09/18 Range/Units 10:12 Total Creatine Kinase 73 (39-308) U/L Troponin I Less than 0.02 L (0.02-0.05) ng/mL Liver Function 09/09/18 Range/Units 10:12 Total Bilirubin 0.6 (0.2-1.0) mg/dL AST 15 (15-37) U/L ALT 9 L (12-78) U/L Alkaline Phosphatase 104 (45-117) U/L Albumin 3.0 L (3.4-5.0) g/dL - Imaging Impressions Chest X-Ray 09/09/18 10:05 CONCLUSION: Pacemaker with moderate compensated cardiomegaly Minimal parenchymal changes left base. Exam Vital signs: Vital Signs 09/09/18 09:57 09/09/18 11:00 09/09/18 11:18 Temperature 98.2 F Pulse Rate 156 H 157 H 127 H Respiratory Rate 24 22 18 Blood Pressure 135/87 76/46 L 82/44 L Pulse Oximetry 97 100 98 09/09/18 12:04 09/09/18 12:24 09/09/18 12:33 Temperature Pulse Rate 126 H 121 H 109 H Respiratory Rate 14 16 15 Blood Pressure 73/39 L 94/71 L 140/78 Pulse Oximetry 99 98 99 Intake & Output 09/08/18 09/09/18 09/09/18 18:59 06:59 18:59 Intake Total 1000 / 1000 Balance 1000 / 1000 Weight 127.006 kg Intake: IV 1000 / 1000 NS Inj 1,000 ML @ 1000 mls/hr 1000 / 1000 IV.SIG BOLUS [facility] Rx#:[id number] Narrative: GENERAL: This is a 62-year-old male currently resting in bed on nasal cannula no acute distress SKIN: Warm and dry. HEAD: Atraumatic. Normocephalic. EYES: Pupils equal and round. No scleral icterus. No injection or drainage. ENT: No nasal bleeding or discharge. Mucous membranes pink and moist. NECK: Trachea midline. No JVD. CARDIOVASCULAR: Tachycardia, IR. S1, S2. No S4 without murmur RESPIRATORY: No accessory muscle use. Clear to auscultation. Breath sounds equal bilaterally. GASTROINTESTINAL: Abdomen soft, non-tender, obese. Hypoactive bowel sounds appreciated. MUSCULOSKELETAL: Extremities without clubbing, cyanosis, significant peripheral edema. No obvious deformities. NEUROLOGICAL: Awake and alert. No obvious cranial nerve deficits. Motor grossly within normal limits. Five out of 5 muscle strength in the arms and legs. Normal speech. PSYCHIATRIC: Appropriate mood and affect; insight and judgment normal. Septic Shock Reassessment Septic shock perfusion: reassessment completed Caprini VTE Risk Assessment Caprini VTE Risk Assessment: Moderate/High Risk (score >= 2) Caprini Risk Assessment Model: Point Value = 1 Point Value = 2 Point Value = 3 Point Value = 5 Age 41-60 Minor surgery BMI > 25 kg/m2 Swollen legs Varicose veins or History of unexplained or recurrent spontaneous Oral contraceptives or hormone replacement Sepsis (< 1 month) Serious lung disease, including pneumonia (< 1 month) Abnormal pulmonary function Acute myocardial infarction Congestive heart failure (< 1 month) History of inflammatory bowel disease Medical patient at bed rest Age 61-74 Arthroscopic surgery Major open surgery (> 45 min) Laparoscopic surgery (> 45 min) Malignancy Confined to bed (> 72 hours) Immobilizing plaster cast Central venous access Age >= 75 History of VTE Family history of VTE Factor V Leiden Prothrombin [id number] Lupus anticoagulant Anticardiolipin antibodies Elevated serum homocysteine Heparin-induced thrombocytopenia Other congenital or acquired thrombophilia Stroke (< 1 month) Elective arthroplasty Hip, pelvis, or leg fracture Acute spinal cord injury (< 1 month) Prophylaxis Regimen: Total Risk Factor Score Risk Level Prophylaxis Regimen 0-1 Low Early ambulation 2 Moderate Order ONE of the following: *Sequential Compression Device (SCD) *Heparin 5000 units SQ BID 3-4 Higher Order ONE of the following medications: *Heparin 5000 units SQ TID *Enoxaparin/Lovenox 40 mg SQ daily (WT < 150 kg, CrCl > 30 mL/min) *Enoxaparin/Lovenox 30 mg SQ daily (WT < 150 kg, CrCl > 10-29 mL/min) *Enoxaparin/Lovenox 30 mg SQ BID (WT < 150 kg, CrCl > 30 mL/min) AND/OR *Sequential Compression Device (SCD) 5 or more Highest Order ONE of the following medications: *Heparin 5000 units SQ TID (Preferred with Epidurals) *Enoxaparin/Lovenox 40 mg SQ daily (WT < 150 kg, CrCl > 30 mL/min) *Enoxaparin/Lovenox 30 mg SQ daily (WT < 150 kg, CrCl > 10-29 mL/min) *Enoxaparin/Lovenox 30 mg SQ BID (WT < 150 kg, CrCl > 30 mL/min) AND *Sequential Compression Device (SCD) Assessment and Plan - Problem List (1) Depression with anxiety Code(s): F41.8 - Other specified anxiety disorders Status: Chronic (2) BPH (benign prostatic hyperplasia) Code(s): N40.0 - Benign prostatic hyperplasia without lower urinary tract symptoms Status: Chronic (3) Hyperlipidemia Code(s): E78.5 - Hyperlipidemia, unspecified Status: Chronic (4) Chronic anticoagulation Code(s): Z79.01 - jail (current) use of anticoagulants Status: Chronic (5) Normocytic anemia Code(s): D64.9 - Anemia, unspecified Status: Acute (6) Thrombocytopenia Code(s): D69.6 - Thrombocytopenia, unspecified Status: Acute (7) Elevated TSH Code(s): R79.89 - Other specified abnormal findings of blood chemistry Status : Acute (8) Atrial fibrillation with RVR Code(s): I48.91 - Unspecified atrial fibrillation Status: Acute (9) Acute hypotension Code(s): I95.9 - Hypotension, unspecified Status: Acute - Assessment and Plan Plan: Neuro/Psych: Depression/anxiety ADHD History of L1 transverse fracture Home medications for ADHD/depression include are divalproex 500 mg twice daily, duloxetine to 30 mg twice daily and quetiapine 100 mg once daily. These will be continued Acetaminophen 650 p.o. every 6 hours as needed fever Hydrocodone/acetaminophen 5/325 1 tablet every 4 hours as needed pain 1 through 5 Morphine sulfate 2 mg IV every 2 hours as needed pain 6 through 10 CV: Atrial fibrillation with rapid ventricular response Cardiomyopathy Essential hypertension Hyperlipidemia At home on diltiazem 240 mg daily. Holding sacubital/valsartan 49/51 1 tablet daily with hypotension. Hold bumetanide 2 mg and 1 mg p.m. and spinal lactone 25 mg daily Echocardiogram 10/05/17 revealed EF 50%. Mild TR. PA P 35 MAC. The pericardium ordered. Consult EP cardiology Check digoxin level in a.m. 09/10 Initial troponin 0.02 cycle every 6 hours x2 Resp: Obstructive sleep apnea Nasal cannula to maintain saturations greater than equal to 92% Incentive spirometry while awake As needed albuterol aerosols every 2 hours as needed dyspnea Follow-up on chest x-ray -moderate cardiomegaly with compensated CHF findings Okay to use home CPAP equipment GI: Hypoalbuminemia N.p.o. status Pantoprazole for GI prophylax Docusate sodium/senna 1 tablet twice daily for bowel regimen : BPH On tamsulosin 0.4 mg daily Endo: Diabetes mellitus Elevated TSH -pending total T3, free T4 Sliding scale insulin Accu-Cheks to maintain euglycemia Renal: Acute kidney injury Creatinine currently 1.5. Baseline is normal. Recheck BMP in a.m. 09/10 Monitor urine output Accurate I's and O's Avoid nephrotoxic medications Heme: Normocytic anemia Chronic apixaban use Currently on apixaban 5 mg twice daily. Continue. Monitor CBC daily. Follow trends. No indication for transfusion of blood products at this time. ID: Monitor for signs and symptomatology of infection FEN: Hypokalemia Receiving a total of 70 mEq potassium chloride x1 now. With Follow magnesium and phosphorus 2 g mag sulfate IV x1 now. Electrolyte protocol initiated MSK: Elevated BMI Weight loss encouraged PT evaluate and treat Access -Utilize peripheral IV. Central line if indicated Prophylaxis -GI -pantoprazole -DVT -SCD/apixaban provides DVT prophylaxis Critical care time 35 minutes admission Code Status: Full code Discussed Condition With: Dr. Hensley ED physician. Patient. Care plan discussed and all questions answered (2) BPH (benign prostatic hyperplasia) Qualifiers: Lower urinary tract symptom presence: unspecified whether lower urinary tract symptoms present Qualified Code(s): N40.0 - Benign prostatic hyperplasia without lower urinary tract symptoms (3) Hyperlipidemia Qualifiers: Hyperlipidemia type: unspecified Qualified Code(s): E78.5 - Hyperlipidemia, unspecified
[2018-09-09 13:53] LABS: Magnesium 1.8 mg/dL (1.5-2.5); Phosphorus 2.7 mg/dL (2.5-4.9)
[2018-09-09 13:56] LABS: Troponin I 0.12 ng/mL (0.02-0.05)
[2018-09-09] MEDS ORDERED: Phenylephrine Inj 160 MG in Sodium Chlor 0.9% Inj 484 ML IV.CONT PRN (14:00)
[2018-09-09] MEDS: Potassium Chlor 10 mEq Premix 10 MEQ/100 ML PIGGYBACK IV.SIG SCH ×3 (15:11→16:56)
[2018-09-09] MEDS ORDERED: Labetalol HCl Inj 100 MG/20 ML Vial IV.PUSH PRN (15:47)
[2018-09-09] MEDS ORDERED: hydrALAZINE HCl Inj 20 MG/ML Vial IV.PUSH PRN (15:48)
[2018-09-09 16:23] LABS: Bilirubin,Urine Negative (Negative); Clarity,Urine Hazy (Clear); Color,Urine Yellow (Yellw/Straw); Glucose,Urine (UA) Negative (Negative); Hyaline Casts,Urine 18 /lpf (0-3); Leukocyte Esterase,Urine Moderate (Negative); Mucus,Urine Few /lpf (Occasional); Nitrite,Urine Negative (Negative); Specific Gravity,Urine 1.012 (1.002-1.035); Squamous Epithelial Cell,Urine 2 /hpf (0-5)
[2018-09-09] MEDS: Insulin NovoLOG Aspart Correctional Sugar Inj SQ SCH (16:59)
--- NOTE | 2018-09-09 17:12 | ECHRPT ---
Indication: Atrial Fib and Flutter CONCLUSIONS Normal left ventricular size. Mild concentric left ventricular hypertrophy. The left ventricular systolic function is low normal with an estimated ejection fraction in the rang e of 50- 55%. A pacemaker wire is noted. The left atrial size is mildly dilated. Trace aortic valve regurgitation. There is trace tricuspid valve regurgitation. The estimated pulmonary arterial pressure is 48 mmHg. There is a small pericardial effusion present. BP: 160 / 68 HR: 109 Rhythm: MEASUREMENTS (Male / Female) Normal Values Technical Quality:Fair 2D ECHO LV Diastolic Diameter PLAX 4.4 cm 4.2 - 5.9 / 3.9 - 5.3 cm LV Systolic Diameter PLAX 3.2 cm IVS Diastolic Thickness 1.4 cm 0.6 - 1.0 / 0.6 - 0.9 cm LVPW Diastolic Thickness 1.3 cm 0.6 - 1.0 / 0.6 - 0.9 cm LV Relative Wall Thickness 0.6 RV Internal Dim ED PLAX 2.8 cm LVOT Diameter 2.5 cm Aortic Root Diameter 3.1 cm LA Systolic Diameter LX 4.3 cm 3.0 - 4.0 / 2.7 - 3.8 cm DOPPLER AV Peak Velocity 152.0 cm/s AV Peak Gradient 9.2 mmHg LVOT Peak Velocity 111.0 cm/s LVOT Peak Gradient 4.9 mmHg AV Area Cont Eq pk 3.6 cm Mitral E Point Velocity 87.2 cm/s LV E' Lateral Velocity 11.5 cm/s Mitral E to LV E' Lateral Ratio 7.6 LV E' Septal Velocity 9.8 cm/s Mitral E to LV E' Septal Ratio 8.9 TR Peak Velocity 308.0 cm/s TR Peak Gradient 37.9 mmHg Right Atrial Pressure 10.0 mmHg Pulmonary Artery Systolic Pressu 47.9 mmHg Right Ventricular Systolic Press 47.9 mmHg PV Peak Velocity 125.0 cm/s PV Peak Gradient 6.3 mmHg FINDINGS LEFT VENTRICLE Normal left ventricular size. Mild concentric left ventricular hypertrophy. The left ventricular systolic function is low normal with an estimated ejection fraction in the rang e of 50- 55%. RIGHT VENTRICLE A pacemaker wire is noted. LEFT ATRIUM The left atrial size is mildly dilated. RIGHT ATRIUM The right atrial size is normal. ATRIAL SEPTUM Normal atrial septal thickness without atrial level shunting by limited color doppler interrogation. AORTA The aortic root and proximal ascending aorta are normal in size on limited imaging. MITRAL VALVE Structurally normal mitral valve. No mitral valve stenosis or regurgitation. AORTIC VALVE Trileaflet aortic valve. Trace aortic valve regurgitation. TRICUSPID VALVE There is trace tricuspid valve regurgitation. The estimated pulmonary arterial pressure is 48 mmHg. PULMONARY VALVE The pulmonary valve is not well visualized. VESSELS The inferior vena cava is normal in size. PERICARDIUM There is a small pericardial effusion present. Armen Caldwell MD, FACC (Electronically Signed) Final Date:09 September 2018 17:11
--- NOTE | 2018-09-09 18:29 | MB ---
cc: Junior Cordero MD DATE: 09/09/2018 REASON FOR CONSULTATION: Uncontrolled fibrillation with multiple defibrillator shocks. HISTORY OF PRESENT ILLNESS: This is a 62-year-old alcoholic with chronic cardiomyopathy and AICD, who comes in having had multiple ICD shocks. According to his , he drinks a liter and a half of wine a day. He has been noncompliant taking his diltiazem. He thought diltiazem was for epilepsy, so he did not take it for a week. He did take it this morning. This morning, he had a total of 14 shocks according to the patient. He has had an AICD check, but it is not on the chart for me to review. He got a dose of digoxin and his heart rate is better now and he is no longer getting shocks. The patient denies any chest pain, denies shortness of breath. He is extremely sedentary, however, morbidly obese. PAST MEDICAL HISTORY: Includes a nonischemic cardiomyopathy, [place] [employer] AICD, chronic atrial fibrillation with a previous failed ablation, renal insufficiency. PAST SURGICAL HISTORY: Includes gastric bypass Deb-en-Y, AICD implant, tonsillectomy. SOCIAL HISTORY: Never smoked, is an alcoholic, is on multiple psychotropic drugs. MEDICATIONS: List was charted. 1. Cardizem CD 240 mg. 2. Aldactone 25 mg. 3. Bumetanide 1 mg. 4. Eliquis 5 mg b.i.d. 5. Entresto 49/51 mg b.i.d. ALLERGIES: INCLUDE AMPICILLIN. FAMILY HISTORY: Positive for hypertension. PHYSICAL EXAMINATION: GENERAL: Morbidly obese, pleasant white male, in no acute distress. He is in atrial fibrillation. Heart rate is mildly elevated. HEENT: Unremarkable. NECK: So thick I cannot see his neck veins. CHEST: Clear to auscultation, but diminished. CARDIAC: Distant S1, S2. Regular rate and rhythm. No murmurs or gallops can be heard, but his heart tones are very distant. ABDOMEN: Extremely obese, not able to appreciate masses or organomegaly. EXTREMITIES: Reveal no clubbing, cyanosis or edema. He has intact pulses. DIAGNOSTIC DATA: EKG shows atrial fibrillation with increased ventricular rate. Labs are charted. IMPRESSION: Uncontrolled atrial fibrillation, alcohol abuse, known cardiomyopathy. PLAN: I am going to add metoprolol succinate 50 mg b.i.d. I am going to continue Cardizem 240 mg. I am going to reduce ____ and make it p.r.n. to be given with her blood pressure greater than 130. Once his heart rate is well controlled and his medications are stabilized, he can be discharged. MD RUSSELL Jenkins/sv/rr , 05:23 PM , 05:30 PM
[2018-09-09] MEDS: Divalproex 500 MG ER Tablet PO SCH (22:05)
[2018-09-09] MEDS: Senna/Docusate Sodium 8.6/50 MG Tablet PO SCH (22:06)
[2018-09-10] MEDS: Insulin NovoLOG Aspart Correctional Sugar Inj SQ SCH ×4 (00:59→18:50)
[2018-09-10] MEDS ORDERED: Chlorhexidine Gluconate 2% 1 Pack (2 Cloths) TOPICAL PRN (04:00)
[2018-09-10 04:33] LABS: Eos # (Auto) 0.2 th/mm3 (0.0-0.4); Eos % (Auto) 4.1 % (0.0-4.0); Hematocrit 29.5 % (39.0-51.0); Hemoglobin 9.2 gm/dL (13.0-17.0); Lymph # (Auto) 1.2 th/mm3 (1.0-4.8); Lymph % (Auto) 27.3 % (9.0-44.0); Mean Corpuscular HGB Conc 31.2 % (32.0-36.0); Mean Corpuscular Hemoglobin 25.5 pg (27.0-34.0); Mean Corpuscular Volume 81.7 fL (80.0-100.0); Mean Platelet Volume 7.1 fL (7.0-11.0); Mono # (Auto) 0.4 th/mm3 (0.0-0.9); Mono % (Auto) 8.5 % (0.0-8.0); Neut # (Auto) 2.7 th/mm3 (1.8-7.7); Neut % (Auto) 59.1 % (16.0-70.0); Platelet Count 298 th/mm3 (150-450); Red Blood Count 3.61 mil/mm3 (4.50-5.90); Red Cell Distribution Width 20.6 % (11.6-17.2); White Blood Count 4.5 th/mm3 (4.0-11.0)
[2018-09-10 04:45] LABS: Activated Partial Thrombo Time 33.8 sec (23.4-31.7); INR 1.2 Ratio; Prothrombin Time 11.8 sec (9.8-11.6)
[2018-09-10 04:50] LABS: Albumin 2.8 g/dL (3.4-5.0); Anion Gap 9 meq/L (5-15); Aspartate Aminotransferase 16 U/L (15-37); Blood Urea Nitrogen 11 mg/dL (7-18); Calcium 7.9 mg/dL (8.5-10.1); Carbon Dioxide 23.7 meq/L (21.0-32.0); Chloride 106 meq/L (98-107); Glomerular Filtration Rate 48 mL/min (>89); Glucose,Random 120 mg/dL (74-106); Magnesium 2.3 mg/dL (1.5-2.5); Potassium 3.5 meq/L (3.5-5.1); Sodium 139 meq/L (136-145)
[2018-09-10 04:52] LABS: Alanine Aminotransferase 12 U/L (12-78)
[2018-09-10 04:54] LABS: Alkaline Phosphatase 100 U/L (45-117); Phosphorus 2.4 mg/dL (2.5-4.9); Total Protein 6.8 g/dL (6.4-8.2)
[2018-09-10 05:00] LABS: Thyroid Stimulating Hormone 7.16 uIU/mL (0.358-3.740); Troponin I 0.4 ng/mL (0.02-0.05)
[2018-09-10] MEDS: Sod Chloride 0.9% Inj 1,000 ML IV.CONT SCH (06:02)
[2018-09-10] MEDS ORDERED: Potassium Chloride 10 MEQ ER Capsule PO ONE (07:30)
[2018-09-10] MEDS ORDERED: Potassium Phosphate Inj 30 MMOL in Sodium Chlor 0.9% Inj 250 ML IV.SIG ONE (07:30)
--- NOTE | 2018-09-10 07:40 | P.PNCC ---
Subjective Subjective Remarks/Hospital Course: This is a 62-year-old male. Admission 09/09/2018. Past medical history includes depression/anxiety, essential hypertension, hyperlipidemia, BPH , chronic systolic heart failure. He states his last ejection was 25%. Last documented ejection fraction 50% with mild TR and a PA P of 35 mmHg on 10/03 by echocardiogram. Patient presents to [facility] after multiple episodes of his defibrillator firing since 3 AM. He states he has had 14 different episodes. He did take his morning medicines which include diltiazem 240 mg daily and sacubutil/valsartan. Initial troponin was 0.02. He received 20 mg IV diltiazem in route he was transferred to [facility] for further evaluation treatment. He received an additional 20 mg IV diltiazem here. Dr. Cordero/cardiology was called. Recommended IV 0.5 mg dose of digoxin. He was initially 150s currently about 100-120. His blood pressure however dropped. Received 1 L normal saline. Due to his thought that the EF was 25-30% recommended no more IV fluids. Dr. Codrero recommended consulting EP cardiology which the ED physician stated that Dr. Cordero would notify Dr. Frias. Counseled in place Currently, if necessary will start on low-dose phenylephrine drip temporarily if hypotension secondary to medication. I will place central line if indicated. Patient is currently resting in bed. Denies chest pain, shortness of breath or abdominal pain.. Currently receiving oral and IV potassium chloride and magnesium. Subjective 09/10: Heart rate currently in the 90s. His defibrillator has not fired since admission. Patient's heart rate is equal to 150s when standing up to urinate. Dr. Cordero was added metoprolol tartrate 50 mg twice daily. Systolic blood pressure currently in the 180s. Objective Vital Signs / I&O: Vital Signs 09/09/18 09:57 09/09/18 11:00 09/09/18 11:18 Temperature 98.2 F Pulse Rate 156 H 157 H 127 H Respiratory Rate 24 22 18 Blood Pressure 135/87 76/46 L 82/44 L Pulse Oximetry 97 100 98 09/09/18 12:04 09/09/18 12:24 09/09/18 12:33 Temperature Pulse Rate 126 H 121 H 109 H Respiratory Rate 14 16 15 Blood Pressure 73/39 L 94/71 L 140/78 Pulse Oximetry 99 98 99 09/09/18 13:57 09/09/18 16:00 09/09/18 17:00 Temperature 98.6 F Pulse Rate 96 H 108 H 108 H Respiratory Rate 18 18 18 Blood Pressure 100/58 L 156/68 H 156/68 H Pulse Oximetry 99 99 99 09/09/18 17:53 09/09/18 18:00 09/09/18 20:00 Temperature Pulse Rate 105 H 112 H 117 H Respiratory Rate 19 19 Blood Pressure 176/78 H Pulse Oximetry 100 99 09/09/18 21:30 09/09/18 21:46 09/09/18 22:00 Temperature Pulse Rate 105 H 104 H Respiratory Rate 22 Blood Pressure 156/67 H 162/77 H Pulse Oximetry 99 09/09/18 22:01 09/09/18 22:15 09/09/18 22:30 Temperature Pulse Rate 103 H 104 H 101 H Respiratory Rate 17 23 13 Blood Pressure 161/83 H 184/66 H Pulse Oximetry 99 97 99 09/09/18 22:35 09/09/18 22:45 09/09/18 23:00 Temperature Pulse Rate 91 H 88 Respiratory Rate 14 17 16 Blood Pressure 157/70 H 154/71 H Pulse Oximetry 96 96 09/09/18 23:15 09/09/18 23:30 09/09/18 23:45 Temperature Pulse Rate 93 H 94 H 96 H Respiratory Rate 22 24 17 Blood Pressure 160/87 H 154/83 H 145/90 H Pulse Oximetry 97 98 97 09/10/18 00:00 09/10/18 00:15 09/10/18 00:30 Temperature Pulse Rate 90 83 87 Respiratory Rate 20 20 18 Blood Pressure 159/84 H 166/89 H 140/68 Pulse Oximetry 95 97 97 09/10/18 00:45 09/10/18 01:00 09/10/18 01:15 Temperature Pulse Rate 91 H 91 H 90 Respiratory Rate 19 17 14 Blood Pressure 162/73 H 172/80 H 187/91 H Pulse Oximetry 96 98 98 09/10/18 01:21 09/10/18 01:24 09/10/18 01:30 Temperature Pulse Rate 84 86 84 Respiratory Rate 14 15 13 Blood Pressure 181/84 H 172/80 H 186/86 H Pulse Oximetry 97 98 97 09/10/18 01:45 09/10/18 02:00 09/10/18 02:15 Temperature Pulse Rate 89 88 91 H Respiratory Rate 12 15 13 Blood Pressure 179/79 H 165/79 H 178/79 H Pulse Oximetry 97 96 99 09/10/18 02:30 09/10/18 02:47 09/10/18 03:00 Temperature Pulse Rate 90 94 H 95 H Respiratory Rate 12 22 9 L Blood Pressure 177/81 H 147/65 H Pulse Oximetry 97 99 98 09/10/18 04:00 09/10/18 05:00 09/10/18 05:30 Temperature Pulse Rate 96 H 93 H 91 H Respiratory Rate 6 L 22 13 Blood Pressure 180/96 H Pulse Oximetry 97 97 97 09/10/18 05:33 09/10/18 05:46 09/10/18 06:00 Temperature Pulse Rate 89 63 91 H Respiratory Rate 16 17 Blood Pressure 188/87 H Pulse Oximetry 98 98 Intake & Output 09/09/18 09/10/18 09/10/18 18:59 06:59 18:59 Intake Total 1400 / 1400 30 / 30 Output Total 240 / 240 Balance 1400 / 1400 -210 / -210 Weight 153.8 kg 153.8 kg Intake: IV 1400 / 1400 Magnesium Sulfate Inj 2 GM In 100 / 100 NS Inj 96 ML @ 50 mls/hr IV.SIG ONCE ONE Rx#:[id number] KCl 10 mEq Premix Inj 10 meq In 300 / 300 100 ml @ 100 mls/hr IV.SIG Q1H JANELLE Rx#:[id number] NS Inj 1,000 ML @ 1000 mls/hr 1000 / 1000 IV.SIG BOLUS JANELLE Rx#:[id number] Oral 0 / 0 30 / 30 Output: Urine 240 / 240 Other: Date of Last Bowel Movement 09/10/18 Weight On Admission 153.8 kg Result Diagrams: 09/10/18 03:59 09/10/18 03:58 Imaging: Chest X-Ray 09/09/18 10:05 CONCLUSION: Pacemaker with moderate compensated cardiomegaly Minimal parenchymal changes left base. Objective Remarks: GENERAL: 62-year-old male currently resting in bed in no acute distress SKIN: Warm and dry. No rash HEAD: Atraumatic. Normocephalic. EYES: Pupils equal and round. No scleral icterus. No injection or drainage. ENT: No nasal bleeding or discharge. Mucous membranes pink and moist. NECK: Trachea midline. No JVD. CARDIOVASCULAR: IRR. S1, S2. No murmur RESPIRATORY: No accessory muscle use. Diminished. Clear to auscultation. Breath sounds equal bilaterally. GASTROINTESTINAL: Abdomen soft, non-tender, obese. Hypoactive bowel sounds appreciated. MUSCULOSKELETAL: Extremities without clubbing, cyanosis, or significant peripheral edema. No obvious deformities. NEUROLOGICAL: Awake and alert. No obvious cranial nerve deficits. Motor grossly within normal limits. Five out of 5 muscle strength in the arms and legs. Normal speech. PSYCHIATRIC: Appropriate mood and affect; insight and judgment normal. Assessment and Plan - Problem List (1) Depression with anxiety Code(s): F41.8 - Other specified anxiety disorders Status: Chronic (2) BPH (benign prostatic hyperplasia) Code(s): N40.0 - Benign prostatic hyperplasia without lower urinary tract symptoms Status: Chronic (3) Hyperlipidemia Code(s): E78.5 - Hyperlipidemia, unspecified Status: Chronic (4) Chronic anticoagulation Code(s): Z79.01 - superintendent terminal (current) use of anticoagulants Status: Chronic (5) Normocytic anemia Code(s): D64.9 - Anemia, unspecified Status: Acute (6) Thrombocytopenia Code(s): D69.6 - Thrombocytopenia, unspecified Status: Acute (7) Elevated TSH Code(s): R79.89 - Other specified abnormal findings of blood chemistry Status : Acute (8) Atrial fibrillation with RVR Code(s): I48.91 - Unspecified atrial fibrillation Status: Acute (9) Acute hypotension Code(s): I95.9 - Hypotension, unspecified Status: Acute - Assessment and Plan Plan: Neuro/Psych: Depression/anxiety ADHD History of L1 transverse fracture Home medications for ADHD/depression include are divalproex 500 mg twice daily, duloxetine to 30 mg twice daily and quetiapine 100 mg once daily. These will be continued Acetaminophen 650 p.o. every 6 hours as needed fever Hydrocodone/acetaminophen 5/325 1 tablet every 4 hours as needed pain 1 through 5 Morphine sulfate 2 mg IV every 2 hours as needed pain 6 through 10 CV: Atrial fibrillation with rapid ventricular response Cardiomyopathy Essential hypertension Hyperlipidemia Elevated troponin At home on diltiazem 240 mg daily. Resume sacubital/valsartan 49/51 1 tablet daily with hypertension Hold bumetanide 2 mg and 1 mg p.m. and Spironolactone 25 mg daily and resuming p.m. dose of bumetanide and spironolactone today Echocardiogram 10/05/17 revealed EF 50%. Mild TR. PA P 35 MAC. Consult EP cardiology per Dr. Cordero as evaluated. Started on metoprolol tartrate 50 mg twice daily per cardiology As needed Nitropaste 2 inches every 6 hours as needed hypertension Initial troponin 0.02. Currently 0.40. Recheck in a.m. Denies chest pain Resp: Obstructive sleep apnea Nasal cannula to maintain saturations greater than equal to 92% Incentive spirometry while awake As needed albuterol aerosols every 2 hours as needed dyspnea Follow-up on chest x-ray -moderate cardiomegaly with compensated CHF findings Okay to use home CPAP equipment GI: Hypoalbuminemia Advance diet as tolerated Pantoprazole for GI prophylax Docusate sodium/senna 1 tablet twice daily for bowel regimen : BPH On tamsulosin 0.4 mg daily Endo: Diabetes mellitus Elevated TSH -normal total T3, free T4 Sliding scale insulin Accu-Cheks to maintain euglycemia Recheck TSH in 4-6 weeks Renal: Acute kidney injury resolving Creatinine currently 1.5. Baseline is normal. Recheck BMP in a.m. 09/10 Monitor urine output Accurate I's and O's Avoid nephrotoxic medications Heme: Normocytic anemia Chronic apixaban use Currently on apixaban 5 mg twice daily. Continue. Monitor CBC daily. Follow trends. No indication for transfusion of blood products at this time. ID: Monitor for signs and symptomatology of infection FEN: Hypophosphatemia Received 10 equivalents potassium chloride and 30 mmol of sodium phosphate IV 2 times now. Recheck in a.m. Electrolyte protocol initiated MSK: Elevated BMI Weight loss encouraged PT evaluate and treat Access -Utilize peripheral IV. Central line if indicated Prophylaxis -GI -pantoprazole -DVT -SCD/apixaban provides DVT prophylaxis Stable from critical care medicine standpoint. Assign care to hospitalist team 09/11. Level to follow. Code Status: Full code Discussed Condition With: Patient. IMC RN. CARE plan discussed and all questions answered. (2) BPH (benign prostatic hyperplasia) Qualifiers: Lower urinary tract symptom presence: unspecified whether lower urinary tract symptoms present Qualified Code(s): N40.0 - Benign prostatic hyperplasia without lower urinary tract symptoms (3) Hyperlipidemia Qualifiers: Hyperlipidemia type: unspecified Qualified Code(s): E78.5 - Hyperlipidemia, unspecified
[2018-09-10] MEDS: QUEtiapine 100 MG Tablet PO SCH (08:08)
[2018-09-10] MEDS: Divalproex 500 MG ER Tablet PO SCH ×2 (08:11→20:19)
[2018-09-10] MEDS: dilTIAZem CD 240 MG Capsule PO SCH ×2 (08:13→08:22)
[2018-09-10] MEDS: Spironolactone 25 MG Tablet PO SCH (08:13)
[2018-09-10] MEDS: Pantoprazole Inj 40 MG Vial IV.PUSH SCH (08:19)
[2018-09-10] MEDS: Senna/Docusate Sodium 8.6/50 MG Tablet PO SCH ×2 (08:20→20:19)
[2018-09-10] MEDS: Chlorhexidine Gluconate 2% 1 Pack (2 Cloths) TOPICAL SCH (09:01)
--- NOTE | 2018-09-10 10:25 | P.PNCA ---
Subjective Interval history: Pt doing well, no significant sx. Medications and Allergies Active Medications: Active Medications Acetaminophen (Tylenol) 650 mg PO Q6H PRN PRN Reason: Fever >101f Hydrocodone Bitart/Acetaminophen (Llewellyn 5/325) 1 tab PO Q4H PRN PRN Reason: PAIN SCALE 1 TO 5 Last Admin: 09/09/18 22:05 Dose: 1 tab Al Hydroxide/Mg Hydroxide (Milk Of Magndarek Liq) 30 ml PO Q12H PRN PRN Reason: Mild Constipation Albuterol (Albuterol Neb (Prn)) 2.5 mg NEB Q2HR NEB PRN PRN Reason: SHORTNESS OF BREATH/WHEEZING Apixaban (Eliquis) 5 mg PO BID [facility] Last Admin: 09/10/18 08:07 Dose: 5 mg Bisacodyl (Dulcolax Supp) 10 mg RECTAL DAILY PRN PRN Reason: SEVERE CONSITIPATION Bumetanide (Bumex) 1 mg PO DAILY [facility] Last Admin: 09/10/18 08:54 Dose: 1 mg Chlorhexidine Gluconate (Chlorhexidine 2% Cloth) 3 pack TOPICAL DAILY@0400 [facility] Stop: 09/15/18 03:59 Last Admin: 09/10/18 09:01 Dose: 3 pack Chlorhexidine Gluconate (Chlorhexidine 2% Cloth) 3 pack TOPICAL DAILY@0400 PRN PRN Reason: Extra cloth needed Stop: 09/15/18 03:59 Dextrose (D50w Vial) 50 ml IV.PUSH UNSCH PRN PRN Reason: PER HYPOGLYCEMIA PROTOCOL Diltiazem HCl (Cardizem Cd 24hr) 240 mg PO DAILY [facility] Last Admin: 09/10/18 08:13 Dose: 240 mg Diltiazem HCl (Cardizem Cd 24hr) 240 mg PO DAILY [facility] Last Admin: 09/10/18 08:22 Dose: Not Given Diphenhydramine HCl (Benadryl) 25 mg PO Q6H PRN PRN Reason: ITCHING Last Admin: 09/10/18 03:49 Dose: 25 mg Divalproex Sodium (Depakote Er) 500 mg PO BID [facility] Last Admin: 09/10/18 08:11 Dose: 500 mg Duloxetine HCl (Cymbalta) 30 mg PO BID [facility] Last Admin: 09/10/18 08:13 Dose: 30 mg Glucagon (Glucagon Inj) 1 mg OTHER PRN PRN PRN Reason: for Hypoglycemia Protocol Magnesium Sulfate 4 gm/ Sodium (Chloride) 100 mls @ 50 mls/hr IV.SIG UNSCH PRN PRN Reason: For Magnesium 0.9 - 1.1 mg/dL Magnesium Sulfate 2 gm/ Sodium (Chloride) 100 mls @ 50 mls/hr IV.SIG UNSCH PRN PRN Reason: For Magnesium 1.2 - 1.6 mg/dL Potassium Chloride (Kcl 40 Meq Premix Inj) 40 meq in 100 mls @ 25 mls/hr IV.SIG Q2H PRN PRN Reason: For Potassium 2.8 - 3.2 mEq/L Potassium Chloride (Kcl 20 Meq Premix Inj) 20 meq in 100 mls @ 50 mls/hr IV.SIG Q2H PRN PRN Reason: For Potassium 3.3 - 3.5 mEq/L Potassium Chloride (Kcl 40 Meq Premix Inj) 40 meq in 100 mls @ 25 mls/hr IV.SIG UNSCH PRN PRN Reason: For Potassium 3.3 - 3.5 mEq/L Potassium Chloride (Kcl 20 Meq Premix Inj) 20 meq in 100 mls @ 50 mls/hr IV.SIG Q2H PRN PRN Reason: For Potassium 2.8 - 3.2 mEq/L Potassium Phosphate 30 mmol/ (Sodium Chloride) 260 mls @ 42 mls/hr IV.SIG UNSCH PRN PRN Reason: SEE LABEL COMMENTS Sodium Phosphate 30 mmol/ (Sodium Chloride) 260 mls @ 42 mls/hr IV.SIG UNSCH PRN PRN Reason: For Phosphorus < 2.5 mg/dL Potassium Phosphate 30 mmol/ (Sodium Chloride) 260 mls @ 43.333 mls/hr IV.SIG ONCE ONE Stop: 09/10/18 13:29 Last Admin: 09/10/18 08:56 Dose: 43.33 mls/hr Insulin Aspart (Novolog Insulin Correctional Sugar Inj) 0 unit SQ Q6HR JANELLE; Protocol Last Admin: 09/10/18 05:33 Dose: Not Given Lactulose (Lactulose Liq) 30 ml PO DAILY PRN PRN Reason: SEVERE CONSITIPATION Magnesium Oxide (Mag-Ox) 800 mg PO UNSCH PRN PRN Reason: For Magnesium 1.2 - 1.6 mg/dL Melatonin (Melatonin) 5 mg PO HS PRN PRN Reason: INSOMNIA Metoprolol Succinate (Toprol Xl) 50 mg PO BID [facility] Last Admin: 09/10/18 08:13 Dose: 50 mg Morphine Sulfate (Morphine Inj) 2 mg IV.PUSH Q2H PRN PRN Reason: PAIN SCALE 6 TO 10 Nitroglycerin (Nitro-Bid 2% Oint) 2 inch TOPICAL Q6HR PRN PRN Reason: SYS BP GREATER THAN 170 MMHG Last Admin: 09/10/18 06:26 Dose: 2 inch Ondansetron HCl (Zofran Inj) 4 mg IV.PUSH Q6H PRN PRN Reason: NAUSEA OR VOMITING Pantoprazole Sodium (Protonix Inj) 40 mg IV.PUSH DAILY [facility] Last Admin: 09/10/18 08:19 Dose: 40 mg Potassium Chloride (Kcl Liq) 40 meq PO UNSCH PRN PRN Reason: Potassium level 3.3-3.5 mEq/L Potassium Chloride (Kcl Liq) 40 meq PO UNSCH PRN PRN Reason: POTASSIUM LESS THAN 3.5 Potassium Phosphate (K-Phos Original) 2,000 mg PO Q4H PRN PRN Reason: Phosphorus Less Than 2.5 mg/dL Potassium Phosphate (K-Phos Original) 2,000 mg PO UNSCH PRN PRN Reason: SEE LABEL COMMENTS Quetiapine Fumarate (Seroquel) 100 mg PO DAILY [facility] Last Admin: 09/10/18 08:08 Dose: 100 mg Sacubitril/Valsartan (Entresto 24 Mg/26 Mg Tablet) 1 tab PO BID PRN PRN Reason: SBP>130 Last Admin: 09/10/18 01:37 Dose: 1 tab Sacubitril/Valsartan (Entresto 49 Mg/51 Mg) 1 tab PO BID [facility] Last Admin: 09/10/18 08:55 Dose: 1 tab Senna/Docusate Sodium (Kathie-Colace) 1 tab PO BID [facility] Last Admin: 09/10/18 08:20 Dose: Not Given Sennosides (Senokot) 17.2 mg PO Q12H PRN PRN Reason: Moderate Constipation Sodium Chloride (Ns Flush) 2 ml IV.FLUSH BID [facility] Last Admin: 09/10/18 08:20 Dose: 2 ml Sodium Chloride (Ns Flush) 2 ml IV.FLUSH PRN PRN PRN Reason: FLUSH AFTER USING IV ACCESS Last Admin: 09/10/18 08:17 Dose: 2 ml Spironolactone (Aldactone) 25 mg PO DAILY [facility] Last Admin: 09/10/18 08:13 Dose: 25 mg Tamsulosin HCl (Flomax) 0.4 mg PO DAILY [facility] Last Admin: 09/10/18 08:13 Dose: 0.4 mg Allergies Allergy/AdvReac Type Severity Reaction Status Date / Time ampicillin Allergy Severe Hives Verified 09/09/18 10:05 fire ant Allergy Severe Anaphylaxis Verified 09/09/18 10:05 warfarin Allergy Unknown unknown Verified 09/09/18 10:05 MRI PRECAUTION AdvReac Severe n/a Uncoded 09/09/18 10:05 Home Medications Medication Instructions Recorded Confirmed Type apixaban [Eliquis] 5 mg PO BID 09/09/18 09/09/18 History bumetanide 1 mg PO HS 09/09/18 09/09/18 History bumetanide 2 mg PO DAILY 09/09/18 09/09/18 History diltiazem HCl 240 mg PO DAILY 09/09/18 09/09/18 History divalproex 500 mg PO BID 09/09/18 09/09/18 History duloxetine 30 mg PO BID 09/09/18 09/09/18 History quetiapine 100 mg PO DAILY 09/09/18 09/09/18 History sacubitril-valsartan [Entresto] 1 tab PO BID 09/09/18 09/09/18 History spironolactone 25 mg PO DAILY 09/09/18 09/09/18 History tamsulosin 0.4 mg PO DAILY 09/09/18 09/09/18 History Physical Exam Vital signs: Vital Signs 09/09/18 11:00 09/09/18 11:18 09/09/18 12:04 Temperature Pulse Rate 157 H 127 H 126 H Respiratory Rate 22 18 14 Blood Pressure 76/46 L 82/44 L 73/39 L Pulse Oximetry 100 98 99 09/09/18 12:24 09/09/18 12:33 09/09/18 13:57 Temperature Pulse Rate 121 H 109 H 96 H Respiratory Rate 16 15 18 Blood Pressure 94/71 L 140/78 100/58 L Pulse Oximetry 98 99 99 09/09/18 16:00 09/09/18 17:00 09/09/18 17:53 Temperature 98.6 F Pulse Rate 108 H 108 H 105 H Respiratory Rate 18 18 19 Blood Pressure 156/68 H 156/68 H Pulse Oximetry 99 99 100 09/09/18 18:00 09/09/18 20:00 09/09/18 21:30 Temperature Pulse Rate 112 H 117 H Respiratory Rate 19 Blood Pressure 176/78 H 156/67 H Pulse Oximetry 99 09/09/18 21:46 09/09/18 22:00 09/09/18 22:01 Temperature Pulse Rate 105 H 104 H 103 H Respiratory Rate 22 17 Blood Pressure 162/77 H 161/83 H Pulse Oximetry 99 99 09/09/18 22:15 09/09/18 22:30 09/09/18 22:35 Temperature Pulse Rate 104 H 101 H Respiratory Rate 23 13 14 Blood Pressure 184/66 H Pulse Oximetry 97 99 09/09/18 22:45 09/09/18 23:00 09/09/18 23:15 Temperature Pulse Rate 91 H 88 93 H Respiratory Rate 17 16 22 Blood Pressure 157/70 H 154/71 H 160/87 H Pulse Oximetry 96 96 97 09/09/18 23:30 09/09/18 23:45 09/10/18 00:00 Temperature Pulse Rate 94 H 96 H 90 Respiratory Rate 24 17 20 Blood Pressure 154/83 H 145/90 H 159/84 H Pulse Oximetry 98 97 95 09/10/18 00:15 09/10/18 00:30 09/10/18 00:45 Temperature Pulse Rate 83 87 91 H Respiratory Rate 20 18 19 Blood Pressure 166/89 H 140/68 162/73 H Pulse Oximetry 97 97 96 09/10/18 01:00 09/10/18 01:15 09/10/18 01:21 Temperature Pulse Rate 91 H 90 84 Respiratory Rate 17 14 14 Blood Pressure 172/80 H 187/91 H 181/84 H Pulse Oximetry 98 98 97 09/10/18 01:24 09/10/18 01:30 09/10/18 01:45 Temperature Pulse Rate 86 84 89 Respiratory Rate 15 13 12 Blood Pressure 172/80 H 186/86 H 179/79 H Pulse Oximetry 98 97 97 09/10/18 02:00 09/10/18 02:15 09/10/18 02:30 Temperature Pulse Rate 88 91 H 90 Respiratory Rate 15 13 12 Blood Pressure 165/79 H 178/79 H 177/81 H Pulse Oximetry 96 99 97 09/10/18 02:47 09/10/18 03:00 09/10/18 04:00 Temperature Pulse Rate 94 H 95 H 96 H Respiratory Rate 22 9 L 6 L Blood Pressure 147/65 H Pulse Oximetry 99 98 97 09/10/18 05:00 09/10/18 05:30 09/10/18 05:33 Temperature Pulse Rate 93 H 91 H 89 Respiratory Rate 22 13 16 Blood Pressure 180/96 H 188/87 H Pulse Oximetry 97 97 98 09/10/18 05:46 09/10/18 06:00 09/10/18 08:30 Temperature Pulse Rate 63 91 H Respiratory Rate 17 Blood Pressure Pulse Oximetry 98 99 Intake & Output 09/09/18 09/10/18 09/10/18 18:59 06:59 18:59 Intake Total 1400 / 1400 30 / 30 Output Total 240 / 240 Balance 1400 / 1400 -210 / -210 Weight 153.8 kg 153.8 kg Intake: IV 1400 / 1400 Magnesium Sulfate Inj 2 GM In 100 / 100 NS Inj 96 ML @ 50 mls/hr IV.SIG ONCE ONE Rx#:[id number] KCl 10 mEq Premix Inj 10 meq In 300 / 300 100 ml @ 100 mls/hr IV.SIG Q1H JANELLE Rx#:[id number] NS Inj 1,000 ML @ 1000 mls/hr 1000 / 1000 IV.SIG BOLUS JANELLE Rx#:[id number] Oral 0 / 0 30 / 30 Output: Urine 240 / 240 Other: Date of Last Bowel Movement 09/10/18 Weight On Admission 153.8 kg - Constitutional no acute distress - Routine Neck Exam Present: supple. Absent: JVD - Routine Respiratory Exam Absent: accessory muscle use - Routine Cardiovascular Exam Present: tachycardia, irregular rhythm - Routine Abdominal Exam Present: soft - Routine Extremities Exam Absent: edema Results 09/10/18 03:59 09/10/18 03:58 Cardiac Enzymes 09/09/18 09/09/18 09/09/18 Range/Units 10:12 10:12 13:21 AST 15 (15-37) U/L Troponin I Less than 0.02 L 0.12 H (0.02-0.05) ng/mL B-Natriuretic Peptide 303 H (0-100) pg/mL 09/10/18 09/10/18 Range/Units 03:58 03:59 AST 16 (15-37) U/L Troponin I 0.40 H (0.02-0.05) ng/mL B-Natriuretic Peptide (0-100) pg/mL Coagulation 09/09/18 09/09/18 09/10/18 Range/Units 10:12 10:12 03:59 PT 11.6 11.8 H (9.8-11.6) sec APTT 34.3 H 33.8 H (23.4-31.7) sec B-Natriuretic Peptide 303 H (0-100) pg/mL CBC 09/09/18 09/10/18 Range/Units 10:12 03:59 WBC 5.3 4.5 (4.0-11.0) th/mm3 RBC 3.86 L 3.61 L (4.50-5.90) mil/mm3 Hgb 10.0 L 9.2 L (13.0-17.0) gm/dL Hct 31.6 L 29.5 L (39.0-51.0) % Plt Count 274 298 (150-450) th/mm3 Neut # (Auto) 3.3 2.7 (1.8-7.7) th/mm3 Lymph # (Auto) 1.3 1.2 (1.0-4.8) th/mm3 Cloud # (Auto) 0.5 0.4 (0.0-0.9) th/mm3 Eos # (Auto) 0.2 0.2 (0.0-0.4) th/mm3 Baso # (Auto) 0.0 0.0 (0.0-0.2) th/mm3 Comprehensive Metabolic Panel 09/09/18 09/09/18 09/10/18 Range/Units 10:12 20:00 03:58 Sodium 138 139 (136-145) meq/L Potassium 3.0 L 3.6 3.5 (3.5-5.1) meq/L Chloride 101 106 (98-107) meq/L Carbon Dioxide 22.5 23.7 (21.0-32.0) meq/L BUN 8 11 (7-18) mg/dL Creatinine 1.50 H 1.49 H (0.60-1.30) mg/dL Calcium 7.5 L 7.9 L (8.5-10.1) mg/dL AST 15 16 (15-37) U/L ALT 9 L 12 (12-78) U/L Alkaline Phosphatase 104 100 (45-117) U/L Total Protein 7.0 6.8 (6.4-8.2) g/dL Albumin 3.0 L 2.8 L (3.4-5.0) g/dL Intake and Output 09/09/18 09/10/18 09/10/18 22:59 06:59 14:59 Intake Total 400 / 400 30 / 30 Output Total 240 / 240 Balance 400 / 400 -210 / -210 Intake: IV 400 / 400 Magnesium Sulfate Inj 2 GM In 100 / 100 NS Inj 96 ML @ 50 mls/hr IV.SIG ONCE ONE Rx#:[id number] KCl 10 mEq Premix Inj 10 meq In 300 / 300 100 ml @ 100 mls/hr IV.SIG Q1H JANELLE Rx#:[id number] Oral 0 / 0 30 / 30 Output: Urine 240 / 240 Other: Date of Last Bowel Movement 09/10/18 Weight 153.8 kg 153.8 kg Weight On Admission 153.8 kg - Imaging and Cardiology Imaging: Impressions Chest X-Ray 09/09/18 10:05 CONCLUSION: Pacemaker with moderate compensated cardiomegaly Minimal parenchymal changes left base. Assessment and Plan - Assessment (1) NICM (nonischemic cardiomyopathy) Code(s): I42.8 - Other cardiomyopathies Status: Acute Plan: on bb/entresto; icd in place; pt states he had a cath 2 years ago showing no CAD (2) Atrial fibrillation with RVR Code(s): I48.91 - Unspecified atrial fibrillation Status: Acute Plan: On eliquis; rates high will increase metoprolol - Plan Ok to tx to floor from cardiac standpoint
--- NOTE | 2018-09-10 18:12 | ECG ---
Date Performed: 09/10/2018 Time Performed: 09:21:36 PTAGE: 62 years EKG: ATRIAL FIBRILLATION LOW QRS VOLTAGE IN PRECORDIAL LEADS ABNORMAL ECG PREVIOUS TRACING : 09/09/2018 13.23 Since the previous tracing, no significant change noted DOCTOR: Armen Caldwell Interpretating Date/Time 09/10/2018 18:11:02
--- NOTE | 2018-09-10 21:22 | ECG ---
Date Performed: 09/09/2018 Time Performed: 13:23:48 PTAGE: 62 years EKG: ATRIAL FIBRILLATION WITH RAPID VENTRICULAR RESPONSE LOW QRS VOLTAGE IN PRECORDIAL LEADS ABN ORMAL RHYTHM ECG PREVIOUS TRACING : 09/09/2018 10.03 Since the previous tracing, no significant change noted DOCTOR: Armen Caldwell Interpretating Date/Time 09/10/2018 21:21:42
--- NOTE | 2018-09-10 21:36 | ECG ---
Date Performed: 09/09/2018 Time Performed: 10:03:40 PTAGE: 62 years EKG: ATRIAL FIBRILLATION WITH RAPID VENTRICULAR RESPONSE WITH ABERRANT CONDUCTION OR VENTRICULAR PREMATURE COMPLEXES NONSPECIFIC ST & T-WAVE ABNORMALITY ABNORMAL RHYTHM ECG PREVIOUS TRACING : 12/28/2017 13.16 Compared to previous tracing, SR no longer present DOCTOR: Armen Caldwell Interpretating Date/Time 09/10/2018 21:36:10
[2018-09-11] MEDS: Insulin NovoLOG Aspart Correctional Sugar Inj SQ SCH ×4 (00:13→18:28)
[2018-09-11] MEDS: Melatonin 5 MG Tablet PO PRN ×2 (02:13→21:44)
[2018-09-11] MEDS: Chlorhexidine Gluconate 2% 1 Pack (2 Cloths) TOPICAL SCH (03:43)
[2018-09-11 06:37] LABS: Baso % (Auto) 0.9 % (0.0-2.0); Eos # (Auto) 0.2 th/mm3 (0.0-0.4); Eos % (Auto) 6.1 % (0.0-4.0); Hematocrit 26.9 % (39.0-51.0); Hemoglobin 8.5 gm/dL (13.0-17.0); Lymph % (Auto) 26.3 % (9.0-44.0); Mean Corpuscular HGB Conc 31.6 % (32.0-36.0); Mean Corpuscular Hemoglobin 26.1 pg (27.0-34.0); Mean Corpuscular Volume 82.6 fL (80.0-100.0); Mono # (Auto) 0.4 th/mm3 (0.0-0.9); Mono % (Auto) 10.5 % (0.0-8.0); Neut # (Auto) 2.2 th/mm3 (1.8-7.7); Neut % (Auto) 56.2 % (16.0-70.0); Platelet Count 293 th/mm3 (150-450); Red Blood Count 3.26 mil/mm3 (4.50-5.90); Red Cell Distribution Width 20.7 % (11.6-17.2); White Blood Count 3.9 th/mm3 (4.0-11.0)
[2018-09-11 06:59] LABS: Albumin 2.7 g/dL (3.4-5.0); Anion Gap 9 meq/L (5-15); Aspartate Aminotransferase 12 U/L (15-37); Blood Urea Nitrogen 11 mg/dL (7-18); Calcium 7.8 mg/dL (8.5-10.1); Carbon Dioxide 23.7 meq/L (21.0-32.0); Chloride 107 meq/L (98-107); Glomerular Filtration Rate 58 mL/min (>89); Glucose,Random 107 mg/dL (74-106); Potassium 3.8 meq/L (3.5-5.1); Sodium 140 meq/L (136-145)
[2018-09-11 07:03] LABS: Alanine Aminotransferase 12 U/L (12-78); Alkaline Phosphatase 92 U/L (45-117); Phosphorus 2.8 mg/dL (2.5-4.9); Total Protein 6.3 g/dL (6.4-8.2); Troponin I 0.11 ng/mL (0.02-0.05)
[2018-09-11] MEDS: dilTIAZem CD 240 MG Capsule PO SCH ×2 (08:47→08:52)
[2018-09-11] MEDS: QUEtiapine 100 MG Tablet PO SCH (08:48)
[2018-09-11] MEDS: Divalproex 500 MG ER Tablet PO SCH ×2 (08:48→21:35)
[2018-09-11] MEDS: Spironolactone 25 MG Tablet PO SCH (08:48)
[2018-09-11] MEDS: Metoprolol Tartrate 25 MG Tablet PO SCH (08:49)
[2018-09-11] MEDS: Pantoprazole Inj 40 MG Vial IV.PUSH SCH (08:49)
[2018-09-11] MEDS: Senna/Docusate Sodium 8.6/50 MG Tablet PO SCH ×2 (08:51→21:35)
--- NOTE | 2018-09-11 09:16 | P.PNIM ---
Subjective Interval history: Patient seen and examined this morning. Afebrile vital signs stable. No acute events overnight. Doing well at this time and agrees with being transferred out of the ICU. Denies any chest pain or shortness of breath. Physical Exam Vital signs: Vital Signs 09/10/18 10:00 09/10/18 11:00 09/10/18 12:00 Temperature Pulse Rate 96 H 87 84 Respiratory Rate 20 19 17 Blood Pressure 158/64 H 134/60 114/69 Pulse Oximetry 97 96 97 09/10/18 12:58 09/10/18 13:00 09/10/18 14:00 Temperature 98.8 F Pulse Rate 77 73 Respiratory Rate 20 26 H 18 Blood Pressure 108/62 108/62 Pulse Oximetry 97 100 09/10/18 15:00 09/10/18 16:00 09/10/18 17:00 Temperature 98.6 F 98.7 F Pulse Rate 70 77 77 Respiratory Rate 17 24 17 Blood Pressure 110/62 111/70 123/76 Pulse Oximetry 100 100 100 09/10/18 18:00 09/10/18 18:01 09/10/18 18:18 Temperature Pulse Rate 81 82 77 Respiratory Rate 17 21 17 Blood Pressure 80/44 L 94/57 L Pulse Oximetry 100 100 79 L 09/10/18 19:00 09/10/18 20:00 09/10/18 21:00 Temperature 99 F Pulse Rate 74 70 73 Respiratory Rate 18 15 20 Blood Pressure 119/77 125/81 116/66 Pulse Oximetry 97 99 100 09/10/18 22:00 09/10/18 23:00 09/11/18 00:00 Temperature 98 F Pulse Rate 70 72 71 Respiratory Rate 17 18 18 Blood Pressure 121/77 125/73 115/62 Pulse Oximetry 98 100 99 09/11/18 01:00 09/11/18 02:00 09/11/18 03:00 Temperature Pulse Rate 79 81 81 Respiratory Rate 19 18 18 Blood Pressure 128/71 128/78 130/71 Pulse Oximetry 98 96 98 09/11/18 04:00 09/11/18 06:00 Temperature 98.4 F Pulse Rate 72 71 Respiratory Rate 17 Blood Pressure 121/73 Pulse Oximetry 96 Intake & Output 09/10/18 09/11/18 09/11/18 18:59 06:59 18:59 Intake Total 825 / 825 500 / 500 Output Total 525 / 525 350 / 350 Balance 300 / 300 150 / 150 Weight 150 kg Intake: IV 125 / 125 260 / 260 Potassium Phosphate Inj 30 MMOL 260 / 260 In NS Inj 250 ML @ 43.333 mls/ hr IV.SIG ONCE ONE Rx#:[id number] Oral 700 / 700 240 / 240 Output: Urine 525 / 525 350 / 350 Other: # Incontinent Voids 1 Date of Last Bowel Movement 09/09/18 09/09/18 # Bowel Movements 0 Narrative: GEN: Well-developed, well-nourished obese male patient. No acute distress. CV: Irregular rate and rhythm without obvious murmurs LUNGS: Clear to auscultation bilaterally. Normal respiratory effort. No wheezes , rales, rhonchi. GI: Soft, nontender, nondistended. No palpable masses. Bowel sounds WNL. EXT: No edema. NEURO/PSYCH: Afocal. Awake, alert, and oriented x3. Appropriate insight and judgment. Results - Labs CBC & Chem 7: 09/11/18 05:46 09/11/18 05:46 Laboratory Results - last 24 hr 09/09/18 09/10/18 09/10/18 14:27 11:21 18:24 WBC RBC Hgb Hct MCV MCH MCHC RDW Plt Count MPV Neut % (Auto) Lymph % (Auto) [place] % (Auto) Eos % (Auto) Baso % (Auto) Neut # (Auto) Lymph # (Auto) [place] # (Auto) Eos # (Auto) Baso # (Auto) WBC Differential Differential Comment Sodium Potassium Chloride Carbon Dioxide Anion Gap BUN Creatinine Estimated GFR POC Glucose 166 H 232 H Random Glucose Calcium Phosphorus Magnesium Total Bilirubin AST ALT Alkaline Phosphatase Troponin I Total Protein Albumin Urine Color Yellow Urine Clarity Hazy H Urine pH 5.0 Ur Specific [place] 1.012 Urine Protein 30 H Urine Glucose (UA) Negative Urine Ketones Negative Urine Occult Blood Small H Urine Nitrate Negative Urine Bilirubin Negative Urine Urobilinogen Less than 2 Ur Leukocyte Esterase Moderate H Urine RBC 2 Urine WBC 37 H Ur Squamous Epith Cells 2 Hyaline Casts 18 Granular Casts 9 Urine Mucus Few H Micro UA Comment Culture indicated Urine Culture Comments Culture indicated 09/11/18 09/11/18 09/11/18 05:36 05:46 05:46 WBC 3.9 L RBC 3.26 L Hgb 8.5 L Hct 26.9 L MCV 82.6 MCH 26.1 L MCHC 31.6 L RDW 20.7 H Plt Count 293 MPV 7.0 Neut % (Auto) 56.2 Lymph % (Auto) 26.3 [place] % (Auto) 10.5 H Eos % (Auto) 6.1 H Baso % (Auto) 0.9 Neut # (Auto) 2.2 Lymph # (Auto) 1.0 [place] # (Auto) 0.4 Eos # (Auto) 0.2 Baso # (Auto) 0.0 WBC Differential . Differential Comment Auto diff final Sodium 140 Potassium 3.8 Chloride 107 Carbon Dioxide 23.7 Anion Gap 9 BUN 11 Creatinine 1.26 Estimated GFR 58 L POC Glucose 119 H Random Glucose 107 H Calcium 7.8 L Phosphorus 2.8 Magnesium 2.0 Total Bilirubin 0.5 AST 12 L ALT 12 Alkaline Phosphatase 92 Troponin I 0.11 H Total Protein 6.3 L Albumin 2.7 L Urine Color Urine Clarity Urine pH Ur Specific [place] Urine Protein Urine Glucose (UA) Urine Ketones Urine Occult Blood Urine Nitrate Urine Bilirubin Urine Urobilinogen Ur Leukocyte Esterase Urine RBC Urine WBC Ur Squamous Epith Cells Hyaline Casts Granular Casts Urine Mucus Micro UA Comment Urine Culture Comments Microbiology 09/09/18 14:27 Clean Catch Urine Urine Culture - Preliminary Group D Enterococcus Assessment and Plan - Assessment (1) Atrial fibrillation with RVR Code(s): I48.91 - Unspecified atrial fibrillation Status: Acute - Plan This is a 62-year-old male with past medical history significant for atrial fibrillation, chronic systolic heart failure, anxiety depression, essential hypertension, dyslipidemia, BPH. He has a defibrillator in place and was admitted due to defibrillator firing several times found to be having A. fib with RVR. 1. Atrial fibrillation with RVR -Cardiology consulted recommendations appreciated -Metoprolol dose increased to 50 mg twice daily -Troponins trended -Continue meth tonight and spironolactone 2. Anxiety with depression as well as ADHD -Continue home medications: Divalproex, duloxetine, quetiapine 3. Obstructive sleep apnea -Continue BiPAP at night 4. BPH -Continue tamsulosin 5. Type 2 diabetes -Continue insulin sliding scale 6. Congestive heart failure -See plan above Diabetic diet Monitor electrolytes replace accordingly DVT prophylaxis with SCDs and cement Continue pantoprazole Code Status: Full code Discharge Planning: Pending further cardiac workup and clearance
--- NOTE | 2018-09-11 09:53 | P.PNCA ---
Subjective Interval history: Pt doing well, no complaints. Medications and Allergies Active Medications: Active Medications Acetaminophen (Tylenol) 650 mg PO Q6H PRN PRN Reason: Fever >101f Hydrocodone Bitart/Acetaminophen ([place] 5/325) 1 tab PO Q4H PRN PRN Reason: PAIN SCALE 1 TO 5 Last Admin: 09/09/18 22:05 Dose: 1 tab Al Hydroxide/Mg Hydroxide (Milk Of Magnesia Liq) 30 ml PO Q12H PRN PRN Reason: Mild Constipation Albuterol (Albuterol Neb (Prn)) 2.5 mg NEB Q2HR NEB PRN PRN Reason: SHORTNESS OF BREATH/WHEEZING Apixaban (Eliquis) 5 mg PO BID [facility] Last Admin: 09/11/18 08:48 Dose: 5 mg Bisacodyl (Dulcolax Supp) 10 mg RECTAL DAILY PRN PRN Reason: SEVERE CONSITIPATION Bumetanide (Bumex) 1 mg PO DAILY [facility] Last Admin: 09/11/18 08:47 Dose: 1 mg Chlorhexidine Gluconate (Chlorhexidine 2% Cloth) 3 pack TOPICAL DAILY@0400 [facility] Stop: 09/15/18 03:59 Last Admin: 09/11/18 03:43 Dose: 3 pack Chlorhexidine Gluconate (Chlorhexidine 2% Cloth) 3 pack TOPICAL DAILY@0400 PRN PRN Reason: Extra cloth needed Stop: 09/15/18 03:59 Dextrose (D50w Vial) 50 ml IV.PUSH UNSCH PRN PRN Reason: PER HYPOGLYCEMIA PROTOCOL Diltiazem HCl (Cardizem Cd 24hr) 240 mg PO DAILY [facility] Last Admin: 09/11/18 08:47 Dose: 240 mg Diltiazem HCl (Cardizem Cd 24hr) 240 mg PO DAILY [facility] Last Admin: 09/11/18 08:52 Dose: Not Given Diphenhydramine HCl (Benadryl) 25 mg PO Q6H PRN PRN Reason: ITCHING Last Admin: 09/10/18 03:49 Dose: 25 mg Divalproex Sodium (Depakote Er) 500 mg PO BID [facility] Last Admin: 09/11/18 08:48 Dose: 500 mg Duloxetine HCl (Cymbalta) 30 mg PO BID [facility] Last Admin: 09/11/18 08:49 Dose: 30 mg Glucagon (Glucagon Inj) 1 mg OTHER PRN PRN PRN Reason: for Hypoglycemia Protocol Magnesium Sulfate 4 gm/ Sodium (Chloride) 100 mls @ 50 mls/hr IV.SIG UNSCH PRN PRN Reason: For Magnesium 0.9 - 1.1 mg/dL Magnesium Sulfate 2 gm/ Sodium (Chloride) 100 mls @ 50 mls/hr IV.SIG UNSCH PRN PRN Reason: For Magnesium 1.2 - 1.6 mg/dL Potassium Chloride (Kcl 40 Meq Premix Inj) 40 meq in 100 mls @ 25 mls/hr IV.SIG Q2H PRN PRN Reason: For Potassium 2.8 - 3.2 mEq/L Potassium Chloride (Kcl 20 Meq Premix Inj) 20 meq in 100 mls @ 50 mls/hr IV.SIG Q2H PRN PRN Reason: For Potassium 3.3 - 3.5 mEq/L Potassium Chloride (Kcl 40 Meq Premix Inj) 40 meq in 100 mls @ 25 mls/hr IV.SIG UNSCH PRN PRN Reason: For Potassium 3.3 - 3.5 mEq/L Potassium Chloride (Kcl 20 Meq Premix Inj) 20 meq in 100 mls @ 50 mls/hr IV.SIG Q2H PRN PRN Reason: For Potassium 2.8 - 3.2 mEq/L Potassium Phosphate 30 mmol/ (Sodium Chloride) 260 mls @ 42 mls/hr IV.SIG UNSCH PRN PRN Reason: SEE LABEL COMMENTS Sodium Phosphate 30 mmol/ (Sodium Chloride) 260 mls @ 42 mls/hr IV.SIG UNSCH PRN PRN Reason: For Phosphorus < 2.5 mg/dL Insulin Aspart (Novolog Insulin [place]al Sugar Inj) 0 unit SQ Q6HR JANELLE; Protocol Last Admin: 09/11/18 05:40 Dose: Not Given Lactulose (Lactulose Liq) 30 ml PO DAILY PRN PRN Reason: SEVERE CONSITIPATION Magnesium Oxide (Mag-Ox) 800 mg PO UNSCH PRN PRN Reason: For Magnesium 1.2 - 1.6 mg/dL Melatonin (Melatonin) 5 mg PO HS PRN PRN Reason: INSOMNIA Last Admin: 09/11/18 02:13 Dose: 5 mg Metoprolol Succinate (Toprol Xl) 50 mg PO HS JANELLE Last Admin: 09/10/18 20:19 Dose: 50 mg Metoprolol Tartrate (Lopressor) 75 mg PO DAILY [facility] Last Admin: 09/11/18 08:49 Dose: 75 mg Morphine Sulfate (Morphine Inj) 2 mg IV.PUSH Q2H PRN PRN Reason: PAIN SCALE 6 TO 10 Nitroglycerin (Nitro-Bid 2% Oint) 2 inch TOPICAL Q6HR PRN PRN Reason: SYS BP GREATER THAN 170 MMHG Last Admin: 09/10/18 06:26 Dose: 2 inch Ondansetron HCl (Zofran Inj) 4 mg IV.PUSH Q6H PRN PRN Reason: NAUSEA OR VOMITING Pantoprazole Sodium (Protonix Inj) 40 mg IV.PUSH DAILY [facility] Last Admin: 09/11/18 08:49 Dose: 40 mg Potassium Chloride (Kcl Liq) 40 meq PO UNSCH PRN PRN Reason: Potassium level 3.3-3.5 mEq/L Potassium Chloride (Kcl Liq) 40 meq PO UNSCH PRN PRN Reason: POTASSIUM LESS THAN 3.5 Potassium Phosphate (K-Phos Original) 2,000 mg PO Q4H PRN PRN Reason: Phosphorus Less Than 2.5 mg/dL Potassium Phosphate (K-Phos Original) 2,000 mg PO UNSCH PRN PRN Reason: SEE LABEL COMMENTS Quetiapine Fumarate (Seroquel) 100 mg PO DAILY [facility] Last Admin: 09/11/18 08:48 Dose: 100 mg Sacubitril/Valsartan (Entresto 24 Mg/26 Mg Tablet) 1 tab PO BID PRN PRN Reason: SBP>130 Last Admin: 09/10/18 01:37 Dose: 1 tab Sacubitril/Valsartan (Entresto 49 Mg/51 Mg) 1 tab PO BID [facility] Last Admin: 09/11/18 08:47 Dose: 1 tab Senna/Docusate Sodium (Kathie-Colace) 1 tab PO BID [facility] Last Admin: 09/11/18 08:51 Dose: Not Given Sennosides (Senokot) 17.2 mg PO Q12H PRN PRN Reason: Moderate Constipation Sodium Chloride (Ns Flush) 2 ml IV.FLUSH BID [facility] Last Admin: 09/11/18 08:51 Dose: 2 ml Sodium Chloride (Ns Flush) 2 ml IV.FLUSH PRN PRN PRN Reason: FLUSH AFTER USING IV ACCESS Last Admin: 09/10/18 08:17 Dose: 2 ml Spironolactone (Aldactone) 25 mg PO DAILY [facility] Last Admin: 09/11/18 08:48 Dose: 25 mg Tamsulosin HCl (Flomax) 0.4 mg PO DAILY [facility] Last Admin: 09/11/18 08:48 Dose: 0.4 mg Allergies Allergy/AdvReac Type Severity Reaction Status Date / Time ampicillin Allergy Severe Hives Verified 09/09/18 10:05 fire ant Allergy Severe Anaphylaxis Verified 09/09/18 10:05 warfarin Allergy Unknown unknown Verified 09/09/18 10:05 MRI PRECAUTION AdvReac Severe n/a Uncoded 09/09/18 10:05 Home Medications Medication Instructions Recorded Confirmed Type apixaban [Eliquis] 5 mg PO BID 09/09/18 09/09/18 History bumetanide 1 mg PO HS 09/09/18 09/09/18 History bumetanide 2 mg PO DAILY 09/09/18 09/09/18 History diltiazem HCl 240 mg PO DAILY 09/09/18 09/09/18 History divalproex 500 mg PO BID 09/09/18 09/09/18 History duloxetine 30 mg PO BID 09/09/18 09/09/18 History quetiapine 100 mg PO DAILY 09/09/18 09/09/18 History sacubitril-valsartan [Entresto] 1 tab PO BID 09/09/18 09/09/18 History spironolactone 25 mg PO DAILY 09/09/18 09/09/18 History tamsulosin 0.4 mg PO DAILY 09/09/18 09/09/18 History Physical Exam Vital signs: Vital Signs 09/10/18 10:00 09/10/18 11:00 09/10/18 12:00 Temperature Pulse Rate 96 H 87 84 Respiratory Rate 20 19 17 Blood Pressure 158/64 H 134/60 114/69 Pulse Oximetry 97 96 97 09/10/18 12:58 09/10/18 13:00 09/10/18 14:00 Temperature 98.8 F Pulse Rate 77 73 Respiratory Rate 20 26 H 18 Blood Pressure 108/62 108/62 Pulse Oximetry 97 100 09/10/18 15:00 09/10/18 16:00 09/10/18 17:00 Temperature 98.6 F 98.7 F Pulse Rate 70 77 77 Respiratory Rate 17 24 17 Blood Pressure 110/62 111/70 123/76 Pulse Oximetry 100 100 100 09/10/18 18:00 09/10/18 18:01 09/10/18 18:18 Temperature Pulse Rate 81 82 77 Respiratory Rate 17 21 17 Blood Pressure 80/44 L 94/57 L Pulse Oximetry 100 100 79 L 09/10/18 19:00 09/10/18 20:00 09/10/18 21:00 Temperature 99 F Pulse Rate 74 70 73 Respiratory Rate 18 15 20 Blood Pressure 119/77 125/81 116/66 Pulse Oximetry 97 99 100 09/10/18 22:00 09/10/18 23:00 09/11/18 00:00 Temperature 98 F Pulse Rate 70 72 71 Respiratory Rate 17 18 18 Blood Pressure 121/77 125/73 115/62 Pulse Oximetry 98 100 99 09/11/18 01:00 09/11/18 02:00 09/11/18 03:00 Temperature Pulse Rate 79 81 81 Respiratory Rate 19 18 18 Blood Pressure 128/71 128/78 130/71 Pulse Oximetry 98 96 98 09/11/18 04:00 09/11/18 06:00 09/11/18 08:33 Temperature 98.4 F Pulse Rate 72 71 75 Respiratory Rate 17 Blood Pressure 121/73 Pulse Oximetry 96 Intake & Output 09/10/18 09/11/18 09/11/18 18:59 06:59 18:59 Intake Total 825 / 825 500 / 500 Output Total 525 / 525 350 / 350 Balance 300 / 300 150 / 150 Weight 150 kg Intake: IV 125 / 125 260 / 260 Potassium Phosphate Inj 30 MMOL 260 / 260 In NS Inj 250 ML @ 43.333 mls/ hr IV.SIG ONCE ONE Rx#:[id number] Oral 700 / 700 240 / 240 Output: Urine 525 / 525 350 / 350 Other: # Incontinent Voids 1 Date of Last Bowel Movement 09/09/18 09/09/18 10/07/18 # Bowel Movements 0 - Constitutional no acute distress - Routine HEENT Exam Head: Present: normocephalic Eye: Present: EOMI ENT: Present: mucous membranes moist - Routine Neck Exam Absent: JVD - Routine Respiratory Exam Present: CTA bilaterally - Routine Cardiovascular Exam Present: RRR. Absent: murmur - Routine Abdominal Exam Present: soft - Routine Extremities Exam Absent: edema Results 09/11/18 05:46 09/11/18 05:46 Cardiac Enzymes 09/09/18 09/09/18 09/09/18 Range/Units 10:12 10:12 13:21 AST 15 (15-37) U/L Troponin I Less than 0.02 L 0.12 H (0.02-0.05) ng/mL B-Natriuretic Peptide 303 H (0-100) pg/mL 09/10/18 09/10/18 09/11/18 Range/Units 03:58 03:59 05:46 AST 16 12 L (15-37) U/L Troponin I 0.40 H 0.11 H (0.02-0.05) ng/mL B-Natriuretic Peptide (0-100) pg/mL Coagulation 09/09/18 09/09/18 09/10/18 Range/Units 10:12 10:12 03:59 PT 11.6 11.8 H (9.8-11.6) sec APTT 34.3 H 33.8 H (23.4-31.7) sec B-Natriuretic Peptide 303 H (0-100) pg/mL CBC 09/09/18 09/10/18 09/11/18 Range/Units 10:12 03:59 05:46 WBC 5.3 4.5 3.9 L (4.0-11.0) th/mm3 RBC 3.86 L 3.61 L 3.26 L (4.50-5.90) mil/mm3 Hgb 10.0 L 9.2 L 8.5 L (13.0-17.0) gm/dL Hct 31.6 L 29.5 L 26.9 L (39.0-51.0) % Plt Count 274 298 293 (150-450) th/mm3 Neut # (Auto) 3.3 2.7 2.2 (1.8-7.7) th/mm3 Lymph # (Auto) 1.3 1.2 1.0 (1.0-4.8) th/mm3 [place] # (Auto) 0.5 0.4 0.4 (0.0-0.9) th/mm3 Eos # (Auto) 0.2 0.2 0.2 (0.0-0.4) th/mm3 Baso # (Auto) 0.0 0.0 0.0 (0.0-0.2) th/mm3 Comprehensive Metabolic Panel 09/09/18 09/09/18 09/10/18 Range/Units 10:12 20:00 03:58 Sodium 138 139 (136-145) meq/L Potassium 3.0 L 3.6 3.5 (3.5-5.1) meq/L Chloride 101 106 (98-107) meq/L Carbon Dioxide 22.5 23.7 (21.0-32.0) meq/L BUN 8 11 (7-18) mg/dL Creatinine 1.50 H 1.49 H (0.60-1.30) mg/dL Calcium 7.5 L 7.9 L (8.5-10.1) mg/dL AST 15 16 (15-37) U/L ALT 9 L 12 (12-78) U/L Alkaline Phosphatase 104 100 (45-117) U/L Total Protein 7.0 6.8 (6.4-8.2) g/dL Albumin 3.0 L 2.8 L (3.4-5.0) g/dL 09/11/18 Range/Units 05:46 Sodium 140 (136-145) meq/L Potassium 3.8 (3.5-5.1) meq/L Chloride 107 (98-107) meq/L Carbon Dioxide 23.7 (21.0-32.0) meq/L BUN 11 (7-18) mg/dL Creatinine 1.26 (0.60-1.30) mg/dL Calcium 7.8 L (8.5-10.1) mg/dL AST 12 L (15-37) U/L ALT 12 (12-78) U/L Alkaline Phosphatase 92 (45-117) U/L Total Protein 6.3 L (6.4-8.2) g/dL Albumin 2.7 L (3.4-5.0) g/dL Intake and Output 09/10/18 09/11/18 09/11/18 22:59 06:59 14:59 Intake Total 960 / 960 240 / 240 Output Total 525 / 525 350 / 350 Balance 435 / 435 -110 / -110 Intake: IV 260 / 260 Potassium Phosphate Inj 30 MMOL 260 / 260 In NS Inj 250 ML @ 43.333 mls/ hr IV.SIG ONCE ONE Rx#:[id number] Oral 700 / 700 240 / 240 Output: Urine 525 / 525 350 / 350 Other: # Incontinent Voids 1 Date of Last Bowel Movement 09/09/18 09/09/18 10/07/18 # Bowel Movements 0 Weight 150 kg - Imaging and Cardiology Imaging: Impressions Chest X-Ray 09/09/18 10:05 CONCLUSION: Pacemaker with moderate compensated cardiomegaly Minimal parenchymal changes left base. Assessment and Plan - Assessment (1) NICM (nonischemic cardiomyopathy) Code(s): I42.8 - Other cardiomyopathies Status: Acute Plan: on bb/entresto; icd in place; pt states he had a cath 2 years ago showing no CAD (2) Atrial fibrillation with RVR Code(s): I48.91 - Unspecified atrial fibrillation Status: Acute Plan: On eliquis; improved rates today - Plan Ok to tx to floor from cardiac standpoint
[2018-09-12] MEDS: Insulin NovoLOG Aspart Correctional Sugar Inj SQ SCH ×3 (01:13→14:11)
[2018-09-12] MEDS: Chlorhexidine Gluconate 2% 1 Pack (2 Cloths) TOPICAL SCH (04:37)
[2018-09-12 07:54] VITALS: RESP 20
[2018-09-12] MEDS: dilTIAZem CD 240 MG Capsule PO SCH ×2 (08:48→08:58)
[2018-09-12] MEDS: Divalproex 500 MG ER Tablet PO SCH (08:50)
[2018-09-12] MEDS: QUEtiapine 100 MG Tablet PO SCH (08:50)
[2018-09-12] MEDS: Senna/Docusate Sodium 8.6/50 MG Tablet PO SCH (08:55)
[2018-09-12] MEDS: Metoprolol Tartrate 25 MG Tablet PO SCH (08:59)
[2018-09-12] MEDS: Pantoprazole Inj 40 MG Vial IV.PUSH SCH (08:59)
[2018-09-12] MEDS: Spironolactone 25 MG Tablet PO SCH (08:59)
[2018-09-12 09:21] LABS: Hematocrit 28.5 % (39.0-51.0); Mean Corpuscular HGB Conc 31.6 % (32.0-36.0); Mean Corpuscular Hemoglobin 25.8 pg (27.0-34.0); Mean Corpuscular Volume 81.5 fL (80.0-100.0); Platelet Count 319 th/mm3 (150-450); Red Cell Distribution Width 20.7 % (11.6-17.2); White Blood Count 3.9 th/mm3 (4.0-11.0)
[2018-09-12 09:43] LABS: Albumin 2.7 g/dL (3.4-5.0); Anion Gap 9 meq/L (5-15); Aspartate Aminotransferase 10 U/L (15-37); Blood Urea Nitrogen 11 mg/dL (7-18); Calcium 7.9 mg/dL (8.5-10.1); Carbon Dioxide 24.6 meq/L (21.0-32.0); Chloride 105 meq/L (98-107); Glomerular Filtration Rate 53 mL/min (>89); Glucose,Random 105 mg/dL (74-106); Potassium 3.9 meq/L (3.5-5.1); Sodium 139 meq/L (136-145)
[2018-09-12 09:46] LABS: Alanine Aminotransferase 14 U/L (12-78); Alkaline Phosphatase 98 U/L (45-117); Total Protein 6.5 g/dL (6.4-8.2)
--- NOTE | 2018-09-12 09:48 | P.DCO ---
Diagnosis (1) Atrial fibrillation with RVR: Status: Acute (2) NICM (nonischemic cardiomyopathy): Status: Chronic Physical Therapy Order: Evaluate and treat Home Health Nursing Order: Medical education, CHF education and Nursing assessment with vital signs Case Management Consult Case Management Consult-Home Health: Yes I have seen patient Cecilio Varela on 09/12/18. My clinical findings support the need for the requested home health care services because: Limited mobility due to disease progression I certify that my clinical findings support that this patient is homebound because: Poor cardiac reserve
[2018-09-12 11:02] VITALS: O2SAT 98
[2018-09-12] MEDS ORDERED: Ciprofloxacin 250 MG Tablet PO SCH (12:30)
[2018-09-12 12:35] VITALS: BP 161/90; PULSE 70; TEMP 97.7
--- NOTE | 2018-09-12 14:01 | P.PNIM ---
Subjective Interval history: Reports no shortness of breath. May have some wheeze overnight. Using BiPAP at night. No complaint of chest pain or shortness of breath. States that his costumer assistant is Dr. Frias and will follow up with him as an outpatient. Physical Exam Vital signs: Vital Signs 09/11/18 14:00 09/11/18 15:15 09/11/18 15:18 Temperature Pulse Rate 74 81 71 Respiratory Rate Blood Pressure Pulse Oximetry 09/11/18 16:00 09/11/18 20:00 09/12/18 04:00 Temperature 98.7 F 97.5 F L 96.1 F L Pulse Rate 71 71 74 Respiratory Rate 14 24 20 Blood Pressure 122/86 113/57 L 137/79 Pulse Oximetry 98 100 100 09/12/18 07:00 09/12/18 07:50 09/12/18 10:32 Temperature 96.9 F L Pulse Rate 80 84 69 Respiratory Rate 20 Blood Pressure 160/86 H Pulse Oximetry 98 09/12/18 11:20 Temperature 97.7 F Pulse Rate 70 Respiratory Rate 20 Blood Pressure 161/90 H Pulse Oximetry 98 Intake & Output 09/11/18 09/12/18 09/12/18 18:59 06:59 18:59 Intake Total 350 / 350 222 / 222 Output Total 450 / 450 Balance -100 / -100 222 / 222 Intake: Oral 350 / 350 222 / 222 Output: Urine 450 / 450 Other: # Voids 1 3 Date of Last Bowel Movement 09/10/18 09/12/18 09/12/18 # Bowel Movements 0 1 Narrative: GEN: Well-developed, well-nourished obese male patient. No acute distress. CV: Irregular rate and rhythm LUNGS: Few expiratory wheeze bilateral bases f GI: Soft, nontender, nondistended. Normal active bowel sounds EXT: Trace to 1+ edema NEURO/PSYCH: Afocal. Awake, alert, and oriented x3. Was all 4 extremities Results Labs CBC & Chem 7: 09/12/18 08:31 09/12/18 08:31 Labs: Microbiology 09/09/18 14:27 Clean Catch Urine Urine Culture - Final Enterococcus faecalis Assessment and Plan (1) Atrial fibrillation with RVR: Code(s): I48.91 - Unspecified atrial fibrillation Status: Acute (2) NICM (nonischemic cardiomyopathy): Code(s): I42.8 - Other cardiomyopathies Status: Chronic Plan 62-year-old male with past medical history significant for atrial fibrillation, chronic systolic congestive heart failure, known ischemic cardiomyopathy, anxiety, depression, hypertension, dyslipidemia, BPH admitted for firing of defibrillator and having A. fib with RVR A. fib with RVR-now rate controlled Patient currently on metoprolol 75 mg in the morning and 50 mg at night, Cardizem CD, Eliquis Status post cardiology evaluation and cleared for discharge Chronic systolic congestive heart failurenot in acute exacerbation Resume Aldactone Bumex Continue Entresto Chronic kidney disease stage IIIstable on diuretics, avoid nephrotoxins. Morbid obesityweight loss counseling BPHresume Flomax Obstructive sleep apneaBiPAP at night Suspect reactive airway disease, albuterol as needed for any wheeze Discharge patient to home today with outpatient follow-up Progress Note: Quality VTE Deep Vein Thrombosis/Pulmonary Embolism Present on Admission: No
--- NOTE | 2018-09-12 14:08 | P.DS ---
DS: Providers Date of admission: 09/09/18 12:33 Primary care physician: Maricarmen Guerin Consults: 09/09/18 13:43 Consult to Cardiology Routine Consulting Provider: Junior Cordero Does the patient have a Chartered Accountant who follows them?: No Preferred Drapery Cutter:: Aminata Solorzano Reason for Consultation: Per Dr. Cordero consult . A. fib with RVR. AICD has fired 14 times. Assist with management. Notified:: Office Spoke with:: SELENE Date Notified:: 09/09/18 Time Notified:: 14:02 Comments:: DR. SOLORZANO IS NOT ON TODAY, PER OFFICE Ordering Provider: AVELINO 09/10/18 08:30 Consult to Hospitalist Routine Consulting Provider: Xavier Lacey Reason for Consultation: [place] of care in a.m. 09/11. Admission with A. fib with RVR with defibrillation. Followed by Dr. Cordero. Notified:: Service Spoke with:: raghavendra Date Notified:: 09/10/18 Time Notified:: 08:37 Comments:: waiting live ammunition inspector back Ordering Provider: AVELINO Brief History from admission: This is a 62-year-old male. Admission 09/09/2018. Past medical history includes depression/anxiety, essential hypertension, hyperlipidemia, BPH, chronic systolic heart failure. He states his last ejection was 25%. Last documented ejection fraction 50% with mild TR and a PA P of 35 mmHg on 10/03 by echocardiogram. Patient presents to [facility] after multiple episodes of his defibrillator firing since 3 AM. He states he has had 14 different episodes. He did take his morning medicines which include diltiazem 240 mg daily and sacu/valsartan. Initial troponin was 0.02. He received 20 mg IV diltiazem in route he was transferred to [facility] for further evaluation treatment. He received an additional 20 mg IV diltiazem here. Dr. Cordero/cardiology was called. Recommended IV 0.5 mg dose of digoxin. He was initially 150s currently about 100-120. His blood pressure however dropped. Received 1 L normal saline. Due to his thought that the EF was 25-30% recommended no more IV fluids. Dr. Cordero recommended consulting EP cardiology which the ED physician stated that Dr. Cordero would notify Dr. Solorzano. Counseled in place Currently, if necessary will start on low-dose phenylephrine drip temporarily if hypotension secondary to medication. I will place central line if indicated. Patient is currently resting in bed. Denies chest pain, shortness of breath or abdominal pain.. Currently receiving oral and IV potassium chloride and magnesium. DS: Diagnosis Discharge Diagnosis (1) Atrial fibrillation with RVR: Status: Resolved Diagnosis: Principal (2) NICM (nonischemic cardiomyopathy): Status: Chronic Diagnosis: Secondary (3) Chronic systolic (congestive) heart failure: Status: Chronic Diagnosis: Secondary (4) Morbid obesity: Status: Chronic Diagnosis: Secondary (5) CKD stage G3b/A3, GFR 30-44 and albumin creatinine ratio >300 mg/g: Status: Chronic Diagnosis: Secondary (6) Enterococcus UTI: Status: Acute DS: Summary 63-year-old white male with a history of nonischemic cardiomyopathy, chronic systolic congestive heart failure, morbid obesity, chronic kidney disease stage IV admitted for defibrillator firing and having atrial fibrillation with rapid ventricular rate. IV digoxin was given and metoprolol was started. He was seen by Dr. Cordero, cardiology who assisted with the care. He was initially placed in intensive care unit due to borderline hypotension with his atrial fibrillation with rapid ventricular rate. He did not have any further firing from his defibrillator during the hospitalization. He was later transition out of the intensive care unit with controlled heart rate. He was found to have a enterococcus urinary tract infection of which Cipro was started. At this time, patient was transitioned home with prescriptions for oral Cardizem, metoprolol, Cipro with follow-up with his policy change clerk Dr. Solorzano and with his primary care physician. Time Spent with Patient Total time spent providing and/or coordinating discharge services: Less than 30 minutes Quality: VTE Deep Vein Thrombosis/Pulmonary Embolism Present on Admission: No Results Labs on day of discharge: Labs from last 24 hours 09/12/18 09/12/18 09/12/18 08:31 08:31 05:04 WBC 3.9 L RBC 3.50 L Hgb 9.0 L Hct 28.5 L MCV 81.5 MCH 25.8 L MCHC 31.6 L RDW 20.7 H Plt Count 319 MPV 7.0 Sodium 139 Potassium 3.9 Chloride 105 Carbon Dioxide 24.6 Anion Gap 9 BUN 11 Creatinine 1.36 H Estimated GFR 53 L POC Glucose 123 H Random Glucose 105 Calcium 7.9 L Total Bilirubin 0.4 AST 10 L ALT 14 Alkaline Phosphatase 98 Total Protein 6.5 Albumin 2.7 L 09/11/18 09/11/18 23:43 17:14 WBC RBC Hgb Hct MCV MCH MCHC RDW Plt Count MPV Sodium Potassium Chloride Carbon Dioxide Anion Gap BUN Creatinine Estimated GFR POC Glucose 116 H 181 H Random Glucose Calcium Total Bilirubin AST ALT Alkaline Phosphatase Total Protein Albumin Impressions ITS Impressions Chest X-Ray 09/09/18 10:05 CONCLUSION: Pacemaker with moderate compensated cardiomegaly Minimal parenchymal changes left base. Discharge Plan Discharge Disposition Patient Disposition: W/Home Health Service Discharge Condition Condition: Good Discharge Order Discharge Orders: Discharge Order (Routine); Ordered 09/12/18 Ordered By: Rony Preston Discharge Details Anticipated Discharge Date: 09/12/18 Physicians Team ED Provider: Ross Hensley Attending Provider: Rony Preston Other Providers: Junior Cordero Rxs /Orders / Referrals /Forms Prescriptions: New metoprolol tartrate [Lopressor] 50 mg tablet 75 mg PO DAILY Qty: 45 RF: 0 metoprolol tartrate [Lopressor] 50 mg tablet 50 mg PO HS Qty: 30 RF: 0 albuterol sulfate 90 mcg/actuation HFA aerosol inhaler 2 inh INHALATION Q4-6H PRN (Reason: shortness of breath or wheezing) Qty: 8 RF: 0 ciprofloxacin HCl 250 mg Tablet 250 mg PO Q12HR Qty: 10 RF: 0 Continue quetiapine 100 mg Tablet 100 mg PO DAILY RF: 0 spironolactone 25 mg Tablet 25 mg PO DAILY RF: 0 tamsulosin 0.4 mg Capsule 0.4 mg PO DAILY RF: 0 divalproex 500 mg Tablet Extended Release 24 Hr 500 mg PO BID RF: 0 bumetanide 1 mg Tablet 2 mg PO DAILY RF: 0 bumetanide 1 mg Tablet 1 mg PO HS RF: 0 duloxetine 30 mg Capsule,Delayed Release(Dr/Ec) 30 mg PO BID RF: 0 apixaban [Eliquis] 5 mg Tablet 5 mg PO BID RF: 0 sacubitril-valsartan [Entresto] 49-51 mg Tablet 1 tab PO BID RF: 0 diltiazem HCl 240 mg Capsule,Extended Release 24 Hr 240 mg PO DAILY Qty: 30 RF: 0 Ambulatory Orders / Order Sets / DME: Walker With Front Wheels (1 each) (Routine) Location: Determined by Patient Ordered By: Rony Preston Referrals: Maricarmen Guerin [Other] - See Instructions Aminata Solorzano MD [Physician] - See Instructions ( Please call the physician' s office to book the appointment to be seen within [].) Discharge Instructions Patient Printed Instructions: Cardiac Ablation (IP) Post Discharge Care Plan Care Plan Goals: Your Health Problems: atrial fibrilliation Goals to Promote Your Health: * To prevent worsening of your condition * To maintain your health at the optimal level Directions to Meet Your Goals: * Take your medications as prescribed * Follow your dietary instruction * Follow activity as directed * Keep your appointments as scheduled * Take your immunizations and boosters as scheduled * If your symptoms worsen call your PCP * If no PCP go to Urgent Care or Emergency Room Smoking is dangerous to your health. Avoid second hand smoke. You may reach the 24-hour crisis hotline for domestic abuse at . Status ED Status: Left Department
== END 2018-09-12 02:15 | disposition home health service (06) | DRG 309 ==
LOC: NEPE 09:52 → NEDA 12:33 → HIMC 15:20 → H7ONC 09-11 14:47
PROVIDERS: ADMIT Family Medicine; ATTEND Family Medicine
DX: D64.9 Anemia, unspecified; E83.39 Other disorders of phosphorus metabolism; B95.2 Enterococcus as the cause of diseases classified elsewhere; I48.2 Chronic atrial fibrillation; I50.22 Chronic systolic (congestive) heart failure; G47.33 Obstructive sleep apnea (adult) (pediatric); F90.9 Attention-deficit hyperactivity disorder, unspecified type; Z95.810 Presence of automatic (implantable) cardiac defibrillator; E66.01 Morbid (severe) obesity due to excess calories; N40.0 Benign prostatic hyperplasia without lower urinary tract symptoms; Z91.14 Patient's other noncompliance with medication regimen; N39.0 Urinary tract infection, site not specified; R94.6 Abnormal results of thyroid function studies; Z79.01 Long term (current) use of anticoagulants; E11.22 Type 2 diabetes mellitus with diabetic chronic kidney disease; Z98.84 Bariatric surgery status; Z68.42 Body mass index [BMI] 45.0-49.9, adult; N17.9 Acute kidney failure, unspecified; I95.9 Hypotension, unspecified; F32.9 Major depressive disorder, single episode, unspecified; F10.10 Alcohol abuse, uncomplicated; N18.4 Chronic kidney disease, stage 4 (severe); D69.6 Thrombocytopenia, unspecified; E78.5 Hyperlipidemia, unspecified; R74.8 Abnormal levels of other serum enzymes; F41.9 Anxiety disorder, unspecified; E87.6 Hypokalemia; I42.9 Cardiomyopathy, unspecified; E88.09 Other disorders of plasma-protein metabolism, not elsewhere classified; J45.909 Unspecified asthma, uncomplicated; I13.0 Hypertensive heart and chronic kidney disease with heart failure and stage 1 through stage 4 chronic kidney disease, or unspecified chronic kidney disease
CPT/HCPCS: 71010; 71045; 80053; 81001; 82550; 82948; 82962; 83520; 83605; 83735; 83880; 84100; 84132; 84439; 84443; 84480; 84484; 85025; 85027; 85610; 85730; 87077; 87086; 87186; 87641; 90774; 90784; 93005; 93306; 94150; 96374; 97161; 97530; 99285; C8952; C9113; J1160; J1815; J3475; J3480; J7030; J7050